=== PATIENT | male | born 1990 | race Caucasian/White ===

== ENCOUNTER 2022-12-20 14:24 | Emergency (ER) | payer MEDICAID, SELFPAY ==
[2022-12-20 14:36] VITALS: BP 143/96; PULSE 100; RESP 16; TEMP 36.6; O2SAT 95
--- NOTE | 2022-12-20 14:40 | XR_ITS ---
[facility] [id number] Patient Name: MILA PEREZ MRN: [id number] date: 1990 Sex: M Assigned Patient Location: ER Current Patient Location: ER Accession/Order Number: [id number] Exam Date: 12/20/2022 14:50 Report Date: 12/20/2022 15:15 At the request of: GUSTAVO SMALL Procedure: XR toe LT min 2V EXAM: XR toe LT min 2V HISTORY: pain in L great toe COMPARISON: None. TECHNIQUE: 2 views left great toe. FINDINGS: Comminuted left great toe distal phalanx fracture. Intra-articular but nondisplaced at the IP joint and additional comminution and minimal displacement at the junction of base and shaft. Mild overlying edema. The remainder of the left great toe is intact except for minimal degenerative change great toe MTP joint. IMPRESSION: Acute comminuted intra-articular fracture left great toe distal phalanx. Electronically authenticated by: MILA ENRIQUE Date: 12/20/2022 15:15
--- NOTE | 2022-12-20 14:45 | ED.LOWEXI1 ---
HPI - Extremity Injury (Lower) General Chief Complaint: Extremity Injury, Lower Stated Complaint: POSSIBLE BROKEN TOE Time Seen by Provider: 12/20/22 14:45 Source: patient Mode of arrival: Wheelchair History of Present Illness HPI Narrative: patient's here for an injury to his left great toe. He was walking at home and hit the broad frame. He did not fall. Has no injury to his ankle or the rest of his lower extremity. An isolated injury and he was sent to x-ray after being triaged by the nursing staff problem focused examination as noted below Related Data Allergies Allergy/AdvReac Type Severity Reaction Status Date / Time No Known Drug Allergies Allergy Verified 12/20/22 14:36 Exam Constitutional Vital Signs - 24 hr 12/20/22 14:36 Temperature 97.9 F Pulse Rate [Monitor] 100 H Respiratory Rate 16 Blood Pressure [Left Arm] 143/96 H Pulse Oximetry 95 Extremity Common normals: normal to inspection Other: has a very small developing hematoma underneath the nail was left great toe. Otherwise no open wound or injury. The plantar surface the great toe does not show a tense hematoma. There is no deformity. The rest the foot and digits is normal. X-rays are pending Course Vital Signs Vital signs: Vital Signs Temperature 97.9 F 12/20/22 14:36 Pulse Rate 100 H 12/20/22 14:36 Respiratory Rate 16 12/20/22 14:36 Blood Pressure 143/96 H 12/20/22 14:36 Pulse Oximetry 95 12/20/22 14:36 Temperature 97.9 F 12/20/22 14:36 Pulse Rate 100 H 12/20/22 14:36 Respiratory Rate 16 12/20/22 14:36 Blood Pressure 143/96 H 12/20/22 14:36 Pulse Oximetry 95 12/20/22 14:36 MDM - Extremity Injury (Lower) MDM Narrative Medical decision making narrative: x-rays were reviewed by myself and does show a slightly displaced fracture of the distal phalanx. This was discussed with the patient. We'll place him in a postop shoe ice elevation and following up with his local podiatry physician Discharge Plan Discharge Chief Complaint: Extremity Injury, Lower Clinical Impression: Closed fracture of distal phalanx of great toe Patient Disposition: Home, Self-Care Time of Disposition Decision: 15:16 Instructions: Toe Fracture (ED), P.R.I.C.E. Treatment (ED) Stand Alone Forms: Portal Instructions Referrals: Physician,Non-Staff, MD [Primary Care Provider] - 1 week Discharge Date/Time: 12/20/22 16:11
--- NOTE | 2022-12-20 15:36 | PC.NURSE ---
LISA wrap and post op shoe applied at this time
== END 2022-12-20 16:11 | disposition home or self-care (01) ==
PROVIDERS: Emergency Provider Emergency Medicine Emergency Medical Services
DX: S92.422A Displaced fracture of distal phalanx of left great toe, initial encounter for closed fracture (principal); W22.03XA Walked into furniture, initial encounter
CPT/HCPCS: 73660; 99283

== ENCOUNTER 2023-05-08 08:16 | Outpatient (OUT) | payer MEDICAID, SELFPAY ==
--- NOTE | 2023-05-08 | PCN_ITS ---
CARDIAC STRESS TEST Requesting Physician:? Procedure Date:? 05/08/2023 This was a Lexiscan stress test with myocardial perfusion imaging, performed at the [facility], on 05/08/2023.? Informed consent was obtained.? Intravenous line was secured and the patient was attached to electrocardiographic monitoring. ??The test was started as a treadmill exercise stress, and the patient initially exercised on the treadmill ; however, due to back pain, the patient could not continue treadmill exercise test, and the test was switched to Lexiscan.? Lexiscan 0.4 mg was infused intravenously.? The patient then went on to obtain myocardial perfusion images.? Resting heart rate was 96 BPM and peak heart rate was 157 BPM, representing, 84% of maximal predicted heart rate.? Resting blood pressure was 126/94 and peak blood pressure was 162/84.? Resting ECG showed sinus rhythm with no ischemic changes.? ECG during treadmill exercise did not show ischemic changes. ?There was evidence of sinus tachycardia.? ECG following infusion of Lexiscan showed sinus rhythm with occasional PVCs, but no ischemic changes.? SUMMARY OF THE FINDINGS:? 1.? No evidence of ischemic ECG changes following infusion of Lexiscan. 2.? Myocardial perfusion images will be reported separately. JOHND
--- NOTE | 2023-05-08 08:20 | NM_ITS ---
Patient: MILA PEREZ Exam Date: 05/08/2023 : 1990 Gender:M Ordering : DR BENITA RASHID M.D. Admission #: [id number] Family : Non-Staff Physician Order #: [id number] CLICK HERE TO VIEW EXAM RADIOLOGY REPORT PROCEDURE: NM SUNDEEP PERF SPECT REST STR COMPARISON: None. INDICATIONS: SHORTNESS OF BREATH TECHNIQUE: Exam Description: Stress/Rest one day protocol gated SPECT Rest Imagin.8 mCi Tc-99m Cardiolite IV on 05/08/2023 Stress Imaging 29.8 mCi Tc-99m Cardiolite IV on 05/08/2023 Exercise Protocol: 0.4 mg Lexiscan given IV Heart Rate (bpm): Rest: 96 Max: 157 PMHR: 84 Blood Pressure: Rest: 126/94 Max: 162/84 Symptoms: Rest and peak stress ECG findings were pending and the exercise portion of the study was pending per attending physician Dr. Barnhart due to the stress report is unavailable at this time. For more details please see separate cardiac stress test report. FINDINGS: QUALITY OF STUDY: Good. PERFUSION DEFECT: None. LOCATION: N/A SIZE: N/A. SEVERITY: N/A. TYPE: N/A. WALL MOTION: Normal. LV SIZE: Normal. 83 mL. TID / TCD: None; 0.8 LVEF: Normal. Calculated EF 68%. SUMMARY: Myocardial perfusion imaging study is NORMAL. CONCLUSION: 1. Normal myocardial perfusion scan with no reversible ischemia 2. Pending exercise test results Dictated by: David Tristan MD on 05/11/2023 at 08:48 Approved by: David Tristan MD on 05/11/2023 at 08:50
--- NOTE | 2023-05-08 08:54 | CA_ITS ---
Patient: MILA PEREZ Exam Date: 05/08/2023 : 1990 Gender:M Ordering : DR BENITA KRISHNAMURTHY M.D. Admission #: [id number] Family : Order #: [id number] CLICK HERE TO VIEW EXAM ECHOCARDIOGRAM REPOR PROCEDURE: CA ECHO DOPPLER COMPLETE INDICATIONS: PALPITATIONS COMPARISON: None. DESCRIPTION: COMPLETE ECHOCARDIOGRAM Real-time transthoracic echocardiography with 2D, M-mode, spectral and color flow Doppler performed. QUALITY: Technical quality was good. LEFT VENTRICLE: Normal chamber size. Normal left ventricular wall thickness. LV EF: Global left ventricular systolic function is hyperdynamic; visually estimated ejection fraction 65 to 70%. No wall motion abnormalities. DIASTOLIC: Normal diastolic function. ATRIAL SEPTUM: Visually appears intact. LEFT ATRIUM: Normal chamber size. RIGHT ATRIUM: Normal chamber size. RIGHT VENTRICLE: Normal chamber size. Normal right ventricular systolic function. TRICUSPID VALVE: Normal mobility and thickness. No stenosis with no regurgitation. MITRAL VALVE: Normal mobility and thickness. No evidence of mitral valve stenosis. There is no mitral annular calcification. No mitral regurgitation. AORTIC VALVE: Normal trileaflet appearance. No visible sclerosis. Normal leaflet mobility. No evidence of aortic valve stenosis. No aortic regurgitation. AORTIC ROOT: Normal diameter and appearance. PULMONIC VALVE: Normal thickness and mobility. No stenosis. Trivial regurgitation. PERICARDIUM: Trivial pericardial effusion. IVC: Collapses with inspirations. CONCLUSION: 1. Global left ventricular systolic function is hyperdynamic; visually estimated ejection fraction is 65-70% 2. The right ventricle is normal in size and systolic function 3. Normal diastolic function 4. No significant valvular abnormalities 5. Trivial pericardial effusion Adult Echocardiography Procedure Report Left Ventricle LVEDD (3.7 - 5.6 cm): 4.75 cm LVESD (2.2 - 4.0 cm): 2.23 cm LVIVS thickness (0.6 - 1.2 cm): 1.19 cm LVPW thickness (0.5 - 1.0 cm): 0.79 cm e': 0.10 m/s E - e': 6.53 LVOT Max Gradient: 3.75 mm[Hg] LVOT Area (cm2): 0.97 m/s Peak Velocity (LVOT): 0.97 m/s LVOT Diameter 2.37 cm Left Atrium LA Volume Index (2D A2C): 16.83 ml/m2 Left Atrium Systolic Dimension: 3.45 cm Mitral Valve MV E to A Ratio: 0.91 Mitral Valve A-Wave Peak Velocity: 0.72 m/s Mitral Valve E-Wave Peak Velocity: 0.66 m/s Right Ventricle Aorta AO Root Diam: 3.83 cm Ascending Ao Diam: 2.74 cm Aortic Valve AoV Area (Peak Mannie): 5.57 cm2, 5.57 cm2 Peak Velocity(Antegrade Flow): 0.77 m/s Peak Gradient(Antegrade Flow): 2.37 mm[Hg] Tricuspid Valve Pulmonic Valve Mean Gradient: 2.92 mm[Hg] Mean Velocity: 0.80 m/s Peak Velocity: 1.13 m/s, 1.00 m/s Peak Gradient: 5.08 mm[Hg], 3.96 mm[Hg] Right Atrium Right Atrium Systolic Pressure: 36.57 ml, 36.57 ml Dictated by: Benita Krishnamurthy M.D. on 05/08/2023 at 14:57 Approved by: Benita Krishnamurthy M.D. on 05/08/2023 at 15:01
[2023-05-08] MEDS: REGADENOSON 0.4 MG/5 ML SYRINGE IV (10:05)
== END 2023-05-08 08:17 | disposition home or self-care (01) ==
LOC: NM 08:16
PROVIDERS: Visit Provider Internal Medicine Interventional Cardiology
DX: R06.02 Shortness of breath (principal); R00.2 Palpitations
CPT/HCPCS: 78452; 93017; 93306; A9500; J2785

== ENCOUNTER 2023-05-16 22:35 | Emergency (ER) | payer MEDICAID, SELFPAY ==
[2023-05-16 22:38] VITALS: BP 148/94; PULSE 63; RESP 18; TEMP 36.4; O2SAT 96; BMI 31.2
--- NOTE | 2023-05-16 22:54 | ED_ITS ---
HPI - Male Genitourinary General Chief complaint: Urogenital-Male Stated complaint: back pain Time Seen by Provider: 05/16/23 22:42 Source: patient Mode of arrival: walk-in Limitations: no limitations History of Present Illness HPI Narrative: complains of backpain, abdominal pain and pain of his testes. States similar pain on and off for several months. States usually goes away. Known history of lumbar disc bulge from injury while in . No urinary symptoms or fever MD Complaint: Reports testicle pain Related Data Allergies Allergy/AdvReac Type Severity Reaction Status Date / Time No Known Drug Allergies Allergy Verified 12/20/22 14:36 Review of Systems ROS Status of ROS 10 or more systems reviewed and unremarkable except as noted in history and below Exam Constitutional Vital Signs, click to edit/add: Last Vital Signs Temp 97.6 F 05/16/23 22:38 Pulse 63 05/16/23 22:38 Resp 18 05/16/23 22:38 BP 148/94 H 05/16/23 22:38 Pulse Ox 96 05/16/23 22:38 O2 Del Method Room Air 05/16/23 22:38 Common normals: no apparent distress, average body habitus, oriented x3, no limitations, healthy appearing and alert Eye Common normals: EOMs intact bilaterally and conjunctivae normal Respiratory Common normals: normal respiratory effort, no retractions, no use of accessory muscles and clear to auscultation bilaterally Cardio Common normals: regular rate, regular rhythm, S1 normal heart sound and S2 normal heart sound GI Common normals: Normal to inspection, nondistended, normoactive bowel sounds present, soft to palpation and non-tender Common normals: no CVA tenderness Other: testes not swollen or tender. Normal color Extremity Common normals: normal to inspection and full ROM Neuro Common normals: oriented x3, CN's II-XII intact bilaterally, moves all extremities, no focal motor deficits and no sensory deficits noted Psych Appearance: grossly normal Course Vital Signs Vital signs: Vital Signs Temperature 97.6 F 05/16/23 22:38 Pulse Rate 63 05/16/23 22:38 Respiratory Rate 18 05/16/23 22:38 Blood Pressure 148/94 H 05/16/23 22:38 Pulse Oximetry 96 05/16/23 22:38 Oxygen Delivery Method Room Air 05/16/23 22:38 Temperature 97.6 F 05/16/23 22:38 Pulse Rate 63 05/16/23 22:38 Respiratory Rate 18 05/16/23 22:38 Blood Pressure 148/94 H 05/16/23 22:38 Pulse Oximetry 96 05/16/23 22:38 Oxygen Delivery Method Room Air 05/16/23 22:38 MDM - Male Genitourinary MDM Narrative Medical decision making narrative: patient presents complaining of pain of his back and testes. States similar pain in the past that would usually resolve after 10 minutes or so. Pain again tonight but this time there was pain of his back, mild abdominal pain and testes pain. No testicular injury. Exam finds testes not swollen or tender. CT abdomen and pelvis without acute findings. Mild tenderness of his lumbar spine. No focal tenderness. Labs with microscopic hematuria but no infection. Pain improved after cocktail or Toradol, solumedrol and magnesium. Atypical presentation but improved. Discharged with Toradol and advised to follow up with his doctor for recheck Lab Data Labs: Lab Results 05/16/23 05/16/23 Range/Units 22:44 23:05 WBC 9.9 (4.0-11.0) 10^3/uL RBC 5.64 (4.70-6.10) 10^6/uL Hgb 16.1 (14.0-18.0) g/dL Hct 48.4 (42.0-54.0) % MCV 85.8 (80.0-94.0) fL MCH 28.5 (25.9-34.0) pg MCHC 33.3 (29.9-35.2) g/dL RDW 11.9 (11.0-15.0) % Plt Count 201 (150-450) 10^3/uL MPV 9.2 L (9.5-13.5) fL Neut % (Auto) 61.6 (43.0-75.0) % Lymph % (Auto) 24.9 (20.5-60.0) % [place] % (Auto) 11.6 (1.7-12.0) % Eos % (Auto) 1.4 (0.9-7.0) % Baso % (Auto) 0.3 (0.2-2.0) % Neut # (Auto) 6.1 (1.4-6.5) 10^3/uL Lymph # (Auto) 2.5 (1.2-3.8) 10^3/uL [place] # (Auto) 1.2 H (0.3-0.8) 10^3/uL Eos # (Auto) 0.1 (0.0-0.7) 10^3/uL Baso # (Auto) 0.0 (0.0-0.1) 10^3/uL Abs Immat Gran (auto) 0.02 (0.00-0.03) 10^3/uL Imm/Tot Granulo (auto) 0.2 (0.0-0.5) % Sodium 137 (136-145) mmol/L Potassium 4.0 (3.5-5.1) mmol/L Chloride 101 (98-107) mmol/L Carbon Dioxide 28.9 (21.0-32.0) mmol/L Anion Gap 11.1 BUN 32.0 H (7.0-18.0) mg/dL Creatinine 1.07 (0.70-1.30) mg/dL Est GFR ( Amer) >60 (>=60) Est GFR (Non-Af Amer) >60 (>=60) BUN/Creatinine Ratio 29.9 Glucose 99 (74-106) mg/dL Calcium 8.9 (8.5-10.1) mg/dL Total Bilirubin 0.4 (0.2-1.0) mg/dL AST 16 (15-37) U/L ALT 23 (16-63) U/L Alkaline Phosphatase 86 (46-116) U/L Total Protein 7.5 (6.4-8.2) g/dL Albumin 3.6 (3.4-5.0) g/dL Globulin 3.9 g/dL Albumin/Globulin Ratio 0.9 Urine Color Lt. yellow (YELLOW) Urine Clarity Clear (CLEAR) Urine pH 6.0 (5.0-9.0) Ur Specific [place] 1.010 (1.005-1.025) Urine Protein Negative (NEG/TRACE) mg/dL Urine Glucose (UA) Negative (NEGATIVE) mg/dL Urine Ketones Negative (NEGATIVE) mg/dL Urine Occult Blood Moderate A (NEGATIVE) Urine Nitrite Negative (NEGATIVE) Urine Bilirubin Negative (NEGATIVE) Urine Urobilinogen 0.2 (0.2-1.0) EU/dL Ur Leukocyte Esterase Negative (NEGATIVE) Imaging Data Abdominal x-ray: Radiologist's impression: ANA MRN: [facility]:[id number] date: 1990 Sex: M Assigned Patient Location: ER Current Patient Location: ER Accession/Order Number: [id number] Exam Date: 05/16/2023 23:08 Report Date: 05/16/2023 23:55 At the request of: LACHELLE CANDELARIA Procedure: CT abdomen pelvis w con EXAM: CT abdomen pelvis w con HISTORY: abdominal and scrotal pain COMPARISON: 06/07/2022 TECHNIQUE: CT of the abdomen and pelvis with intravenous contrast. FINDINGS: TUBES AND IMPLANTS: None. LOWER CHEST: Unremarkable ABDOMEN and PELVIS ABDOMINAL WALL AND SOFT TISSUES: Small fat-containing umbilical hernia BONES: No suspicious lesions. Multilevel degenerative changes of the spine. ARTERIES: No aortoiliac aneurysm VEINS: Unremarkable. LYMPH NODES: Unremarkable. PERITONEUM/ RETROPERITONEUM: Unremarkable. BOWEL: No obstruction. Mild diverticulosis. APPENDIX: Not identified. LIVER: Enlarged measuring 20 centimeters with probable steatosis. Subcentimeter left lobe hypodensity, too small to characterize GALLBLADDER: Unremarkable. BILE DUCTS: Not dilated SPLEEN: Unremarkable. PANCREAS: Unremarkable. ADRENALS: Unremarkable. KIDNEYS/ URETERS: No stones or hydronephrosis. REPRODUCTIVE ORGANS: Unremarkable URINARY BLADDER: Mildly filled. Delayed imaging demonstrates contrast within the bladder CT/CT abdomen pelvis w con IMPRESSION: No evidence of acute abdominopelvic process. Hepatomegaly with probable steatosis. Mild diverticulosis. Electronically authenticated by: ANDRES NOBLES Date: 05/16/2023 23:55 Dictated By: Andres Nobles M.D. Signed By: 05/16/239 DD/ 54 TD/TT: Discharge Plan Discharge Chief Complaint: Urogenital-Male Clinical Impression: Back pain, Scrotal pain Patient Disposition: Home, Self-Care Condition: Good Mode of Transportation: Private Vehicle Instructions: Back Pain (ED), Scrotal Pain (ED) Additional Instructions: Script for Toradol sent home. May use with tylenol as needed for pain. Follow up with your doctor early next week for recheck. Return if pain increases Stand Alone Forms: Portal Instructions Referrals: Physician,Non-Staff, MD [Primary Care Provider] - 1 week
[2023-05-16 23:08] LABS: Basophils Percent Auto 0.3 % (0.2-2.0); Eosinophils Absolute Auto 0.1 10^3/uL (0.0-0.7); Eosinophils Percent Auto 1.4 % (0.9-7.0); Hematocrit 48.4 % (42.0-54.0); Hemoglobin 16.1 g/dL (14.0-18.0); Immature Granulocytes Abs Auto 0.02 10^3/uL (0.00-0.03); Immature Granulocytes Pct Auto 0.2 % (0.0-0.5); Lymphocytes Absolute Auto 2.5 10^3/uL (1.2-3.8); Lymphocytes Percent Auto 24.9 % (20.5-60.0); Mean Corpuscular HGB Conc 33.3 g/dL (29.9-35.2); Mean Corpuscular Hemoglobin 28.5 pg (25.9-34.0); Mean Corpuscular Volume 85.8 fL (80.0-94.0); Mean Platelet Volume 9.2 fL (9.5-13.5); Monocytes Absolute Auto 1.2 10^3/uL (0.3-0.8); Monocytes Percent Auto 11.6 % (1.7-12.0); Neutrophils Absolute Auto 6.1 10^3/uL (1.4-6.5); Neutrophils Percent Auto 61.6 % (43.0-75.0); Platelet Count 201 10^3/uL (150-450); Red Blood Count 5.64 10^6/uL (4.70-6.10); Red Cell Distribution Width 11.9 % (11.0-15.0); White Blood Count 9.9 10^3/uL (4.0-11.0)
[2023-05-16 23:16] LABS: Bilirubin Urine NEGATIVE (NEGATIVE); Blood Urine MODERATE (NEGATIVE); Clarity Urine CLEAR (CLEAR); Color Urine LT. YELLOW (YELLOW); Glucose Urine UA NEGATIVE (NEGATIVE); Ketones Urine NEGATIVE (NEGATIVE); Leukocyte Esterase Urine NEGATIVE (NEGATIVE); Nitrite Urine NEGATIVE (NEGATIVE); Protein Urine NEGATIVE (NEG/TRACE); Urine Microscopic Indicated NO; Urobilinogen Urine 0.2 EU/dL (0.2-1.0)
[2023-05-16] MEDS: 0.9 % SODIUM CHLORIDE 1,000 ML 999 ML IV (23:17)
[2023-05-16 23:20] LABS: Alanine Aminotransferase 23 U/L (16-63); Albumin Globulin Ratio 0.9; Albumin Level 3.6 g/dL (3.4-5.0); Alkaline Phosphatase 86 U/L (46-116); Anion Gap 11.1; Aspartate Amino Transferase 16 U/L (15-37); BUN Creatinine Ratio 29.9; Bilirubin Total 0.4 mg/dL (0.2-1.0); Calcium 8.9 mg/dL (8.5-10.1); Carbon Dioxide 28.9 mmol/L (21.0-32.0); Chloride 101 mmol/L (98-107); Estimated GFR (African America >60 (>=60); Estimated GFR (Non-African Ame >60 (>=60); Globulin 3.9 g/dL; Glucose 99 mg/dL (74-106); Sodium 137 mmol/L (136-145); Total Protein 7.5 g/dL (6.4-8.2)
[2023-05-16] MEDS: KETOROLAC TROMETHAMINE 30 MG/ML VIAL IVP (23:36)
[2023-05-17] MEDS: METHYLPREDNISOLONE SOD SUCC PF 125 MG/2 ML VIAL IVP (00:38)
[2023-05-17] MEDS: MAGNESIUM SULFATE IN WATER 2 GM/50 ML PREMIX IV (00:39)
== END 2023-05-17 01:59 | disposition home or self-care (01) ==
PROVIDERS: Emergency Provider Internal Medicine
DX: N50.82 Scrotal pain (principal); M54.9 Dorsalgia, unspecified
CPT/HCPCS: 36415; 74177; 80053; 81003; 85025; 96365; 96375; 99284; J2930; Q9967

== ENCOUNTER 2023-08-18 14:37 | Outpatient (OUT) | payer MEDICAID, SELFPAY ==
--- OUTSIDE RECORDS SUMMARY | 2023-08-18 14:53 | XMS_ITS | CCD ---
Author Name Unknown Address [address] [facility] [id number] [place] [address] Organization [facility] Care Team Providers Care Margarine Churn Operator Name Role Phone Dariana Nelson Unavailable CheriChristi griffin Unavailable MAYTE, DR GRIFFITHS Attending Unavailable MISC, DR ROE Primary Care Unavailable TORY, DR FARIDA Gage Consulting Unavailable MAYTE, DR GRIFFITHS Admitting Unavailable MAYTE, DR GRIFFITHS Consulting Unavailable MAYTE, DR GRIFFITHS Consulting Unavailable MISC, DR ROE Primary Care Unavailable LACHELLE CANDELARIA Attending Unavailable TEAGAN, LACHELLE Admitting Unavailable TEAGAN, LACHELLE Consulting Unavailable ANÍBAL CHAVEZ Consulting Unavailable BUCK, YNES Admitting Unavailable BUCK, YNES Consulting Unavailable MISC, DR ROE Primary Care Unavailable BUCK, YNES Attending Unavailable FARIDA TREVIÑO Consulting Unavailable MAYTE, DR GRIFFITHS Admitting Unavailable MAYTE, DR GRIFFITHS Consulting Unavailable MAYTE, DR GRIFFITHS Attending Unavailable MISC, DR ROE Primary Care Unavailable GEOVANNY, DR GUSTAVO Parker Attending Unavailabl e GEOVANNY, DR GUSTAVO Parker Admitting Unavailabl e MISC, DR ROE Primary Care Unavailable GEOVANNY, DR GUSTAVO Parker Consulting Unavaildesire KRISHNAMURTHY, DR JOY Attending Unavailable KIMBERLYC, DR ROE Primary Care Unavailable GAY, DR JOY Admitting Unavailable BUCK, YNES Admitting Unavailable YNES JANE Consulting Unavailable YNES JANE Attending Unavailable MISC, DR ROE Primary Care Unavailable Maria T De León Unavailable CHEL KRISHNAMURTHY Attending Unavailable CHEL KRISHNAMURTHY Attending Unavailable Mike Rogers Unavailable [phone] Medications Current Medications Medication Drug Class(es) Dates Sig (Normalized) Sig (Original) amoxicillin 875 mg oral tablet (1 source) Penicillin-class Antibacterial Start: 06-27-2021 take 1 tablet by mouth every twelve hours Amoxicillin 875 MG 1 tablet Orally every 12 hrs for 7 days Jun, Active amoxicillin 50 mg/ml / clavulanate 12.5 mg/ml oral suspension (2 sources) Penicillin-class Antibacterial Start: 06-04-2022 take 10 mL by mouth every eight hours Amoxicillin-Pot Clavulanate 250-62.5 MG/5ML 10 mL Orally every 8 hours for 10 day(s) May, Active Start: 03-13-2022 take 10 mL by mouth every eight hours Amoxicillin-Pot Clavulanate 250-62.5 MG/5ML 10 mL Orally every 8 hrs for 10 day(s) Mar, Active clindamycin 300 mg oral capsule (1 source) Lincosamide Antibacterial Start: 01-01-2022 take 1 capsule by mouth every eight hours Clindamycin HCl 300 MG 1 cap(s) Orally three times a day for 10 day(s) Dec, Active fluticasone propionate 0.05 mg/actuat metered dose nasal spray (1 source) Corticosteroid Start: 06-04-2022 take 2 spray(s) nasal route once daily Fluticasone Propionate 50 MCG/ACT 2 sprays Nasally Once a day for 14 day(s) May, Active hydrOXYzine hydrochloride 10 mg oral tablet (2 sources) Antihistamine take 1 tablet by mouth every twenty-four hours hydrOXYzine HCl 10 MG 1 tablet as needed Orally Once a day Active Vistaril Active omeprazole 20 mg delayed release oral capsule (2 sources) Proton Pump Inhibitor take 1 capsule by mouth once daily Omeprazole 20 MG 1 capsule 30 minutes before morning meal Orally Once a day Active Qelbree (1 source) Qelbree Active Completed/Discontinued Medications Medication Drug Class(es) Dates Sig (Normalized) Sig (Original) [id number] 200 actuat albuterol 0.09 mg/actuat metered dose inhaler (2 sources) beta2-Adrenergic Agonist Start: 07-29-2022 take 2 puff(s) by inhalation every four hours as needed Albuterol Sulfate HFA 108 (90 Base) MCG/ACT 2 puffs as needed Inhalation every 4 hrs Jul, Not-Taking azithromycin 40 mg/ml oral suspension (2 sources) Macrolide Antimicrobial Start: 07-29-2022 Azithromycin 200 MG/5ML 12.5 ml day 1 then 7.5 ml days 2-5 Orally Once a day for 5 day(s) Jul, Not-Taking prednisoLONE 3 mg/ml oral solution (3 sources) Corticosteroid Start: 07-29-2022 take 7.5 mL by mouth twice daily at mealtime prednisoLONE 15 MG/5ML 7.5 ml Orally twice a day with food for 5 days Jul, Not-Taking Start: 06-04-2022 take 13 mL by mouth once daily prednisoLONE 15 MG/5ML 13 ml Orally qd for 5 day(s) May, Active Problems Active Problems Problem Classification Problem Date Documented Date Episodic/Chronic Abdominal hernia (1 source) Umbilical hernia without obstruction or gangrene; Translations: [UMBILICAL HERNIA W/O OBST/GANGRENE] Onset: 06-09-2022 Episodic Abdominal pain (4 sources) Unspecified abdominal pain; Translations: [UNSPECIFIED ABDOMINAL PAIN] Onset: 06-07-2022 Episodic Anxiety disorders (2 sources) Anxiety disorder, unspecified; Translations: [Post-traumatic stress disorder, unspecified] Onset: 07-01-2021 Chronic Chronic obstructive pulmonary disease and bronchiectasis (1 source) Bronchitis, not specified as acute or chronic Episodic Disorders of teeth and jaw (1 source) Chronic gingivitis, plaque induced Onset: 01-01-2022 Resolved: 01-01-2022 Chronic Esophageal disorders (1 source) Gastroesophageal reflux disease without esophagitis; Translations: [Gastro-esophageal reflux disease without esophagitis] Chronic Essential hypertension (1 source) Essential (primary) hypertension; Translations: [ESSENTIAL PRIMARY HYPERTENSION] Onset: 07-01-2021 Chronic Immunizations and screening for infectious disease (3 sources) Contact with and (suspected) exposure to other viral communicable diseases Onset: 06-27-2021 Resolved: 06-27-2021 Episodic Other lower respiratory disease (2 sources) Other forms of dyspnea; Translations: [Other forms of dyspnea] Onset: 04-08-2023 Episodic Other upper respiratory disease (3 sources) Allergic rhinitis; Translations: [Allergic rhinitis, unspecified] Chronic Other upper respiratory disease (1 source) Allergic rhinitis, unspecified Chronic Other upper respiratory infections (1 source) Chronic sinusitis, unspecified; Translations: [CHRONIC SINUSITIS UNSPECIFIED] Onset: 11-06-2021 Chronic Other upper respiratory infections (8 sources) Acute sinusitis, unspecified; Translations: [Acute pharyngitis, unspecified] Onset: 07-05-2021 Episodic Past or Other Problems Problem Classification Problem Date Documented Date Episodic/Chronic Cardiac dysrhythmias (4 sources) Palpitations; Translations: [PALPITATIONS] Onset: 01-21-2022 Episodic Conditions associated with dizziness or vertigo (4 sources) Dizziness and giddiness; Translations: [DIZZINESS AND GIDDINESS] Onset: 06-29-2021 Episodic Diseases of mouth; excluding dental (4 sources) Other lesions of oral mucosa; Translations: [Other forms of stomatitis] Onset: 09-02-2021 Episodic Disorders of teeth and jaw (2 sources) Aggressive periodontitis, localized, unspecified severity; Translations: [Periapical abscess without sinus] Onset: 11-06-2021 Resolved: 03-13-2022 Episodic Other lower respiratory disease (1 source) Hemoptysis; Translations: [HEMOPTYSIS] Onset: 11-06-2021 Episodic Other upper respiratory disease (3 sources) Nasal congestion; Translations: [NASAL CONGESTION] Onset: 11-02-2021 Episodic Otitis media and related conditions (1 source) Otitis media, unspecified, left ear Onset: 06-27-2021 Resolved: 06-27-2021 Episodic Screening and history of mental health and substance abuse codes (1 source) Personal history of nicotine dependence; Translations: [PERSONAL HISTORY OF NICOTINE DEPEND] Onset: 01-22-2022 Episodic Viral infection (1 source) Unspecified viral infection characterized by skin and mucous membrane lesions; Translations: [UNS VIRAL INF SKIN AND MUCUS MEMB LES] Onset: 07-08-2021 Episodic Viral infection (3 sources) COVID-19; Translations: [COVID-19] Onset: 06-27-2021 Resolved: 06-27-2021 Results Test Name Value Interpretation Reference Range Facility Office Visiton 06-03-2023 Follow-up visit [id number] Mila Ochoa 1990 M Date Provider Department Center 06/03/2023 271-CHEL KRISHNAMURTHY CARD [facility] No family history on file Level of Service:09557 [place] OFFICE/OUTPATIENT ESTABLISHED LOW MDM 20-29 MIN Normal [facility] COVID + FLU Quick Testingon 05-23-2023 SARS-CoV-2 (COVID-19) RNA RASHAAD+probe Ql (Unsp spec) Positive [employer] Other COVID + FLU Quick Testing Negative [employer] Other Office Visiton 04-08-2023 Follow-up visit [id number] Mila Ochoa 1990 M Date Provider Department Center 04/08/2023 271-GAY, ABELARDOAB CARD [facility] No family history on file Level of Service:30346 CA OFFICE/OUTPATIENT ESTABLISHED MOD MDM 30-39 MIN Normal [facility] Quick Strepon 03-16-2023 S. pyogenes Org specific cx Ql (Throat) Negative [employer] Other Quick Strep [employer] Other COVID + FLU Quick Testingon 07-29-2022 SARS-CoV-2 (COVID-19) RNA RASHAAD+probe Ql (Unsp spec) [employer] Other COVID + FLU Quick Testing Negative [employer] Other Quick Strepon 07-29-2022 S. pyogenes Org specific cx Ql (Throat) Negative [employer] [facility] [employer] Other Quick Strep [employer] [facility] [employer] Other AMYLASEon 06-07-2022 Amylase [Catalytic activity/Vol] 60 U/L Normal 25-115 [facility] Comment on above: Performed By: #### B MP, CMADM #### [facility] [address] [place] [address] Dr. Bert Ferrara CBC AUTO DIFFon 06-07-2022 BASO # 0.0 103/ul Normal 0.0-0.1 [facility] Comment on above: Performed By: #### C BC #### [facility] [address] [place] [address] Dr. Bert Ferrara Basophils/100 WBC (Bld) 0.3 % Normal 0.2-2.0 [facility] Comment on above: Performed By: #### C BC #### [facility] [address] [place] [address] Dr. Bert Ferrara EO # 0.1 103/ul Normal 0.0-0.7 [facility] Comment on above: Performed By: #### C BC #### [facility] [address] [place] [address] Dr. Bert Ferrara Eosinophils/100 WBC (Bld) 0.4 % Critically low 0.9-7.0 [facility] Comment on above: Performed By: #### C BC #### [facility] [address] [place] [address] Dr. Bert Ferrara Erythrocyte distribution width (RBC) [Ratio] 12.0 % Normal 11.0-15.0 [facility] Comment on above: Performed By: #### C BC #### [facility] [address] [place] [address] Dr. Bert Ferrara Hematocrit (Bld) [Volume fraction] 48.5 % Normal 42.0-54.0 [facility] Comment on above: Performed By: #### C BC #### [facility] [address] [place] [address] Dr. Bert Ferrara Hemoglobin (Bld) [Mass/Vol] 16.9 g/dL Normal 14.0-18.0 [facility] Comment on above: Performed By: #### C BC #### [facility] [address] [place] [address] Dr. Bert Ferrara IG # 0.05 10e3/ul Critically high 0.00-0.03 [facility] Comment on above: Performed By: #### C BC #### [facility] [address] [place] [address] Dr. Bert Ferrara IG % 0.3 % Normal 0.0-0.5 [facility] Comment on above: Performed By: #### C BC #### [facility] [address] [place] [address] Dr. Bert Ferrara LYMPH # 3.0 103/ul Normal 1.2-3.8 [facility] Comment on above: Performed By: #### C BC #### [facility] [address] [place] [address] Dr. Bert Ferrara Lymphocytes/100 WBC (Bld) 20.9 % Normal 20.5-60.0 [facility] Comment on above: Performed By: #### C BC #### [facility] [address] [place] [address] Dr. Bert Ferrara MANUAL DIFF REQ NO Normal [facility] Comment on above: Performed By: #### C BC #### [facility] [address] [place] [address] Dr. Bert Ferrara MCH (RBC) [Entitic mass] 28.5 pg Normal 25.9-34.0 [facility] Comment on above: Performed By: #### C BC #### [facility] [address] [place] [address] Dr. Bert Ferrara MCHC (RBC) [Mass/Vol] 34.8 g/dL Normal 29.9-35.2 [facility] Comment on above: Performed By: #### C BC #### [facility] [address] [place] [address] Dr. Bert Ferrara MCV (RBC) [Entitic vol] 81.9 fL Normal 80.0-94.0 [facility] Comment on above: Performed By: #### C BC #### [facility] [address] [place] [address] Dr. Bert Ferrara MONO # 1.3 103/ul Critically high 0.3-0.8 [facility] Comment on above: Performed By: #### C BC #### [facility] [address] [place] [address] Dr. Bert Ferrara Monocytes/100 WBC (Bld) 9.0 % Normal 1.7-12.0 [facility] Comment on above: Performed By: #### C BC #### [facility] [address] [place] [address] Dr. Bert Ferrara NEUT # 10.1 103/ul Critically high 1.4-6.5 [facility] Comment on above: Performed By: #### C BC #### [facility] [address] [place] [address] Dr. Bert Ferrara Neutrophils/100 WBC (Bld) 69.1 % Normal 43.0-75.0 [facility] Comment on above: Performed By: #### C BC #### [facility] [address] [address] [address] Bert Ferrara Platelet mean volume (Bld) [Entitic vol] 8.4 fL Critically low 9.5-13.5 [facility] Comment on above: Performed By: #### C BC #### [facility] [address] [address] [address] Bert Ferrara PLT 249 103/ul Normal 150-450 [facility] Comment on above: Performed By: #### C BC #### [facility] [address] [place] [address] Dr. Bert Ferrara RBC 5.92 106/ul Normal 4.70-6.10 [facility] Comment on above: Performed By: #### C BC #### [facility] [address] [place] [address] Dr. Bert Ferrara WBC 14.6 103/ul Critically high 4.0-11.0 [facility] Comment on above: Performed By: #### C BC #### [facility] [address] [place] [address] ABD/PELVIS WO CONon 06-07 CT ABD/PELVIS WO CON EXAMINATION: CT ABD/PELVIS WO CON, 06/07/2022 5:30 PM EST HISTORY: Umbilical pain COMPARISON: None. TECHNIQUE: CT scan of the abdomen and pelvis was performed without IV contrast. CT dose reduction technique was used, including Automated Exposure Control. FINDINGS: LUNG BASES: No visible pulmonary or pleural disease. LIVER: No enlargement, atrophy, abnormal density, or significant focal lesion. BILIARY: No dilatation or calcification. PANCREAS: No lesion, fluid collection, ductal dilatation, or atrophy. SPLEEN: No enlargement or focal lesion. ADRENALS: No mass or enlargement. KIDNEYS: Normal right. Subtle 1.4 cm area of hypodensity left lateral midpole axial image 67, nonspecific. No hydronephrosis or obstructing nephrolithiasis BOWEL/MESENTERY: No visible mass, obstruction, or bowel wall thickening. AORTA/VASCULAR: No aneurysm or dissection. RETROPERITONEUM: No mass or adenopathy. LYMPH NODES: No adenopathy. URINARY BLADDER: No visible focal wall thickening, lesion, or calculus. PELVIC ORGANS: No visible mass. Pelvic organs appropriate for patient age. ABDOMINAL WALL: 2.6 cm umbilical hernia containing mesenteric fat without strangulation BONES: No bony lesion or fracture. OTHER: Negative. IMPRESSION: No obstructive uropathy 1.4 cm left renal cortical hypodensity, nonspecific Electronically authenticated by: FARIDA SPEARS Date: 2022-06-07 18:07 Normal [facility] LIPASEon 06-07-2022 Lipase [Catalytic activity/Vol] 97.0 U/L Normal 73.0-393.0 [facility] Comment on above: Performed By: #### B SYED HERNANDEZ #### [facility] [address] [place] [address] Dr. Bert Ferrara PROF 14(COMP METB)on 022 Albumin [Mass/Vol] 3.8 g/dL Normal 3.4-5.0 [facility] Comment on above: Performed By: #### SYED Moctezuma MP #### [facility] [address] [place] [address] Dr. Bert Ferrara Albumin/Globulin [Mass ratio] 1.1 {ratio} Normal [facility] Comment on above: Performed By: #### SYED Moctezuma MP #### [facility] [address] [place] [address] Dr. Bert Ferrara ALP [Catalytic activity/Vol] 96 U/L Normal 46-116 [facility] Comment on above: Performed By: #### B KEENAN HERNANDEZDM #### [facility] [address] [place] [address] Dr. Bert Ferrara ALT [Catalytic activity/Vol] 29 U/L Normal 16-63 [facility] Comment on above: Performed By: #### B KEENAN HERNANDEZDM #### [facility] [address] [place] [address] Dr. Bert Ferrara Anion gap [Moles/Vol] 5.6 mmol/L Normal [facility] Comment on above: Performed By: #### B MP, CMADM #### [facility] [address] [address] [address] Bert Ferrara AST [Catalytic activity/Vol] 14 U/L Critically low 15-37 [facility] Comment on above: Performed By: #### B DAVID, CMADM #### [facility] [address] [address] [address] Bert Ferrara Bilirubin [Mass/Vol] 0.2 mg/dL Normal 0.2-1.0 [facility] Comment on above: Performed By: #### B DAVID, CMADM #### [facility] [address] [address] [address] Bert Ferrara Calcium [Mass/Vol] 8.8 mg/dL Normal 8.5-10.1 [facility] Comment on above: Performed By: #### B DAVID, CMADM #### [facility] [address] [place] [address] Dr. Bert Ferrara Chloride [Moles/Vol] 101 mmol/L Normal 98-107 [facility] Comment on above: Performed By: #### B DAVID, CMADM #### [facility] [address] [address] [address] Bert Ferrara CO2 [Moles/Vol] 32.1 mmol/L Critically high 21.0-32.0 [facility] Comment on above: Performed By: #### B DAVID, CMADM #### [facility] [address] [address] [address] Bert Ferrara Creatinine [Mass/Vol] 0.90 mg/dL Normal 0.70-1.30 [facility] Comment on above: Performed By: #### B DAVID, CMADM #### [facility] [address] [address] [address] Bert Ferrara EGFR-AF SAO TOMEAN >60 Normal >=60 [facility] Comment on above: Performed By: #### B DAVID, CMADM #### [facility] [address] [address] [address] Bert Ferrara EGFR-NON AF SAO TOMEAN >60 Normal >=60 [facility] Comment on above: Performed By: #### B DAVID, CMADM #### [facility] [address] [address] [address] Bert Ferrara Globulin (S) [Mass/Vol] 3.5 g/dL Normal [facility] Comment on above: Performed By: #### B DAVID, CMADM #### [facility] [address] [address] [address] Bert Ferrara Glucose [Mass/Vol] 93 mg/dL Normal 74-106 [facility] Comment on above: Performed By: #### B DAVID, CMADM #### [facility] [address] [address] [address] Bert Ferrara Potassium [Moles/Vol] 3.7 mmol/L Normal 3.5-5.1 [facility] Comment on above: Performed By: #### B DAVID, CMADM #### [facility] [address] [place] [address] Dr. Bert Ferrara Protein [Mass/Vol] 7.3 g/dL Normal 6.4-8.2 [facility] Comment on above: Performed By: #### B DAVID, KEENANDM #### [facility] [address] [place] [address] Dr. Bert Ferrara Sodium [Moles/Vol] 135 mmol/L Critically low 136-145 [facility] Comment on above: Performed By: #### B DAVID, CMADM #### [facility] [address] [place] [address] Dr. Bert Ferrara Urea nitrogen [Mass/Vol] 21.0 mg/dL Critically high 7.0-18.0 [facility] Comment on above: Performed By: #### B DAVID, CMADM #### [facility] [address] [place] [address] Dr. Bert Ferrara Urea nitrogen/Creatinin e [Mass ratio] 23.3 mg/mg Normal [facility] Comment on above: Performed By: #### B DAVID, CMADM #### [facility] [address] [place] [address] Dr. Bert Ferrara CARDIAC LUC 3-6on 2 CK [Catalytic activity/Vol] 169 U/L Normal 39-308 [facility] Comment on above: Performed By: #### C MREP #### [facility] [address] [address] [address] Bert Ferrara CK.MB [Mass/Vol] 2.28 ng/mL Normal <=3.60 [facility] Comment on above: Performed By: #### C MREP #### [facility] [address] [address] [address] Bert Ferrara HSTROP 4.8 pg/mL Normal 4.0-76.1 [facility] Comment on above: Result Comment: CUT- OFF POINTS HAVE BEEN ESTABLISHED BASED ON THE FOURTH UNIVERSAL DEFINITIONS OF MYOCARDIAL INFARCTION. THE UPPER REFERENCE LIMIT (URL) OF TROPONIN, DEFINED THE 99TH PERCENTILE OF cTnI DISTRIBUTION IN A REFERENCE POPULATION, HAS BEEN CONFIRMED THE DECISION THRESHOLD FOR TX DIAGNOSIS. Performed By: #### C MREP #### [facility] [address] [place] [address] Dr. Bert Ferrara CARDIAC LUC ADMITon 022 CK [Catalytic activity/Vol] 181 U/L Normal 39-308 [facility] Comment on above: Performed By: #### B KEENAN HERNANDEZDM #### [facility] [address] [place] [address] Dr. Bert Ferrara CK.MB [Mass/Vol] 2.61 ng/mL Normal <=3.60 [facility] Comment on above: Performed By: #### B DAVID, CMADM #### [facility] [address] [place] [address] Dr. Bert Ferrara HSTROP 4.6 pg/mL Normal 4.0-76.1 [facility] Comment on above: Result Comment: CUT- OFF POINTS HAVE BEEN ESTABLISHED BASED ON THE FOURTH UNIVERSAL DEFINITIONS OF MYOCARDIAL INFARCTION. THE UPPER REFERENCE LIMIT (URL) OF TROPONIN, DEFINED THE 99TH PERCENTILE OF cTnI DISTRIBUTION IN A REFERENCE POPULATION, HAS BEEN CONFIRMED THE DECISION THRESHOLD FOR TX DIAGNOSIS. Performed By: #### B DAVID, CMADM #### [facility] [address] [place] [address] Dr. Bert Ferrara SUNDEEP 37 ng/mL Normal 16-96 [facility] Comment on above: Performed By: #### B MP, CMADM #### [facility] [address] [address] [address] Bert Ferrara CBC AUTO DIFFon 01-21-2022 BASO # 0.0 103/ul Normal 0.0-0.1 [facility] Comment on above: Performed By: #### C BC #### [facility] [address] [address] [address] Bert Ferrara Basophils/100 WBC (Bld) 0.4 % Normal 0.2-2.0 [facility] Comment on above: Performed By: #### C BC #### [facility] [address] [address] [address] Bert Ferrara EO # 0.2 103/ul Normal 0.0-0.7 [facility] Comment on above: Performed By: #### C BC #### [facility] [address] [place] [address] Dr. Bert Ferrara Eosinophils/100 WBC (Bld) 1.9 % Normal 0.9-7.0 [facility] Comment on above: Performed By: #### C BC #### [facility] [address] [address] [address] Bert Ferrara Erythrocyte distribution width (RBC) [Ratio] 11.9 % Normal 11.0-15.0 [facility] Comment on above: Performed By: #### C BC #### [facility] [address] [place] [address] Dr. Bert Ferrara Hematocrit (Bld) [Volume fraction] 50.5 % Normal 42.0-54.0 [facility] Comment on above: Performed By: #### C BC #### [facility] [address] [place] [address] Dr. Bert Ferrara Hemoglobin (Bld) [Mass/Vol] 17.0 g/dL Normal 14.0-18.0 [facility] Comment on above: Performed By: #### C BC #### [facility] [address] [place] [address] Dr. Bert Ferrara IG # 0.02 10e3/ul Normal 0.00-0.03 [facility] Comment on above: Performed By: #### C BC #### [facility] [address] [place] [address] Dr. Bert Ferrara IG % 0.2 % Normal 0.0-0.5 [facility] Comment on above: Performed By: #### C BC #### [facility] [address] [place] [address] Dr. Bert Ferrara LYMPH # 2.8 103/ul Normal 1.2-3.8 [facility] Comment on above: Performed By: #### C BC #### [facility] [address] [place] [address] Dr. Bert Ferrara Lymphocytes/100 WBC (Bld) 35.0 % Normal 20.5-60.0 [facility] Comment on above: Performed By: #### C BC #### [facility] [address] [place] [address] Dr. Bert Ferrara MANUAL DIFF REQ NO Normal [facility] Comment on above: Performed By: #### C BC #### [facility] [address] [place] [address] Dr. Bert Ferrara MCH (RBC) [Entitic mass] 28.4 pg Normal 25.9-34.0 [facility] Comment on above: Performed By: #### C BC #### [facility] [address] [place] [address] Dr. Bert Ferrara MCHC (RBC) [Mass/Vol] 33.7 g/dL Normal 29.9-35.2 [facility] Comment on above: Performed By: #### C BC #### [facility] [address] [place] [address] Dr. Bert Ferrara MCV (RBC) [Entitic vol] 84.3 fL Normal 80.0-94.0 [facility] Comment on above: Performed By: #### C BC #### [facility] [address] [place] [address] Dr. Bert Ferrara MONO # 0.9 103/ul Critically high 0.3-0.8 [facility] Comment on above: Performed By: #### C BC #### [facility] [address] [address] [address] Bert Ferrara Monocytes/100 WBC (Bld) 11.3 % Normal 1.7-12.0 [facility] Comment on above: Performed By: #### C BC #### [facility] [address] [place] [address] Dr. Bert Ferrara NEUT # 4.1 103/ul Normal 1.4-6.5 [facility] Comment on above: Performed By: #### C BC #### [facility] [address] [place] [address] Dr. Bert Ferrara Neutrophils/100 WBC (Bld) 51.2 % Normal 43.0-75.0 [facility] Comment on above: Performed By: #### C BC #### [facility] [address] [place] [address] Dr. Bert Ferrara Platelet mean volume (Bld) [Entitic vol] 9.3 fL Critically low 9.5-13.5 [facility] Comment on above: Performed By: #### C BC #### [facility] [address] [place] [address] Dr. Bert Ferrara PLT 212 103/ul Normal 150-450 [facility] Comment on above: Performed By: #### C BC #### [facility] [address] [place] [address] Dr. Bert Ferrara RBC 5.99 106/ul Normal 4.70-6.10 [facility] Comment on above: Performed By: #### C BC #### [facility] [address] [place] [address] Dr. Bert Ferrara WBC 8.0 103/ul Normal 4.0-11.0 [facility] Comment on above: Performed By: #### C BC #### [facility] [address] [place] [address] Dr. Bert Ferrara PROF CHEM 8 (BAS METB)on Anion gap [Moles/Vol] 11.7 mmol/L Normal [facility] Comment on above: Performed By: #### B MP, CMADM #### [facility] [address] [address] [address] Bert Ferrara Calcium [Mass/Vol] 9.1 mg/dL Normal 8.5-10.1 [facility] Comment on above: Performed By: #### B MP, CMADM #### [facility] [address] [address] [address] Bert Ferrara Chloride [Moles/Vol] 101 mmol/L Normal 98-107 [facility] Comment on above: Performed By: #### B MP, CMADM #### [facility] [address] [address] [address] Bert Ferrara CO2 [Moles/Vol] 28.9 mmol/L Normal 21.0-32.0 [facility] Comment on above: Performed By: #### B DAVID, CMADM #### [facility] [address] [address] [address] Bert Ferrara Creatinine [Mass/Vol] 1.06 mg/dL Normal 0.70-1.30 [facility] Comment on above: Performed By: #### B DAVID, CMADM #### [facility] [address] [address] [address] Bert Ferrara EGFR-AF SAO TOMEAN >60 Normal >=60 [facility] Comment on above: Performed By: #### B DAVID, CMADM #### [facility] [address] [address] [address] Bert Ferrara EGFR-NON AF SAO TOMEAN >60 Normal >=60 [facility] Comment on above: Performed By: #### B DAVID, CMADM #### [facility] [address] [address] [address] Bert Ferrara Glucose [Mass/Vol] 102 mg/dL Normal 74-106 [facility] Comment on above: Performed By: #### B DAVID, CMADM #### [facility] [address] [address] [address] Bert Ferrara Potassium [Moles/Vol] 3.6 mmol/L Normal 3.5-5.1 [facility] Comment on above: Performed By: #### B DAVID, CMADM #### [facility] [address] [address] [address] Bert Ferrara Sodium [Moles/Vol] 138 mmol/L Normal 136-145 [facility] Comment on above: Performed By: #### B DAVID, CMADM #### [facility] [address] [address] [address] Bert Ferrara Urea nitrogen [Mass/Vol] 28.0 mg/dL Critically high 7.0-18.0 [facility] Comment on above: Performed By: #### B DAVID, CMADM #### [facility] [address] [address] [address] Bert Ferrara Urea nitrogen/Creatinin e [Mass ratio] 26.4 mg/mg Normal [facility] Comment on above: Performed By: #### B DAVID, CMADM #### [facility] [address] [place] [address] Dr. Bert Ferrara XR CHEST 2 Von 01-21-2022 XR CHEST 2 V EXAM: XR CHEST 2 V HISTORY: Palpitations COMPARISON: Chest x-ray 11/02/2021 TECHNIQUE: 2 view chest x-ray frontal and lateral FINDINGS: No lobar consolidation, large pleural effusions, pneumothorax, or acute bony abnormality. Cardiac size unremarkable. IMPRESSION: No radiographic evidence for acute chest abnormality. Electronically authenticated by: ANÍBAL CHAVEZ Date: 2022-01-21 05:48 Normal [facility] XR CHEST 2 Von 11-02-2021 XR CHEST 2 V XR CHEST 2 V CLINICAL: Hemoptysis COMPARISON: No prior studies are available. TECHNIQUE: PA and lateral chest radiographs were obtained. FINDINGS: Heart size and pulmonary vasculature are within normal limits. No airspace infiltrate, consolidation, effusion or pneumothorax. Osseous structures appear intact. IMPRESSION: No acute cardiac or pulmonary findings. Electronically authenticated by: FARIDA TREVIÑO Date: 2021-11-02 10:13 Normal [facility] CULTURE THROATon 07-05-2021 CULTURE THROAT Culture Observations: NORMAL RESPIRATORY JASMYNE. Normal [facility] Comment on above: Performed By: #### T HRTCX, SSCRN #### [facility] [address] [address] [address] Bert Ferrara STREPT SCREENon 07-05-2021 STREP SCREEN A Negative Normal NEGATIVE [facility] Comment on above: Performed By: #### T HRTCX, SSCRN #### [facility] [address] [address] [address] Bert Ferrara COVID Quick Testingon 2020 Result Positive [facility] Other Quick Fluon 06-27-2021 FLUAV Ab CF (S) [Titer] Negative [facility] Other FLUBV Ab CF (S) [Titer] Negative [facility] Other Vital Signs Date Time Vital Sign Value Performing Clinician Facility 05-23-2023 11:55-0500 Body height 172.72 cm Maria T De León Other [facility] Other 05-23-2023 11:55-0500 Body mass index (BMI) [Ratio] 31.74 kg/m2 Maria T De León Other [facility] Other 05-23-2023 11:55-0500 Body temperature 97.7 [degF] Maria T De León Other [facility] Other 05-23-2023 11:55-0500 Body weight 94.71 kg Maria T De León Other [facility] Other 05-23-2023 11:55-0500 Respiratory rate 18 /min Maria T De León Other [facility] Other 05-23-2023 11:55-0500 SaO2% (BldA) [Mass fraction] 99 % Maria T De León Other [facility] Other 03-16-2023 17:10-0400 Body height 172.72 cm Christi Alonzo Other [facility] Other 03-16-2023 17:10-0400 Body mass index (BMI) [Ratio] 31.17 kg/m2 Christi Alonzo Other [facility] Other 03-16-2023 17:10-0400 Body temperature 97.9 [degF] Christi Alonzo Other [facility] Other 03-16-2023 17:10-0400 Body weight 92.99 kg Christi Alonzo Other [facility] Other 03-16-2023 17:10-0400 Diastolic blood pressure 92 mm[Hg] Christi Alonzo Other [facility] Other 03-16-2023 17:10-0400 Respiratory rate 18 /min Christi Alonzo Other [facility] Other 03-16-2023 17:10-0400 SaO2% (BldA) [Mass fraction] 97 % Christi Alonzo Other [facility] Other 03-16-2023 17:10-0400 Systolic blood pressure 128 mm[Hg] Christi Alonzo Other [facility] Other 07-29-2022 11:15-0500 Body height 172.72 cm Dariana Omar Other [facility] Other 07-29-2022 11:15-0500 Body mass index (BMI) [Ratio] 30.71 kg/m2 Dariana Nelson Other [facility] Other 07-29-2022 11:15-0500 Body temperature 96.6 [degF] Dariana Nelson Other [facility] Other 07-29-2022 11:15-0500 Body weight 91.63 kg Dariana Nelson Other [facility] Other 07-29-2022 11:15-0500 Respiratory rate 18 /min Dariana Nelson Other [facility] Other 07-29-2022 11:15-0500 SaO2% (BldA) [Mass fraction] 98 % Dariana Nelson Other [facility] Other 06-04-2022 16:25-0500 Body height 172.72 cm Christi Blackmond Other [facility] Other 06-04-2022 16:25-0500 Body mass index (BMI) [Ratio] 30.86 kg/m2 Christi Alonzo Other [facility] Other 06-04-2022 16:25-0500 Body temperature 99.1 [degF] Christi Blackmond Other [facility] Other 06-04-2022 16:25-0500 Body weight 92.08 kg Christi Blackmond Other [facility] Other 06-04-2022 16:25-0500 Respiratory rate 16 /min Christi Blackmond Other [facility] [facility] Other 06-04-2022 16:25-0500 SaO2% (BldA) [Mass fraction] 97 % Christi Blackmond Other [facility] [facility] Other 03-13-2022 16:45-0400 Body height 172.72 cm Christi Cheri Other [facility] Other 03-13-2022 16:45-0400 Body mass index (BMI) [Ratio] 30.41 kg/m2 Christi Cheri Other [facility] Other 03-13-2022 16:45-0400 Body temperature 99.1 [degF] Christi Cheri Other [facility] Other 03-13-2022 16:45-0400 Body weight 90.72 kg Christi Cheri Other [facility] [employer] Other 03-13-2022 16:45-0400 Diastolic blood pressure 93 mm[Hg] Christi Cheri Other [facility] Other 03-13-2022 16:45-0400 Respiratory rate 16 /min Christi Cheri Other [facility] Other 03-13-2022 16:45-0400 SaO2% (BldA) [Mass fraction] 98 % Christi Cheri Other [facility] Other 03-13-2022 16:45-0400 Systolic blood pressure 127 mm[Hg] Christi Cheri Other [facility] Other 01-01-2022 16:30-0400 Body height 172.72 cm Christi Cheri Other [facility] Other 01-01-2022 16:30-0400 Body mass index (BMI) [Ratio] 28.89 kg/m2 Christi Cheri Other [facility] Other 01-01-2022 16:30-0400 Body temperature 98 [degF] Christi Alonzo Other [facility] Other 01-01-2022 16:30-0400 Body weight 86.18 kg Christi Alonzo Other [facility] Other 01-01-2022 16:30-0400 Diastolic blood pressure 89 mm[Hg] Christi Alonzo Other [facility] Other 01-01-2022 16:30-0400 Respiratory rate 16 /min Christi Alonzo Other [facility] Other 01-01-2022 16:30-0400 SaO2% (BldA) [Mass fraction] 98 % Christi Alonzo Other [facility] Other 01-01-2022 16:30-0400 Systolic blood pressure 150 mm[Hg] Christi Alonzo Other [facility] Other 06-27-2021 16:00-0500 Body height 172.72 cm Dariana Nelson Other [employer] Other 06-27-2021 16:00-0500 Body mass index (BMI) [Ratio] 28.89 kg/m2 Dariana Omar Other [facility] Other 06-27-2021 16:00-0500 Body temperature 97.7 [degF] Dariana Omar Other [facility] Other 06-27-2021 16:00-0500 Body weight 86.18 kg Dariana Omar Other [facility] Other 06-27-2021 16:00-0500 Respiratory rate 18 /min Dariana Omar Other [facility] Other 06-27-2021 16:00-0500 SaO2% (BldA) [Mass fraction] 95 % Dariana Donnellyault Other [employer] Other Encounters Encounter Date Encounter Type Care Provider Facility Start: 06-23-2023 End: 06-23-2023 ambulatory Mike Rogers Other [employer] Other Start: 06-23-2023 Telephone encounter Mike Harvey [facility] [employer] Start: 06-03-2023 End: 06-03-2023 ambulatory [facility] Start: 05-23-2023 End: 05-23-2023 ambulatory Maria T De León Other [employer] Other Start: 05-23-2023 Office outpatient visit 25 minutes Maria T De León [facility] Start: 04-08-2023 End: 04-08-2023 ambulatory [facility] Start: 03-16-2023 End: 03-16-2023 ambulatory Christi Alonzo Other [employer] Other Start: 03-16-2023 Office outpatient visit 15 minutes Christi Cheri [facility] Start: 07-29-2022 End: 07-29-2022 ambulatory Darianagustavo Nelson Other [employer] Other Start: 07-29-2022 Office outpatient visit 15 minutes Darianagustavo Nelson [facility] Start: 06-07-2022 End: 06-07-[address] AYE HU Facility: Start: 06-04-2022 End: 06-04-2022 ambulatory Christi Cheri Other [employer] Other Start: 06-04-2022 Office outpatient visit 15 minutes Christi Cheri [facility] Start: 03-21-[address] CHEL Holland ty:[facility] Start: 03-13-2022 End: 03-13-2022 ambulatory Christi Cheri Other [employer] Other Start: 03-13-2022 Office outpatient visit 15 minutes Christi Cheri [facility] Start: 01-21-2022 End: 01-21-[address] AYE HU Facility:[facility] Start: 01-01-2022 End: 01-01-2022 ambulatory Christi Cheri Other [employer] Other Start: 01-01-2022 Office outpatient visit 15 minutes Christi Cheri [facility] Start: 11-02-2021 End: 11-02-2021 ambulatory YNES JANE Facility:[facility] Start: 09-02-2021 End: 09-02-[address] AYE HU Facility:[facility] Start: 07-05-2021 End: 07-05-[address] GUSTAVO SMALL Facility:[facility] Start: 06-29-2021 End: 06-30-2021 ambulatory YNES JANE Facility:[facility] Start: 06-27-2021 End: 06-27-2021 ambulatory Dariana Nelson Other [employer] Other Start: 06-27-2021 Office outpatient visit 15 minutes Dariana Nelson [facility] Payers Date Payer Category Payer Medicaid [id number] 2. [id number] 1988 Unknown [id number] 2.16.84 [id number] 1988 Unknown [id number] 2.16.84 [id number] 1988 Unknown [id number] 2.16.84 [id number] 1988 Unknown [id number] 2.16.84 [id number] 1988 Unknown [id number] 2.16.84 [id number] 1988 Unknown [id number] 2.16.84 [id number] 1988 Unknown [id number] 2.16.84 [id number] 1961 Self-pay 1961 Unknown [id number] 2.1 [id number] Unknown [id number] 2. [id number] Social History Date Type Detail Facility Sex Assigned At [employer] Other Clinical Notes 06-27-2021 to 06-03-2023 Note Date & Type Note Facility 06-03-2023 Note [facility] Cardiology Clinic Note Chief Complaint: Patient here for follow up stress test and echo. Wasn't able to complete all lab orders. HPI: Mila Ochoa is a 33 y.o. male No real changes to his symptomatology. Notices shortness of breath particular after consuming his chicken shakes . Cardiology ROS: Review of Systems Cardiovascular: Positive for dyspnea on exertion. Respiratory: Positive for shortness of breath. Gastrointestinal: Positive for nausea. All other systems reviewed and are negative. Past Medical History He has no past medical history on file. Surgical History He has no past surgical history on file. Social History He has no history on file for tobacco use, alcohol use, and drug use. Family History No family history on file. Allergies Patient has no known allergies. Medications No current outpatient medications on file. Last Recorded Vitals BP 118/90 (BP Location: Left arm, Patient Position: Sitting) Pulse (!) 113 Ht 1.727 m (5' 8 ) Wt 93.4 kg (206 lb) SpO2 96% BMI 31.32 kg/m??? Physical Examination: GENERAL: alert and oriented x3, well developed, in no acute distress. HEAD: atraumatic, normocephalic. EYES: IRVIN, EOMI. NECK: trachea midline, no JVD present, no carotid bruits present. CARDIAC: S1, S2 present. RRR. No murmur, rubs, or gallops. RESPIRATORY: CTAB, no increased effort of breathing, no rales, rhonchi, or wheezing. ABDOMEN: soft, nontender, nondistended. EXTREMITIES: no lower extremity edema, peripheral pulses are 2+ bilaterally. No rash/skin discoloration present. NEURO: strength/sensation equal and symmetric in bilateral upper and lower extremities. PSYCH: appropriate mood, affect, and judgement. CONCLUSION: 1. Global left ventricular systolic function is hyperdynamic; visually estimated ejection fraction is 65-70% 2. The right ventricle is normal in size and systolic function 3. Normal diastolic function 4. No significant valvular abnormalities 5. Trivial pericardial effusion Lexiscan stress test 05/08/2023: No ischemic EKG changes Nuclear imaging shows normal myocardial perfusion. Ejection fraction 60%. No transient ischemic dilation. Investigations: 3-day Holter monitor reviewed sinus tachycardia, premature ventricular contractions with a burden of 3.22% and ventricular trigeminy. There were 0 patient reported events. EKG 01/21/2022: Sinus rhythm with occasional ventricular premature complexes. Abnormal EKG. Assessment: Palpitations Frequent premature ventricular contractions and ectopy Hypertensive disorder Sinus tachycardia (inappropriate sinus tachycardia?) Avoidant restrictive food intake disorder Nutritional deficiency disorder Plan: Reassurance; cardiac testing thus far has been unrevealing Would consider referral to pulmonology as appropriate He is scheduled to see gastroenterology. He is to discuss his nutritional input with his family physician and/or supervisor [place] I will be happy to see him on an as-needed basis. Chel Krishnamurthy MD, MPH, [facility], [facility], [facility] Interventional Cardiology Pager Email: [email or web address] 05-23-2023 Evaluation note Encounter Date Diagnosis Assessment Notes May, Contact with and (suspected) exposure to other viral communicable diseases (ICD-10 - Z20.828) May, COVID-19 (ICD-10 - U07.1) Rapid COVID test performed in office today. Advised patient that test was positive. Influenza A/B test negative. Instructed patient to isolate per CDC guidelines for 5 days from symptom onset, mask 5 days following. May return to work/activities outside home after isolation period as long as symptoms are improving and has been afebrile for 24 hours without use of antipyretic. Advised patient that treatment of COVID is with viral supportive care, OTC cold medications as directed, Tylenol/Motrin as needed for body aches/fever. Increase fluids and rest. Encouraged use of cool mist humidifier. Follow-up with PCP to advise of positive result and further management. Immediate eval for SOB, difficulty, chest pain, fevers that do not break with antipyretic or any other concerning symptoms as reviewed on patient education handout. Patient verbalizes understanding and is agreeable to treatment plan. Patient left in stable condition [employer] [facility] Chief Complaint: Patient here for 1 year follow up palpitations and dyspnea on exertion. He did wear Holter monitor last year but did not complete echo or routine stress test. Still gets SOB and attributes it to GERD. Denies chest pain. HPI: 32-year-old with a history of palpitations and hypertension here to establish care First noticed palpitations about 2 months ago. Was seen in the ER. Investigations were unrevealing. He has known about hypertension for a while. He was tried on a number of different medications that he could not tolerate. He describes episodes where his heart rate speeds up, he feels the palpitations. He denies chest pain, shortness of breath, lightheadedness or dizziness. He has had no syncope. These episodes occur daily. Pertinently, he reluctantly tells me that he is on a liquid diet . He eats no solids. This stems back from being in the [employer]. Apparently he had a choking episode that left some sort of residual fear about eating solid food. He has been on this liquid diet for the past 3 years. He tells me that he has a recurrent gum infection currently. Past medical history: Cyst of the kidney, anxiety disorder, chronic pharyngitis, spondylolysis, low back pain, avoidant/restrictive food intake disorder, costochondritis, abnormal EKG, atypical chest pain Social history: He drinks 200 mg of caffeine a day in the form of Mountain Dew and other caffeinated sodas. He does not drink tea or coffee. He does not drink alcohol. He denies recreational drug use. He does not work. He is and he has 2 children ages 11 and 2. 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 Family history: No premature family history of coronary artery disease UPDATE: His shortness of breath is worsening; he has exertional shortness of breath when he does mild to moderate activity. He denies chest pain. He has infrequent palpitations. No significant lightheadedness or dizziness. No syncope. No orthopnea, no paroxysmal tunnel dyspnea, no lower extremity edema. Investigations: He had an EKG in his doctor's office I do not have the results. He has had no other cardiac testing. Cardiology ROS: Review of Systems All other systems reviewed and are negative. Past Medical History He has no past medical history on file. Surgical History He has no past surgical history on file. Social History He has no history on file for tobacco use, alcohol use, and drug use. Family History No family history on file. Allergies Patient has no allergy information on record. Medications No current outpatient medications on file. Last Recorded Vitals BP (!) 138/95 (BP Location: Left arm, Patient Position: Sitting) Pulse 96 Ht 1.727 m (5' 8 ) Wt 92.1 kg (203 lb) SpO2 98% BMI 30.87 kg/m??? Physical Examination: GENERAL: alert and oriented x3, well developed, in no acute distress. HEAD: atraumatic, normocephalic. EYES: IRVIN, EOMI. NECK: trachea midline, no JVD present, no carotid bruits present. CARDIAC: S1, S2 present. RRR. No murmur, rubs, or gallops. RESPIRATORY: CTAB, no increased effort of breathing, no rales, rhonchi, or wheezing. ABDOMEN: soft, nontender, nondistended. EXTREMITIES: no lower extremity edema, peripheral pulses are 2+ bilaterally. No rash/skin discoloration present. NEURO: strength/sensation equal and symmetric in bilateral upper and lower extremities. PSYCH: appropriate mood, affect, and judgement. Investigations: 3-day Holter monitor reviewed sinus tachycardia, premature ventricular contractions with a burden of 3.22% and ventricular trigeminy. There were 0 patient reported events. EKG 01/21/2022: Sinus rhythm with occasional ventricular premature complexes. Abnormal EKG. Assessment: Palpitations Frequent premature ventricular contractions and ectopy Hypertensive disorder Sinus tachycardia (inappropriate sinus tachycardia?) Avoidant restrictive food intake disorder Nutritional deficiency disorder Plan: 1. Routine labs; CBC, CMP, TSH, free T4, CRP and ESR 2. A complete echocardiogram will be obtained 3. Given his exertional shortness of breath and fatigue, will obtain a treadmill cardiolyte stress test 4. Given resting tachycardia and hypertension will start Coreg 3.125 mg p.o. twice daily after his testing; this will help with both. In addition he seems to have an element of untreated anxiety. 5. I emphasized the importance of discussing his issues with nutrition with a specialist. He has food aversion of some type. It is very likely that he is not getting appropriate nutrition from his liquid diet. This certainly may have a role to play in his cardiovascular presentation. 6. If his cardiovascular testing is normal, will refer to pulmonology. Return to clinic following testing Chel Krishnamurthy MD, MPH, [facility], [facility], [facility] Interventional Cardiology Page (more content not included)...[facility]09-11-2023 Evaluation note* Encounter Date Diagnosis Assessment Notes Treatment Notes Treatment Clinical Notes Mar, Sore throat (ICD-10 - J02.9) Mar, Viral upper respiratory infection (ICD-10 - J06.9) Viral upper respiratory infection: adult home care material was printed Drink plenty fluids, get plenty of rest. Take Tylenol or Motrin for aches pains or fevers. You may continue to take Mucinex for congestion. Consider taking Claritin or Zyrtec daily until your symptoms improve. Follow-up with your family physician if no improvement in 2 to 3 days Mar, Allergic rhinitis, unspecified seasonality, unspecified trigger (ICD-10 - J30.9) Allergic rhinitis home care material was printed [employer] Other 01-24-2023 Evaluation note* Encounter Date Diagnosis Assessment Notes Treatment Notes Treatment Clinical Notes Jul, Contact with and (suspected) exposure to other viral communicable diseases (ICD-10 - Z20.828) Jul, Bronchitis (ICD-10 - J40) Take medications as directed. Rest and increase fluid intake. Take meds with food to prevent stomach upset. Use inhaler as needed for coughing spells and SOB. It is better to use inhaler a few times a day over the next 2-3 days. Follow up with primary care provider if symptoms do not improve with treatment plan, although it may take a few weeks for the cough to go away Jul, Sore throat (ICD-10 - J02.9) [employer] Other 11-30-2022 Evaluation note* Encounter Date Diagnosis Assessment Notes Treatment Notes Treatment Clinical Notes May, Acute sinusitis, recurrence not specified, unspecified location (ICD-10 - J01.90) Sinusitis home care material was printed Drink plenty fluids, get plenty of rest. Take Tylenol or Motrin as needed for aches pains or fevers. Take the amoxicillin with clavulanate and the prednisolone as prescribed until gone. Use the Flonase inhaler as prescribed and your symptoms improved. Follow-up with your family physician if no improvement in 2 to 3 days. [employer] Other 09-08-2022 Evaluation note* Encounter Date Diagnosis Assessment Notes Treatment Notes Treatment Clinical Notes Mar, Gingival abscess (ICD-10 - K05.219) Periodontitis material was printed Drink plenty fluids, get plenty of rest. Take the amoxicillin with clavulanate as prescribed until gone. Follow-up with your dentist as soon as possible. Go to the ER for worsening symptoms or concerns. Take Tylenol or Motrin as needed for aches pains or fevers [employer] Other 06-29-2022 Evaluation note* Encounter Date Diagnosis Assessment Notes Treatment Notes Treatment Clinical Notes Dec, Chronic gingivitis, plaque induced (ICD-10 - K05.10) Drink plenty fluids, get plenty of rest. Take the clindamycin as prescribed until gone. Dentist soon as possible. Take Tylenol or Motrin as needed for aches pains or fevers. Rinse your mouth frequently with warm salt water. [employer] Other 12-23-2021 Evaluation note* Encounter Date Diagnosis Assessment Notes Treatment Notes Treatment Clinical Notes Jun, Contact with and (suspected) exposure to other viral communicable diseases (ICD-10 - Z20.828) Jun, COVID-19 (ICD-10 - U07.1) Today you tested positive for the COVID virus. This mean you need to follow all [facility] quarantine guidelines found at [email or web address]. It is important to rest, increase fluids, and stay at home. Contact PCP and inform them of results. Medications like Mucinex, Cepacol, Tylenol, saline nasal spray are over the counter medications that can help with the symptoms. Current guidelines include staying home for at least 10 days, having no fever above 100.4 for 24 hours without medication and having significant improvement of symptoms before you are allowed to stop your quarantine. Contact primary care and ask for guidance is essential to follow up * EDUCATION HANDOUT GIVEN ON OTC TREATMENTS, FOLLOW UP AND WHEN TO SEEK EMERGENCY TREATMENT Jun, Left acute otitis media (ICD-10 - H66.92) Ear infections are often a secondary infection caused from an URI, the flu or allergies. Take medication as directed. Complete all doses, even if you feel better. Tylenol or ibuprofen can help with pain. Warm pack to area for comfort helps as well. Follow up with primary care provider if no improvement of symptoms. Jun, Other Additional time spent conducting pre-visit phone call, screening for symptoms, instructions on social distancing, application and removal of PPE, and cleaning of examination room, equipment and supplies was preformed. Patient education given for testing methodology and results. Patient care instructions given in writting by [facility] document. [employer] Other Evaluation noteNo InformationNort [employer] Other History general Narrative - Reported* Type Description Date Medical History back pain Surgical History appendectomy Surgical History tonsillectomy [employer] Other History general Narrative - Reported* Type Description Date Medical History back pain Medical History ADHD Surgical History appendectomy Surgical History tonsillectomy [employer] Other History general Narrative - Reported* Type Description Date Medical History back pain Medical History ADHD Medical History GERD Surgical History appendectomy Surgical History tonsillectomy [facility] [employer] Other Summary Purpose Family History No Family History Records FoundNo Family History Records Found Advance Directives No Advanced Directives Records FoundNo Advanced Directives Records Found Additional Source Comments REASON FOR VISIT (unrecogniz ed section and content) #25 RED NADIR SORE THROAT, COU GH, CONGESTION, COVID Provider VisitUPPER GUM INFECTION, HAD A PREVIOUS GUM BOIL THAT WAS TREATED, IT CAME BACKTOOTH/GUM INFECTIONEARCHEcough, sore throat, drainageSORE THROAT, STUFFY NOSESORE THROAT, HEADACHE, CONGESTIONMAIL PPW (unrecognized sect ion and content) No Status Records FoundNo Status Records Found INFORMATION SOURCE (unrecogn ized section and content) DATE CREATED AUTHOR [facility]/09/2022 [facility] DATE CREATED AUTHOR AUTHOR'S ORGANIZ ATION 06/05/2023 [facility] FOR RECORDS PERTAINING TO PATIENTS WHO ARE OR HAVE BEEN ENROLLED IN A CHEMICAL DEPENDENCY/SUBSTANCEABUSE PROGRAM, SOME INFORMATION MAY BE OMITTED. This clinical summary was aggregated from multiple sources. Caution should be exercised in using it in the provision of clinical care. This summary normalizes information from multiple sources, and as a consequence, information in this document may materially change the coding, format and clinical context of patient data. In addition, data may be omitted in some cases. CLINICAL DECISIONS SHOULD BE BASED ON THE PRIMARY CLINICAL RECORDS. [employer] provides no warranty or guarantee of the accuracy or completeness of information in this document.
[2023-08-18 15:00] LABS: Basophils Percent Auto 0.2 % (0.2-2.0); Eosinophils Absolute Auto 0.1 10^3/uL (0.0-0.7); Eosinophils Percent Auto 1.1 % (0.9-7.0); Hematocrit 48.6 % (42.0-54.0); Immature Granulocytes Abs Auto 0.02 10^3/uL (0.00-0.03); Immature Granulocytes Pct Auto 0.2 % (0.0-0.5); Lymphocytes Absolute Auto 1.8 10^3/uL (1.2-3.8); Lymphocytes Percent Auto 21.8 % (20.5-60.0); Mean Corpuscular HGB Conc 32.9 g/dL (29.9-35.2); Mean Platelet Volume 8.7 fL (9.5-13.5); Monocytes Absolute Auto 0.7 10^3/uL (0.3-0.8); Monocytes Percent Auto 8.4 % (1.7-12.0); Neutrophils Absolute Auto 5.6 10^3/uL (1.4-6.5); Neutrophils Percent Auto 68.3 % (43.0-75.0); Platelet Count 214 10^3/uL (150-450); Red Blood Count 5.72 10^6/uL (4.70-6.10); Red Cell Distribution Width 12.2 % (11.0-15.0); White Blood Count 8.2 10^3/uL (4.0-11.0)
[2023-08-18 15:17] LABS: Erythrocyte Sedimentation Rate 12 mm/hr (<=15)
[2023-08-18 16:02] LABS: Free T4 0.81 ng/dL (0.76-1.46)
[2023-08-18 16:06] LABS: Alanine Aminotransferase 35 U/L (16-63); Albumin Level 3.6 g/dL (3.4-5.0); Alkaline Phosphatase 85 U/L (46-116); Anion Gap 8.5; Aspartate Amino Transferase 20 U/L (15-37); Bilirubin Total 0.4 mg/dL (0.2-1.0); Carbon Dioxide 32.4 mmol/L (21.0-32.0); Chloride 102 mmol/L (98-107); Estimated GFR (African America >60 (>=60); Estimated GFR (Non-African Ame >60 (>=60); Globulin 3.6 g/dL; Glucose 125 mg/dL (74-106); Potassium 3.9 mmol/L (3.5-5.1); Sodium 139 mmol/L (136-145); Thyroid Stimulating Hormone 2.035 uIU/mL (0.358-3.740); Total Protein 7.2 g/dL (6.4-8.2)
[2023-08-19 05:08] LABS: C-Reactive Protein, Cardiac 2.52 mg/L (0.00-3.00)
== END 2023-08-18 14:38 | disposition home or self-care (01) ==
LOC: LAB 14:39
PROVIDERS: Visit Provider Internal Medicine Interventional Cardiology
DX: R00.2 Palpitations (principal); I10 Essential (primary) hypertension
CPT/HCPCS: 36415; 80053; 84439; 84443; 85025; 85652; 86140

== ENCOUNTER 2024-04-18 09:02 | Outpatient (OUT) | payer OTHER, SELFPAY ==
--- OUTSIDE RECORDS SUMMARY | 2024-04-18 09:07 | XMS_ITS | CCD ---
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 Mechanic Name Role Phone Dariana Nelson Unavailable Christi Alonzo Unavailable MAYTE, DR GRIFFITHS Attending Unavailable MISC, DR ROE Primary Care Unavailable TORY, DR FARIDA Gage Consulting Unavailable HAY, DR GRIFFITHS Admitting Unavailable HAY, DR GRIFFITHS Consulting Unavailable MAYTE, DR GRIFFITHS Consulting Unavailable MISC, DR ROE Primary Care Unavailable TEAGAN, LACHELLE Attending Unavailable TEAGAN, LACHELLE Admitting Unavailable TEAGAN, LACHELLE Consulting Unavailable ANÍBAL CHAVEZ Consulting Unavailable YNES JANE Admitting Unavailable YNES JANE Consulting Unavailable MISC, DR ROE Primary Care Unavailable BUCK, YNES Attending Unavailable FARIDA TREVIÑO Consulting Unavailable MAYTE, DR GRIFFITHS Admitting Unavailable MAYTE, DR GRIFFITHS Consulting Unavailable MAYTE, DR GRIFFITHS Attending Unavailable KIMBERLYC, DR ROE Primary Care Unavailable GEOVANNY, DR GUSTAVO Parker Attending Unavailabl e GEOVANNY, DR GUSTAVO Parker Admitting Unavailabl e MISC, DR ROE Primary Care Unavailable GEOVANNY, DR GUSTAVO Parker Consulting Unavailabl e GAY, DR JOY Attending Unavailable KIMBERLYC, DR ROE Primary Care Unavailable GAY, DR JOY Admitting Unavailable YNES JANE Admitting Unavailable YNES JANE Consulting Unavailable YNES JANE Attending Unavailable MISC, DR ROE Primary Care Unavailable Maria T De León Unavailable CHEL KRISHNAMURTHY Attending Unavailable CHEL KRISHNAMURTHY Attending Unavailable Mike Rogers Unavailable Medications Current Medications Medication Drug Class(es) Dates [...] Drug Class(es) Dates Sig (Normalized) Sig (Original) [id number] 200 actuat albuterol 0.09 mg/actuat metered dose [...] Range Facility Office Visiton 06-03-2023 Follow-up visit [id number] Mila Ochoa 1990 M Date Provider Department Center 06/03/2023 271-CHEL KRISHNAMURTHY CARD [facility] No family history on file Level of Service:86167 OR OFFICE/OUTPATIENT ESTABLISHED LOW MDM 20-29 MIN Normal [facility] COVID + FLU Quick Testing[facility] 05-23-2023 SARS-CoV-2 (COVID-19) RNA RASHAAD+probe Ql (Unsp spec) Positive [facility] Other COVID + FLU Quick Testing Negative [facility] Other Office Visiton 04-08-2023 Follow-up visit [id number] Mila Ochoa 1990 M Date Provider Department Center 04/08/2023 271-GAY, EHAB BH CARD [facility] No family history on file Level of Service:66540 OR OFFICE/OUTPATIENT ESTABLISHED MOD MDM 30-39 MIN Normal [facility] Quick Strepon 03-16-2023 S. pyogenes Org specific cx Ql (Throat) Negative [facility] Other Quick Strep [facility] Other COVID + FLU [facility] 07-29-2022 SARS-CoV-2 (COVID-19) RNA RASHAAD+probe Ql (Unsp spec) [facility] Other COVID + FLU Quick Testing Negative [facility] Other Quick Strepon 07-29-2022 S. pyogenes Org specific cx Ql (Throat) Negative [facility] Other Quick Strep [facility] Other AMYLASEon 06-07-2022 Amylase [Catalytic activity/Vol] 60 U/L Normal 25-115 [facility] Comment on above: Performed By: #### B MP, CMADM #### [facility] [address] [place] [address] Dr. Bert Ferrara CBC AUTO DIFFon 06-07-2022 BASO # 0.0 103/ul Normal 0.0-0.1 [facility] Comment on above: Performed By: #### C BC #### [facility] [address] [place] [address] Dr. Bert Ferrara Basophils/100 WBC (Bld) 0.3 % Normal 0.2-2.0 [facility] Comment on above: Performed By: #### C BC #### [facility] [address] [place] [address] Dr. Bert Ferrara EO # 0.1 103/ul Normal 0.0-0.7 [facility] Comment on above: Performed By: #### C BC #### [facility] [address] [place] [address] Dr. Bert Ferrara Eosinophils/100 WBC (Bld) 0.4 % Critically low 0.9-7.0 [facility] Comment on above: Performed By: #### C BC #### [facility] [address] [place] [address] Dr. Bert Ferrara Erythrocyte distribution width (RBC) [Ratio] 12.0 % Normal 11.0-15.0 [facility] Comment on above: Performed By: #### C BC #### [facility] [address] [place] [address] Dr. Bert Ferrara Hematocrit (Bld) [Volume fraction] 48.5 % Normal 42.0-54.0 [facility] Comment on above: Performed By: #### C BC #### [facility] [address] [place] [address] Dr. Bert Ferrara Hemoglobin (Bld) [Mass/Vol] 16.9 g/dL Normal 14.0-18.0 [facility] Comment on above: Performed By: #### C BC #### [facility] [address] [place] [address] Dr. Bert Ferrara IG # 0.05 10e3/ul Critically high 0.00-0.03 [facility] Comment on above: Performed By: #### C BC #### [facility] [address] [place] [address] Dr. Bert Ferrara IG % 0.3 % Normal 0.0-0.5 [facility] Comment on above: Performed By: #### C BC #### [facility] [address] [place] [address] Dr. Bert Ferrara LYMPH # 3.0 103/ul Normal 1.2-3.8 [facility] Comment on above: Performed By: #### C BC #### [facility] [address] [place] [address] Dr. Bert Ferrara Lymphocytes/100 WBC (Bld) 20.9 % Normal 20.5-60.0 [facility] Comment on above: Performed By: #### C BC #### [facility] [address] [place] [address] Dr. Bert Ferrara MANUAL DIFF REQ NO Normal [facility] Comment on above: Performed By: #### C BC #### [facility] [address] [place] [address] Dr. Bert Ferrara MCH (RBC) [Entitic mass] 28.5 pg Normal 25.9-34.0 [facility] Comment on above: Performed By: #### C BC #### [facility] [address] [place] [address] Dr. Bert Ferrara MCHC (RBC) [Mass/Vol] 34.8 g/dL Normal 29.9-35.2 [facility] Comment on above: Performed By: #### C BC #### [facility] [address] [place] [address] Dr. Bert Ferrara MCV (RBC) [Entitic vol] 81.9 fL Normal 80.0-94.0 [facility] Comment on above: Performed By: #### C BC #### [facility] [address] [place] [address] Dr. Bert Ferrara MONO # 1.3 103/ul Critically high 0.3-0.8 [facility] Comment on above: Performed By: #### C BC #### [facility] [address] [place] [address] Dr. Bert Ferrara Monocytes/100 WBC (Bld) 9.0 % Normal 1.7-12.0 [facility] Comment on above: Performed By: #### C BC #### [facility] [address] [place] [address] Dr. Bert Ferrara NEUT # 10.1 103/ul Critically high 1.4-6.5 [facility] Comment on above: Performed By: #### C BC #### [facility] [address] [place] [address] Dr. Bert Ferrara Neutrophils/100 WBC (Bld) 69.1 % Normal 43.0-75.0 [facility] Comment on above: Performed By: #### C BC #### [facility] [address] [place], [place] [address] Dr. Bert Ferrara Platelet mean volume (Bld) [Entitic vol] 8.4 fL Critically low 9.5-13.5 [facility] Comment on above: Performed By: #### C BC #### [facility] [address] [id number] Bert Ferrara PLT 249 103/ul Normal 150-450 [facility] Comment on above: Performed By: #### C BC #### [facility] [address] [address] [address] Bert Ferrara RBC 5.92 106/ul Normal 4.70-6.10 [facility] Comment on above: Performed By: #### C BC #### [facility] [address] [address] [address] Bert Ferrara WBC 14.6 103/ul Critically high 4.0-11.0 [facility] Comment on above: Performed By: #### C BC #### [facility] [address] [place], [place] [address] ABD/PELVIS WO CONon [...] by: FARIDA SPEARS Date: 2022-06-07 18:07 Normal [facility] LIPASEon 06-07-2022 Lipase [Catalytic activity/Vol] 97.0 U/L Normal 73.0-393.0 [facility] Comment on above: Performed By: #### B SYED HERNANDEZ #### [facility] [address] [place] [address] Dr. Bert Ferrara PROF 14(COMP METB)on 022 Albumin [Mass/Vol] 3.8 g/dL Normal 3.4-5.0 [facility] Comment on above: Performed By: #### SYED Moctezuma MP #### [facility] [address] [place] [address] Dr. Bert Ferrara Albumin/Globulin [Mass ratio] 1.1 {ratio} Normal [facility] Comment on above: Performed By: #### SYED Moctezuma MP #### [facility] [address] [place] [address] Dr. Bert Ferrara ALP [Catalytic activity/Vol] 96 U/L Normal 46-116 [facility] Comment on above: Performed By: #### SYED Moctezuma MP #### [facility] [address] [place] [address] Dr. Bert Ferrara ALT [Catalytic activity/Vol] 29 U/L Normal 16-63 [facility] Comment on above: Performed By: #### SYED Moctezuma MP #### [facility] [address] [place] [address] Dr. Bert Ferrara Anion gap [Moles/Vol] 5.6 mmol/L Normal [facility] Comment on above: Performed By: #### SYED Moctezuma MP #### [facility] [address] [place] [address] Dr. Bert Ferrara AST [Catalytic activity/Vol] 14 U/L Critically low 15-37 [facility] Comment on above: Performed By: #### B DAVID, SYED #### [facility] [address] [place] [address] Dr. Bert Ferrara Bilirubin [Mass/Vol] 0.2 mg/dL Normal 0.2-1.0 [facility] Comment on above: Performed By: #### B DAVID, CMADM #### [facility] [address] [place] [address] Dr. Bert Ferrara Calcium [Mass/Vol] 8.8 mg/dL Normal 8.5-10.1 [facility] Comment on above: Performed By: #### B DAVID, KEENANDM #### [facility] [address] [place] [address] Dr. Bert Ferrara Chloride [Moles/Vol] 101 mmol/L Normal 98-107 [facility] Comment on above: Performed By: #### B DAVID, KEENANDM #### [facility] [address] [place] [address] Dr. Bert Ferrara CO2 [Moles/Vol] 32.1 mmol/L Critically high 21.0-32.0 [facility] Comment on above: Performed By: #### B DAVID, KEENANDM #### [facility] [address] [place] [address] Dr. Bert Ferrara Creatinine [Mass/Vol] 0.90 mg/dL Normal 0.70-1.30 [facility] Comment on above: Performed By: #### Jose Elias HERNANDEZ, KEENANDM #### [facility] [address] [place] [address] Dr. Bert Ferrara EGFR-AF GHANAIAN >60 Normal >=60 [facility] Comment on above: Performed By: #### B DAVID, KEENANDM #### [facility] [address] [place] [address] Dr. Bert Ferrara EGFR-NON AF GHANAIAN >60 Normal >=60 [facility] Comment on above: Performed By: #### B SYED HERNANDEZ #### [facility] [address] [place] [address] Dr. Bert Ferrara Globulin (S) [Mass/Vol] 3.5 g/dL Normal [facility] Comment on above: Performed By: #### B DAVID, KEENANDM #### [facility] [address] [place] [address] Dr. Bert Ferrara Glucose [Mass/Vol] 93 mg/dL Normal 74-106 [facility] Comment on above: Performed By: #### B DAVID, CMADM #### [facility] [address] [place] [address] Dr. Bert Ferrara Potassium [Moles/Vol] 3.7 mmol/L Normal 3.5-5.1 [facility] Comment on above: Performed By: #### B DAVID, KEENANDM #### [facility] [address] [place] [address] Dr. Bert Ferrara Protein [Mass/Vol] 7.3 g/dL Normal 6.4-8.2 [facility] Comment on above: Performed By: #### B DAVID, KEENANDM #### [facility] [address] [place] [address] Dr. Bert Ferrara Sodium [Moles/Vol] 135 mmol/L Critically low 136-145 [facility] Comment on above: Performed By: #### B DAVID, KEENANDM #### [facility] [address] [place] [address] Dr. Bert Ferrara Urea nitrogen [Mass/Vol] 21.0 mg/dL Critically high 7.0-18.0 [facility] Comment on above: Performed By: #### B DAVID, CMADM #### [facility] [address] [place] [address] Dr. Bert Ferrara Urea nitrogen/Creatinin e [Mass ratio] 23.3 mg/mg Normal [facility] Comment on above: Performed By: #### B DAVID, CMADM #### [facility] [address] [place] [address] Dr. Bert Ferrara CARDIAC LUC 3-6on 2 CK [Catalytic activity/Vol] 169 U/L Normal 39-308 [facility] Comment on above: Performed By: #### C BELENP #### [facility] [address] [address] [address] Bert Ferrara CK.MB [Mass/Vol] 2.28 ng/mL Normal <=3.60 [facility] Comment on above: Performed By: #### C MREP #### [facility] [address] [place] [address] Dr. Bert Ferrara HSTROP 4.8 pg/mL Normal 4.0-76.1 [facility] Comment on above: Result Comment: CUT- OFF POINTS HAVE BEEN ESTABLISHED BASED ON THE FOURTH UNIVERSAL DEFINITIONS OF MYOCARDIAL INFARCTION. THE UPPER REFERENCE LIMIT (URL) OF TROPONIN, DEFINED THE 99TH PERCENTILE OF cTnI DISTRIBUTION IN A REFERENCE POPULATION, HAS BEEN CONFIRMED THE DECISION THRESHOLD FOR NE DIAGNOSIS. Performed By: #### C MREP #### [facility] [address] [place] [address] Dr. Bert Ferrara CARDIAC LUC ADMITon 022 CK [Catalytic activity/Vol] 181 U/L Normal 39-308 [facility] Comment on above: Performed By: #### B DAVDI, CMADM #### [facility] [address] [place] [address] Dr. Bert Ferrara CK.MB [Mass/Vol] 2.61 ng/mL Normal <=3.60 [facility] Comment on above: Performed By: #### B DAVID, CMADM #### [facility] [address] [place] [address] Dr. Bert Ferrara HSTROP 4.6 pg/mL Normal 4.0-76.1 [facility] Comment on above: Result Comment: CUT- OFF POINTS HAVE BEEN ESTABLISHED BASED ON THE FOURTH UNIVERSAL DEFINITIONS OF MYOCARDIAL INFARCTION. THE UPPER REFERENCE LIMIT (URL) OF TROPONIN, DEFINED THE 99TH PERCENTILE OF cTnI DISTRIBUTION IN A REFERENCE POPULATION, HAS BEEN CONFIRMED THE DECISION THRESHOLD FOR NE DIAGNOSIS. Performed By: #### B MP, CMADM #### [facility] [address] [place] [address] Dr. Bert Ferrara SUNDEEP 37 ng/mL Normal 16-96 [facility] Comment on above: Performed By: #### B MP, CMADM #### [facility] [address] [place] [address] Dr. Bert Ferrara CBC AUTO DIFFon 01-21-2022 BASO # 0.0 103/ul Normal 0.0-0.1 [facility] Comment on above: Performed By: #### C BC #### [facility] [address] [place] [address] Dr. Bert Ferrara Basophils/100 WBC (Bld) 0.4 % Normal 0.2-2.0 [facility] Comment on above: Performed By: #### C BC #### [facility] [address] [place] [address] Dr. Bert Ferrara EO # 0.2 103/ul Normal 0.0-0.7 [facility] Comment on above: Performed By: #### C BC #### [facility] [address] [place] [address] Dr. Bert Ferrara Eosinophils/100 WBC (Bld) 1.9 % Normal 0.9-7.0 [facility] Comment on above: Performed By: #### C BC #### [facility] [address] [place] [address] Dr. Bert Ferrara Erythrocyte distribution width (RBC) [Ratio] 11.9 % Normal 11.0-15.0 [facility] Comment on above: Performed By: #### C BC #### [facility] [address] [place] [address] Dr. Bert Ferrara Hematocrit (Bld) [Volume fraction] 50.5 % Normal 42.0-54.0 [facility] Comment on above: Performed By: #### C BC #### [facility] [address] [place] [address] Dr. Bert Ferrara Hemoglobin (Bld) [Mass/Vol] 17.0 g/dL Normal 14.0-18.0 [facility] Comment on above: Performed By: #### C BC #### [facility] [address] [place] [address] Dr. Bert Ferrara IG # 0.02 10e3/ul Normal 0.00-0.03 [facility] Comment on above: Performed By: #### C BC #### [facility] [address] [place] [address] Dr. Bert Ferrara IG % 0.2 % Normal 0.0-0.5 [facility] Comment on above: Performed By: #### C BC #### [facility] [address] [place] [address] Dr. Bert Ferrara LYMPH # 2.8 103/ul Normal 1.2-3.8 [facility] Comment on above: Performed By: #### C BC #### [facility] [address] [place] [address] Dr. Bert Ferrara Lymphocytes/100 WBC (Bld) 35.0 % Normal 20.5-60.0 [facility] Comment on above: Performed By: #### C BC #### [facility] [address] [place] [address] Dr. Bert Ferrara MANUAL DIFF REQ NO Normal [facility] Comment on above: Performed By: #### C BC #### [facility] [address] [place] [address] Dr. Bert Ferrara MCH (RBC) [Entitic mass] 28.4 pg Normal 25.9-34.0 [facility] Comment on above: Performed By: #### C BC #### [facility] [address] [place] [address] Dr. Bert Ferrara MCHC (RBC) [Mass/Vol] 33.7 g/dL Normal 29.9-35.2 [facility] Comment on above: Performed By: #### C BC #### [facility] [address] [place] [address] Dr. Bert Ferrara MCV (RBC) [Entitic vol] 84.3 fL Normal 80.0-94.0 [facility] Comment on above: Performed By: #### C BC #### [facility] [address] [place] [address] Dr. Bert Ferrara MONO # 0.9 103/ul Critically high 0.3-0.8 [facility] Comment on above: Performed By: #### C BC #### [facility] [address] [place] [address] Dr. Bert Ferrara Monocytes/100 WBC (Bld) 11.3 % Normal 1.7-12.0 [facility] Comment on above: Performed By: #### C BC #### [facility] [address] [place] [address] Dr. Bert Ferrara NEUT # 4.1 103/ul Normal 1.4-6.5 [facility] Comment on above: Performed By: #### C BC #### [facility] [address] [place] [address] Dr. Bert Ferrara Neutrophils/100 WBC (Bld) 51.2 % Normal 43.0-75.0 [facility] Comment on above: Performed By: #### C BC #### [facility] [address] [place] [address] Dr. Bert Ferrara Platelet mean volume (Bld) [Entitic vol] 9.3 fL Critically low 9.5-13.5 [facility] Comment on above: Performed By: #### C BC #### [facility] [address] [place] [address] Dr. Bert Ferrara PLT 212 103/ul Normal 150-450 [facility] Comment on above: Performed By: #### C BC #### [facility] [address] [place] [address] Dr. Bert Ferrara RBC 5.99 106/ul Normal 4.70-6.10 [facility] Comment on above: Performed By: #### C BC #### [facility] [address] [place] [address] Dr. Bert Ferrara WBC 8.0 103/ul Normal 4.0-11.0 [facility] Comment on above: Performed By: #### C BC #### [facility] [address] [place] [address] Dr. Bert Ferrara PROF CHEM 8 (BAS METB)on Anion gap [Moles/Vol] 11.7 mmol/L Normal [facility] Comment on above: Performed By: #### B MP, CMADM #### [facility] [address] [address] [address] Bert Ferrara Calcium [Mass/Vol] 9.1 mg/dL Normal 8.5-10.1 [facility] Comment on above: Performed By: #### B DAVID, CMADM #### [facility] [address] [address] [address] Bert Ferrara Chloride [Moles/Vol] 101 mmol/L Normal 98-107 [facility] Comment on above: Performed By: #### B DAVID, CMADM #### [facility] [address] [address] [address] Bert Ferrara CO2 [Moles/Vol] 28.9 mmol/L Normal 21.0-32.0 [facility] Comment on above: Performed By: #### B DAVID, CMADM #### [facility] [address] [address] [address] Bert Ferrara Creatinine [Mass/Vol] 1.06 mg/dL Normal 0.70-1.30 [facility] Comment on above: Performed By: #### B DAVID, CMADM #### [facility] [address] [address] [address] Bert Ferrara EGFR-AF GHANAIAN >60 Normal >=60 [facility] Comment on above: Performed By: #### B DAVID, CMADM #### [facility] [address] [address] [address] Bert Ferrara EGFR-NON AF GHANAIAN >60 Normal >=60 [facility] Comment on above: Performed By: #### B DAVID, CMADM #### [facility] [address] [address] [address] Bert Ferrara Glucose [Mass/Vol] 102 mg/dL Normal 74-106 [facility] Comment on above: Performed By: #### B DAVID, CMADM #### [facility] [address] [address] [address] Bert Ferrara Potassium [Moles/Vol] 3.6 mmol/L Normal 3.5-5.1 [facility] Comment on above: Performed By: #### B DAVID, CMADM #### [facility] [address] [address] [address] Bert Ferrara Sodium [Moles/Vol] 138 mmol/L Normal 136-145 [facility] Comment on above: Performed By: #### B SYED HERNANDEZ #### [facility] [address] [address] [address] Bert Ferrara Urea nitrogen [Mass/Vol] 28.0 mg/dL Critically high 7.0-18.0 [facility] Comment on above: Performed By: #### B SYED HERNANDEZ #### [facility] [address] [address] [address] Bert Ferrara Urea nitrogen/Creatinin e [Mass ratio] 26.4 mg/mg Normal [facility] Comment on above: Performed By: #### B SYED HERNANDEZ #### [facility] [address] [address] [address] Bert Ferrara XR CHEST 2 Von 01-21-2022 XR CHEST 2 V EXAM: XR CHEST 2 V HISTORY: Palpitations COMPARISON: Chest x-ray 11/02/2021 TECHNIQUE: 2 view chest x-ray frontal and lateral FINDINGS: No lobar consolidation, large pleural effusions, pneumothorax, or acute bony abnormality. Cardiac size unremarkable. IMPRESSION: No radiographic evidence for acute chest abnormality. Electronically authenticated by: ANÍBAL CHAVEZ Date: 2022-01-21 05:48 Normal [facility] XR CHEST 2 Von 11-02-2021 XR CHEST [...] FARIDA TREVIÑO Date: 2021-11-02 10:13 Normal [facility] CULTURE THROATon 07-05-2021 CULTURE THROAT Culture Observations: NORMAL RESPIRATORY JASMYNE. Normal [facility] Comment on above: Performed By: #### T HRTCX, SSCRN #### [facility] [address] [address] [address] Bert Ferrara STREPT SCREENon 12-31-2021 STREP SCREEN A Negative Normal NEGATIVE [facility] Comment on above: Performed By: #### T HRTCX, SSCRN #### [facility] [address] [address] [address] Bert JONES Quick Testingon 2020 Result Positive [facility] Other Quick Fluon 06-27-2021 FLUAV Ab CF (S) [Titer] Negative [facility] Other FLUBV Ab CF (S) [Titer] Negative [facility] Other Vital Signs Date Time Vital Sign Value Performing Clinician Facility 05-23-2023 11:55-0500 Body height 172.72 cm Maria T De León Other [facility] Other 05-23-2023 11:55-0500 Body mass index (BMI) [Ratio] 31.74 kg/m2 Maria T De León Other [facility] Other 05-23-2023 11:55-0500 Body temperature 97.7 [degF] Maria T De León Other [facility] Other 05-23-2023 11:55-0500 Body weight 94.71 kg Maria T De León Other [facility] Other 05-23-2023 11:55-0500 Respiratory rate 18 /min Maria T De León Other [facility] Other 05-23-2023 11:55-0500 SaO2% (BldA) [Mass fraction] 99 % Maria T De León Other [facility] Other 03-16-2023 17:10-0400 Body height 172.72 cm Christi Alonzo Other [facility] Other 03-16-2023 17:10-0400 Body mass index (BMI) [Ratio] 31.17 kg/m2 Christi Alonzo Other [facility] Other 03-16-2023 17:10-0400 Body temperature 97.9 [degF] Christi Alonzo Other [facility] Other 03-16-2023 17:10-0400 Body weight 92.99 kg Christi Alonzo Other [facility] Other 03-16-2023 17:10-0400 Diastolic blood pressure 92 mm[Hg] Christi Alonzo Other [facility] Other 03-16-2023 17:10-0400 Respiratory rate 18 /min Christi Alonzo Other [facility] Other 03-16-2023 17:10-0400 SaO2% (BldA) [Mass fraction] 97 % Christi Alonzo Other [facility] Other 03-16-2023 17:10-0400 Systolic blood pressure 128 mm[Hg] Christi Alonzo Other [facility] Other 07-29-2022 11:15-0500 Body height 172.72 cm Dariana Omar Other [facility] Other 07-29-2022 11:15-0500 Body mass index (BMI) [Ratio] 30.71 kg/m2 Dariana Omar Other [facility] Other 07-29-2022 11:15-0500 Body temperature 96.6 [degF] Dariana Nelson Other [facility] Other 07-29-2022 11:15-0500 Body weight 91.63 kg Dariana Nelson Other [facility] Other 07-29-2022 11:15-0500 Respiratory rate 18 /min Dariana Nelson Other [facility] Other 07-29-2022 11:15-0500 SaO2% (BldA) [Mass fraction] 98 % Dariana Nelson Other [facility] Other 06-04-2022 16:25-0500 Body height 172.72 cm Christi Blackmond Other [facility] Other 06-04-2022 16:25-0500 Body mass index (BMI) [Ratio] 30.86 kg/m2 Christi Blackmond Other [facility] Other 06-04-2022 16:25-0500 Body temperature 99.1 [degF] Christi Blackmond Other [facility] Other 06-04-2022 16:25-0500 Body weight 92.08 kg Christi Blackmond Other [facility] Other 06-04-2022 16:25-0500 Respiratory rate 16 /min Christi Cheri Other [facility] Other 06-04-2022 16:25-0500 SaO2% (BldA) [Mass fraction] 97 % Christi Cheri Other [facility] Other 03-13-2022 16:45-0400 Body height 172.72 cm Christi Cheri Other [facility] Other 03-13-2022 16:45-0400 Body mass index (BMI) [Ratio] 30.41 kg/m2 Christi Cheri Other [facility] Other 03-13-2022 16:45-0400 Body temperature 99.1 [degF] Christi Cheri Other [facility] Other 03-13-2022 16:45-0400 Body weight 90.72 kg Christi Cheri Other [facility] Other 03-13-2022 16:45-0400 Diastolic blood pressure 93 mm[Hg] Christi Cheri Other [facility] Other 03-13-2022 16:45-0400 Respiratory rate 16 /min Christi Cheri Other [facility] Other 03-13-2022 16:45-0400 SaO2% (BldA) [Mass fraction] 98 % Christi Cheri Other [facility] Other 03-13-2022 16:45-0400 Systolic blood pressure 127 mm[Hg] Christi Cheri Other [facility] Other 01-01-2022 16:30-0400 Body height 172.72 cm Christi Cheri Other [facility] Other 01-01-2022 16:30-0400 Body mass index (BMI) [Ratio] 28.89 kg/m2 Christi Cheri Other [facility] Other 01-01-2022 16:30-0400 Body temperature 98 [degF] Christi Alonzo Other [facility] Other 01-01-2022 16:30-0400 Body weight 86.18 kg Christi Alonzo Other [facility] Other 01-01-2022 16:30-0400 Diastolic blood pressure 89 mm[Hg] Christi Blackmond Other [facility] Other 01-01-2022 16:30-0400 Respiratory rate 16 /min Christi Alonzo Other [facility] Other 01-01-2022 16:30-0400 SaO2% (BldA) [Mass fraction] 98 % Christi Alonzo Other [facility] Other 01-01-2022 16:30-0400 Systolic blood pressure 150 mm[Hg] Christi Alonzo Other [facility] Other 06-27-2021 16:00-0500 Body height 172.72 cm Dariana Donnellyault Other [facility] Other 06-27-2021 16:00-0500 Body mass index (BMI) [Ratio] 28.89 kg/m2 Dariana Omar Other [facility] Other 06-27-2021 16:00-0500 Body temperature 97.7 [degF] Dariana Omar Other [facility] Other 06-27-2021 16:00-0500 Body weight 86.18 kg Dariana Omar Other [facility] Other 06-27-2021 16:00-0500 Respiratory rate 18 /min Dariana Donnellyault Other [facility] Other 06-27-2021 16:00-0500 SaO2% (BldA) [Mass fraction] 95 % Dariana Donnellyault Other [facility] Other Encounters Encounter Date Encounter Type Care Provider Facility Start: 06-23-2023 End: 06-23-2023 ambulatory Mike Ken Other [facility] Other Start: 06-23-2023 Telephone encounter Mike Harvey [facility] Start: 06-03-2023 End: 06-03-2023 ambulatory [facility] Start: 05-23-2023 End: 05-23-2023 ambulatory Maria T De León Other [facility] Other Start: 05-23-2023 Office outpatient visit 25 minutes Maria T De León [facility] Start: 04-08-2023 End: 04-08-2023 ambulatory [facility] Start: 03-16-2023 End: 03-16-2023 ambulatory Christi Alonzo Other [facility] Other Start: 03-16-2023 Office outpatient visit 15 minutes Christijose Alonzo [facility] Start: 07-29-2022 End: 07-29-2022 ambulatory Dariana Neslon Other [facility] Other Start: 07-29-2022 Office outpatient visit 15 minutes Darianagustavo Nelson [facility] Start: 06-07-2022 End: 06-07-[address] AYE [facility] Facility: Start: 06-04-2022 End: 06-04-2022 ambulatory Christi Alonzo Other [facility] Other Start: 06-04-2022 Office outpatient visit 15 minutes Christi Cheri [facility] Start: 03-21-[address] CHEL Holland ty:[facility] Start: 03-13-2022 End: 03-13-2022 ambulatory Christi Cheri Other [facility] Other Start: 03-13-2022 Office outpatient visit 15 minutes Christi Cheri [facility] Start: 01-21-2022 End: 01-21-[address] AYE HU Facility:[facility] Start: 01-01-2022 End: 01-01-2022 ambulatory Christi Alonzo Other [facility] Other Start: 01-01-2022 Office outpatient visit 15 minutes Christi Cheri [facility] Start: 11-02-2021 End: 11-02-2021 ambulatory YNES JANE Facility:[facility] Start: 09-02-2021 End: 09-02-[address] AYE HU Facility:[facility] Start: 07-05-2021 End: 07-05-[address] GUSTAVO SMALL Facility:[facility] Start: 06-29-2021 End: 06-30-2021 ambulatory YNES JANE Facility:[facility] Start: 06-27-2021 End: 06-27-2021 ambulatory Dariana Nelson Other [facility] Other Start: 06-27-2021 Office outpatient visit 15 minutes Dariana Nelson [facility] Payers Date Payer Category Payer Medicaid [id number] 2. [id number] 1990 Unknown [id number] 2.16.84 [id number] 1988 Unknown [id number] 2.16.84 [id number] 1988 Unknown [id number] 2.16.84 [id number] 1988 Unknown [id number] 2.16.84 [id number] 1988 Unknown [id number] 2.16.84 [id number] 1988 Unknown [id number] 2.16.84 [id number] 1988 Unknown [id number] 2.16.84 [id number] 1961 Self-pay 1961 Unknown [id number] 2.1 [id number] Unknown [id number] 2. [id number] Social History Date Type Detail Facility Sex Assigned At [facility] Other Clinical Notes 06-27-2021 to 06-03-2023 Note Date & Type Note Facility 06-03-2023 Note [facility] Cardiology Clinic Note Chief Complaint: Patient here [...] nutritional input with his family physician and/or it architect I will be happy to see him on an as-needed basis. Chel Krishnamurthy MD, MPH, [facility], [facility], [facility] Interventional Cardiology Pager Email: [email or web address] 05-23-2023 Evaluation note Encounter Date Diagnosis Assessment [...] treatment plan. Patient left in stable condition [facility] Chief Complaint: Patient [...] clinic following testing Chel Krishnamurthy MD, MPH, FACC, [facility], [facility] Interventional Cardiology Page (more content not included)...[facility]09-11-2023 Evaluation note* Encounter Date Diagnosis Assessment Notes [...] Allergic rhinitis home care material was printed [facility] Other 01-24-2023 Evaluation note* Encounter Date Diagnosis [...] away Jul, Sore throat (ICD-10 - J02.9) [facility] Other 11-30-2022 Evaluation note* Encounter Date Diagnosis [...] no improvement in 2 to 3 days. [facility] Other 09-08-2022 Evaluation note* Encounter Date Diagnosis [...] as needed for aches pains or fevers [facility] Other 06-29-2022 Evaluation note* Encounter Date Diagnosis Assessment Notes Treatment Notes Treatment Clinical Notes Dec, Chronic gingivitis, plaque induced (ICD-10 - K05.10) Drink plenty fluids, get plenty of rest. Take the clindamycin as prescribed until gone. Dentist soon as possible. Take Tylenol or Motrin as needed for aches pains or fevers. Rinse your mouth frequently with warm salt water. [facility] Other 12-23-2021 Evaluation note* Encounter Date Diagnosis Assessment Notes Treatment Notes Treatment Clinical Notes Jun, Contact with and (suspected) exposure to other viral communicable diseases (ICD-10 - Z20.828) Jun, COVID-19 (ICD-10 - U07.1) Today you tested positive for the COVID virus. This mean you need to follow all [facility] quarantine guidelines found at [facility]. It is important to rest, increase [...] Patient care instructions given in writting by [facility] At Home document. [facility] Other Evaluation noteNo InformationNort Construct Other History general Narrative - Reported* Type Description Date Medical History back pain Surgical History appendectomy Surgical History tonsillectomy [facility] Other History general Narrative - Reported* Type Description Date Medical History back pain Medical History ADHD Surgical History appendectomy Surgical History tonsillectomy [facility] Other History general Narrative - Reported* Type Description Date Medical History back pain Medical History ADHD Medical History GERD Surgical History appendectomy Surgical History tonsillectomy [facility] Other Summary Purpose Family History No Family [...] and content) DATE CREATED AUTHOR 06/09/2022 [facility] DATE CREATED AUTHOR AUTHOR'S ORGANIZ ATION 06/05/2023 [facility] FOR RECORDS PERTAINING TO PATIENTS WHO ARE [...] BE BASED ON THE PRIMARY CLINICAL RECORDS. [employer] [facility]. provides no warranty or guarantee of the accuracy or completeness of information in this document.
--- NOTE | 2024-04-18 09:10 | FL_ITS ---
The [address] [address] Patient Name: MILA PEREZ MRN: [id number] date: 1990 Sex: M Assigned Patient Location: [place] Current Patient Location: [place] Accession/Order Number: [id number] Exam Date: 04/18/2024 09:15 Report Date: 04/18/2024 11:04 At the request of: NON-STAFF PHYSICIAN Procedure: FL barium swallow EXAMINATION: FL barium swallow, FL cineradiography HISTORY: Refractory Gastroesophageal Reflux Disease FLUORO DOSE: unknown COMPARISON: No relevant comparison available. TECHNIQUE: A swallowing evaluation was performed with fluoroscopy in the usual manner. Standard level fluoroscopic mode of operation utilized. FINDINGS: ORAL PHASE: Normal deglutition. PHARYNGEAL PHASE: Normal swallowing. ASPIRATION: None. STRUCTURE: There is a persistent focal posterior shelflike filling defect of the esophagus at the of the upper esophagus approximately 5 cm caudal to the epiglottis with estimated narrowing of 50% . This is at the C6 level, in the region of the cricopharyngeus muscle OTHER: Negative. 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 The etiology is unknown Electronically authenticated by: FARIDA SPEARS Date: 04/18/2024 11:04
== END 2024-04-18 09:03 | disposition home or self-care (01) ==
LOC: FL 09:03
DX: K21.9 Gastro-esophageal reflux disease without esophagitis (principal)
CPT/HCPCS: 74220; 76120

== ENCOUNTER 2024-05-13 17:52 | Emergency (ER) | payer OTHER, MEDICAID, SELFPAY ==
--- OUTSIDE RECORDS SUMMARY | 2024-05-13 17:58 | XMS_ITS | CCD ---
Author Organization [facility] Care Team Providers Care Law Examiner Name Role Phone Dariana Nelson Unavailable Christi [...] CHEL KRISHNAMURTHY Attending Unavailable Mike Rogers Unavailable [phone] Medications Current Medications Medication Drug Class(es) [...] Drug Class(es) Dates Sig (Normalized) Sig (Original) [id number] 200 actuat albuterol 0.09 mg/actuat metered dose [...] Range Facility Office Visiton 06-03-2023 Follow-up visit [id number] Mila Ochoa 1990 M Date Provider Department Center 06/03/2023 271-CHEL KRISHNAMURTHY CARD [facility] No family history on file Level of Service:96231 IN OFFICE/OUTPATIENT ESTABLISHED LOW MDM 20-29 MIN Normal [facility] COVID + FLU Quick Testingon 05-23-2023 SARS-CoV-2 (COVID-19) RNA RASHAAD+probe Ql (Unsp spec) Positive [facility] Other COVID + FLU Quick Testing Negative [facility] Other Office Visiton 04-08-2023 Follow-up visit [id number] Mila Ochoa 1990 M Date Provider Department Center 04/08/2023 271-GAY, EHAB BH CARD [facility] No family history on file Level of Service:47360 IN OFFICE/OUTPATIENT ESTABLISHED MOD MDM 30-39 MIN Normal [facility] Quick Strepon 03-16-2023 S. pyogenes Org specific cx Ql (Throat) Negative [facility] Other Quick Strep [facility] Other COVID + FLU [facility] 07-29-2022 SARS-CoV-2 (COVID-19) RNA RASHAAD+probe Ql (Unsp spec) [facility] Other COVID + FLU Quick Testing Negative [facility] [facility] [employer] Other Quick Strepon 07-29-2022 S. pyogenes Org specific cx Ql (Throat) Negative [employer] [facility] [employer] Other Quick Strep [facility] Other AMYLASEon 06-07-2022 Amylase [Catalytic activity/Vol] 60 U/L Normal 25-115 [facility] Comment on above: Performed By: #### B MP, CMADM #### [facility] [address] [place] [address] Dr. Bert Ferrara CBC AUTO DIFFon 06-07-2022 BASO # 0.0 103/ul Normal 0.0-0.1 [facility] Comment on above: Performed By: #### C BC #### [facility] [address] [place] [address] Dr. Bert Ferrara Basophils/100 WBC (Bld) 0.3 % Normal 0.2-2.0 [facility] Comment on above: Performed By: #### C BC #### [facility] [address] [place] [address] Dr. Bert Ferrara EO # 0.1 103/ul Normal 0.0-0.7 [facility] Comment on above: Performed By: #### C BC #### [facility] [address] [place] [address] Dr. Bert Ferrara Eosinophils/100 WBC (Bld) 0.4 % Critically low 0.9-7.0 [facility] Comment on above: Performed By: #### C BC #### [facility] [address] [place] [address] Dr. Bert Ferrara Erythrocyte distribution width (RBC) [Ratio] 12.0 % Normal 11.0-15.0 [facility] Comment on above: Performed By: #### C BC #### [facility] [address] [place] [address] Dr. Bert Ferrara Hematocrit (Bld) [Volume fraction] 48.5 % Normal 42.0-54.0 [facility] Comment on above: Performed By: #### C BC #### [facility] [address] [place] [address] Dr. Bert Ferrara Hemoglobin (Bld) [Mass/Vol] 16.9 g/dL Normal 14.0-18.0 [facility] Comment on above: Performed By: #### C BC #### [facility] [address] [place] [address] Dr. Bert Ferrara IG # 0.05 10e3/ul Critically high 0.00-0.03 [facility] Comment on above: Performed By: #### C BC #### [facility] [address] [place] [address] Dr. Bert Ferrara IG % 0.3 % Normal 0.0-0.5 [facility] Comment on above: Performed By: #### C BC #### [facility] [address] [place] [address] Dr. Bert Ferrara LYMPH # 3.0 103/ul Normal 1.2-3.8 [facility] Comment on above: Performed By: #### C BC #### [facility] [address] [place] [address] Dr. Bert Ferrara Lymphocytes/100 WBC (Bld) 20.9 % Normal 20.5-60.0 [facility] Comment on above: Performed By: #### C BC #### [facility] [address] [place] [address] Dr. Bert Ferrara MANUAL DIFF REQ NO Normal [facility] Comment on above: Performed By: #### C BC #### [facility] [address] [place] [address] Dr. Bert Ferrara MCH (RBC) [Entitic mass] 28.5 pg Normal 25.9-34.0 [facility] Comment on above: Performed By: #### C BC #### [facility] [address] [place] [address] Dr. Bert Ferrara MCHC (RBC) [Mass/Vol] 34.8 g/dL Normal 29.9-35.2 [facility] Comment on above: Performed By: #### C BC #### [facility] [address] [place] [address] Dr. Bert Ferrara MCV (RBC) [Entitic vol] 81.9 fL Normal 80.0-94.0 [facility] Comment on above: Performed By: #### C BC #### [facility] [address] [place] [address] Dr. Bert Ferrara MONO # 1.3 103/ul Critically high 0.3-0.8 [facility] Comment on above: Performed By: #### C BC #### [facility] [address] [place] [address] Dr. Bert Ferrara Monocytes/100 WBC (Bld) 9.0 % Normal 1.7-12.0 [facility] Comment on above: Performed By: #### C BC #### [facility] [address] [place] [address] Dr. Bert Ferrara NEUT # 10.1 103/ul Critically high 1.4-6.5 [facility] Comment on above: Performed By: #### C BC #### [facility] [address] [place] [address] Dr. Bert Ferrara Neutrophils/100 WBC (Bld) 69.1 % Normal 43.0-75.0 [facility] Comment on above: Performed By: #### C BC #### [facility] [address] [place], [place] [address] Dr. Bert Ferrara Platelet mean volume (Bld) [Entitic vol] 8.4 fL Critically low 9.5-13.5 [facility] Comment on above: Performed By: #### C BC #### [facility] [address] [id number] [address] Bert Ferrara PLT 249 103/ul Normal 150-[address] [facility] Comment on above: Performed By: #### C BC #### [facility] [address] [address] [address] Bert Ferrara RBC 5.92 106/ul Normal 4.70-6.[address] [facility] Comment on above: Performed By: #### C BC #### [facility] [address] [address] [address] Bert Ferrara WBC 14.6 103/ul Critically high 4.0-11.0 [facility] Comment on above: Performed By: #### C BC #### [facility] [address] [place], [place] [address] ABD/PELVIS WO CONon [...] by: FARIDA SPEARS Date: 2022-06-07 18:07 Normal [facility] LIPASEon 06-07-2022 Lipase [Catalytic activity/Vol] 97.0 U/L Normal 73.0-393.0 [facility] Comment on above: Performed By: #### B SYED HERNANDEZ #### [facility] [address] [place] [address] Dr. Bert Ferrara PROF 14(COMP METB)on 022 Albumin [Mass/Vol] 3.8 g/dL Normal 3.4-5.0 [facility] Comment on above: Performed By: #### SYED Moctezuma MP #### [facility] [address] [place] [address] Dr. Bert Ferrara Albumin/Globulin [Mass ratio] 1.1 {ratio} Normal [facility] Comment on above: Performed By: #### SYED Moctezuma MP #### [facility] [address] [place] [address] Dr. Bert Ferrara ALP [Catalytic activity/Vol] 96 U/L Normal 46-[address] [facility] Comment on above: Performed By: #### SYED Moctezuma MP #### [facility] [address] [place] [address] Dr. Bert Ferrara ALT [Catalytic activity/Vol] 29 U/L Normal 16-63 [facility] Comment on above: Performed By: #### SYED Moctezuma MP #### [facility] [address] [place] [address] Dr. Bert Ferrara Anion gap [Moles/Vol] 5.6 mmol/L Normal [facility] Comment on above: Performed By: #### SYED Moctezuma MP #### [facility] [address] [place] [address] Dr. Bert Ferrara AST [Catalytic activity/Vol] 14 U/L Critically low 15-37 [facility] Comment on above: Performed By: #### B DAVID, SYED #### [facility] [address] [place] [address] Dr. Bert Ferrara Bilirubin [Mass/Vol] 0.2 mg/dL Normal 0.2-1.0 [facility] Comment on above: Performed By: #### B DAVID, CMADM #### [facility] [address] [place] [address] Dr. Bert Ferrara Calcium [Mass/Vol] 8.8 mg/dL Normal 8.5-10.1 [facility] Comment on above: Performed By: #### B DAVID, KEENANDM #### [facility] [address] [place] [address] Dr. Bert Ferrara Chloride [Moles/Vol] 101 mmol/L Normal 98-107 [facility] Comment on above: Performed By: #### B DAVID, KEENANDM #### [facility] [address] [place] [address] Dr. Bert Ferrara CO2 [Moles/Vol] 32.1 mmol/L Critically high 21.0-32.0 [facility] Comment on above: Performed By: #### B DAVID, KEENANDM #### [facility] [address] [place] [address] Dr. Bert Ferrara Creatinine [Mass/Vol] 0.90 mg/dL Normal 0.70-1.30 [facility] Comment on above: Performed By: #### Jose Elias HERNANDEZ, KEENANDM #### [facility] [address] [place] [address] Dr. Bert Ferrara EGFR-AF KUWAITI >60 Normal >=60 [facility] Comment on above: Performed By: #### B DAVID, KEENANDM #### [facility] [address] [place] [address] Dr. Bert Ferrara EGFR-NON AF KU[place]I >60 Normal >=60 [facility] Comment on above: Performed By: #### B SYED HERNANDEZ #### [facility] [address] [place] [address] Dr. Bert Ferrara Globulin (S) [Mass/Vol] 3.5 g/dL Normal [facility] Comment on above: Performed By: #### B DAVID, KEENANDM #### [facility] [address] [place] [address] Dr. Bert Ferrara Glucose [Mass/Vol] 93 mg/dL Normal 74-106 [facility] Comment on above: Performed By: #### B DAVID, CMADM #### [facility] [address] [place] [address] Dr. Bert Ferrara Potassium [Moles/Vol] 3.7 mmol/L Normal 3.5-5.1 [facility] Comment on above: Performed By: #### B DAVID, KEENANDM #### [facility] [address] [place] [address] Dr. Bert Ferrara Protein [Mass/Vol] 7.3 g/dL Normal 6.4-8.2 [facility] Comment on above: Performed By: #### B DAVID, KEENANDM #### [facility] [address] [place] [address] Dr. Bert Ferrara Sodium [Moles/Vol] 135 mmol/L Critically low 136-145 [facility] Comment on above: Performed By: #### B DAVID, KEENANDM #### [facility] [address] [place] [address] Dr. Bert Ferrara Urea nitrogen [Mass/Vol] 21.0 mg/dL Critically high 7.0-18.0 [facility] Comment on above: Performed By: #### B DAVID, CMADM #### [facility] [address] [place] [address] Dr. Bert Ferrara Urea nitrogen/Creatinin e [Mass ratio] 23.3 mg/mg Normal [facility] Comment on above: Performed By: #### B DAVID, CMADM #### [facility] [address] [place] [address] Dr. Bert Ferrara CARDIAC LUC 3-6on 2 CK [Catalytic activity/Vol] 169 U/L Normal 39-308 [facility] Comment on above: Performed By: #### C BELENP #### [facility] [address] [address] [address] Bert Ferrara CK.MB [Mass/Vol] 2.28 ng/mL Normal <=3.60 [facility] Comment on above: Performed By: #### C MREP #### [facility] [address] [place] [address] Dr. Bert Ferrara HSTROP 4.8 pg/mL Normal 4.0-76.[address] [facility] Comment on above: Result Comment: CUT- OFF POINTS HAVE BEEN ESTABLISHED BASED ON THE FOURTH UNIVERSAL DEFINITIONS OF MYOCARDIAL INFARCTION. THE UPPER REFERENCE LIMIT (URL) OF TROPONIN, DEFINED THE 99TH PERCENTILE OF cTnI DISTRIBUTION IN A REFERENCE POPULATION, HAS BEEN CONFIRMED THE DECISION THRESHOLD FOR AL DIAGNOSIS. Performed By: #### C MREP #### [facility] [address] [place] [address] Dr. Bert Ferrara CARDIAC LUC ADMITon 022 CK [Catalytic activity/Vol] 181 U/L Normal 39-[address] [facility] Comment on above: Performed By: #### B DAVID, CMADM #### [facility] [address] [place] [address] Dr. Bert Ferrara CK.MB [Mass/Vol] 2.61 ng/mL Normal <=3.60 [facility] Comment on above: Performed By: #### B DAVID, CMADM #### [facility] [address] [place] [address] Dr. Bert Ferrara HSTROP 4.6 pg/mL Normal 4.0-76.[address] [facility] Comment on above: Result Comment: CUT- OFF POINTS HAVE BEEN ESTABLISHED BASED ON THE FOURTH UNIVERSAL DEFINITIONS OF MYOCARDIAL INFARCTION. THE UPPER REFERENCE LIMIT (URL) OF TROPONIN, DEFINED THE 99TH PERCENTILE OF cTnI DISTRIBUTION IN A REFERENCE POPULATION, HAS BEEN CONFIRMED THE DECISION THRESHOLD FOR AL DIAGNOSIS. Performed By: #### B MP, CMADM #### [facility] [address] [place] [address] Dr. Bert Ferrara SUNDEEP 37 ng/mL Normal 16-[address] [facility] Comment on above: Performed By: #### B MP, CMADM #### [facility] [address] [place] [address] Dr. Bert Ferrara CBC AUTO DIFFon 01-21-2022 BASO # 0.0 103/ul Normal 0.0-0.1 [facility] Comment on above: Performed By: #### C BC #### [facility] [address] [place] [address] Dr. Bert Ferrara Basophils/100 WBC (Bld) 0.4 % Normal 0.2-2.0 [facility] Comment on above: Performed By: #### C BC #### [facility] [address] [place] [address] Dr. Bert Ferrara EO # 0.2 103/ul Normal 0.0-0.7 [facility] Comment on above: Performed By: #### C BC #### [facility] [address] [place] [address] Dr. Bert Ferrara Eosinophils/100 WBC (Bld) 1.9 % Normal 0.9-7.0 [facility] Comment on above: Performed By: #### C BC #### [facility] [address] [place] [address] Dr. Bert Ferrara Erythrocyte distribution width (RBC) [Ratio] 11.9 % Normal 11.0-15.0 [facility] Comment on above: Performed By: #### C BC #### [facility] [address] [place] [address] Dr. Bert Ferrara Hematocrit (Bld) [Volume fraction] 50.5 % Normal 42.0-54.0 [facility] Comment on above: Performed By: #### C BC #### [facility] [address] [place] [address] Dr. Bert Ferrara Hemoglobin (Bld) [Mass/Vol] 17.0 g/dL Normal 14.0-18.0 [facility] Comment on above: Performed By: #### C BC #### [facility] [address] [place] [address] Dr. Bert Ferrara IG # 0.02 10e3/ul Normal 0.00-0.03 [facility] Comment on above: Performed By: #### C BC #### [facility] [address] [place] [address] Dr. Bert Ferrara IG % 0.2 % Normal 0.0-0.5 [facility] Comment on above: Performed By: #### C BC #### [facility] [address] [place] [address] Dr. Bert Ferrara LYMPH # 2.8 103/ul Normal 1.2-3.[address] [facility] Comment on above: Performed By: #### C BC #### [facility] [address] [place] [address] Dr. Bert Ferrara Lymphocytes/100 WBC (Bld) 35.0 % Normal 20.5-60.0 [facility] Comment on above: Performed By: #### C BC #### [facility] [address] [place] [address] Dr. Bert Ferrara MANUAL DIFF REQ NO Normal [facility] Comment on above: Performed By: #### C BC #### [facility] [address] [place] [address] Dr. Bert Ferrara MCH (RBC) [Entitic mass] 28.4 pg Normal 25.9-34.0 [facility] Comment on above: Performed By: #### C BC #### [facility] [address] [place] [address] Dr. Bert Ferrara MCHC (RBC) [Mass/Vol] 33.7 g/dL Normal 29.9-35.[address] [facility] Comment on above: Performed By: #### C BC #### [facility] [address] [place] [address] Dr. Bert Ferrara MCV (RBC) [Entitic vol] 84.3 fL Normal 80.0-94.[address] [facility] Comment on above: Performed By: #### C BC #### [facility] [address] [place] [address] Dr. Bert Ferrara MONO # 0.9 103/ul Critically high 0.3-0.8 [facility] Comment on above: Performed By: #### C BC #### [facility] [address] [place] [address] Dr. Bert Ferrara Monocytes/100 WBC (Bld) 11.3 % Normal 1.7-12.[address] [facility] Comment on above: Performed By: #### C BC #### [facility] [address] [place] [address] Dr. Bert Ferrara NEUT # 4.1 103/ul Normal 1.4-6.[address] [facility] Comment on above: Performed By: #### C BC #### [facility] [address] [place] [address] Dr. Bert Ferrara Neutrophils/100 WBC (Bld) 51.2 % Normal 43.0-75.[address] [facility] Comment on above: Performed By: #### C BC #### [facility] [address] [place] [address] Dr. Bert Ferrara Platelet mean volume (Bld) [Entitic vol] 9.3 fL Critically low 9.5-13.[address] [facility] Comment on above: Performed By: #### C BC #### [facility] [address] [place] [address] Dr. Bert Ferrara PLT 212 103/ul Normal 150-[address] [facility] Comment on above: Performed By: #### C BC #### [facility] [address] [place] [address] Dr. Bert Ferrara RBC 5.99 106/ul Normal 4.70-6.[address] [facility] Comment on above: Performed By: #### C BC #### [facility] [address] [place] [address] Dr. Bert Ferrara WBC 8.0 103/ul Normal 4.0-11.[address] [facility] Comment on above: Performed By: #### C BC #### [facility] [address] [place] [address] Dr. Bert Ferrara PROF CHEM 8 (BAS METB)on Anion gap [Moles/Vol] 11.7 mmol/L Normal [facility] Comment on above: Performed By: #### B MP, CMADM #### [facility] [address] [address] [address] Bert Ferrara Calcium [Mass/Vol] 9.1 mg/dL Normal 8.5-10.1 [facility] Comment on above: Performed By: #### B DAVID, CMADM #### [facility] [address] [address] [address] Bert Ferrara Chloride [Moles/Vol] 101 mmol/L Normal 98-[address] [facility] Comment on above: Performed By: #### B DAVID, CMADM #### [facility] [address] [address] [address] Bert Ferrara CO2 [Moles/Vol] 28.9 mmol/L Normal 21.0-32.0 [facility] Comment on above: Performed By: #### B DAVID, CMADM #### [facility] [address] [address] [address] Bert Ferrara Creatinine [Mass/Vol] 1.06 mg/dL Normal 0.70-1.[address] [facility] Comment on above: Performed By: #### B DAVID, CMADM #### [facility] [address] [address] [address] Bert Ferrara EGFR-AF KUWAITI >60 Normal >=60 [facility] Comment on above: Performed By: #### B DAVID, CMADM #### [facility] [address] [address] [address] Bert Ferrara EGFR-NON AF KUWAITI >60 Normal >=[address] [facility] Comment on above: Performed By: #### B DAVID, CMADM #### [facility] [address] [address] [address] Bert Ferrara Glucose [Mass/Vol] 102 mg/dL Normal 74-106 [facility] Comment on above: Performed By: #### B DAVID, CMADM #### [facility] [address] [address] [address] Bert Ferrara Potassium [Moles/Vol] 3.6 mmol/L Normal 3.5-5.[address] [facility] Comment on above: Performed By: #### B DAVID, CMADM #### [facility] [address] [address] [address] Bert Ferrara Sodium [Moles/Vol] 138 mmol/L Normal 136-145 [facility] Comment on above: Performed By: #### B SYED HERNANDEZ #### [facility] [address] [address] [address] Bert Ferrara Urea nitrogen [Mass/Vol] 28.0 mg/dL Critically high 7.0-18.0 [facility] Comment on above: Performed By: #### B SYED HERNANDEZ #### [facility] [address] [address] [address] Bert Ferrara Urea nitrogen/Creatinin e [Mass ratio] 26.4 mg/mg Normal [facility] Comment on above: Performed By: #### B SYED HERNANDEZ #### [facility] [address] [address] [address] Bert Ferrara XR CHEST 2 Von 01-21-2022 XR CHEST 2 V EXAM: XR CHEST 2 V HISTORY: Palpitations COMPARISON: Chest x-ray 11/02/2021 TECHNIQUE: 2 view chest x-ray frontal and lateral FINDINGS: No lobar consolidation, large pleural effusions, pneumothorax, or acute bony abnormality. Cardiac size unremarkable. IMPRESSION: No radiographic evidence for acute chest abnormality. Electronically authenticated by: ANÍBAL CHAVEZ Date: 2022-01-21 05:48 Normal [facility] XR CHEST 2 Von 11-02-2021 XR CHEST [...] FARIDA TREVIÑO Date: 2021-11-02 10:[address] [facility] CULTURE THROATon 07-05-2021 CULTURE THROAT Culture Observations: NORMAL RESPIRATORY JASMYNE. Normal [facility] Comment on above: Performed By: #### T HRTCX, SSCRN #### [facility] [facility] [address] [address] [address] Bert Ferrara STREPT SCREENon 12-31-2021 STREP SCREEN A Negative Normal NEGATIVE [facility] Comment on above: Performed By: #### T HRTCX, SSCRN #### [facility] [address] [address] [address] Bert JONES Quick Testingon 2020 Result Positive [facility] Other Quick Fluon 06-27-2021 FLUAV Ab CF (S) [Titer] Negative [facility] Other FLUBV Ab CF (S) [Titer] Negative [facility] Other Vital Signs Date Time Vital Sign Value Performing Clinician Facility 05-23-2023 11:55-0500 Body height 172.72 cm Maria T De León Other [facility] Other 05-23-2023 11:55-0500 Body mass index (BMI) [Ratio] 31.74 kg/m2 Maria T De León Other [facility] Other 05-23-2023 11:55-0500 Body temperature 97.7 [degF] Maria T De León Other [facility] Other 05-23-2023 11:55-0500 Body weight 94.71 kg Maria T De León Other [facility] Other 05-23-2023 11:55-0500 Respiratory rate 18 /min Maria T De León Other [facility] Other 05-23-2023 11:55-0500 SaO2% (BldA) [Mass fraction] 99 % Maria T De León Other [facility] Other 03-16-2023 17:10-0400 Body height 172.72 cm Christi Alonzo Other [facility] Other 03-16-2023 17:10-0400 Body mass index (BMI) [Ratio] 31.17 kg/m2 Christi Alonzo Other [facility] Other 03-16-2023 17:10-0400 Body temperature 97.9 [degF] Christi Alonzo Other [facility] Other 03-16-2023 17:10-0400 Body weight 92.99 kg Christi Alonzo Other [facility] Other 03-16-2023 17:10-0400 Diastolic blood pressure 92 mm[Hg] Christi Alonzo Other [facility] Other 03-16-2023 17:10-0400 Respiratory rate 18 /min Christi Alonzo Other [facility] Other 03-16-2023 17:10-0400 SaO2% (BldA) [Mass fraction] 97 % Christi Alonzo Other [facility] Other 03-16-2023 17:10-0400 Systolic blood pressure 128 mm[Hg] Christi Alonzo Other [facility] Other 07-29-2022 11:15-0500 Body height 172.72 cm Dariana Omar Other [facility] Other 07-29-2022 11:15-0500 Body mass index (BMI) [Ratio] 30.71 kg/m2 Dariana Omar Other [facility] Other 07-29-2022 11:15-0500 Body temperature 96.6 [degF] Dariana Nelson Other [facility] Other 07-29-2022 11:15-0500 Body weight 91.63 kg Dariana Nelson Other [facility] Other 07-29-2022 11:15-0500 Respiratory rate 18 /min Dariana Nelson Other [facility] Other 07-29-2022 11:15-0500 SaO2% (BldA) [Mass fraction] 98 % Dariana Nelson Other [facility] Other 06-04-2022 16:25-0500 Body height 172.72 cm Christi Blackmond Other [facility] Other 06-04-2022 16:25-0500 Body mass index (BMI) [Ratio] 30.86 kg/m2 Christi Blackmond Other [facility] Other 06-04-2022 16:25-0500 Body temperature 99.1 [degF] Christi Blackmond Other [facility] Other 06-04-2022 16:25-0500 Body weight 92.08 kg Christi Blackmond Other [facility] Other 06-04-2022 16:25-0500 Respiratory rate 16 /min Christi Cheri Other [facility] Other 06-04-2022 16:25-0500 SaO2% (BldA) [Mass fraction] 97 % Christi Cheri Other [facility] Other 03-13-2022 16:45-0400 Body height 172.72 cm Christi Cheri Other [facility] Other 03-13-2022 16:45-0400 Body mass index (BMI) [Ratio] 30.41 kg/m2 Christi Cheri Other [facility] Other 03-13-2022 16:45-0400 Body temperature 99.1 [degF] Christi Cheri Other [facility] Other 03-13-2022 16:45-0400 Body weight 90.72 kg Christi Cheri Other [facility] Other 03-13-2022 16:45-0400 Diastolic blood pressure 93 mm[Hg] Christi Cheri Other [facility] Other 03-13-2022 16:45-0400 Respiratory rate 16 /min Christi Cheri Other [facility] Other 03-13-2022 16:45-0400 SaO2% (BldA) [Mass fraction] 98 % Christi Cheri Other [facility] Other 03-13-2022 16:45-0400 Systolic blood pressure 127 mm[Hg] Christi Cheri Other [facility] Other 01-01-2022 16:30-0400 Body height 172.72 cm Christi Cheri Other [facility] Other 01-01-2022 16:30-0400 Body mass index (BMI) [Ratio] 28.89 kg/m2 Christi Cheri Other [facility] Other 01-01-2022 16:30-0400 Body temperature 98 [degF] Christi Alonzo Other [facility] Other 01-01-2022 16:30-0400 Body weight 86.18 kg Christi Alonzo Other [facility] Other 01-01-2022 16:30-0400 Diastolic blood pressure 89 mm[Hg] Christi Blackmond Other [facility] Other 01-01-2022 16:30-0400 Respiratory rate 16 /min Christi Alonzo Other [facility] Other 01-01-2022 16:30-0400 SaO2% (BldA) [Mass fraction] 98 % Christi Alonzo Other [facility] Other 01-01-2022 16:30-0400 Systolic blood pressure 150 mm[Hg] Christi Alozno Other [facility] Other 06-27-2021 16:00-0500 Body height 172.72 cm Dariana Donnellyault Other [facility] Other 06-27-2021 16:00-0500 Body mass index (BMI) [Ratio] 28.89 kg/m2 Dariana Omar Other [facility] Other 06-27-2021 16:00-0500 Body temperature 97.7 [degF] Dariana Omar Other [facility] Other 06-27-2021 16:00-0500 Body weight 86.18 kg Dariana Omar Other [facility] Other 06-27-2021 16:00-0500 Respiratory rate 18 /min Dariana Donnellyault Other [facility] Other 06-27-2021 16:00-0500 SaO2% (BldA) [Mass fraction] 95 % Dariana Donnellyault Other [facility] Other Encounters Encounter Date Encounter Type Care Provider Facility Start: 06-23-2023 End: 06-23-2023 ambulatory Mike Ken Other [facility] Other Start: 06-23-2023 Telephone encounter Mike Harvey [facility] Start: 06-03-2023 End: 06-03-2023 ambulatory [facility] Start: 05-23-2023 End: 05-23-2023 ambulatory Maria T De León Other [facility] Start: 05-23-2023 Office outpatient visit 25 minutes Maria T De León [facility] Start: 04-08-2023 End: 04-08-2023 ambulatory [facility] Start: 03-16-2023 End: 03-16-2023 ambulatory Christi Alonzo Other [facility] Start: 03-16-2023 Office outpatient visit 15 minutes Christijose Alonzo [facility] Start: 07-29-2022 End: 07-29-2022 ambulatory Dariana Nelson Other [facility] Start: 07-29-2022 Office outpatient visit 15 minutes Darianagustavo Nelson [facility] Start: 06-07-2022 End: 06-07-[address] AYE HU Facility: Start: 06-04-2022 End: 06-04-2022 ambulatory Christi Alonzo Other [facility] Start: 06-04-2022 Office outpatient visit 15 minutes Christi Cheri [facility] Start: 03-21-[address] CHEL Holland ty:[facility]1 Start: 03-13-2022 End: 03-13-2022 ambulatory Christi Cheri Other [facility] Start: 03-13-2022 Office outpatient visit 15 minutes Christi Cheri [facility] Start: 01-21-2022 End: 01-21-[address] AYE HU Facility:[facility] Start: 01-01-2022 End: 01-01-2022 ambulatory Christi Alonzo Other [facility] Start: 01-01-2022 Office outpatient visit 15 minutes Christi Cheri [facility] Start: 11-02-2021 End: 11-02-2021 ambulatory YNES JANE Facility:[facility] Start: 09-02-2021 End: 09-02-[address] AYE HU Facility:[facility] Start: 07-05-2021 End: 07-05-[address] GUSTAVO SMALL Facility:[facility] Start: 06-29-2021 End: 06-30-2021 ambulatory YNES JANE Facility:[facility] Start: 06-27-2021 End: 06-27-2021 ambulatory Dariana Nelson Other [facility] Other Start: 06-27-2021 Office outpatient visit 15 minutes Dariana Nelson [facility] Payers Date Payer Category Payer Medicaid [id number] 2. [id number] 1990 Unknown [id number] 2.16.84 [id number] 1988 Unknown [id number] 2.16.84 [id number] 1988 Unknown [id number] 2.16.84 [id number] 1988 Unknown [id number] 2.16.84 [id number] 1988 Unknown [id number] 2.16.84 [id number] 1988 Unknown [id number] 2.16.84 [id number] 1988 Unknown [id number] 2.16.84 [id number] 1961 Self-pay 1961 Unknown [id number] 2.1 [id number] Unknown [id number] 2. [id number] Social History Date Type Detail Facility Sex Assigned At [facility] Other Clinical Notes 06-27-2021 to 06-03-2023 Note Date & Type Note Facility 06-03-2023 Note [facility] Cardiology Clinic Note Chief Complaint: Patient [...] nutritional input with his family physician and/or social media developer I will be happy to see him on an as-needed basis. Chel Krishnamurthy MD, MPH, [facility], [facility], [facility] Interventional Cardiology Pager Email: [email or web address] 05-23-2023 Evaluation note Encounter Date Diagnosis [...] treatment plan. Patient left in stable condition [facility] Chief [...] following testing Chel Krishnamurthy MD, MPH, FACC, [facility], [facility] Interventional Cardiology Page (more content not included)...[facility]09-11-2023 Evaluation note* Encounter Date Diagnosis Assessment Notes [...] Allergic rhinitis home care material was printed [facility] Other 01-24-2023 Evaluation note* Encounter Date Diagnosis [...] away Jul, Sore throat (ICD-10 - J02.9) [facility] Other 11-30-2022 Evaluation note* Encounter Date Diagnosis [...] no improvement in 2 to 3 days. [facility] Other 09-08-2022 Evaluation note* Encounter Date Diagnosis [...] as needed for aches pains or fevers [facility] Other 06-29-2022 Evaluation note* Encounter Date Diagnosis Assessment Notes Treatment Notes Treatment Clinical Notes Dec, Chronic gingivitis, plaque induced (ICD-10 - K05.10) Drink plenty fluids, get plenty of rest. Take the clindamycin as prescribed until gone. Dentist soon as possible. Take Tylenol or Motrin as needed for aches pains or fevers. Rinse your mouth frequently with warm salt water. [facility] Other 12-23-2021 Evaluation note* Encounter Date Diagnosis Assessment Notes Treatment Notes Treatment Clinical Notes Jun, Contact with and (suspected) exposure to other viral communicable diseases (ICD-10 - Z20.828) Jun, COVID-19 (ICD-10 - U07.1) Today you tested positive for the COVID virus. This mean you need to follow all [facility] quarantine guidelines found at [facility].go v. It is important to rest, increase [...] Patient care instructions given in writting by [facility] Care At Home document. [facility] Other Evaluation noteNo InformationNort [facility] Other History general Narrative - Reported* Type Description Date Medical History back pain Surgical History appendectomy Surgical History tonsillectomy [facility] Other History general Narrative - Reported* Type Description Date Medical History back pain Medical History ADHD Surgical History appendectomy Surgical History tonsillectomy [facility] Other History general Narrative - Reported* Type Description Date Medical History back pain Medical History ADHD Medical History GERD Surgical History appendectomy Surgical History tonsillectomy [facility] Other Summary Purpose Family History No Family [...] DATE CREATED AUTHOR AUTHOR'S ORGANIZ ATION 06/05/2023 [facility] FOR RECORDS PERTAINING TO PATIENTS WHO ARE [...] BE BASED ON THE PRIMARY CLINICAL RECORDS. [facility]. provides no warranty or guarantee of the accuracy or completeness of information in this document.
[2024-05-13 18:17] VITALS: BP 167/114; PULSE 101; TEMP 36.7; O2SAT 97; BMI 30.4
--- NOTE | 2024-05-13 19:40 | ECG_ITS ---
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
--- NOTE | 2024-05-13 19:40 | XR_ITS ---
The [address] [address] Patient Name: MILA PEREZ MRN: [id number] date: 1990 Sex: M Assigned Patient Location: ER Current Patient Location: ED.MAIN Accession/Order Number: [id number] Exam Date: 05/13/2024 19:49 Report Date: 05/13/2024 21:54 At the request of: JACINTO FERNANDEZ Procedure: XR chest 1V EXAM: XR chest 1V HISTORY: palpitations COMPARISON: None. TECHNIQUE: Portable semiupright AP view of the chest. FINDINGS: There are no tubes or implants noted. The cardiomediastinal silhouette and pulmonary vasculature are within normal limits. The lungs are clear. No pneumothorax or pleural effusion. Osseous structures and soft tissues are within normal limits. XR/XR chest 1V IMPRESSION: No acute cardiopulmonary abnormality. Electronically authenticated by: ANDRES BLANCO Date: 05/13/2024 21:54
--- NOTE | 2024-05-13 19:45 | ED.ARRPALP1 ---
HPI - Arrhythmia/Palpitations General Chief Complaint: Arrhythmia/Palpitations Stated Complaint: Palpitation Time Seen by Provider: 05/13/24 19:27 Source: patient Mode of arrival: walk-in History of Present Illness HPI narrative: 34-year-old male presents for chief complaint of heart palpitations. Patient states he has a liquid diet. He feels believes he may be malnourished due to having a liquid diet. 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 Patient states since having a choking episode several years ago he has been on a liquid diet. 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 Patient is alert and oriented. He states today he felt palpitations heart which he feels normally. Related Data Allergies Allergy/AdvReac Type Severity Reaction Status Date / Time No Known Drug Allergies Allergy Verified 12/20/22 14:36 Review of Systems ROS Narrative All Systems are negative except as noted/marked.All systems reviewed and otherwise negative PFSH PFSH Social History Little interest or pleasure in doing things: nearly every day Feeling down, depressed, or hopeless: several days Exam Narrative Exam Narrative: All Systems are negative except as noted/marked.All systems reviewed and otherwise negative Nurses note and vital signs reviewed and patient is not hypoxic. General: The patient appears well and in no apparent distress. Patient is resting comfortably on cart. Skin: Warm, dry, no pallor noted. There is no rash noted. Head: Normocephalic, atraumatic Eye: Normal conjunctiva, no drainage, EOMI. PERRL Ears, Nose, Mouth, and Throat: oral mucosa is moist. Nares patent. Mouth without vesicles. Ear canals patent. Tm's without Erythema Cardiovascular: Regular Rate and Rhythm Respiratory: Patient is in no distress, no accessory muscle use, lungs are clear to auscultation, no wheezing, rales or rhonchi Back: non-tender, no CVA tenderness bilaterally to percussion. GI: Normal bowel sounds, no tenderness to palpation, no masses appreciated. No rebound, guarding, or rigidity noted. Musculoskeletal: The patient has no evidence of calf tenderness, no pitting edema, symmetrical pulses noted bilaterally Neurological: A&O x4, normal speech Psychiatric: Cooperative Constitutional Vital Signs, click to edit/add: Last Vital Signs Temp 98.1 F 05/13/24 18:17 Pulse 101 H 05/13/24 18:17 Resp 16 05/13/24 18:17 BP 167/114 H 05/13/24 18:17 Pulse Ox 97 05/13/24 18:17 O2 Del Method Room Air 05/13/24 18:17 Course Vital Signs Vital signs: Vital Signs Temperature 98.1 F 05/13/24 18:17 Pulse Rate 101 H 05/13/24 18:17 Respiratory Rate 16 05/13/24 18:17 Blood Pressure 167/114 H 05/13/24 18:17 Pulse Oximetry 97 05/13/24 18:17 Oxygen Delivery Method Room Air 05/13/24 18:17 Temperature 98.1 F 05/13/24 18:17 Pulse Rate 101 H 05/13/24 18:17 Respiratory Rate 16 05/13/24 18:17 Blood Pressure 167/114 H 05/13/24 18:17 Pulse Oximetry 97 05/13/24 18:17 Oxygen Delivery Method Room Air 05/13/24 18:17 MDM - Arrhythmia/Palpitations MDM Narrative Medical decision making narrative: patient present with chief complaint of heart palpitations. He wanted to have blood work sure he was not malnourished. Troponin and CBC BMP were all within normal limits. I had a long discussion with this patient regarding his stress anxiety. I advised him he can follow-up with a perinatal breastfeeding assistant at [employer] for further evaluations if he felt comfortable. Patient will follow-up with the [facility] as well. No questions at discharge. Differential Diagnosis Differential diagnosis: Likely palpitations, anxiety, sinus tachycardia, artial fibrillation and artial flutter Medical Records Attestation: I reviewed the patient's medical records. Lab Data Attestation: I reviewed the patient's lab results. Labs: Lab Results 05/13/24 Range/Units 19:41 WBC 8.2 (4.0-11.0) 10^3/uL RBC 6.08 (4.70-6.10) 10^6/uL Hgb 16.1 (14.0-18.0) g/dL Hct 49.2 (42.0-54.0) % MCV 80.9 (80.0-94.0) fL MCH 26.5 (25.9-34.0) pg MCHC 32.7 (29.9-35.2) g/dL RDW 12.4 (11.0-15.0) % Plt Count 222 (150-450) 10^3/uL MPV 9.0 L (9.5-13.5) fL Neut % (Auto) 67.0 (43.0-75.0) % Lymph % (Auto) 22.9 (20.5-60.0) % [place] % (Auto) 8.8 (1.7-12.0) % Eos % (Auto) 0.7 L (0.9-7.0) % Baso % (Auto) 0.2 (0.2-2.0) % Neut # (Auto) 5.5 (1.4-6.5) 10^3/uL Lymph # (Auto) 1.9 (1.2-3.8) 10^3/uL [place] # (Auto) 0.7 (0.3-0.8) 10^3/uL Eos # (Auto) 0.1 (0.0-0.7) 10^3/uL Baso # (Auto) 0.0 (0.0-0.1) 10^3/uL Abs Immat Gran (auto) 0.03 (0.00-0.03) 10^3/uL Imm/Tot Granulo (auto) 0.4 (0.0-0.5) % PT 12.3 H (9.0-11.6) sec INR 1.18 Sodium 141 (136-145) mmol/L Potassium 4.2 (3.5-5.1) mmol/L Chloride 104 (98-107) mmol/L Carbon Dioxide 26.8 (21.0-32.0) mmol/L Anion Gap 14.4 BUN 31.0 H (7.0-18.0) mg/dL Creatinine 0.93 (0.70-1.30) mg/dL Est GFR ( Amer) >60 (>=60 mL/min/1.73m^2) Est GFR (Non-Af Amer) >60 (>=60 mL/min/1.73m^2) BUN/Creatinine Ratio 33.3 Glucose 100 (74-106) mg/dL Calcium 8.9 (8.5-10.1) mg/dL Total Bilirubin 0.4 (0.2-1.0) mg/dL AST 26 (15-37) U/L ALT 35 (16-63) U/L Alkaline Phosphatase 88 (46-116) U/L Troponin I High Sens 4.0 (4.0-76.1) pg/mL NT-Pro-B Natriuret Pep 26.0 (<=450.0) pg/mL Total Protein 7.7 (6.4-8.2) g/dL Albumin 3.8 (3.4-5.0) g/dL Globulin 3.9 g/dL Albumin/Globulin Ratio 1.0 ECG Data Interpretation: 1935 normal sinus rhythm with rate of 82 bpm no ectopy no ST elevation or depression VA interval 170 ms QRS duration 98 ms Discharge Plan Discharge Chief Complaint: Arrhythmia/Palpitations Clinical Impression: Palpitations Patient Disposition: Home, Self-Care Time of Disposition Decision: 21:00 Condition: Good Print Language: Vincentian Instructions: Heart Palpitations (ED) Referrals: Physician,Non-Staff, MD [Primary Care Provider] - 1 week
--- NOTE | 2024-05-13 19:49 | PC.NURSE ---
Pt states he has a liquid diet. Pt had a choking episode about 6 years ago and he states since then he has had issues and does a liquid diet. Pt states that he grinds up chicken with his drinks. He states [facility] about being worried about his [facility] and wanted blood work done but he has a hard time getting them to do any testing. Pt wants to make sure that his heart is ok and would like blood work done to check his chemistry levels.
[2024-05-13 20:19] LABS: Basophils Percent Auto 0.2 % (0.2-2.0); Eosinophils Absolute Auto 0.1 10^3/uL (0.0-0.7); Eosinophils Percent Auto 0.7 % (0.9-7.0); Hematocrit 49.2 % (42.0-54.0); Hemoglobin 16.1 g/dL (14.0-18.0); Immature Granulocytes Abs Auto 0.03 10^3/uL (0.00-0.03); Immature Granulocytes Pct Auto 0.4 % (0.0-0.5); Lymphocytes Absolute Auto 1.9 10^3/uL (1.2-3.8); Lymphocytes Percent Auto 22.9 % (20.5-60.0); Mean Corpuscular HGB Conc 32.7 g/dL (29.9-35.2); Mean Corpuscular Hemoglobin 26.5 pg (25.9-34.0); Mean Corpuscular Volume 80.9 fL (80.0-94.0); Monocytes Absolute Auto 0.7 10^3/uL (0.3-0.8); Monocytes Percent Auto 8.8 % (1.7-12.0); Neutrophils Absolute Auto 5.5 10^3/uL (1.4-6.5); Platelet Count 222 10^3/uL (150-450); Red Blood Count 6.08 10^6/uL (4.70-6.10); Red Cell Distribution Width 12.4 % (11.0-15.0); White Blood Count 8.2 10^3/uL (4.0-11.0)
[2024-05-13 20:28] LABS: INR 1.18; Prothrombin Time 12.3 sec (9.0-11.6)
[2024-05-13 20:42] LABS: Alanine Aminotransferase 35 U/L (16-63); Albumin Level 3.8 g/dL (3.4-5.0); Alkaline Phosphatase 88 U/L (46-116); Anion Gap 14.4; Aspartate Amino Transferase 26 U/L (15-37); BUN Creatinine Ratio 33.3; Bilirubin Total 0.4 mg/dL (0.2-1.0); Calcium 8.9 mg/dL (8.5-10.1); Carbon Dioxide 26.8 mmol/L (21.0-32.0); Chloride 104 mmol/L (98-107); Estimated GFR (African America >60 (>=60 mL/min/1.73m^2); Estimated GFR (Non-African Ame >60 (>=60 mL/min/1.73m^2); Globulin 3.9 g/dL; Glucose 100 mg/dL (74-106); Potassium 4.2 mmol/L (3.5-5.1); Sodium 141 mmol/L (136-145); Total Protein 7.7 g/dL (6.4-8.2)
[2024-05-13 21:16] VITALS: PULSE 90; O2SAT 98
== END 2024-05-13 21:17 | disposition home or self-care (01) ==
PROVIDERS: Physician Assistant; Emergency Provider Emergency Medicine
DX: R00.2 Palpitations (principal); F43.10 Post-traumatic stress disorder, unspecified
CPT/HCPCS: 36415; 71045; 80053; 83880; 84484; 85025; 85610; 93005; 99285

== ENCOUNTER 2024-06-20 10:25 | Emergency (ER) | payer MEDICAID, SELFPAY ==
[2024-06-20 10:29] VITALS: BP 165/115; PULSE 84; TEMP 36.7; O2SAT 100; BMI 30.4
--- NOTE | 2024-06-20 10:34 | ED.EXTPRO1 ---
HPI - Extremity Problem General Chief complaint: Extremity Problem, Nontraumatic Stated complaint: WRIST FEELS OFF Time Seen by Provider: 06/20/24 10:26 Source: patient Mode of arrival: walk-in Limitations: no limitations History of Present Illness HPI Narrative: 34-year-old male presents to the emergency department for left wrist pain. He states he woke up this way 4 days ago and believes he slept on it wrong. No other joint has been hurting and he does not have any history of falling or any other injury. It hurts more to flex and extend it. Related Data Home Medications ?Medication ?Instructions ?Recorded ?Confirmed No Known Home Medications 06/20/24 06/20/24 Allergies Allergy/AdvReac Type Severity Reaction Status Date / Time No Known Drug Allergies Allergy Verified 06/20/24 10:31 Review of Systems ROS Narrative A ten point review of systems is negative except as noted above. PFSH PFSH Social History Little interest or pleasure in doing things: not at all Feeling down, depressed, or hopeless: not at all Exam Narrative Exam Narrative: Nurses note and vital signs reviewed and patient is not hypoxic. General: The patient appears well and in no apparent distress. Patient is resting comfortably on cart. Skin: Warm, dry, no pallor noted. There is no rash noted. Head: Normocephalic, atraumatic Eye: Normal conjunctiva, no drainage Ears, Nose, Mouth, and Throat: oral mucosa is moist. Nares patent. Cardiovascular: Regular Rate and Rhythm Respiratory: Patient is in no distress, no accessory muscle use Back: non-tender, no CVA tenderness bilaterally to percussion. GI: Nontender Musculoskeletal: Left wrist has no deformity or swelling. No erythema or bruising or rash. It has good range of motion. Fingers have full range of motion. Neurological: A&O, normal speech Psychiatric: Cooperative Constitutional Vital Signs, click to edit/add: Last Vital Signs Temp 98.1 F 06/20/24 10:29 Pulse 84 06/20/24 10:29 Resp 18 06/20/24 10:29 BP 165/115 H 06/20/24 10:29 Pulse Ox 100 06/20/24 10:29 O2 Del Method Room Air 06/20/24 10:29 Course Vital Signs Vital signs: Vital Signs Temperature 98.1 F 06/20/24 10:29 Pulse Rate 84 06/20/24 10:29 Respiratory Rate 18 06/20/24 10:29 Blood Pressure 165/115 H 06/20/24 10:29 Pulse Oximetry 100 06/20/24 10:29 Oxygen Delivery Method Room Air 06/20/24 10:29 Temperature 98.1 F 06/20/24 10:29 Pulse Rate 84 06/20/24 10:29 Respiratory Rate 18 06/20/24 10:29 Blood Pressure 165/115 H 06/20/24 10:29 Pulse Oximetry 100 06/20/24 10:29 Oxygen Delivery Method Room Air 06/20/24 10:29 MDM - Extremity (Nontraumatic) MDM Narrative Medical decision making narrative: X-ray is negative. My clinical impression is that the patient has a sprained wrist. Splint applied, application checked by me and found to be appropriate, he is neurovascularly intact. Treatment diagnosis and follow-up were discussed with the patient. Differential Diagnosis Differential diagnosis: Likely other (Wrist sprain, wrist strain, fracture) Imaging Data Left wrist x-ray: Radiologist's impression: ITS Impressions Wrist X-Ray 06/20/24 10:42 IMPRESSION: No acute radiographic abnormality Electronically authenticated by: FARIDA SPEARS Date: 06/20/2024 11:03 Discharge Plan Discharge Chief Complaint: Extremity Problem, Nontraumatic Clinical Impression: Left wrist sprain Patient Disposition: Home, Self-Care Time of Disposition Decision: 11:09 Condition: Good Mode of Transportation: Private Vehicle Prescriptions / Home Meds: No Action No Known Home Medications Print Language: Kiswahili Instructions: Wrist Sprain (ED) Referrals: Physician,Non-Staff, MD [Primary Care Provider] - 1 week
--- NOTE | 2024-06-20 10:42 | XR_ITS ---
The [address] [address] Patient Name: MILA PEREZ MRN: [id number] date: 1990 Sex: M Assigned Patient Location: ER Current Patient Location: ER Accession/Order Number: [id number] Exam Date: 06/20/2024 10:38 Report Date: 06/20/2024 11:03 At the request of: CELESTINO CARUSO Procedure: XR wrist LT min 3V PROCEDURE: XR wrist LT min 3V COMPARISON: None. HISTORY: pain FINDINGS: BONES:No fracture, acute abnormality, or significant arthropathy. SOFT TISSUES:Negative. No visible soft tissue swelling. EFFUSION:None visible. OTHER: Negative. XR/XR wrist LT min 3V IMPRESSION: No acute radiographic abnormality Electronically authenticated by: FARIDA SPEARS Date: 06/20/2024 11:03
--- OUTSIDE RECORDS SUMMARY | 2024-06-20 10:50 | XMS_ITS | CCD ---
Author Organization [facility] Care Team Providers Care Research Leader Name Role Phone Dariana Nelson Unavailable Christi [...] Drug Class(es) Dates Sig (Normalized) Sig (Original) [id number] 200 actuat albuterol 0.09 mg/actuat metered dose [...] Range Facility Office Visiton 06-03-2023 Follow-up visit [id number] Mila Ochoa 1990 M Date Provider Department Center 06/03/2023 271-CHEL KRISHNAMURTHY CARD [facility] No family history on file Level of Service:72618 ME OFFICE/OUTPATIENT ESTABLISHED LOW MDM 20-29 MIN Normal [facility] COVID + FLU Quick Testingon 05-23-2023 SARS-CoV-2 (COVID-19) RNA RASHAAD+probe Ql (Unsp spec) Positive [facility] Other COVID + FLU Quick Testing Negative [facility] Other Office Visiton 04-08-2023 Follow-up visit [id number] Mila Ochoa 1990 M Date Provider Department Center 04/08/2023 271-GAY, EHAB BH CARD [facility] No family history on file Level of Service:81827 ME OFFICE/OUTPATIENT ESTABLISHED MOD MDM 30-39 MIN Normal [facility] Quick Strepon 03-16-2023 S. pyogenes Org specific cx Ql (Throat) Negative [facility] Other Quick Strep [facility] Other COVID + FLU Quick Testingon 07-29-2022 SARS-CoV-2 (COVID-19) RNA RASHAAD+probe Ql (Unsp spec) [facility] Other COVID + FLU Quick Testing Negative [facility] Other Quick Strepon 07-29-2022 S. pyogenes Org specific cx Ql (Throat) Negative [facility] Other Quick Strep [facility] Other AMYLASEon 06-07-2022 Amylase [Catalytic activity/Vol] 60 U/L Normal 25-115 [facility] Comment on above: Performed By: #### B MP, CMADM #### [facility] [address] [place] [address] Dr. Bert Ferrara CBC AUTO DIFFon 06-07-2022 BASO # 0.0 103/ul Normal 0.0-0.1 [facility] Comment on above: Performed By: #### C BC #### [facility] [address] [place] [address] Dr. Bert Ferrara Basophils/100 WBC (Bld) 0.3 % Normal 0.2-2.0 [facility] Comment on above: Performed By: #### C BC #### [facility] [address] [place] [address] Dr. Bert Ferrara EO # 0.1 103/ul Normal 0.0-0.7 [facility] Comment on above: Performed By: #### C BC #### [facility] [address] [place] [address] Dr. Bert Ferrara Eosinophils/100 WBC (Bld) 0.4 % Critically low 0.9-7.0 [facility] Comment on above: Performed By: #### C BC #### [facility] [address] [place] [address] Dr. Bert Ferrara Erythrocyte distribution width (RBC) [Ratio] 12.0 % Normal 11.0-15.0 [facility] Comment on above: Performed By: #### C BC #### [facility] [address] [place] [address] Dr. Bert Ferrara Hematocrit (Bld) [Volume fraction] 48.5 % Normal 42.0-54.0 [facility] Comment on above: Performed By: #### C BC #### [facility] [address] [place] [address] Dr. Bert Ferrara Hemoglobin (Bld) [Mass/Vol] 16.9 g/dL Normal 14.0-18.0 [facility] Comment on above: Performed By: #### C BC #### [facility] [address] [place] [address] Dr. Bert Ferrara IG # 0.05 10e3/ul Critically high 0.00-0.03 [facility] Comment on above: Performed By: #### C BC #### [facility] [address] [place] [address] Dr. Bert Ferrara IG % 0.3 % Normal 0.0-0.5 [facility] Comment on above: Performed By: #### C BC #### [facility] [address] [place] [address] Dr. Bert Ferrara LYMPH # 3.0 103/ul Normal 1.2-3.8 [facility] Comment on above: Performed By: #### C BC #### [facility] [address] [place] [address] Dr. Bert Ferrara Lymphocytes/100 WBC (Bld) 20.9 % Normal 20.5-60.0 [facility] Comment on above: Performed By: #### C BC #### [facility] [address] [place] [address] Dr. Bert Ferrara MANUAL DIFF REQ NO Normal [facility] Comment on above: Performed By: #### C BC #### [facility] [address] [place] [address] Dr. Bert Ferrara MCH (RBC) [Entitic mass] 28.5 pg Normal 25.9-34.0 [facility] Comment on above: Performed By: #### C BC #### [facility] [address] [place] [address] Dr. Bert Ferrara MCHC (RBC) [Mass/Vol] 34.8 g/dL Normal 29.9-35.2 [facility] Comment on above: Performed By: #### C BC #### [facility] [address] [place] [address] Dr. Bert Ferrara MCV (RBC) [Entitic vol] 81.9 fL Normal 80.0-94.0 [facility] Comment on above: Performed By: #### C BC #### [facility] [address] [place] [address] Dr. Bert Ferrara MONO # 1.3 103/ul Critically high 0.3-0.8 [facility] Comment on above: Performed By: #### C BC #### [facility] [address] [place] [address] Dr. Bert Ferrara Monocytes/100 WBC (Bld) 9.0 % Normal 1.7-12.0 [facility] Comment on above: Performed By: #### C BC #### [facility] [address] [place] [address] Dr. Bert Ferrara NEUT # 10.1 103/ul Critically high 1.4-6.5 [facility] Comment on above: Performed By: #### C BC #### [facility] [address] [place] [address] Dr. Bert Ferrara Neutrophils/100 WBC (Bld) 69.1 % Normal 43.0-75.0 [facility] Comment on above: Performed By: #### C BC #### [facility] [address] [place], [place] [address] Dr. Bert Ferrara Platelet mean volume (Bld) [Entitic vol] 8.4 fL Critically low 9.5-13.5 [facility] Comment on above: Performed By: #### C BC #### [facility] [address] [id number] Bert Ferrara PLT 249 103/ul Normal 150-450 [facility] Comment on above: Performed By: #### C BC #### [facility] [address] [address] [address] Bert Ferrara RBC 5.92 106/ul Normal 4.70-6.10 [facility] Comment on above: Performed By: #### C BC #### [facility] [address] [address] [address] Bert Ferrara WBC 14.6 103/ul Critically high 4.0-11.0 [facility] Comment on above: Performed By: #### C BC #### [facility] [address] [place], [place] [address] ABD/PELVIS WO CONon [...] by: FARIDA SPEARS Date: 2022-06-07 18:07 Normal [facility] LIPASEon 06-07-2022 Lipase [Catalytic activity/Vol] 97.0 U/L Normal 73.0-393.0 [facility] Comment on above: Performed By: #### B SYED HERNANDEZ #### [facility] [address] [place] [address] Dr. Bert Ferrara PROF 14(COMP METB)on 022 Albumin [Mass/Vol] 3.8 g/dL Normal 3.4-5.0 [facility] Comment on above: Performed By: #### SYED Moctezuma MP #### [facility] [address] [place] [address] Dr. Bert Ferrara Albumin/Globulin [Mass ratio] 1.1 {ratio} Normal [facility] Comment on above: Performed By: #### SYED Moctezuma MP #### [facility] [address] [place] [address] Dr. Bert Ferrara ALP [Catalytic activity/Vol] 96 U/L Normal 46-116 [facility] Comment on above: Performed By: #### SYED Moctezuma MP #### [facility] [address] [place] [address] Dr. Bert Ferrara ALT [Catalytic activity/Vol] 29 U/L Normal 16-63 [facility] Comment on above: Performed By: #### SYED Moctezuma MP #### [facility] [address] [place] [address] Dr. Bert Ferrara Anion gap [Moles/Vol] 5.6 mmol/L Normal [facility] Comment on above: Performed By: #### SYED Moctezuma MP #### [facility] [address] [place] [address] Dr. Bert Ferrara AST [Catalytic activity/Vol] 14 U/L Critically low 15-37 [facility] Comment on above: Performed By: #### B DAVID, SYED #### [facility] [address] [place] [address] Dr. Bert Ferrara Bilirubin [Mass/Vol] 0.2 mg/dL Normal 0.2-1.0 [facility] Comment on above: Performed By: #### B DAVID, CMADM #### [facility] [address] [place] [address] Dr. Bert Ferrara Calcium [Mass/Vol] 8.8 mg/dL Normal 8.5-10.1 [facility] Comment on above: Performed By: #### B DAVID, KEENANDM #### [facility] [address] [place] [address] Dr. Bert Ferrara Chloride [Moles/Vol] 101 mmol/L Normal 98-107 [facility] Comment on above: Performed By: #### B DAVID, KEENANDM #### [facility] [address] [place] [address] Dr. Bert Ferrara CO2 [Moles/Vol] 32.1 mmol/L Critically high 21.0-32.0 [facility] Comment on above: Performed By: #### B DAVID, KEENANDM #### [facility] [address] [place] [address] Dr. Bert Ferrara Creatinine [Mass/Vol] 0.90 mg/dL Normal 0.70-1.30 [facility] Comment on above: Performed By: #### Jose Elias HERNANDEZ, KEENANDM #### [facility] [address] [place] [address] Dr. Bert Ferrara EGFR-AF HONDURAN >60 Normal >=60 [facility] Comment on above: Performed By: #### B DAVID, KEENANDM #### [facility] [address] [place] [address] Dr. Bert Ferrara EGFR-NON AF HONDURAN >60 Normal >=60 [facility] Comment on above: Performed By: #### B SYED HERNANDEZ #### [facility] [address] [place] [address] Dr. Bert Ferrara Globulin (S) [Mass/Vol] 3.5 g/dL Normal [facility] Comment on above: Performed By: #### B DAVID, KEENANDM #### [facility] [address] [place] [address] Dr. Bert Ferrara Glucose [Mass/Vol] 93 mg/dL Normal 74-106 [facility] Comment on above: Performed By: #### B DAVID, CMADM #### [facility] [address] [place] [address] Dr. Bert Ferrara Potassium [Moles/Vol] 3.7 mmol/L Normal 3.5-5.1 [facility] Comment on above: Performed By: #### B DAVID, KEENANDM #### [facility] [address] [place] [address] Dr. Bert Ferrara Protein [Mass/Vol] 7.3 g/dL Normal 6.4-8.2 [facility] Comment on above: Performed By: #### B DAVID, KEENANDM #### [facility] [address] [place] [address] Dr. Bert Ferrara Sodium [Moles/Vol] 135 mmol/L Critically low 136-145 [facility] Comment on above: Performed By: #### B DAVID, KEENANDM #### [facility] [address] [place] [address] Dr. Bert Ferrara Urea nitrogen [Mass/Vol] 21.0 mg/dL Critically high 7.0-18.0 [facility] Comment on above: Performed By: #### B DAVID, CMADM #### [facility] [address] [place] [address] Dr. Bert Ferrara Urea nitrogen/Creatinin e [Mass ratio] 23.3 mg/mg Normal [facility] Comment on above: Performed By: #### B DAVID, CMADM #### [facility] [address] [place] [address] Dr. Bert Ferrara CARDIAC LUC 3-6on 2 CK [Catalytic activity/Vol] 169 U/L Normal 39-308 [facility] Comment on above: Performed By: #### C BELENP #### [facility] [address] [address] [address] Bert Ferrara CK.MB [Mass/Vol] 2.28 ng/mL Normal <=3.60 [facility] Comment on above: Performed By: #### C MREP #### [facility] [address] [place] [address] Dr. Bert Ferrara HSTROP 4.8 pg/mL Normal 4.0-76.1 [facility] Comment on above: Result Comment: CUT- OFF POINTS HAVE BEEN ESTABLISHED BASED ON THE FOURTH UNIVERSAL DEFINITIONS OF MYOCARDIAL INFARCTION. THE UPPER REFERENCE LIMIT (URL) OF TROPONIN, DEFINED THE 99TH PERCENTILE OF cTnI DISTRIBUTION IN A REFERENCE POPULATION, HAS BEEN CONFIRMED THE DECISION THRESHOLD FOR CT DIAGNOSIS. Performed By: #### C MREP #### [facility] [address] [place] [address] Dr. Bert Ferrara CARDIAC LUC ADMITon 022 CK [Catalytic activity/Vol] 181 U/L Normal 39-308 [facility] Comment on above: Performed By: #### B DAVID, CMADM #### [facility] [address] [place] [address] Dr. Bert Ferrara CK.MB [Mass/Vol] 2.61 ng/mL Normal <=3.60 [facility] Comment on above: Performed By: #### B DAVID, CMADM #### [facility] [address] [place] [address] Dr. Bert Ferrara HSTROP 4.6 pg/mL Normal 4.0-76.1 [facility] Comment on above: Result Comment: CUT- OFF POINTS HAVE BEEN ESTABLISHED BASED ON THE FOURTH UNIVERSAL DEFINITIONS OF MYOCARDIAL INFARCTION. THE UPPER REFERENCE LIMIT (URL) OF TROPONIN, DEFINED THE 99TH PERCENTILE OF cTnI DISTRIBUTION IN A REFERENCE POPULATION, HAS BEEN CONFIRMED THE DECISION THRESHOLD FOR CT DIAGNOSIS. Performed By: #### B MP, CMADM #### [facility] [address] [place] [address] Dr. Bert Ferrara SUNDEEP 37 ng/mL Normal 16-96 [facility] Comment on above: Performed By: #### B MP, CMADM #### [facility] [address] [place] [address] Dr. Bert Ferrara CBC AUTO DIFFon 01-21-2022 BASO # 0.0 103/ul Normal 0.0-0.1 [facility] Comment on above: Performed By: #### C BC #### [facility] [address] [place] [address] Dr. Bert Ferrara Basophils/100 WBC (Bld) 0.4 % Normal 0.2-2.0 [facility] Comment on above: Performed By: #### C BC #### [facility] [address] [place] [address] Dr. Bert Ferrara EO # 0.2 103/ul Normal 0.0-0.7 [facility] Comment on above: Performed By: #### C BC #### [facility] [address] [place] [address] Dr. Bert Ferrara Eosinophils/100 WBC (Bld) 1.9 % Normal 0.9-7.0 [facility] Comment on above: Performed By: #### C BC #### [facility] [address] [place] [address] Dr. Bert Ferrara Erythrocyte distribution width (RBC) [Ratio] 11.9 % Normal 11.0-15.0 [facility] Comment on above: Performed By: #### C BC #### [facility] [address] [place] [address] Dr. Bert Ferrara Hematocrit (Bld) [Volume fraction] 50.5 % Normal 42.0-54.0 [facility] Comment on above: Performed By: #### C BC #### [facility] [address] [place] [address] Dr. Bert Ferrara Hemoglobin (Bld) [Mass/Vol] 17.0 g/dL Normal 14.0-18.0 [facility] Comment on above: Performed By: #### C BC #### [facility] [address] [place] [address] Dr. Bert Ferrara IG # 0.02 10e3/ul Normal 0.00-0.03 [facility] Comment on above: Performed By: #### C BC #### [facility] [address] [place] [address] Dr. Bert Ferrara IG % 0.2 % Normal 0.0-0.5 [facility] Comment on above: Performed By: #### C BC #### [facility] [address] [place] [address] Dr. Bert Ferrara LYMPH # 2.8 103/ul Normal 1.2-3.8 [facility] Comment on above: Performed By: #### C BC #### [facility] [address] [place] [address] Dr. Bert Ferrara Lymphocytes/100 WBC (Bld) 35.0 % Normal 20.5-60.0 [facility] Comment on above: Performed By: #### C BC #### [facility] [address] [place] [address] Dr. Bert Ferrara MANUAL DIFF REQ NO Normal [facility] Comment on above: Performed By: #### C BC #### [facility] [address] [place] [address] Dr. Bert Ferrara MCH (RBC) [Entitic mass] 28.4 pg Normal 25.9-34.0 [facility] Comment on above: Performed By: #### C BC #### [facility] [address] [place] [address] Dr. Bert Ferrara MCHC (RBC) [Mass/Vol] 33.7 g/dL Normal 29.9-35.2 [facility] Comment on above: Performed By: #### C BC #### [facility] [address] [place] [address] Dr. Bert Ferrara MCV (RBC) [Entitic vol] 84.3 fL Normal 80.0-94.0 [facility] Comment on above: Performed By: #### C BC #### [facility] [address] [place] [address] Dr. Bert Ferrara MONO # 0.9 103/ul Critically high 0.3-0.8 [facility] Comment on above: Performed By: #### C BC #### [facility] [address] [place] [address] Dr. Bert Ferrara Monocytes/100 WBC (Bld) 11.3 % Normal 1.7-12.0 [facility] Comment on above: Performed By: #### C BC #### [facility] [address] [place] [address] Dr. Bert Ferrara NEUT # 4.1 103/ul Normal 1.4-6.5 [facility] Comment on above: Performed By: #### C BC #### [facility] [address] [place] [address] Dr. Bert Ferrara Neutrophils/100 WBC (Bld) 51.2 % Normal 43.0-75.0 [facility] Comment on above: Performed By: #### C BC #### [facility] [address] [place] [address] Dr. Bert Ferrara Platelet mean volume (Bld) [Entitic vol] 9.3 fL Critically low 9.5-13.5 [facility] Comment on above: Performed By: #### C BC #### [facility] [address] [place] [address] Dr. Bert Ferrara PLT 212 103/ul Normal 150-450 [facility] Comment on above: Performed By: #### C BC #### [facility] [address] [place] [address] Dr. Bert Ferrara RBC 5.99 106/ul Normal 4.70-6.10 [facility] Comment on above: Performed By: #### C BC #### [facility] [address] [place] [address] Dr. Bert Ferrara WBC 8.0 103/ul Normal 4.0-11.0 [facility] Comment on above: Performed By: #### C BC #### [facility] [address] [place] [address] Dr. Bert Ferrara PROF CHEM 8 (BAS METB)on Anion gap [Moles/Vol] 11.7 mmol/L Normal [facility] Comment on above: Performed By: #### B MP, CMADM #### [facility] [address] [address] [address] Bert Ferrara Calcium [Mass/Vol] 9.1 mg/dL Normal 8.5-10.1 [facility] Comment on above: Performed By: #### B DAVID, CMADM #### [facility] [address] [address] [address] Bert Ferrara Chloride [Moles/Vol] 101 mmol/L Normal 98-107 [facility] Comment on above: Performed By: #### B DAVID, CMADM #### [facility] [address] [address] [address] Bert Ferrara CO2 [Moles/Vol] 28.9 mmol/L Normal 21.0-32.0 [facility] Comment on above: Performed By: #### B DAVID, CMADM #### [facility] [address] [address] [address] Bert Ferrara Creatinine [Mass/Vol] 1.06 mg/dL Normal 0.70-1.30 [facility] Comment on above: Performed By: #### B DAVID, CMADM #### [facility] [address] [address] [address] Bert Ferrara EGFR-AF HONDURAN >60 Normal >=60 [facility] Comment on above: Performed By: #### B DAVID, CMADM #### [facility] [address] [address] [address] Bert Ferrara EGFR-NON AF HONDURAN >60 Normal >=60 [facility] Comment on above: Performed By: #### B DAVID, CMADM #### [facility] [address] [address] [address] Bert Ferrara Glucose [Mass/Vol] 102 mg/dL Normal 74-106 [facility] Comment on above: Performed By: #### B DAVID, CMADM #### [facility] [address] [address] [address] Bert Ferrara Potassium [Moles/Vol] 3.6 mmol/L Normal 3.5-5.1 [facility] Comment on above: Performed By: #### B DAVID, CMADM #### [facility] [address] [address] [address] Bert Ferrara Sodium [Moles/Vol] 138 mmol/L Normal 136-145 [facility] Comment on above: Performed By: #### B SYED HERNANDEZ #### [facility] [address] [address] [address] Bert Ferrara Urea nitrogen [Mass/Vol] 28.0 mg/dL Critically high 7.0-18.0 [facility] Comment on above: Performed By: #### B SYED HERNANDEZ #### [facility] [address] [address] [address] Bert Ferrara Urea nitrogen/Creatinin e [Mass ratio] 26.4 mg/mg Normal [facility] Comment on above: Performed By: #### B SYED HERNANDEZ #### [facility] [address] [address] [address] Bert Ferrara XR CHEST 2 Von 01-21-2022 XR CHEST 2 V EXAM: XR CHEST 2 V HISTORY: Palpitations COMPARISON: Chest x-ray 11/02/2021 TECHNIQUE: 2 view chest x-ray frontal and lateral FINDINGS: No lobar consolidation, large pleural effusions, pneumothorax, or acute bony abnormality. Cardiac size unremarkable. IMPRESSION: No radiographic evidence for acute chest abnormality. Electronically authenticated by: ANÍBAL CHAVEZ Date: 2022-01-21 05:48 Normal [facility] XR CHEST 2 Von 11-02-2021 XR [...] FARIDA TREVIÑO Date: 2021-11-02 10:13 Normal [facility] CULTURE THROATon 07-05-2021 CULTURE THROAT Culture Observations: NORMAL RESPIRATORY JASMYNE. Normal [facility] Comment on above: Performed By: #### T HRTCX, SSCRN #### [facility] [address] [address] [address] Bert Ferrara STREPT SCREENon 12-31-2021 STREP SCREEN A Negative Normal NEGATIVE [facility] Comment on above: Performed By: #### T HRTCX, SSCRN #### [facility] [address] [address] [address] Bert JONES Quick Testingon 2020 Result Positive [facility] Other Quick Fluon 06-27-2021 FLUAV Ab CF (S) [Titer] Negative [facility] Other FLUBV Ab CF (S) [Titer] Negative [facility] Other Vital Signs Date Time Vital Sign Value Performing Clinician Facility 05-23-2023 11:55-0500 Body height 172.72 cm Maria T De León Other [facility] Other 05-23-2023 11:55-0500 Body mass index (BMI) [Ratio] 31.74 kg/m2 Maria T De León Other [facility] Other 05-23-2023 11:55-0500 Body temperature 97.7 [degF] Maria T De León Other [facility] Other 05-23-2023 11:55-0500 Body weight 94.71 kg Maria T De León Other [facility] Other 05-23-2023 11:55-0500 Respiratory rate 18 /min Maria T De León Other [facility] Other 05-23-2023 11:55-0500 SaO2% (BldA) [Mass fraction] 99 % Maria T De León Other [facility] Other 03-16-2023 17:10-0400 Body height 172.72 cm Christi Alonzo Other [facility] Other 03-16-2023 17:10-0400 Body mass index (BMI) [Ratio] 31.17 kg/m2 Christi Alonzo Other [facility] Other 03-16-2023 17:10-0400 Body temperature 97.9 [degF] Christi Alonzo Other [facility] Other 03-16-2023 17:10-0400 Body weight 92.99 kg Christi Alonzo Other [facility] Other 03-16-2023 17:10-0400 Diastolic blood pressure 92 mm[Hg] Christi Alonzo Other [facility] Other 03-16-2023 17:10-0400 Respiratory rate 18 /min Christi Alonzo Other [facility] Other 03-16-2023 17:10-0400 SaO2% (BldA) [Mass fraction] 97 % Christi Alonzo Other [facility] Other 03-16-2023 17:10-0400 Systolic blood pressure 128 mm[Hg] Christi Alonzo Other [facility] Other 07-29-2022 11:15-0500 Body height 172.72 cm Dariana Omar Other [facility] Other 07-29-2022 11:15-0500 Body mass index (BMI) [Ratio] 30.71 kg/m2 Dariana Omar Other [facility] Other 07-29-2022 11:15-0500 Body temperature 96.6 [degF] Dariana Nelson Other [facility] Other 07-29-2022 11:15-0500 Body weight 91.63 kg Dariana Nelson Other [facility] Other 07-29-2022 11:15-0500 Respiratory rate 18 /min Dariana Nelson Other [facility] Other 07-29-2022 11:15-0500 SaO2% (BldA) [Mass fraction] 98 % Dariana Nelson Other [facility] Other 06-04-2022 16:25-0500 Body height 172.72 cm Christi Blackmond Other [facility] Other 06-04-2022 16:25-0500 Body mass index (BMI) [Ratio] 30.86 kg/m2 Christi Blackmond Other [facility] Other 06-04-2022 16:25-0500 Body temperature 99.1 [degF] Christi Blackmond Other [facility] Other 06-04-2022 16:25-0500 Body weight 92.08 kg Christi Blackmond Other [facility] Other 06-04-2022 16:25-0500 Respiratory rate 16 /min Christi Cheri Other [facility] Other 06-04-2022 16:25-0500 SaO2% (BldA) [Mass fraction] 97 % Christi Cheri Other [facility] Other 03-13-2022 16:45-0400 Body height 172.72 cm Christi Cheri Other [facility] Other 03-13-2022 16:45-0400 Body mass index (BMI) [Ratio] 30.41 kg/m2 Christi Cheri Other [facility] Other 03-13-2022 16:45-0400 Body temperature 99.1 [degF] Christi Cheri Other [facility] Other 03-13-2022 16:45-0400 Body weight 90.72 kg Christi Cheri Other [facility] Other 03-13-2022 16:45-0400 Diastolic blood pressure 93 mm[Hg] Christi Cheri Other [facility] Other 03-13-2022 16:45-0400 Respiratory rate 16 /min Christi Cheri Other [facility] Other 03-13-2022 16:45-0400 SaO2% (BldA) [Mass fraction] 98 % Christi Cheri Other [facility] Other 03-13-2022 16:45-0400 Systolic blood pressure 127 mm[Hg] Christi Cheri Other [facility] Other 01-01-2022 16:30-0400 Body height 172.72 cm Christi Cheri Other [facility] Other 01-01-2022 16:30-0400 Body mass index (BMI) [Ratio] 28.89 kg/m2 Christi Cheri Other [facility] Other 01-01-2022 16:30-0400 Body temperature 98 [degF] Christi Alonzo Other [facility] Other 01-01-2022 16:30-0400 Body weight 86.18 kg Christi Alonzo Other [facility] Other 01-01-2022 16:30-0400 Diastolic blood pressure 89 mm[Hg] Christi Blackmond Other [facility] Other 01-01-2022 16:30-0400 Respiratory rate 16 /min Christi Alonzo Other [facility] Other 01-01-2022 16:30-0400 SaO2% (BldA) [Mass fraction] 98 % Christi Alonzo Other [facility] Other 01-01-2022 16:30-0400 Systolic blood pressure 150 mm[Hg] Christi Alonzo Other [facility] Other 06-27-2021 16:00-0500 Body height 172.72 cm Dariana Donnellyault Other [facility] Other 06-27-2021 16:00-0500 Body mass index (BMI) [Ratio] 28.89 kg/m2 Dariana Omar Other [facility] Other 06-27-2021 16:00-0500 Body temperature 97.7 [degF] Dariana Omar Other [facility] Other 06-27-2021 16:00-0500 Body weight 86.18 kg Dariana Omar Other [facility] Other 06-27-2021 16:00-0500 Respiratory rate 18 /min Dariana Donnellyault Other [facility] Other 06-27-2021 16:00-0500 SaO2% (BldA) [Mass fraction] 95 % Dariana Donnellyault Other [facility] Other Encounters Encounter Date Encounter Type Care Provider Facility Start: 06-23-2023 End: 06-23-2023 ambulatory Mike Ken Other [facility] Other Start: 06-23-2023 Telephone encounter Mike Harvey [facility] Start: 06-03-2023 End: 06-03-2023 ambulatory [facility] Start: 05-23-2023 End: 05-23-2023 ambulatory Maria T De León Other [facility] Other Start: 05-23-2023 Office outpatient visit 25 minutes Maria T De León [facility] Start: 04-08-2023 End: 04-08-2023 ambulatory [facility] Start: 03-16-2023 End: 03-16-2023 ambulatory Christi Alonzo Other [facility] Other Start: 03-16-2023 Office outpatient visit 15 minutes Christijose Alonzo [facility] Start: 07-29-2022 End: 07-29-2022 ambulatory Dariana Nelson Other [facility] Other Start: 07-29-2022 Office outpatient visit 15 minutes Darianagustavo Nelson [facility] Start: 06-07-2022 End: 06-07-[address] AYE HU Facility: Start: 06-04-2022 End: 06-04-2022 ambulatory Christi Alonzo Other [facility] Other Start: 06-04-2022 Office outpatient visit 15 minutes Christi Cheri [facility] Start: 03-21-[address] CHEL Holland ty:[facility] Start: 03-13-2022 End: 03-13-2022 ambulatory Christi Cheri Other [facility] Other Start: 03-13-2022 Office outpatient visit 15 minutes Christi Cheri [facility] Start: 01-21-2022 End: 01-21-[address] AYE HU Facility:[facility] Start: 01-01-2022 End: 01-01-2022 ambulatory Christi Alonzo Other [facility] Other Start: 01-01-2022 Office outpatient visit 15 minutes Christi Cheri [facility] Start: 11-02-2021 End: 11-02-2021 ambulatory YNES JANE Facility:[facility] Start: 09-02-2021 End: 09-02-[address] AYE HU Facility:[facility] Start: 07-05-2021 End: 07-05-[address] GUSTAVO SMALL Facility:[facility] Start: 06-29-2021 End: 06-30-2021 ambulatory YNES JANE Facility:[facility] Start: 06-27-2021 End: 06-27-2021 ambulatory Dariana Nelson Other [facility] Other Start: 06-27-2021 Office outpatient visit 15 minutes Dariana Nelson [facility] Payers Date Payer Category Payer Medicaid [id number] 2. [id number] 1990 Unknown [id number] 2.16.84 [id number] 1988 Unknown [id number] 2.16.84 [id number] 1988 Unknown [id number] 2.16.84 [id number] 1988 Unknown [id number] 2.16.84 [id number] 1988 Unknown [id number] 2.16.84 [id number] 1988 Unknown [id number] 2.16.84 [id number] 1988 Unknown [id number] 2.16.84 [id number] 1961 Self-pay 1961 Unknown [id number] 2.1 [id number] Unknown [id number] 2. [id number] Social History Date Type Detail Facility Sex Assigned At [facility] Other Clinical Notes 06-27-2021 to 06-03-2023 Note Date & Type Note Facility 06-03-2023 Note [facility] Note Chief Complaint: Patient here [...] nutritional input with his family physician and/or wind development director I will be happy to see him on an as-needed basis. Chel Krishnamurthy MD, MPH, [facility], [facility], [facility] Interventional Cardiology Pager Email: [email or web address] 05-23-2023 Evaluation note Encounter Date Diagnosis Assessment [...] treatment plan. Patient left in stable condition [facility] Chief [...] following testing Chel Krishnamurthy MD, MPH, FACC, [facility], [facility] Interventional Cardiology Page (more content not included)...[facility]09-11-2023 Evaluation note* Encounter Date Diagnosis Assessment [...] Allergic rhinitis home care material was printed [facility] Other 01-24-2023 Evaluation note* Encounter Date Diagnosis [...] away Jul, Sore throat (ICD-10 - J02.9) [facility] Other 11-30-2022 Evaluation note* Encounter Date Diagnosis [...] no improvement in 2 to 3 days. [facility] Other 09-08-2022 Evaluation note* Encounter Date Diagnosis [...] as needed for aches pains or fevers [facility] Other 06-29-2022 Evaluation note* Encounter Date Diagnosis Assessment Notes Treatment Notes Treatment Clinical Notes Dec, Chronic gingivitis, plaque induced (ICD-10 - K05.10) Drink plenty fluids, get plenty of rest. Take the clindamycin as prescribed until gone. Dentist soon as possible. Take Tylenol or Motrin as needed for aches pains or fevers. Rinse your mouth frequently with warm salt water. [facility] Other 12-23-2021 Evaluation note* Encounter Date Diagnosis Assessment Notes Treatment Notes Treatment Clinical Notes Jun, Contact with and (suspected) exposure to other viral communicable diseases (ICD-10 - Z20.828) Jun, COVID-19 (ICD-10 - U07.1) Today you tested positive for the COVID virus. This mean you need to follow all [facility] quarantine guidelines found at [email or web address] v. It is important to rest, [...] Patient care instructions given in writting by [facility] Care At Home document. [facility] Other Evaluation noteNo InformationNort [employer] Other History general Narrative - Reported* Type Description Date Medical History back pain Surgical History appendectomy Surgical History tonsillectomy [facility] Other History general Narrative - Reported* Type Description Date Medical History back pain Medical History ADHD Surgical History appendectomy Surgical History tonsillectomy [facility] Other History general Narrative - Reported* Type Description Date Medical History back pain Medical History ADHD Medical History GERD Surgical History appendectomy Surgical History tonsillectomy [facility] Other Summary Purpose Family History No Family [...] DATE CREATED AUTHOR AUTHOR'S ORGANIZ ATION 06/05/2023 [facility] FOR RECORDS PERTAINING TO PATIENTS WHO ARE [...] BE BASED ON THE PRIMARY CLINICAL RECORDS. [employer] [facility]. provides no warranty or guarantee of the accuracy or completeness of information in this document.
== END 2024-06-20 11:18 | disposition home or self-care (01) ==
PROVIDERS: Emergency Provider Emergency Medicine
DX: S63.502A Unspecified sprain of left wrist, initial encounter (principal); X58.XXXA Exposure to other specified factors, initial encounter
CPT/HCPCS: 73110; 99283

== ENCOUNTER 2024-09-10 16:58 | Emergency (ER) | payer MEDICAID, SELFPAY ==
[2024-09-10 17:04] VITALS: BP 146/95; PULSE 109; TEMP 36.5; O2SAT 95; BMI 30.4
--- OUTSIDE RECORDS SUMMARY | 2024-09-10 17:12 | XMS_ITS | CCD ---
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 Phone Dariana Nelson Unavailable Christi [...] Drug Class(es) Dates Sig (Normalized) Sig (Original) [id number] 200 actuat albuterol 0.09 mg/actuat metered dose [...] Range Facility Office Visiton 06-03-2023 Follow-up visit [id number] Mila Ochoa 1990 M Date Provider Department Center 06/03/2023 271-CHEL KRISHNAMURTHY CARD [facility] No family history on file Level of Service:15333 [place] OFFICE/OUTPATIENT ESTABLISHED LOW MDM 20-29 MIN Normal [facility] COVID + FLU Quick Testingon 05-23-2023 SARS-CoV-2 (COVID-19) RNA RASHAAD+probe Ql (Unsp spec) Positive [facility] Other COVID + FLU Quick Testing Negative [facility] Other Office Visiton 04-08-2023 Follow-up visit [id number] Mila Ochoa 1990 M Date Provider Department Center 04/08/2023 271-GAY, EHAB BH CARD [facility] No family history on file Level of Service:09089 [place] OFFICE/OUTPATIENT ESTABLISHED MOD MDM 30-39 MIN Normal [facility] Quick Strepon 03-16-2023 S. pyogenes Org specific cx Ql (Throat) Negative [facility] Other Quick Strep [facility] Other COVID + FLU Quick Testingon 07-29-2022 SARS-CoV-2 (COVID-19) RNA RASHAAD+probe Ql (Unsp spec) [facility] Other COVID + FLU Quick Testing Negative [facility] [facility] [employer] Other Quick Strepon 07-29-2022 S. pyogenes Org specific cx Ql (Throat) Negative [employer] [employer] Other Quick Strep [facility] Other AMYLASEon 06-07-2022 Amylase [Catalytic activity/Vol] 60 U/L Normal 25-115 Comment on above: Performed By: #### B MP, CMADM #### [facility] [address] [place] [address] Dr. Bert Ferrara CBC AUTO DIFFon 06-07-2022 BASO # 0.0 103/ul Normal 0.0-0.1 Comment on above: Performed By: #### C BC #### [facility] [address] [place] [address] Dr. Bert Ferrara Basophils/100 WBC (Bld) 0.3 % Normal 0.2-2.0 Comment on above: Performed By: #### C BC #### [facility] [address] [place] [address] Dr. Bert Ferrara EO # 0.1 103/ul Normal 0.0-0.7 Comment on above: Performed By: #### C BC #### [facility] [address] [place] [address] Dr. Bert Ferrraa Eosinophils/100 WBC (Bld) 0.4 % Critically low 0.9-7.0 Comment on above: Performed By: #### C BC #### [facility] [address] [place] [address] Dr. Bert Ferrara Erythrocyte distribution width (RBC) [Ratio] 12.0 % Normal 11.0-15.0 Comment on above: Performed By: #### C BC #### [facility] [address] [place] [address] Dr. Bert Ferrara Hematocrit (Bld) [Volume fraction] 48.5 % Normal 42.0-54.0 Comment on above: Performed By: #### C BC #### [facility] [address] [place] [address] Dr. Bert Ferrara Hemoglobin (Bld) [Mass/Vol] 16.9 g/dL Normal 14.0-18.0 Comment on above: Performed By: #### C BC #### [facility] [address] [place] [address] Dr. Bert Ferrara IG # 0.05 10e3/ul Critically high 0.00-0.03 [facility] Comment on above: Performed By: #### C BC #### [facility] [address] [place] [address] Dr. Bert Ferrara IG % 0.3 % Normal 0.0-0.5 Comment on above: Performed By: #### C BC #### [facility] [address] [place] [address] Dr. Bret Ferrara LYMPH # 3.0 103/ul Normal 1.2-3.8 Comment on above: Performed By: #### C BC #### [facility] [address] [place] [address] Dr. Bert Ferrara Lymphocytes/100 WBC (Bld) 20.9 % Normal 20.5-60.0 Comment on above: Performed By: #### C BC #### [facility] [address] [place] [address] Dr. Bert Ferrara MANUAL DIFF REQ NO Normal [facility] Comment on above: Performed By: #### C BC #### [facility] [address] [place] [address] Dr. Bert Ferrara MCH (RBC) [Entitic mass] 28.5 pg Normal 25.9-34.0 Comment on above: Performed By: #### C BC #### [facility] [address] [place] [address] Dr. Bert Ferrara MCHC (RBC) [Mass/Vol] 34.8 g/dL Normal 29.9-35.2 Comment on above: Performed By: #### C BC #### [facility] [address] [place] [address] Dr. Bert Ferrara MCV (RBC) [Entitic vol] 81.9 fL Normal 80.0-94.0 Comment on above: Performed By: #### C BC #### [facility] [address] [place] [address] Dr. Bert Ferrara MONO # 1.3 103/ul Critically high 0.3-0.8 [facility] Comment on above: Performed By: #### C BC #### [facility] [address] [place] [address] Dr. Bert Ferrara Monocytes/100 WBC (Bld) 9.0 % Normal 1.7-12.0 Comment on above: Performed By: #### C BC #### [facility] [address] [place] [address] Dr. Bert Ferrara NEUT # 10.1 103/ul Critically high 1.4-6.5 [facility] Comment on above: Performed By: #### C BC #### [facility] [address] [place] [address] Dr. Bert Ferrara Neutrophils/100 WBC (Bld) 69.1 % Normal 43.0-75.0 Comment on above: Performed By: #### C BC #### [facility] [address] [place], [place] [address] Dr. Bert Ferrara Platelet mean volume (Bld) [Entitic vol] 8.4 fL Critically low 9.5-13.5 Comment on above: Performed By: #### C BC #### [facility] [id number] Bert Ferrara PLT 249 103/ul Normal 150-450 [facility] Comment on above: Performed By: #### C BC #### [facility] [address] [address] [address] Bert Ferrara RBC 5.92 106/ul Normal 4.70-6.10 [facility] Comment on above: Performed By: #### C BC #### [facility] [address] [address] [address] Bert Ferrara WBC 14.6 103/ul Critically high 4.0-11.0 [facility] Comment on above: Performed By: #### C BC #### [facility] [address] [place], [place] [address] ABD/PELVIS WO CONon [...] by: FARIDA SPEARS Date: 2022-06-07 18:07 Normal LIPASEon 06-07-2022 Lipase [Catalytic activity/Vol] 97.0 U/L Normal 73.0-393.0 Comment on above: Performed By: #### B SYED HERNANDEZ #### [facility] [address] [place] [address] Dr. Bert Ferrara PROF 14(COMP METB)on 022 Albumin [Mass/Vol] 3.8 g/dL Normal 3.4-5.0 [facility] Comment on above: Performed By: #### SYED Moctezuma MP #### [facility] [address] [place] [address] Dr. Bert Ferrara Albumin/Globulin [Mass ratio] 1.1 {ratio} Normal Comment on above: Performed By: #### SYED Moctezuma MP #### [facility] [address] [place] [address] Dr. Bert Ferrara ALP [Catalytic activity/Vol] 96 U/L Normal 46-116 [facility] Comment on above: Performed By: #### SYED Moctezuma MP #### [facility] [address] [place] [address] Dr. Bert Ferrara ALT [Catalytic activity/Vol] 29 U/L Normal 16-63 Comment on above: Performed By: #### SYED Moctezuma MP #### [facility] [address] [place] [address] Dr. Bert Ferrara Anion gap [Moles/Vol] 5.6 mmol/L Normal Comment on above: Performed By: #### SYED Moctezuma MP #### [facility] [address] [place] [address] Dr. Bert Ferrara AST [Catalytic activity/Vol] 14 U/L Critically low 15-37 Comment on above: Performed By: #### B DAVID, SYED #### [facility] [address] [place] [address] Dr. Bert Ferrara Bilirubin [Mass/Vol] 0.2 mg/dL Normal 0.2-1.0 Comment on above: Performed By: #### B DAVID, CMADM #### [facility] [address] [place] [address] Dr. Bert Ferrara Calcium [Mass/Vol] 8.8 mg/dL Normal 8.5-10.1 [facility] Comment on above: Performed By: #### B DAVID, KEENANDM #### [facility] [address] [place] [address] Dr. Bert Ferrara Chloride [Moles/Vol] 101 mmol/L Normal 98-107 Comment on above: Performed By: #### B DAVID, KEENANDM #### [facility] [address] [place] [address] Dr. Bert Ferrara CO2 [Moles/Vol] 32.1 mmol/L Critically high 21.0-32.0 Comment on above: Performed By: #### B DAVID, KEENANDM #### [facility] [address] [place] [address] Dr. Bert Ferrara Creatinine [Mass/Vol] 0.90 mg/dL Normal 0.70-1.30 Comment on above: Performed By: #### Jose Elias HERNANDEZ, KEENANDM #### [facility] [address] [place] [address] Dr. Bert Ferrara EGFR-AF AFGHAN >60 Normal >=60 [facility] Comment on above: Performed By: #### B DAVID, KEENANDM #### [facility] [address] [place] [address] Dr. Bert Ferrara EGFR-NON AF AFGHAN >60 Normal >=60 Comment on above: Performed By: #### B SYED HERNANDEZ #### [facility] [address] [place] [address] Dr. Bert Ferrara Globulin (S) [Mass/Vol] 3.5 g/dL Normal Comment on above: Performed By: #### B DAVID, KEENANDM #### [facility] [address] [place] [address] Dr. Bert Ferrara Glucose [Mass/Vol] 93 mg/dL Normal 74-106 [facility] Comment on above: Performed By: #### B DAVID, CMADM #### [facility] [address] [place] [address] Dr. Bert Ferrara Potassium [Moles/Vol] 3.7 mmol/L Normal 3.5-5.1 Comment on above: Performed By: #### B DAVID, KEENANDM #### [facility] [address] [place] [address] Dr. Bert Ferrara Protein [Mass/Vol] 7.3 g/dL Normal 6.4-8.2 [facility] [place] Comment on above: Performed By: #### B DAVID, KEENANDM #### [facility] [address] [place] [address] Dr. Bert Ferrara Sodium [Moles/Vol] 135 mmol/L Critically low 136-145 [facility] Comment on above: Performed By: #### B DAVID, KEENANDM #### [facility] [address] [place] [address] Dr. Bert Ferrara Urea nitrogen [Mass/Vol] 21.0 mg/dL Critically high 7.0-18.0 Comment on above: Performed By: #### B DAVID, CMADM #### [facility] [address] [place] [address] Dr. Bert Ferrara Urea nitrogen/Creatinin e [Mass ratio] 23.3 mg/mg Normal Comment on above: Performed By: #### B DAVID, CMADM #### [facility] [address] [place] [address] Dr. Bert Ferrara CARDIAC LUC 3-6on 2 CK [Catalytic activity/Vol] 169 U/L Normal 39-308 Comment on above: Performed By: #### C BELENP #### [facility] [address] [address] [address] Bert Ferrara CK.MB [Mass/Vol] 2.28 ng/mL Normal <=3.60 [facility] Comment on above: Performed By: #### C MREP #### [facility] [address] [place] [address] Dr. Bert Ferrara HSTROP 4.8 pg/mL Normal 4.0-76.1 [facility] Comment on above: Result Comment: CUT- OFF POINTS HAVE BEEN ESTABLISHED BASED ON THE FOURTH UNIVERSAL DEFINITIONS OF MYOCARDIAL INFARCTION. THE UPPER REFERENCE LIMIT (URL) OF TROPONIN, DEFINED THE 99TH PERCENTILE OF cTnI DISTRIBUTION IN A REFERENCE POPULATION, HAS BEEN CONFIRMED THE DECISION THRESHOLD FOR VT DIAGNOSIS. Performed By: #### C MREP #### [facility] [address] [place] [address] Dr. Bert Ferrara CARDIAC LUC ADMITon 022 CK [Catalytic activity/Vol] 181 U/L Normal 39-308 [facility] Comment on above: Performed By: #### B DAVID, CMADM #### [facility] [address] [place] [address] Dr. Bert Ferrara CK.MB [Mass/Vol] 2.61 ng/mL Normal <=3.60 [facility] Comment on above: Performed By: #### B DAVID, CMADM #### [facility] [address] [place] [address] Dr. Bert Ferrara HSTROP 4.6 pg/mL Normal 4.0-76.1 [facility] Comment on above: Result Comment: CUT- OFF POINTS HAVE BEEN ESTABLISHED BASED ON THE FOURTH UNIVERSAL DEFINITIONS OF MYOCARDIAL INFARCTION. THE UPPER REFERENCE LIMIT (URL) OF TROPONIN, DEFINED THE 99TH PERCENTILE OF cTnI DISTRIBUTION IN A REFERENCE POPULATION, HAS BEEN CONFIRMED THE DECISION THRESHOLD FOR VT DIAGNOSIS. Performed By: #### B MP, CMADM #### [facility] [address] [place] [address] Dr. Bert Ferrara SUNDEEP 37 ng/mL Normal 16-96 [facility] Comment on above: Performed By: #### B MP, CMADM #### [facility] [address] [place] [address] Dr. Bert Ferrara CBC AUTO DIFFon 01-21-2022 BASO # 0.0 103/ul Normal 0.0-0.1 Comment on above: Performed By: #### C BC #### [facility] [address] [place] [address] Dr. Bert Ferrara Basophils/100 WBC (Bld) 0.4 % Normal 0.2-2.0 Comment on above: Performed By: #### C BC #### [facility] [address] [place] [address] Dr. Bert Ferrara EO # 0.2 103/ul Normal 0.0-0.7 Comment on above: Performed By: #### C BC #### [facility] [address] [place] [address] Dr. Bert Ferrara Eosinophils/100 WBC (Bld) 1.9 % Normal 0.9-7.0 Comment on above: Performed By: #### C BC #### [facility] [address] [place] [address] Dr. Bert Ferrara Erythrocyte distribution width (RBC) [Ratio] 11.9 % Normal 11.0-15.0 Comment on above: Performed By: #### C BC #### [facility] [address] [place] [address] Dr. Bert Ferrara Hematocrit (Bld) [Volume fraction] 50.5 % Normal 42.0-54.0 Comment on above: Performed By: #### C BC #### [facility] [address] [place] [address] Dr. Bert Ferrara Hemoglobin (Bld) [Mass/Vol] 17.0 g/dL Normal 14.0-18.0 Comment on above: Performed By: #### C BC #### [facility] [address] [place] [address] Dr. Bert Ferrara IG # 0.02 10e3/ul Normal 0.00-0.03 Comment on above: Performed By: #### C BC #### [facility] [address] [place] [address] Dr. Bert Ferrara IG % 0.2 % Normal 0.0-0.5 Comment on above: Performed By: #### C BC #### [facility] [address] [place] [address] Dr. Bert Ferrara LYMPH # 2.8 103/ul Normal 1.2-3.8 [facility] Comment on above: Performed By: #### C BC #### [facility] [address] [place] [address] Dr. Bert Ferrara Lymphocytes/100 WBC (Bld) 35.0 % Normal 20.5-60.0 Comment on above: Performed By: #### C BC #### [facility] [address] [place] [address] Dr. Bert Ferrara MANUAL DIFF REQ NO Normal [facility] Comment on above: Performed By: #### C BC #### [facility] [address] [place] [address] Dr. Bert Ferrara MCH (RBC) [Entitic mass] 28.4 pg Normal 25.9-34.0 Comment on above: Performed By: #### C BC #### [facility] [address] [place] [address] Dr. Bert Ferrara MCHC (RBC) [Mass/Vol] 33.7 g/dL Normal 29.9-35.2 [facility] Comment on above: Performed By: #### C BC #### [facility] [address] [place] [address] Dr. Bert Ferrara MCV (RBC) [Entitic vol] 84.3 fL Normal 80.0-94.0 [facility] Comment on above: Performed By: #### C BC #### [facility] [address] [place] [address] Dr. Bert Ferrara MONO # 0.9 103/ul Critically high 0.3-0.8 [facility] Comment on above: Performed By: #### C BC #### [facility] [address] [place] [address] Dr. Bert Ferrara Monocytes/100 WBC (Bld) 11.3 % Normal 1.7-12.0 [facility] Comment on above: Performed By: #### C BC #### [facility] [address] [place] [address] Dr. Bert Ferrara NEUT # 4.1 103/ul Normal 1.4-6.5 [facility] Comment on above: Performed By: #### C BC #### [facility] [address] [place] [address] Dr. Bert Ferrara Neutrophils/100 WBC (Bld) 51.2 % Normal 43.0-75.0 [facility] Comment on above: Performed By: #### C BC #### [facility] [address] [place] [address] Dr. Bert Ferrara Platelet mean volume (Bld) [Entitic vol] 9.3 fL Critically low 9.5-13.5 [facility] Comment on above: Performed By: #### C BC #### [facility] [address] [place] [address] Dr. Bert Ferrara PLT 212 103/ul Normal 150-450 [facility] Comment on above: Performed By: #### C BC #### [facility] [address] [place] [address] Dr. Bert Ferrara RBC 5.99 106/ul Normal 4.70-6.10 [facility] Comment on above: Performed By: #### C BC #### [facility] [address] [place] [address] Dr. Bert Ferrara WBC 8.0 103/ul Normal 4.0-11.0 [facility] Comment on above: Performed By: #### C BC #### [facility] [address] [place] [address] Dr. Bert Ferrara PROF CHEM 8 (BAS METB)on Anion gap [Moles/Vol] 11.7 mmol/L Normal [facility] Comment on above: Performed By: #### B MP, CMADM #### [facility] [address] [address] [address] Bert Ferrara Calcium [Mass/Vol] 9.1 mg/dL Normal 8.5-10.1 [facility] [place] Comment on above: Performed By: #### B DAVID, CMADM #### [facility] [address] [address] [address] Bert Ferrara Chloride [Moles/Vol] 101 mmol/L Normal 98-107 [facility] Comment on above: Performed By: #### B DAVID, CMADM #### [facility] [address] [address] [address] Bert Ferrara CO2 [Moles/Vol] 28.9 mmol/L Normal 21.0-32.0 [facility] Comment on above: Performed By: #### B DAVID, CMADM #### [facility] [address] [address] [address] Bert Ferrara Creatinine [Mass/Vol] 1.06 mg/dL Normal 0.70-1.30 [facility] Comment on above: Performed By: #### B DAVID, CMADM #### [facility] [address] [address] [address] Bert Ferrara EGFR-AF AFGHAN >60 Normal >=60 [facility] Comment on above: Performed By: #### B DAVID, CMADM #### [facility] [address] [address] [address] Bert Ferrara EGFR-NON AF AFGHAN >60 Normal >=60 [facility] Comment on above: Performed By: #### B DAVID, CMADM #### [facility] [address] [address] [address] Bert Ferrara Glucose [Mass/Vol] 102 mg/dL Normal 74-106 [facility] [place] Comment on above: Performed By: #### B DAVID, CMADM #### [facility] [address] [address] [address] Bert Ferrara Potassium [Moles/Vol] 3.6 mmol/L Normal 3.5-5.1 [facility] Comment on above: Performed By: #### B DAVID, CMADM #### [facility] [address] [address] [address] Bert Ferrara Sodium [Moles/Vol] 138 mmol/L Normal 136-145 [facility] Comment on above: Performed By: #### B SYED HERNANDEZ #### [facility] [address] [address] [address] Bert Ferrara Urea nitrogen [Mass/Vol] 28.0 mg/dL Critically high 7.0-18.0 Comment on above: Performed By: #### B SYED HERNANDEZ #### [facility] [address] [address] [address] Bert Ferrara Urea nitrogen/Creatinin e [Mass ratio] 26.4 mg/mg Normal Comment on above: Performed By: #### B SYED HERNANDEZ #### [facility] [address] [address] [address] Bert Ferrara XR CHEST 2 Von 01-21-2022 XR CHEST 2 V EXAM: XR CHEST 2 V HISTORY: Palpitations COMPARISON: Chest x-ray 11/02/2021 TECHNIQUE: 2 view chest x-ray frontal and lateral FINDINGS: No lobar consolidation, large pleural effusions, pneumothorax, or acute bony abnormality. Cardiac size unremarkable. IMPRESSION: No radiographic evidence for acute chest abnormality. Electronically authenticated by: ANÍBAL CHAVEZ Date: 2022-01-21 05:48 Normal XR CHEST 2 Von 11-02-2021 XR CHEST [...] FARIDA TREVIÑO Date: 2021-11-02 10:13 Normal [facility] CULTURE THROATon 07-05-2021 CULTURE THROAT Culture Observations: NORMAL RESPIRATORY JASMYNE. Normal [facility] Comment on above: Performed By: #### T HRTCX, SSCRN #### [facility] [address] [address] [address] Bert Ferrara STREPT SCREENon 12-31-2021 STREP SCREEN A Negative Normal NEGATIVE [facility] Comment on above: Performed By: #### T HRTCX, SSCRN #### [facility] [address] [address] [address] Bert JONES Quick Testingon 2020 Result Positive [facility] Other Quick Fluon 06-27-2021 FLUAV Ab CF (S) [Titer] Negative [facility] Other FLUBV Ab CF (S) [Titer] Negative [facility] Other Vital Signs Date Time Vital Sign Value Performing Clinician Facility 05-23-2023 11:55-0500 Body height 172.72 cm Maria T De León Other [facility] Other 05-23-2023 11:55-0500 Body mass index (BMI) [Ratio] 31.74 kg/m2 Maria T De León Other [facility] Other 05-23-2023 11:55-0500 Body temperature 97.7 [degF] Maria T De León Other [facility] Other 05-23-2023 11:55-0500 Body weight 94.71 kg Maria T De León Other [facility] Other 05-23-2023 11:55-0500 Respiratory rate 18 /min Maria T De León Other [facility] Other 05-23-2023 11:55-0500 SaO2% (BldA) [Mass fraction] 99 % Maria T De León Other [facility] Other 03-16-2023 17:10-0400 Body height 172.72 cm Christi Alonzo Other [facility] Other 03-16-2023 17:10-0400 Body mass index (BMI) [Ratio] 31.17 kg/m2 Christi Alonzo Other [facility] Other 03-16-2023 17:10-0400 Body temperature 97.9 [degF] Christi Alonzo Other [facility] Other 03-16-2023 17:10-0400 Body weight 92.99 kg Christi Alonzo Other [facility] Other 03-16-2023 17:10-0400 Diastolic blood pressure 92 mm[Hg] Christi Alonzo Other [facility] Other 03-16-2023 17:10-0400 Respiratory rate 18 /min Christi Alonzo Other [facility] Other 03-16-2023 17:10-0400 SaO2% (BldA) [Mass fraction] 97 % Christi Alonzo Other [facility] Other 03-16-2023 17:10-0400 Systolic blood pressure 128 mm[Hg] Christi Alonzo Other [facility] Other 07-29-2022 11:15-0500 Body height 172.72 cm Dariana Omar Other [facility] Other 07-29-2022 11:15-0500 Body mass index (BMI) [Ratio] 30.71 kg/m2 Dariana Omar Other [facility] Other 07-29-2022 11:15-0500 Body temperature 96.6 [degF] Dariana Nelson Other [facility] Other 07-29-2022 11:15-0500 Body weight 91.63 kg Dariana Nelson Other [facility] Other 07-29-2022 11:15-0500 Respiratory rate 18 /min Dariana Nelson Other [facility] Other 07-29-2022 11:15-0500 SaO2% (BldA) [Mass fraction] 98 % Dariana Nelson Other [facility] Other 06-04-2022 16:25-0500 Body height 172.72 cm Christi Blackmond Other [facility] Other 06-04-2022 16:25-0500 Body mass index (BMI) [Ratio] 30.86 kg/m2 Christi Blackmond Other [facility] Other 06-04-2022 16:25-0500 Body temperature 99.1 [degF] Christi Blackmond Other [facility] Other 06-04-2022 16:25-0500 Body weight 92.08 kg Christi Blackmond Other [facility] Other 06-04-2022 16:25-0500 Respiratory rate 16 /min Christi Cheri Other [facility] Other 06-04-2022 16:25-0500 SaO2% (BldA) [Mass fraction] 97 % Christi Cheri Other [facility] Other 03-13-2022 16:45-0400 Body height 172.72 cm Christi Cheri Other [facility] Other 03-13-2022 16:45-0400 Body mass index (BMI) [Ratio] 30.41 kg/m2 Christi Cheri Other [facility] Other 03-13-2022 16:45-0400 Body temperature 99.1 [degF] Christi Cheri Other [facility] Other 03-13-2022 16:45-0400 Body weight 90.72 kg Christi Cheri Other [facility] Other 03-13-2022 16:45-0400 Diastolic blood pressure 93 mm[Hg] Christi Cheri Other [facility] Other 03-13-2022 16:45-0400 Respiratory rate 16 /min Christi Cheri Other [facility] Other 03-13-2022 16:45-0400 SaO2% (BldA) [Mass fraction] 98 % Christi Cheri Other [facility] Other 03-13-2022 16:45-0400 Systolic blood pressure 127 mm[Hg] Christi Cheri Other [facility] Other 01-01-2022 16:30-0400 Body height 172.72 cm Christi Cheri Other [facility] Other 01-01-2022 16:30-0400 Body mass index (BMI) [Ratio] 28.89 kg/m2 Christi Cheri Other [facility] Other 01-01-2022 16:30-0400 Body temperature 98 [degF] Christi Alonzo Other [facility] Other 01-01-2022 16:30-0400 Body weight 86.18 kg Christi Alonzo Other [facility] Other 01-01-2022 16:30-0400 Diastolic blood pressure 89 mm[Hg] Christi Blackmond Other [facility] Other 01-01-2022 16:30-0400 Respiratory rate 16 /min Christi Alonzo Other [facility] Other 01-01-2022 16:30-0400 SaO2% (BldA) [Mass fraction] 98 % Christi Alonzo Other [facility] Other 01-01-2022 16:30-0400 Systolic blood pressure 150 mm[Hg] Christi Alonzo Other [facility] Other 06-27-2021 16:00-0500 Body height 172.72 cm Dariana Donnellyault Other [facility] Other 06-27-2021 16:00-0500 Body mass index (BMI) [Ratio] 28.89 kg/m2 Dariana Omar Other [facility] Other 06-27-2021 16:00-0500 Body temperature 97.7 [degF] Dariana Omar Other [facility] Other 06-27-2021 16:00-0500 Body weight 86.18 kg Dariana Omar Other [facility] Other 06-27-2021 16:00-0500 Respiratory rate 18 /min Dariana Donnellyault Other [facility] Other 06-27-2021 16:00-0500 SaO2% (BldA) [Mass fraction] 95 % Dariana Donnellyault Other [facility] Other Encounters Encounter Date Encounter Type Care Provider Facility Start: 06-23-2023 End: 06-23-2023 ambulatory Mike Ken Other [facility] Other Start: 06-23-2023 Telephone encounter Mike Harvey [facility] [employer] Start: 06-03-2023 End: 06-03-2023 ambulatory [facility] Start: 05-23-2023 End: 05-23-2023 ambulatory Maria T De León Other [facility] Other Start: 05-23-2023 Office outpatient visit 25 minutes Maria T De León [facility] Start: 04-08-2023 End: 04-08-2023 ambulatory [facility] Start: 03-16-2023 End: 03-16-2023 ambulatory Christi Alonzo Other [facility] Other Start: 03-16-2023 Office outpatient visit 15 minutes Christijose Alonzo [facility] Start: 07-29-2022 End: 07-29-2022 ambulatory Dariana Nelson Other [facility] Other Start: 07-29-2022 Office outpatient visit 15 minutes Darianagustavo Nelson [facility] Start: 06-07-2022 End: 06-07-[address] AYE HU Facility: Start: 06-04-2022 End: 06-04-2022 ambulatory Christi Alonzo Other [facility] Other Start: 06-04-2022 Office outpatient visit 15 minutes Christi Cheri [facility] Start: 03-21-[address] CHEL Holland ty:[facility]1 Start: 03-13-2022 End: 03-13-2022 ambulatory Christi Cheri Other [facility] Other Start: 03-13-2022 Office outpatient visit 15 minutes Christi Cheri [facility] Start: 01-21-2022 End: 01-21-[address] AYE HU Facility:[facility] Start: 01-01-2022 End: 01-01-2022 ambulatory Christi Alonzo Other [facility] Other Start: 01-01-2022 Office outpatient visit 15 minutes Christi Cheri [facility] Start: 11-02-2021 End: 11-02-2021 ambulatory YNES JANE Facility:[facility] Start: 09-02-2021 End: 09-02-[address] AYE HU Facility:[facility] Start: 07-05-2021 End: 07-05-[address] GUSTAVO SMALL Facility:[facility] Start: 06-29-2021 End: 06-30-2021 ambulatory YNES JANE Facility:[facility] Start: 06-27-2021 End: 06-27-2021 ambulatory Dariana Nelson Other [facility] Other Start: 06-27-2021 Office outpatient visit 15 minutes Dariana Nelson [facility] Payers Date Payer Category Payer Medicaid [id number] 2. [id number] 1988 Unknown [id number] 2.16.84 [id number] 1988 Unknown [id number] 2.16.84 [id number] 1988 Unknown [id number] 2.16.84 [id number] 1988 Unknown [id number] 2.16.84 [id number] 1988 Unknown [id number] 2.16.84 [id number] 1988 Unknown [id number] 2.16.84 [id number] 1988 Unknown [id number] 2.16.84 [id number] 1961 Self-pay 1961 Unknown [id number] 2.1 [id number] Unknown [id number] 2. 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 Chel Krishnamurthy MD, MPH, [facility], [facility], [facility] Interventional Cardiology Pager Email: [email or web address] 05-23-2023 Evaluation note Encounter Date Diagnosis [...] treatment plan. Patient left in stable condition [facility] Chief [...] following testing Chel Krishnamurthy MD, MPH, FACC, [facility], [facility] Interventional Cardiology Page (more content not included)...[facility]09-11-2023 Evaluation note* Encounter Date Diagnosis Assessment Notes [...] Allergic rhinitis home care material was printed [facility] Other 01-24-2023 Evaluation note* Encounter Date Diagnosis [...] away Jul, Sore throat (ICD-10 - J02.9) [facility] Other 11-30-2022 Evaluation note* Encounter Date Diagnosis [...] no improvement in 2 to 3 days. [facility] Other 09-08-2022 Evaluation note* Encounter Date Diagnosis [...] as needed for aches pains or fevers [facility] Other 06-29-2022 Evaluation note* Encounter Date Diagnosis Assessment Notes Treatment Notes Treatment Clinical Notes Dec, Chronic gingivitis, plaque induced (ICD-10 - K05.10) Drink plenty fluids, get plenty of rest. Take the clindamycin as prescribed until gone. Dentist soon as possible. Take Tylenol or Motrin as needed for aches pains or fevers. Rinse your mouth frequently with warm salt water. [facility] Other 12-23-2021 Evaluation note* Encounter Date Diagnosis Assessment Notes Treatment Notes Treatment Clinical Notes Jun, Contact with and (suspected) exposure to other viral communicable diseases (ICD-10 - Z20.828) Jun, COVID-19 (ICD-10 - U07.1) Today you tested positive for the COVID virus. This mean you need to follow all [facility] quarantine guidelines found at [facility] emergency [facility].go v. It is important to rest, increase [...] Patient care instructions given in writting by [facility] Care At Home document. [facility] Other Evaluation noteNo InformationNort [facility] Other History general Narrative - Reported* Type Description Date Medical History back pain Surgical History appendectomy Surgical History tonsillectomy [facility] Other History general Narrative - Reported* Type Description Date Medical History back pain Medical History ADHD Surgical History appendectomy Surgical History tonsillectomy [facility] Other History general Narrative - Reported* Type Description Date Medical History back pain Medical History ADHD Medical History GERD Surgical History appendectomy Surgical History tonsillectomy [facility] Other Summary Purpose Family History No Family [...] and content) DATE CREATED AUTHOR 06/09/2022 [facility] DATE CREATED AUTHOR AUTHOR'S ORGANIZ ATION 06/05/2023 [facility] FOR RECORDS PERTAINING TO PATIENTS WHO [...] BE BASED ON THE PRIMARY CLINICAL RECORDS. [facility]. provides no warranty or guarantee of the accuracy or completeness of information in this document.
--- NOTE | 2024-09-10 17:38 | ED.DENTAL1 ---
HPI - Dental/Oral General Chief complaint: Dental/Oral Stated complaint: poss mouth infection Time Seen by Provider: 09/10/24 17:23 Source: patient Mode of arrival: walk-in History of Present Illness HPI Narrative: Patient is a pleasant 34-year-old male who presents to the emergency department for evaluation of a swollen tender area in the left maxilla and cheek. He states several days ago he was brushing his teeth and believes that he accidentally stabbed himself in the gum area. He now has tenderness and swelling surrounding tooth #15 and 16. Airway is widely open and patent speech is clear on arrival. He has not had any drainage into the mouth. He feels as though the maxillary area on the left face is swollen. No fevers or vomiting. No medications prior to arrival Related Data Previous Rx's ?Medication ?Instructions ?Recorded clindamycin HCl 150 mg capsule 300 mg (2 x 150 mg) PO Q6H 10 days 09/10/24 #80 caps hydrocodone 7.5 mg-acetaminophen 10 ml PO Q6H PRN pain #200 mL 09/10/24 325 mg/15 mL oral solution ondansetron 4 mg disintegrating 4 mg PO Q6H PRN nausea and 09/10/24 tablet vomiting #12 tabs Allergies Allergy/AdvReac Type Severity Reaction Status Date / Time No Known Drug Allergies Allergy Verified 06/20/24 10:31 Review of Systems ROS Constitutional Denies: fever or chills Ears, nose, mouth, and throat Reports: mouth pain; Denies: throat pain or nasal congestion Cardiovascular Denies: chest pain Respiratory Denies: shortness of breath or cough Gastrointestinal Denies: nausea or vomiting Integumentary/Breast Denies: rash Neurological Denies: numbness in extremities or weakness in extremities Hematologic/Lymphatic Denies: easy bruising or easy bleeding PFSH PFSH Social History Little interest or pleasure in doing things: not at all Feeling down, depressed, or hopeless: not at all Exam Narrative Exam Narrative: Gen.: Awake, alert, in no distress Head: Normocephalic, atraumatic ENT: Moist mucous membranes, left maxillary area with mild edema, tenderness and edema noted of the gumline around tooth #16. Airway widely open and patent with uvula midline. Clear speech. No trismus or drooling. No redness or swelling under the tongue. Respiratory: No respiratory distress Extremities: Moves extremities equally Psych: Normal mood and affect Neuro: No focal neuro deficit Skin: Warm, dry, intact Constitutional Vital Signs, click to edit/add: Last Vital Signs Temp 97.7 F 09/10/24 17:04 Pulse 109 H 09/10/24 17:04 Resp 18 09/10/24 17:04 BP 146/95 H 09/10/24 17:04 Pulse Ox 95 09/10/24 17:04 O2 Del Method Room Air 09/10/24 17:04 Course Vital Signs Vital signs: Vital Signs Temperature 97.7 F 09/10/24 17:04 Pulse Rate 109 H 09/10/24 17:04 Respiratory Rate 18 09/10/24 17:04 Blood Pressure 146/95 H 09/10/24 17:04 Pulse Oximetry 95 09/10/24 17:04 Oxygen Delivery Method Room Air 09/10/24 17:04 Temperature 97.7 F 09/10/24 17:04 Pulse Rate 109 H 09/10/24 17:04 Respiratory Rate 18 09/10/24 17:04 Blood Pressure 146/95 H 09/10/24 17:04 Pulse Oximetry 95 09/10/24 17:04 Oxygen Delivery Method Room Air 09/10/24 17:04 MDM - Dental/Oral MDM Narrative Medical decision making narrative: Exam is consistent with dental infection, likely dental abscess. Patient started on clindamycin, Lortab and Zofran for home. He states he is unable to swallow pills. Follow-up with primary care and dental and return to the ER if symptoms change or worsen. Warm compresses for the cheek. SUPERVISED APC VISIT, PHYSICIAN ATTESTATION: Based on the medical record the care appears appropriate. ? Medical Records Attestation: I reviewed the patient's medical records. Discharge Plan Discharge Chief Complaint: Dental/Oral Clinical Impression: Dental infection Patient Disposition: Home, Self-Care Time of Disposition Decision: 17:30 Condition: Good Prescriptions / Home Meds: New clindamycin HCl 150 mg capsule 300 mg PO Q6H 10 Days Qty: 80 0RF ondansetron 4 mg tablet,disintegrating 4 mg PO Q6H PRN (Reason: nausea and vomiting) Qty: 12 0RF hydrocodone-acetaminophen 7.5-325 mg/15 mL solution 10 ml PO Q6H PRN (Reason: pain) Qty: 200 0RF Rx Instructions: DX: K08.89 Print Language: Bulgarian Instructions: Dental Abscess (ED) Referrals: Physician,Non-Staff, MD [Primary Care Provider] - 1 week
== END 2024-09-10 17:41 | disposition home or self-care (01) ==
PROVIDERS: Emergency Provider Emergency Medicine
DX: K04.7 Periapical abscess without sinus (principal)
CPT/HCPCS: 99283

== ENCOUNTER 2024-09-28 04:40 | Emergency (ER) | payer MEDICAID, SELFPAY ==
--- OUTSIDE RECORDS SUMMARY | 2024-09-28 04:48 | XMS_ITS | CCD ---
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 Role Phone Dariana Nelson Unavailable Christi [...] CHEL KRISHNAMURTHY Attending Unavailable Mike Rogers Unavailable [phone] Medications Current Medications Medication Drug Class(es) [...] Drug Class(es) Dates Sig (Normalized) Sig (Original) [id number] 200 actuat albuterol 0.09 mg/actuat metered dose [...] Range Facility Office Visiton 06-03-2023 Follow-up visit [id number] Mila Ochoa 1990 M Date Provider Department Center 06/03/2023 271-CHEL KRISHNAMURTHY CARD [facility] No family history on file Level of Service:[address] [place] OFFICE/OUTPATIENT ESTABLISHED LOW MDM 20-29 MIN Normal [facility] COVID + FLU Quick Testingon 05-23-2023 SARS-CoV-2 (COVID-19) RNA RASHAAD+probe Ql (Unsp spec) Positive [employer] Other COVID + FLU Quick Testing Negative [employer] Other Office Visiton 04-08-2023 Follow-up visit [id number] Mila Ochoa 1990 M Date Provider Department Center 04/08/2023 271-GAY, EHAB BH CARD [facility] No family history on file Level of Service:54645 [place] OFFICE/OUTPATIENT ESTABLISHED MOD MDM 30-39 MIN Normal [facility] Quick Strepon 03-16-2023 S. pyogenes Org specific cx Ql (Throat) Negative [employer] Other Quick Strep [employer] Other COVID + FLU Quick Testing[facility] 07-29-2022 SARS-CoV-2 (COVID-19) RNA RASHAAD+probe Ql (Unsp spec) [employer] Other COVID + FLU Quick Testing Negative [employer] [facility] [employer] Other Quick Strepon 07-29-2022 S. pyogenes Org specific cx Ql (Throat) Negative [employer] [facility] [employer] Other Quick Strep [employer] Other AMYLASEon 06-07-2022 Amylase [Catalytic activity/Vol] 60 U/L Normal 25-115 [facility] Comment on above: Performed By: #### B MP, CMADM #### [facility] [address] [place] [address] Dr. Bert Ferrara CBC AUTO DIFFon 06-07-2022 BASO # 0.0 103/ul Normal 0.0-0.1 [facility] Comment on above: Performed By: #### C BC #### [facility] [address] [place] [address] Dr. Bert Ferrara Basophils/100 WBC (Bld) 0.3 % Normal 0.2-2.0 [facility] Comment on above: Performed By: #### C BC #### [facility] [address] [place] [address] Dr. Bert Ferrara EO # 0.1 103/ul Normal 0.0-0.7 [facility] Comment on above: Performed By: #### C BC #### [facility] [address] [place] [address] Dr. Bert Ferrara Eosinophils/100 WBC (Bld) 0.4 % Critically low 0.9-7.0 [facility] Comment on above: Performed By: #### C BC #### [facility] [address] [place] [address] Dr. Bert Ferrara Erythrocyte distribution width (RBC) [Ratio] 12.0 % Normal 11.0-15.0 [facility] Comment on above: Performed By: #### C BC #### [facility] [address] [place] [address] Dr. Bert Ferrara Hematocrit (Bld) [Volume fraction] 48.5 % Normal 42.0-54.0 [facility] Comment on above: Performed By: #### C BC #### [facility] [address] [place] [address] Dr. Bert Ferrara Hemoglobin (Bld) [Mass/Vol] 16.9 g/dL Normal 14.0-18.0 [facility] Comment on above: Performed By: #### C BC #### [facility] [address] [place] [address] Dr. Bert Ferrara IG # 0.05 10e3/ul Critically high 0.00-0.03 [facility] Comment on above: Performed By: #### C BC #### [facility] [address] [place] [address] Dr. Bert Ferrara IG % 0.3 % Normal 0.0-0.5 [facility] Comment on above: Performed By: #### C BC #### [facility] [address] [place] [address] Dr. Bert Ferrara LYMPH # 3.0 103/ul Normal 1.2-3.8 [facility] Comment on above: Performed By: #### C BC #### [facility] [address] [place] [address] Dr. Bert Ferrara Lymphocytes/100 WBC (Bld) 20.9 % Normal 20.5-60.0 [facility] Comment on above: Performed By: #### C BC #### [facility] [address] [place] [address] Dr. Bert Ferrara MANUAL DIFF REQ NO Normal [facility] Comment on above: Performed By: #### C BC #### [facility] [address] [place] [address] Dr. Bert Ferrara MCH (RBC) [Entitic mass] 28.5 pg Normal 25.9-34.0 [facility] Comment on above: Performed By: #### C BC #### [facility] [address] [place] [address] Dr. Bert Ferrara MCHC (RBC) [Mass/Vol] 34.8 g/dL Normal 29.9-35.2 [facility] Comment on above: Performed By: #### C BC #### [facility] [address] [place] [address] Dr. Bert Ferrara MCV (RBC) [Entitic vol] 81.9 fL Normal 80.0-94.0 [facility] Comment on above: Performed By: #### C BC #### [facility] [address] [place] [address] Dr. Bert Ferrara MONO # 1.3 103/ul Critically high 0.3-0.8 [facility] Comment on above: Performed By: #### C BC #### [facility] [address] [place] [address] Dr. Bert Ferrara Monocytes/100 WBC (Bld) 9.0 % Normal 1.7-12.0 [facility] Comment on above: Performed By: #### C BC #### [facility] [address] [place] [address] Dr. Bert Ferrara NEUT # 10.1 103/ul Critically high 1.4-6.5 [facility] Comment on above: Performed By: #### C BC #### [facility] [address] [place] [address] Dr. Bert Ferrara Neutrophils/100 WBC (Bld) 69.1 % Normal 43.0-75.0 [facility] Comment on above: Performed By: #### C BC #### [facility] [address] [place], [place] [address] Dr. Bert Ferrara Platelet mean volume (Bld) [Entitic vol] 8.4 fL Critically low 9.5-13.5 [facility] Comment on above: Performed By: #### C BC #### [facility] [address] [id number] Bert Ferrara PLT 249 103/ul Normal 150-450 [facility] Comment on above: Performed By: #### C BC #### [facility] [address] [address] [address] Bert Ferrara RBC 5.92 106/ul Normal 4.70-6.10 [facility] Comment on above: Performed By: #### C BC #### [facility] [address] [address] [address] Bert Ferrara WBC 14.6 103/ul Critically high 4.0-11.0 [facility] Comment on above: Performed By: #### C BC #### [facility] [address] [place], [place] [address] ABD/PELVIS WO CONon [...] by: FARIDA SPEARS Date: 2022-06-07 18:07 Normal [facility] LIPASEon 06-07-2022 Lipase [Catalytic activity/Vol] 97.0 U/L Normal 73.0-393.0 [facility] Comment on above: Performed By: #### B SYED HERNANDEZ #### [facility] [address] [place] [address] Dr. Bert Ferrara PROF 14(COMP METB)on 022 Albumin [Mass/Vol] 3.8 g/dL Normal 3.4-5.0 [facility] Comment on above: Performed By: #### SYED Moctezuma MP #### [facility] [address] [place] [address] Dr. Bert Ferrara Albumin/Globulin [Mass ratio] 1.1 {ratio} Normal [facility] Comment on above: Performed By: #### SYED Moctezuma MP #### [facility] [address] [place] [address] Dr. Bert Ferrara ALP [Catalytic activity/Vol] 96 U/L Normal 46-116 [facility] Comment on above: Performed By: #### SYED Moctezuma MP #### [facility] [address] [place] [address] Dr. Bert Ferrara ALT [Catalytic activity/Vol] 29 U/L Normal 16-63 [facility] Comment on above: Performed By: #### SYED Moctezuma MP #### [facility] [address] [place] [address] Dr. Bert Ferrara Anion gap [Moles/Vol] 5.6 mmol/L Normal [facility] Comment on above: Performed By: #### SYED Moctezuma MP #### [facility] [address] [place] [address] Dr. Bert Ferrara AST [Catalytic activity/Vol] 14 U/L Critically low 15-37 [facility] Comment on above: Performed By: #### B DAVID, SYED #### [facility] [address] [place] [address] Dr. Bert Ferrara Bilirubin [Mass/Vol] 0.2 mg/dL Normal 0.2-1.0 [facility] Comment on above: Performed By: #### B DAVID, CMADM #### [facility] [address] [place] [address] Dr. Bert Ferrara Calcium [Mass/Vol] 8.8 mg/dL Normal 8.5-10.1 [facility] Comment on above: Performed By: #### B DAVID, KEENANDM #### [facility] [address] [place] [address] Dr. Bert Ferrara Chloride [Moles/Vol] 101 mmol/L Normal 98-107 [facility] Comment on above: Performed By: #### B DAVID, KEENANDM #### [facility] [address] [place] [address] Dr. Bert Ferrara CO2 [Moles/Vol] 32.1 mmol/L Critically high 21.0-32.0 [facility] Comment on above: Performed By: #### B DAVID, KEENANDM #### [facility] [address] [place] [address] Dr. Bert Ferrara Creatinine [Mass/Vol] 0.90 mg/dL Normal 0.70-1.30 [facility] Comment on above: Performed By: #### Jose Elias HERNANDEZ, KEENANDM #### [facility] [address] [place] [address] Dr. Bert Ferrara EGFR-AF MALAWIAN >60 Normal >=60 [facility] Comment on above: Performed By: #### B DAVID, KEENANDM #### [facility] [address] [place] [address] Dr. Bert Ferrara EGFR-NON AF MALAWIAN >60 Normal >=60 [facility] Comment on above: Performed By: #### B SYED HERNANDEZ #### [facility] [address] [place] [address] Dr. Bert Ferrara Globulin (S) [Mass/Vol] 3.5 g/dL Normal [facility] Comment on above: Performed By: #### B DAVID, KEENANDM #### [facility] [address] [place] [address] Dr. Bert Ferrara Glucose [Mass/Vol] 93 mg/dL Normal 74-106 [facility] Comment on above: Performed By: #### B DAVID, CMADM #### [facility] [address] [place] [address] Dr. Bert Ferrara Potassium [Moles/Vol] 3.7 mmol/L Normal 3.5-5.1 [facility] Comment on above: Performed By: #### B DAVID, KEENANDM #### [facility] [address] [place] [address] Dr. Bert Ferrara Protein [Mass/Vol] 7.3 g/dL Normal 6.4-8.2 [facility] Comment on above: Performed By: #### B DAVID, KEENANDM #### [facility] [address] [place] [address] Dr. Bert Ferrara Sodium [Moles/Vol] 135 mmol/L Critically low 136-145 [facility] Comment on above: Performed By: #### B DAVID, KEENANDM #### [facility] [address] [place] [address] Dr. Bert Ferrara Urea nitrogen [Mass/Vol] 21.0 mg/dL Critically high 7.0-18.0 [facility] Comment on above: Performed By: #### B DAVID, CMADM #### [facility] [address] [place] [address] Dr. Bert Ferrara Urea nitrogen/Creatinin e [Mass ratio] 23.3 mg/mg Normal [facility] Comment on above: Performed By: #### B DAVID, CMADM #### [facility] [address] [place] [address] Dr. Bert Ferrara CARDIAC LUC 3-6on 2 CK [Catalytic activity/Vol] 169 U/L Normal 39-308 [facility] Comment on above: Performed By: #### C BELENP #### [facility] [address] [address] [address] Bert Ferrara CK.MB [Mass/Vol] 2.28 ng/mL Normal <=3.60 [facility] Comment on above: Performed By: #### C MREP #### [facility] [address] [place] [address] Dr. Bert Ferrara HSTROP 4.8 pg/mL Normal 4.0-76.1 [facility] Comment on above: Result Comment: CUT- OFF POINTS HAVE BEEN ESTABLISHED BASED ON THE FOURTH UNIVERSAL DEFINITIONS OF MYOCARDIAL INFARCTION. THE UPPER REFERENCE LIMIT (URL) OF TROPONIN, DEFINED THE 99TH PERCENTILE OF cTnI DISTRIBUTION IN A REFERENCE POPULATION, HAS BEEN CONFIRMED THE DECISION THRESHOLD FOR ND DIAGNOSIS. Performed By: #### C MREP #### [facility] [address] [place] [address] Dr. Bert Ferrara CARDIAC LUC ADMITon 022 CK [Catalytic activity/Vol] 181 U/L Normal 39-308 [facility] Comment on above: Performed By: #### B DAVID, CMADM #### [facility] [address] [place] [address] Dr. Bert Ferrara CK.MB [Mass/Vol] 2.61 ng/mL Normal <=3.60 [facility] Comment on above: Performed By: #### B DAVID, CMADM #### [facility] [address] [place] [address] Dr. Bert Ferrara HSTROP 4.6 pg/mL Normal 4.0-76.1 [facility] Comment on above: Result Comment: CUT- OFF POINTS HAVE BEEN ESTABLISHED BASED ON THE FOURTH UNIVERSAL DEFINITIONS OF MYOCARDIAL INFARCTION. THE UPPER REFERENCE LIMIT (URL) OF TROPONIN, DEFINED THE 99TH PERCENTILE OF cTnI DISTRIBUTION IN A REFERENCE POPULATION, HAS BEEN CONFIRMED THE DECISION THRESHOLD FOR ND DIAGNOSIS. Performed By: #### B MP, CMADM #### [facility] [address] [place] [address] Dr. Bert Ferrara SUNDEEP 37 ng/mL Normal 16-96 [facility] Comment on above: Performed By: #### B MP, CMADM #### [facility] [address] [place] [address] Dr. Bert Ferrara CBC AUTO DIFFon 01-21-2022 BASO # 0.0 103/ul Normal 0.0-0.1 [facility] Comment on above: Performed By: #### C BC #### [facility] [address] [place] [address] Dr. Bert Ferrara Basophils/100 WBC (Bld) 0.4 % Normal 0.2-2.0 [facility] Comment on above: Performed By: #### C BC #### [facility] [address] [place] [address] Dr. Bert Ferrara EO # 0.2 103/ul Normal 0.0-0.7 [facility] Comment on above: Performed By: #### C BC #### [facility] [address] [place] [address] Dr. Bert Ferrara Eosinophils/100 WBC (Bld) 1.9 % Normal 0.9-7.0 [facility] Comment on above: Performed By: #### C BC #### [facility] [address] [place] [address] Dr. Bert Ferrara Erythrocyte distribution width (RBC) [Ratio] 11.9 % Normal 11.0-15.0 [facility] Comment on above: Performed By: #### C BC #### [facility] [address] [place] [address] Dr. Bert Ferrara Hematocrit (Bld) [Volume fraction] 50.5 % Normal 42.0-54.0 [facility] Comment on above: Performed By: #### C BC #### [facility] [address] [place] [address] Dr. Bert Ferrara Hemoglobin (Bld) [Mass/Vol] 17.0 g/dL Normal 14.0-18.0 [facility] Comment on above: Performed By: #### C BC #### [facility] [address] [place] [address] Dr. Bert Ferrara IG # 0.02 10e3/ul Normal 0.00-0.03 [facility] Comment on above: Performed By: #### C BC #### [facility] [address] [place] [address] Dr. Bert Ferrara IG % 0.2 % Normal 0.0-0.5 [facility] Comment on above: Performed By: #### C BC #### [facility] [address] [place] [address] Dr. Bert Ferrara LYMPH # 2.8 103/ul Normal 1.2-3.8 [facility] Comment on above: Performed By: #### C BC #### [facility] [address] [place] [address] Dr. Bert Ferrara Lymphocytes/100 WBC (Bld) 35.0 % Normal 20.5-60.0 [facility] Comment on above: Performed By: #### C BC #### [facility] [address] [place] [address] Dr. Bert Ferrara MANUAL DIFF REQ NO Normal [facility] Comment on above: Performed By: #### C BC #### [facility] [address] [place] [address] Dr. Bert Ferrara MCH (RBC) [Entitic mass] 28.4 pg Normal 25.9-34.0 [facility] Comment on above: Performed By: #### C BC #### [facility] [address] [place] [address] Dr. Bert Ferrara MCHC (RBC) [Mass/Vol] 33.7 g/dL Normal 29.9-35.2 [facility] Comment on above: Performed By: #### C BC #### [facility] [address] [place] [address] Dr. Bert Ferrara MCV (RBC) [Entitic vol] 84.3 fL Normal 80.0-94.0 [facility] Comment on above: Performed By: #### C BC #### [facility] [address] [place] [address] Dr. Bert Ferrara MONO # 0.9 103/ul Critically high 0.3-0.8 [facility] Comment on above: Performed By: #### C BC #### [facility] [address] [place] [address] Dr. Bert Ferrara Monocytes/100 WBC (Bld) 11.3 % Normal 1.7-12.0 [facility] Comment on above: Performed By: #### C BC #### [facility] [address] [place] [address] Dr. Bert Ferrara NEUT # 4.1 103/ul Normal 1.4-6.5 [facility] Comment on above: Performed By: #### C BC #### [facility] [address] [place] [address] Dr. Bert Ferrara Neutrophils/100 WBC (Bld) 51.2 % Normal 43.0-75.0 [facility] Comment on above: Performed By: #### C BC #### [facility] [address] [place] [address] Dr. Bert Ferrara Platelet mean volume (Bld) [Entitic vol] 9.3 fL Critically low 9.5-13.5 [facility] Comment on above: Performed By: #### C BC #### [facility] [address] [place] [address] Dr. Bert Ferrara PLT 212 103/ul Normal 150-450 [facility] Comment on above: Performed By: #### C BC #### [facility] [address] [place] [address] Dr. Bert Ferrara RBC 5.99 106/ul Normal 4.70-6.10 [facility] Comment on above: Performed By: #### C BC #### [facility] [address] [place] [address] Dr. Bert Ferrara WBC 8.0 103/ul Normal 4.0-11.0 [facility] Comment on above: Performed By: #### C BC #### [facility] [address] [place] [address] Dr. Bert Ferrara PROF CHEM 8 (BAS METB)on Anion gap [Moles/Vol] 11.7 mmol/L Normal [facility] Comment on above: Performed By: #### B MP, CMADM #### [facility] [address] [address] [address] Bert Ferrara Calcium [Mass/Vol] 9.1 mg/dL Normal 8.5-10.1 [facility] Comment on above: Performed By: #### B DAVID, CMADM #### [facility] [address] [address] [address] Bert Ferrara Chloride [Moles/Vol] 101 mmol/L Normal 98-107 [facility] Comment on above: Performed By: #### B DAVID, CMADM #### [facility] [address] [address] [address] Bert Ferrara CO2 [Moles/Vol] 28.9 mmol/L Normal 21.0-32.0 [facility] Comment on above: Performed By: #### B DAVID, CMADM #### [facility] [address] [address] [address] Bert Ferrara Creatinine [Mass/Vol] 1.06 mg/dL Normal 0.70-1.30 [facility] Comment on above: Performed By: #### B DAVID, CMADM #### [facility] [address] [address] [address] Bert Ferrara EGFR-AF MALAWIAN >60 Normal >=60 [facility] Comment on above: Performed By: #### B DAVID, CMADM #### [facility] [place] [address] [address] [address] Bert Ferrara EGFR-NON AF MALAWIAN >60 Normal >=60 The [facility] Comment on above: Performed By: #### B DAVID, CMADM #### [facility] [place] [address] [address] [address] Bert Ferrara Glucose [Mass/Vol] 102 mg/dL Normal 74-106 The [facility] Comment on above: Performed By: #### B DAVID, CMADM #### [facility] [address] [address] [address] Bert Ferrara Potassium [Moles/Vol] 3.6 mmol/L Normal 3.5-5.1 The [facility] [place] Comment on above: Performed By: #### B DAVID, CMADM #### [facility] [address] [address] [address] Bert Ferrara Sodium [Moles/Vol] 138 mmol/L Normal 136-145 [facility] Comment on above: Performed By: #### B SYED HERNANDEZ #### [facility] [place] [address] [address] [address] Bert Ferrara Urea nitrogen [Mass/Vol] 28.0 mg/dL Critically high 7.0-18.0 [facility] Comment on above: Performed By: #### B SYED HERNANDEZ #### [facility] [place] [address] [address] [address] Bert Ferrara Urea nitrogen/Creatinin e [Mass ratio] 26.4 mg/mg Normal [facility] Comment on above: Performed By: #### B SYED HERNANDEZ #### [facility] [address] [address] [address] Bert Ferrara XR CHEST 2 Von 01-21-2022 XR CHEST 2 V EXAM: XR CHEST 2 V HISTORY: Palpitations COMPARISON: Chest x-ray 11/02/2021 TECHNIQUE: 2 view chest x-ray frontal and lateral FINDINGS: No lobar consolidation, large pleural effusions, pneumothorax, or acute bony abnormality. Cardiac size unremarkable. IMPRESSION: No radiographic evidence for acute chest abnormality. Electronically authenticated by: ANÍBAL CHAVEZ Date: 2022-01-21 05:48 Normal [facility] XR CHEST 2 Von 11-02-2021 XR [...] FARIDA TREVIÑO Date: 2021-11-02 10:13 Normal The [facility] CULTURE THROATon 07-05-2021 CULTURE THROAT Culture Observations: NORMAL RESPIRATORY JASMYNE. Normal The [facility] Comment on above: Performed By: #### T HRTCX, SSCRN #### [facility] [address] [address] [address] Bert Ferrara STREPT SCREENon 12-31-2021 STREP SCREEN A Negative Normal NEGATIVE The [facility] Comment on above: Performed By: #### T HRTCX, SSCRN #### [facility] [address] [address] [address] Bert JONES Quick Testingon 2020 Result Positive [facility] Other Quick Fluon 06-27-2021 FLUAV Ab CF (S) [Titer] Negative [facility] Other FLUBV Ab CF (S) [Titer] Negative [facility] Other Vital Signs Date Time Vital Sign Value Performing Clinician Facility 05-23-2023 11:55-0500 Body height 172.72 cm Maria T De León Other [facility] Other 05-23-2023 11:55-0500 Body mass index (BMI) [Ratio] 31.74 kg/m2 Maria T De León Other [facility] Other 05-23-2023 11:55-0500 Body temperature 97.7 [degF] Maria T De León Other [facility] Other 05-23-2023 11:55-0500 Body weight 94.71 kg Maria T De León Other [facility] Other 05-23-2023 11:55-0500 Respiratory rate 18 /min Maria T De León Other [facility] Other 05-23-2023 11:55-0500 SaO2% (BldA) [Mass fraction] 99 % Maria T De León Other [facility] Other 03-16-2023 17:10-0400 Body height 172.72 cm Christi Alonzo Other [facility] Other 03-16-2023 17:10-0400 Body mass index (BMI) [Ratio] 31.17 kg/m2 Christi Alonzo Other [facility] Other 03-16-2023 17:10-0400 Body temperature 97.9 [degF] Christi Alonzo Other [facility] Other 03-16-2023 17:10-0400 Body weight 92.99 kg Christi Alonzo Other [facility] Other 03-16-2023 17:10-0400 Diastolic blood pressure 92 mm[Hg] Christi Alonzo Other [facility] Other 03-16-2023 17:10-0400 Respiratory rate 18 /min Christi Alonzo Other [facility] Other 03-16-2023 17:10-0400 SaO2% (BldA) [Mass fraction] 97 % Christi Alonzo Other [facility] Other 03-16-2023 17:10-0400 Systolic blood pressure 128 mm[Hg] Christi Alonzo Other [facility] Other 07-29-2022 11:15-0500 Body height 172.72 cm Dariana Omar Other [facility] Other 07-29-2022 11:15-0500 Body mass index (BMI) [Ratio] 30.71 kg/m2 Dariana Omar Other [facility] Other 07-29-2022 11:15-0500 Body temperature 96.6 [degF] Dariana Nelson Other [facility] Other 07-29-2022 11:15-0500 Body weight 91.63 kg Dariana Nelson Other [facility] Other 07-29-2022 11:15-0500 Respiratory rate 18 /min Dariana Nelson Other [facility] Other 07-29-2022 11:15-0500 SaO2% (BldA) [Mass fraction] 98 % Dariana Nelson Other [facility] Other 06-04-2022 16:25-0500 Body height 172.72 cm Christi Blackmond Other [facility] Other 06-04-2022 16:25-0500 Body mass index (BMI) [Ratio] 30.86 kg/m2 Christi Blackmond Other [facility] Other 06-04-2022 16:25-0500 Body temperature 99.1 [degF] Christi Blackmond Other [facility] Other 06-04-2022 16:25-0500 Body weight 92.08 kg Christi Blackmond Other [facility] Other 06-04-2022 16:25-0500 Respiratory rate 16 /min Christi Cheri Other [facility] Other 06-04-2022 16:25-0500 SaO2% (BldA) [Mass fraction] 97 % Christi Cheri Other [facility] Other 03-13-2022 16:45-0400 Body height 172.72 cm Christi Cheri Other [facility] Other 03-13-2022 16:45-0400 Body mass index (BMI) [Ratio] 30.41 kg/m2 Christi Cheri Other [facility] Other 03-13-2022 16:45-0400 Body temperature 99.1 [degF] Christi Cheri Other [facility] Other 03-13-2022 16:45-0400 Body weight 90.72 kg Christi Cheri Other [facility] Other 03-13-2022 16:45-0400 Diastolic blood pressure 93 mm[Hg] Christi Cheri Other [facility] Other 03-13-2022 16:45-0400 Respiratory rate 16 /min Christi Cheri Other [facility] Other 03-13-2022 16:45-0400 SaO2% (BldA) [Mass fraction] 98 % Christi Cheri Other [facility] Other 03-13-2022 16:45-0400 Systolic blood pressure 127 mm[Hg] Christi Cheri Other [facility] Other 01-01-2022 16:30-0400 Body height 172.72 cm Christi Cheri Other [facility] Other 01-01-2022 16:30-0400 Body mass index (BMI) [Ratio] 28.89 kg/m2 Christi Cheri Other [facility] Other 01-01-2022 16:30-0400 Body temperature 98 [degF] Christi Alonzo Other [facility] Other 01-01-2022 16:30-0400 Body weight 86.18 kg Christi Alonzo Other [facility] Other 01-01-2022 16:30-0400 Diastolic blood pressure 89 mm[Hg] Christi Blackmond Other [facility] Other 01-01-2022 16:30-0400 Respiratory rate 16 /min Christi Alonzo Other [facility] Other 01-01-2022 16:30-0400 SaO2% (BldA) [Mass fraction] 98 % Christi Alonzo Other [facility] Other 01-01-2022 16:30-0400 Systolic blood pressure 150 mm[Hg] Christi Alonzo Other [facility] Other 06-27-2021 16:00-0500 Body height 172.72 cm Dariana Donnellyault Other [facility] Other 06-27-2021 16:00-0500 Body mass index (BMI) [Ratio] 28.89 kg/m2 Dariana Omar Other [facility] Other 06-27-2021 16:00-0500 Body temperature 97.7 [degF] Dariana Omar Other [facility] Other 06-27-2021 16:00-0500 Body weight 86.18 kg Dariana Omar Other [facility] Other 06-27-2021 16:00-0500 Respiratory rate 18 /min Dariana Donnellyault Other [facility] Other 06-27-2021 16:00-0500 SaO2% (BldA) [Mass fraction] 95 % Dariana Donnellyault Other [facility] Other Encounters Encounter Date Encounter Type Care Provider Facility Start: 06-23-2023 End: 06-23-2023 ambulatory Mike Ken Other [facility] Other Start: 06-23-2023 Telephone encounter Mike Harvey [facility] Start: 06-03-2023 End: 06-03-2023 ambulatory [facility] Start: 05-23-2023 End: 05-23-2023 ambulatory Maria T De León Other [facility] Other Start: 05-23-2023 Office outpatient visit 25 minutes Maria T De León [facility] Start: 04-08-2023 End: 04-08-2023 ambulatory [facility] Start: 03-16-2023 End: 03-16-2023 ambulatory Christi Alonzo Other [facility] Other Start: 03-16-2023 Office outpatient visit 15 minutes Christijose Alonzo [facility] Start: 07-29-2022 End: 07-29-2022 ambulatory Dariana Nelson Other [facility] Other Start: 07-29-2022 Office outpatient visit 15 minutes Darianagustavo Nelson [facility] Start: 06-07-2022 End: 06-07-[address] AYE HU Facility: Start: 06-04-2022 End: 06-04-2022 ambulatory Christi Alonzo Other [facility] Other Start: 06-04-2022 Office outpatient visit 15 minutes Christi Cheri [facility] Start: 03-21-[address] CHEL Holland ty:[facility]1 Start: 03-13-2022 End: 03-13-2022 ambulatory Christi Cheri Other [facility] Other Start: 03-13-2022 Office outpatient visit 15 minutes Christi Cheri [facility] Start: 01-21-2022 End: 01-21-[address] AYE HU Facility:[facility] Start: 01-01-2022 End: 01-01-2022 ambulatory Christi Alonzo Other [facility] Other Start: 01-01-2022 Office outpatient visit 15 minutes Christi Cheri [facility] Start: 11-02-2021 End: 11-02-2021 ambulatory YNES JANE Facility:[facility] Start: 09-02-2021 End: 09-02-[address] AYE HU Facility:[facility] Start: 07-05-2021 End: 07-05-[address] GUSTAVO SMALL Facility:[facility] Start: 06-29-2021 End: 06-30-2021 ambulatory YNES JANE Facility:[facility] Start: 06-27-2021 End: 06-27-2021 ambulatory Dariana Nelson Other [facility] Other Start: 06-27-2021 Office outpatient visit 15 minutes Dariana Nelson [facility] Payers Date Payer Category Payer Medicaid [id number] 2. [id number] 1988 Unknown [id number] 2.16.84 [id number] 1988 Unknown [id number] 2.16.84 [id number] 1988 Unknown [id number] 2.16.84 [id number] 1988 Unknown [id number] 2.16.84 [id number] 1988 Unknown [id number] 2.16.84 [id number] 1988 Unknown [id number] 2.16.84 [id number] 1988 Unknown [id number] 2.16.84 [id number] 1961 Self-pay 1961 Unknown [id number] 2.1 [id number] Unknown [id number] 2. [id number] Social History Date Type Detail Facility Sex Assigned At [facility] Other Clinical Notes 06-27-2021 to 06-03-2023 Note Date & Type Note Facility 06-03-2023 Note [facility] Cardiology Clinic Note Chief Complaint: Patient here [...] nutritional input with his family physician and/or director outcomes I will be happy to see him on an as-needed basis. Chel Krishnamurthy MD, MPH, [facility], [facility], [facility] Interventional Cardiology Pager Email: [email or web address] 05-23-2023 Evaluation note Encounter Date Diagnosis [...] treatment plan. Patient left in stable condition [facility] [...] following testing Chel Krishnamurthy MD, MPH, FACC, [facility], [facility] Interventional Cardiology Page (more content not included)...[facility]09-11-2023 Evaluation note* Encounter Date Diagnosis Assessment [...] Allergic rhinitis home care material was printed [facility] Other 01-24-2023 Evaluation note* Encounter Date Diagnosis [...] away Jul, Sore throat (ICD-10 - J02.9) [facility] Other 11-30-2022 Evaluation note* Encounter Date Diagnosis [...] no improvement in 2 to 3 days. [facility] Other 09-08-2022 Evaluation note* Encounter Date Diagnosis [...] as needed for aches pains or fevers [facility] Other 06-29-2022 Evaluation note* Encounter Date Diagnosis Assessment Notes Treatment Notes Treatment Clinical Notes Dec, Chronic gingivitis, plaque induced (ICD-10 - K05.10) Drink plenty fluids, get plenty of rest. Take the clindamycin as prescribed until gone. Dentist soon as possible. Take Tylenol or Motrin as needed for aches pains or fevers. Rinse your mouth frequently with warm salt water. [facility] Other 12-23-2021 Evaluation note* Encounter Date Diagnosis Assessment Notes Treatment Notes Treatment Clinical Notes Jun, Contact with and (suspected) exposure to other viral communicable diseases (ICD-10 - Z20.828) Jun, COVID-19 (ICD-10 - U07.1) Today you tested positive for the COVID virus. This mean you need to follow all [facility]NOTE 2[place] quarantine guidelines found at [email or web address] v. It is important to rest, increase [...] instructions given in writting by [facility] [place]NOTE 2[facility] document. [facility] Other Evaluation noteNo InformationNort [employer] Other History general Narrative - Reported* Type Description Date Medical History back pain Surgical History appendectomy Surgical History tonsillectomy [facility] Other History general Narrative - Reported* Type Description Date Medical History back pain Medical History ADHD Surgical History appendectomy Surgical History tonsillectomy [facility] Other History general Narrative - Reported* Type Description Date Medical History back pain Medical History ADHD Medical History GERD Surgical History appendectomy Surgical History tonsillectomy [facility] Other Summary Purpose Family History No Family [...] DATE CREATED AUTHOR AUTHOR'S ORGANIZ ATION 06/05/2023 [facility] FOR RECORDS PERTAINING TO PATIENTS WHO [...] BE BASED ON THE PRIMARY CLINICAL RECORDS. [employer] [facility]. provides no warranty or guarantee of the accuracy or completeness of information in this document.
[2024-09-28 04:52] VITALS: BP 152/106; PULSE 86; TEMP 36.9; O2SAT 99; BMI 30.4
--- NOTE | 2024-09-28 05:14 | ED.FALL1 ---
Documented by User: Sanjuanita Feliciano MD 09/29/24 03:03 HPI HPI - Fall General Chief Complaint: Fall Stated Complaint: FALL Time Seen by Provider: 09/28/24 04:49 Source: patient Mode of arrival: walk-in Limitations: no limitations History of Present Illness HPI Narrative: This 34-year-old male with a history of PTSD and chronic low back pain presents for evaluation of worsening low back and sacrococcygeal pain after falling down some stairs last night. The patient states he has not been able to sleep all night due to the pain. He denies striking his head. He has no neck pain. He has no focal weakness numbness or tingling. He has a large abrasion down the left side of his thoracic region and thinks that he broke his tailbone. He states that he lost his footing and fell down some stairs and sustained a laceration by striking it on the railing as he fell. He states he was unable to sleep last night due to the pain and came to the emergency department this morning. He does have pain medication at home that was prescribed to him for a dental infection recently but he states that he has sleep apnea and did not take it because he was trying to sleep and thinks that he will stop breathing if he takes pain medication in light of his sleep apnea. The patient admits to chronic low back pain after being in the for 2 tours. The patient states he has PTSD and sees several different physicians [place] the [place]. He states he is on the liquid diet after having a choking episode while in the and has too much anxiety about eating solid food to eat regular food. He thinks he is malnourished although he is moderately overweight. He is not having any nausea vomiting or diarrhea. 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 This is not relevant to the patient's fall but he did divulge all of this during my history and physical. He is not have any bowel or bladder dysfunction. He has no focal weakness numbness or tingling. He drove himself to the emergency department this morning. Related Data Previous Rx's ?Medication ?Instructions ?Recorded clindamycin HCl 150 mg capsule 300 mg (2 x 150 mg) PO Q6H 10 days 09/10/24 #80 caps hydrocodone 7.5 mg-acetaminophen 10 ml PO Q6H PRN pain #200 mL 09/10/24 325 mg/15 mL oral solution ondansetron 4 mg disintegrating 4 mg PO Q6H PRN nausea and 09/10/24 tablet vomiting #12 tabs penicillin V potassium 250 mg 250 mg PO QID 10 days #40 tabs 09/12/24 tablet Allergies Allergy/AdvReac Type Severity Reaction Status Date / Time clindamycin Allergy Mild rash Verified 09/28/24 04:52 Penicillins Allergy Mild Rash Verified 09/28/24 04:52 Opioid HPI Opioid Management Most Recent Pain and Opioid Data: Last Pain Scale 10 09/28/24 05:24 09/28/24 Last MAR Pain Assessment 09/28/24 05:24 Review of Systems ROS Status of ROS 10 or more systems reviewed and unremarkable except as noted in history and below [facility] Social History Little interest or pleasure in doing things: not at all Feeling down, depressed, or hopeless: not at all Exam Narrative Exam Narrative: Vital signs and Nursing Notes reviewed: Patient is afebrile with a normal pulse, blood pressure is elevated 152/106, he is not hypoxic with pulse ox of 99% on room air General: Awake, alert, oriented, anxious overweight adult male, GCS 15, no respiratory distress HEENT: Normocephalic atraumatic, mucous membranes are moist and pink, eyes are clear, normal conjunctiva, vision is grossly intact, posterior pharynx is normal in appearance. Multiple decayed teeth are noted with cavities and several anterior mandibular teeth Neck: Supple, no meningeal signs, no midline bony vertebral tenderness or step-off Chest: Lungs are clear to auscultation with good air entry, there is no wheezing rhonchi or rales appreciated no accessory muscle use, patient is speaking in complete sentences-no chest wall tenderness to palpation CVS: Regular rate and rhythm S1-S2, no murmurs rubs or gallops, pulses are brisk and equal bilaterally ABD: Soft, nondistended, nontender, no rebound guarding or rigidity, bowel sounds are normal, no pulsatile masses appreciated Extremities: Moving all extremities, no lower extremity tenderness or swelling noted, there is a large abrasion on the left posterior thorax. There is no crepitus or appreciable associated rib tenderness. There is no midline bony vertebral tenderness in the cervical, thoracic or lumbar spine. There is tenderness in the sacrum and coccygeal area without notable deformity. Skin: Normal in appearance with abrasion to the left side of the thorax Neuro: No focal deficits Psych: Anxious, admits to ongoing PTSD Constitutional Vital Signs, click to edit/add: Last Vital Signs Temp 98.4 F 09/28/24 04:52 Pulse 88 09/28/24 07:57 Resp 18 09/28/24 07:57 BP 151/99 H 09/28/24 07:57 Pulse Ox 98 09/28/24 07:57 O2 Del Method Room Air 09/28/24 04:52 Course Vital Signs Vital signs: Vital Signs Temperature 98.4 F 09/28/24 04:52 Pulse Rate 86 09/28/24 04:52 Respiratory Rate 18 09/28/24 04:52 Blood Pressure 152/106 H 09/28/24 04:52 Pulse Oximetry 99 09/28/24 04:52 Oxygen Delivery Method Room Air 09/28/24 04:52 Temperature 98.4 F 09/28/24 04:52 Pulse Rate 88 09/28/24 07:57 Respiratory Rate 18 09/28/24 07:57 Blood Pressure 151/99 H 09/28/24 07:57 Pulse Oximetry 98 09/28/24 07:57 Oxygen Delivery Method Room Air 09/28/24 04:52 MDM - Fall MDM Narrative Medical decision making narrative: This 34-year-old male presents for evaluation of left flank pain and sacrococcygeal pain after falling down several stairs last night at home. The patient thinks that he broke his tailbone after landing hard on his tailbone. He does not have any focal neurologic weakness numbness or tingling. He does have chronic back pain after being in the . He denies striking his head. There is no loss of consciousness. He had no neck pain. He is driving and was medicated with IM Toradol. Two-view chest x-ray and rib films were ordered as well as CT scan of the lumbosacral spine. I reviewed the x-ray myself and did not appreciate any broken ribs or pneumothorax. The final report is pending at this time. CT scan of the lumbosacral spine was also ordered and is pending at the time of this dictation. He will be signed out to the incoming physician at 7 AM Discharge Plan Discharge Chief Complaint: Fall Clinical Impression: Fall down stairs, Coccyx sprain Patient Disposition: Home, Self-Care Time of Disposition Decision: 08:11 Condition: Good Mode of Transportation: Private Vehicle Prescriptions / Home Meds: No Action clindamycin HCl 150 mg capsule 300 mg PO Q6H 10 Days Qty: 80 0RF ondansetron 4 mg tablet,disintegrating 4 mg PO Q6H PRN (Reason: nausea and vomiting) Qty: 12 0RF hydrocodone-acetaminophen 7.5-325 mg/15 mL solution 10 ml PO Q6H PRN (Reason: pain) Qty: 200 0RF Rx Instructions: DX: K08.89 penicillin V potassium 250 mg tablet 250 mg PO QID 10 Days Qty: 40 0RF Print Language: Slovenian Instructions: Back Pain (ED) Referrals: Physician,Non-Staff, MD [Primary Care Provider] - 1 week Discharge Date/Time: 09/28/24 08:31 Documented by User: Peggy Reese DO 09/28/24 08:21 HPI HPI - Fall General Chief Complaint: Fall Stated Complaint: FALL Time Seen by Provider: 09/28/24 04:49 Related Data Previous Rx's ?Medication ?Instructions ?Recorded clindamycin HCl 150 mg capsule 300 mg (2 x 150 mg) PO Q6H 10 days 09/10/24 #80 caps hydrocodone 7.5 mg-acetaminophen 10 ml PO Q6H PRN pain #200 mL 09/10/24 325 mg/15 mL oral solution ondansetron 4 mg disintegrating 4 mg PO Q6H PRN nausea and 09/10/24 tablet vomiting #12 tabs penicillin V potassium 250 mg 250 mg PO QID 10 days #40 tabs 09/12/24 tablet Allergies Allergy/AdvReac Type Severity Reaction Status Date / Time clindamycin Allergy Mild rash Verified 09/28/24 04:52 Penicillins Allergy Mild Rash Verified 09/28/24 04:52 Opioid HPI Opioid Management Most Recent Pain and Opioid Data: Last Pain Scale 10 09/28/24 05:24 09/28/24 Last SEP Pain Assessment 09/28/24 05:24 PFSH PFS Social History Little interest or pleasure in doing things: not at all Feeling down, depressed, or hopeless: not at all Exam Constitutional Vital Signs, click to edit/add: Last Vital Signs Temp 98.4 F 09/28/24 04:52 Pulse 88 09/28/24 07:57 Resp 18 09/28/24 07:57 BP 151/99 H 09/28/24 07:57 Pulse Ox 98 09/28/24 07:57 O2 Del Method Room Air 09/28/24 04:52 Course Vital Signs Vital signs: Vital Signs Temperature 98.4 F 09/28/24 04:52 Pulse Rate 86 09/28/24 04:52 Respiratory Rate 18 09/28/24 04:52 Blood Pressure 152/106 H 09/28/24 04:52 Pulse Oximetry 99 09/28/24 04:52 Oxygen Delivery Method Room Air 09/28/24 04:52 Temperature 98.4 F 09/28/24 04:52 Pulse Rate 88 09/28/24 07:57 Respiratory Rate 18 09/28/24 07:57 Blood Pressure 151/99 H 09/28/24 07:57 Pulse Oximetry 98 09/28/24 07:57 Oxygen Delivery Method Room Air 09/28/24 04:52 MDM - Fall MDM Narrative Medical decision making narrative: This 34-year-old male presents for evaluation of left flank pain and sacrococcygeal pain after falling down several stairs last night at home. The patient thinks that he broke his tailbone after landing hard on his tailbone. He does not have any focal neurologic weakness numbness or tingling. He does have chronic back pain after being in the . He denies striking his head. There is no loss of consciousness. He had no neck pain. He is driving and was medicated with IM Toradol. Two-view chest x-ray and rib films were ordered as well as CT scan of the lumbosacral spine. I reviewed the x-ray myself and did not appreciate any broken ribs or pneumothorax. The final report is pending at this time. CT scan of the lumbosacral spine was also ordered and is pending at the time of this dictation. He will be signed out to the incoming physician at 7 AM Patient was signed out to me from Dr. Feliciano pending CT scan image reports and final disposition planning. Patient CT scan did not show any lumbar fracture or any other abnormality. Patient most likely has a bruised sacrum and coccyx from the fall. Patient was instructed to take Tylenol Motrin for pain. Sit on pillows or anything else that is comfortable. Return to ED if worsening symptoms otherwise follow-up with family doctor. Patient comfortable with care plan for home. Differential Diagnosis Differential diagnosis: Likely compression fracture and other (Fracture sprain strain) Imaging Data CT scan - chest: Attestation: I have reviewed the pertinent imaging results. Discharge Plan Discharge Chief Complaint: Fall Clinical Impression: Fall down stairs, Coccyx sprain Patient Disposition: Home, Self-Care Time of Disposition Decision: 08:11 Condition: Good Mode of Transportation: Private Vehicle Prescriptions / Home Meds: No Action clindamycin HCl 150 mg capsule 300 mg PO Q6H 10 Days Qty: 80 0RF ondansetron 4 mg tablet,disintegrating 4 mg PO Q6H PRN (Reason: nausea and vomiting) Qty: 12 0RF hydrocodone-acetaminophen 7.5-325 mg/15 mL solution 10 ml PO Q6H PRN (Reason: pain) Qty: 200 0RF Rx Instructions: DX: K08.89 penicillin V potassium 250 mg tablet 250 mg PO QID 10 Days Qty: 40 0RF Print Language: Slovenian Instructions: Back Pain (ED) Referrals: Physician,Non-Staff, MD [Primary Care Provider] - 1 week Discharge Date/Time: 09/28/24 08:31
[2024-09-28] MEDS: KETOROLAC TROMETHAMINE 60 MG/2 ML VIAL IM (05:24)
--- NOTE | 2024-09-28 06:10 | PC.NURSE ---
this patient is aware that now we are waiting on ct results. this patient voices no concerns and shows no signs of distress
[2024-09-28] MEDS: ACETAMINOPHEN 160 MG/5 ML ORAL.SUSP 650 MG PO (06:54)
[2024-09-28 07:57] VITALS: BP 151/99; PULSE 88; O2SAT 98
== END 2024-09-28 08:31 | disposition home or self-care (01) ==
PROVIDERS: Emergency Provider Emergency Medicine
DX: S33.8XXA Sprain of other parts of lumbar spine and pelvis, initial encounter (principal); S20.412A Abrasion of left back wall of thorax, initial encounter; F43.10 Post-traumatic stress disorder, unspecified; W10.8XXA Fall (on) (from) other stairs and steps, initial encounter; G47.30 Sleep apnea, unspecified
CPT/HCPCS: 71101; 72131; 96372; 99284; J1885

== ENCOUNTER 2024-10-20 18:31 | Emergency (ER) | payer MEDICAID, SELFPAY ==
[2024-10-20 18:36] VITALS: BP 156/94; PULSE 114; TEMP 36.6; O2SAT 96; BMI 30.4
--- OUTSIDE RECORDS SUMMARY | 2024-10-20 18:38 | XMS_ITS | CCD ---
Author Organization [facility] Care Team Providers Care Bill Of Lading Clerk Name Role Phone Dariana Nelson Unavailable Christi [...] CHEL KRISHNAMURTHY Attending Unavailable Mike Rogers Unavailable [phone] Medications Current Medications Medication Drug Class(es) [...] Drug Class(es) Dates Sig (Normalized) Sig (Original) [id number] 200 actuat albuterol 0.09 mg/actuat metered dose [...] Range Facility Office Visiton 06-03-2023 Follow-up visit [id number] Mila Ochoa 1990 M Date Provider Department Center 06/03/2023 271-CHEL KRISHNAMURTHY CARD [facility] No family history on file Level of Service:33638 [place] OFFICE/OUTPATIENT ESTABLISHED LOW MDM 20-29 MIN Normal [facility] COVID + FLU Quick Testingon 05-23-2023 SARS-CoV-2 (COVID-19) RNA RASHAAD+probe Ql (Unsp spec) Positive [facility] Other COVID + FLU Quick Testing Negative [facility] Other Office Visiton 04-08-2023 Follow-up visit [id number] Mila Ochoa 1990 M Date Provider Department Center 04/08/2023 271-GAY, EHAB BH CARD [facility] No family history on file Level of Service:12179 [place] OFFICE/OUTPATIENT ESTABLISHED MOD MDM 30-39 MIN Normal [facility] Quick Strepon 03-16-2023 S. pyogenes Org specific cx Ql (Throat) Negative [facility] Other Quick Strep [facility] Other COVID + FLU Quick Testingon 07-29-2022 SARS-CoV-2 (COVID-19) RNA RASHAAD+probe Ql (Unsp spec) [facility] Other COVID + FLU Quick Testing Negative [facility] Other Quick Strepon 07-29-2022 S. pyogenes Org specific cx Ql (Throat) Negative [facility] Other Quick Strep [facility] Other AMYLASEon 06-07-2022 Amylase [Catalytic activity/Vol] 60 U/L Normal 25-115 [facility] Comment on above: Performed By: #### B MP, CMADM #### [facility] [address] [place] [address] Dr. Bert Ferrara CBC AUTO DIFFon 06-07-2022 BASO # 0.0 103/ul Normal 0.0-0.1 [facility] Comment on above: Performed By: #### C BC #### [facility] [address] [place] [address] Dr. Bert Ferrara Basophils/100 WBC (Bld) 0.3 % Normal 0.2-2.0 [facility] Comment on above: Performed By: #### C BC #### [facility] [address] [place] [address] Dr. Bert Ferrara EO # 0.1 103/ul Normal 0.0-0.7 [facility] Comment on above: Performed By: #### C BC #### [facility] [address] [place] [address] Dr. Bert Ferrara Eosinophils/100 WBC (Bld) 0.4 % Critically low 0.9-7.0 [facility] Comment on above: Performed By: #### C BC #### [facility] [address] [place] [address] Dr. Bert Ferrara Erythrocyte distribution width (RBC) [Ratio] 12.0 % Normal 11.0-15.0 [facility] Comment on above: Performed By: #### C BC #### [facility] [address] [place] [address] Dr. Bert Ferrara Hematocrit (Bld) [Volume fraction] 48.5 % Normal 42.0-54.0 [facility] Comment on above: Performed By: #### C BC #### [facility] [address] [place] [address] Dr. Bert Ferrara Hemoglobin (Bld) [Mass/Vol] 16.9 g/dL Normal 14.0-18.0 [facility] Comment on above: Performed By: #### C BC #### [facility] [address] [place] [address] Dr. Bert Ferrara IG # 0.05 10e3/ul Critically high 0.00-0.03 [facility] Comment on above: Performed By: #### C BC #### [facility] [address] [place] [address] Dr. Bert Ferrara IG % 0.3 % Normal 0.0-0.5 [facility] Comment on above: Performed By: #### C BC #### [facility] [address] [place] [address] Dr. Bert Ferrara LYMPH # 3.0 103/ul Normal 1.2-3.8 [facility] Comment on above: Performed By: #### C BC #### [facility] [address] [place] [address] Dr. Bert Ferrara Lymphocytes/100 WBC (Bld) 20.9 % Normal 20.5-60.0 [facility] Comment on above: Performed By: #### C BC #### [facility] [address] [place] [address] Dr. Bert Ferrara MANUAL DIFF REQ NO Normal [facility] Comment on above: Performed By: #### C BC #### [facility] [address] [place] [address] Dr. Bert Ferrara MCH (RBC) [Entitic mass] 28.5 pg Normal 25.9-34.0 [facility] Comment on above: Performed By: #### C BC #### [facility] [address] [place] [address] Dr. Bert Ferrara MCHC (RBC) [Mass/Vol] 34.8 g/dL Normal 29.9-35.2 [facility] Comment on above: Performed By: #### C BC #### [facility] [address] [place] [address] Dr. Bert Ferrara MCV (RBC) [Entitic vol] 81.9 fL Normal 80.0-94.0 [facility] Comment on above: Performed By: #### C BC #### [facility] [address] [place] [address] Dr. Bert Ferrara MONO # 1.3 103/ul Critically high 0.3-0.[address] [facility] Comment on above: Performed By: #### C BC #### [facility] [address] [place] [address] Dr. Bert Ferrara Monocytes/100 WBC (Bld) 9.0 % Normal 1.7-12.0 [facility] Comment on above: Performed By: #### C BC #### [facility] [address] [place] [address] Dr. Bert Ferrara NEUT # 10.1 103/ul Critically high 1.4-6.5 [facility] Comment on above: Performed By: #### C BC #### [facility] [address] [place] [address] Dr. Bert Ferrara Neutrophils/100 WBC (Bld) 69.1 % Normal 43.0-75.0 [facility] Comment on above: Performed By: #### C BC #### [facility] [address] [place], [place] [address] Dr. Bert Ferrara Platelet mean volume (Bld) [Entitic vol] 8.4 fL Critically low 9.5-13.5 [facility] Comment on above: Performed By: #### C BC #### [facility] [id number] Bert Ferrara PLT 249 103/ul Normal 150-450 [facility] Comment on above: Performed By: #### C BC #### [facility] [address] [address] [address] Bert Ferrara RBC 5.92 106/ul Normal 4.70-6.10 [facility] Comment on above: Performed By: #### C BC #### [facility] [address] [address] [address] Bert Ferrara WBC 14.6 103/ul Critically high 4.0-11.0 [facility] Comment on above: Performed By: #### C BC #### [facility] [address] [place], [place] [address] ABD/PELVIS WO CONon [...] by: FARIDA SPEARS Date: 2022-06-07 18:07 Normal [facility] LIPASEon 06-07-2022 Lipase [Catalytic activity/Vol] 97.0 U/L Normal 73.0-393.0 [facility] Comment on above: Performed By: #### B SYED HERNANDEZ #### [facility] [address] [place] [address] Dr. Bert Ferrara PROF 14(COMP METB)on 022 Albumin [Mass/Vol] 3.8 g/dL Normal 3.4-5.0 [facility] Comment on above: Performed By: #### SYED Moctezuma MP #### [facility] [address] [place] [address] Dr. Bert Ferrara Albumin/Globulin [Mass ratio] 1.1 {ratio} Normal [facility] Comment on above: Performed By: #### SYED Moctezuma MP #### [facility] [address] [place] [address] Dr. Bert Ferrara ALP [Catalytic activity/Vol] 96 U/L Normal 46-116 [facility] Comment on above: Performed By: #### SYED Moctezuma MP #### [facility] [address] [place] [address] Dr. Bert Ferrara ALT [Catalytic activity/Vol] 29 U/L Normal 16-63 [facility] Comment on above: Performed By: #### SYED Moctezuma MP #### [facility] [address] [place] [address] Dr. Bert Ferrara Anion gap [Moles/Vol] 5.6 mmol/L Normal [facility] Comment on above: Performed By: #### SYED Moctezuma MP #### [facility] [address] [place] [address] Dr. Bert Ferrara AST [Catalytic activity/Vol] 14 U/L Critically low 15-37 [facility] Comment on above: Performed By: #### B DAVID, SYED #### [facility] [address] [place] [address] Dr. Bert Ferrara Bilirubin [Mass/Vol] 0.2 mg/dL Normal 0.2-1.0 [facility] Comment on above: Performed By: #### B DAVID, CMADM #### [facility] [address] [place] [address] Dr. Bert Ferrara Calcium [Mass/Vol] 8.8 mg/dL Normal 8.5-10.1 [facility] Comment on above: Performed By: #### B DAVID, KEENANDM #### [facility] [address] [place] [address] Dr. Bert Ferrara Chloride [Moles/Vol] 101 mmol/L Normal 98-107 [facility] Comment on above: Performed By: #### B DAVID, KEENANDM #### [facility] [address] [place] [address] Dr. Bert Ferrara CO2 [Moles/Vol] 32.1 mmol/L Critically high 21.0-32.0 [facility] Comment on above: Performed By: #### B DAVID, KEENANDM #### [facility] [address] [place] [address] Dr. Bert Ferrara Creatinine [Mass/Vol] 0.90 mg/dL Normal 0.70-1.30 [facility] Comment on above: Performed By: #### Jose Elias HERNANDEZ, KEENANDM #### [facility] [address] [place] [address] Dr. Bert Ferrara EGFR-AF PRYDEINIG >60 Normal >=60 [facility] Comment on above: Performed By: #### B DAVID, KEENANDM #### [facility] [address] [place] [address] Dr. Bert Ferrara EGFR-NON AF PRYDEINIG >60 Normal >=60 [facility] Comment on above: Performed By: #### B SYED HERNANDEZ #### [facility] [address] [place] [address] Dr. Bert Ferrara Globulin (S) [Mass/Vol] 3.5 g/dL Normal [facility] Comment on above: Performed By: #### B DAVID, KEENANDM #### [facility] [address] [place] [address] Dr. Bert Ferrara Glucose [Mass/Vol] 93 mg/dL Normal 74-106 [facility] Comment on above: Performed By: #### B DAVID, CMADM #### [facility] [address] [place] [address] Dr. Bert Ferrara Potassium [Moles/Vol] 3.7 mmol/L Normal 3.5-5.1 [facility] Comment on above: Performed By: #### B DAVID, KEENANDM #### [facility] [address] [place] [address] Dr. Bert Ferrara Protein [Mass/Vol] 7.3 g/dL Normal 6.4-8.2 [facility] Comment on above: Performed By: #### B DAVID, KEENANDM #### [facility] [address] [place] [address] Dr. Bert Ferrara Sodium [Moles/Vol] 135 mmol/L Critically low 136-145 [facility] Comment on above: Performed By: #### B DAVID, KEENANDM #### [facility] [address] [place] [address] Dr. Bert Ferrara Urea nitrogen [Mass/Vol] 21.0 mg/dL Critically high 7.0-18.0 [facility] Comment on above: Performed By: #### B DAVID, CMADM #### [facility] [address] [place] [address] Dr. Bert Ferrara Urea nitrogen/Creatinin e [Mass ratio] 23.3 mg/mg Normal [facility] Comment on above: Performed By: #### B DAVID, CMADM #### [facility] [address] [place] [address] Dr. Bert Ferrara CARDIAC LUC 3-6on 2 CK [Catalytic activity/Vol] 169 U/L Normal 39-308 [facility] Comment on above: Performed By: #### C BELENP #### [facility] [address] [address] [address] Bert Ferrara CK.MB [Mass/Vol] 2.28 ng/mL Normal <=3.60 [facility] Comment on above: Performed By: #### C MREP #### [facility] [address] [place] [address] Dr. Bert Ferrara HSTROP 4.8 pg/mL Normal 4.0-76.1 [facility] Comment on above: Result Comment: CUT- OFF POINTS HAVE BEEN ESTABLISHED BASED ON THE FOURTH UNIVERSAL DEFINITIONS OF MYOCARDIAL INFARCTION. THE UPPER REFERENCE LIMIT (URL) OF TROPONIN, DEFINED THE 99TH PERCENTILE OF cTnI DISTRIBUTION IN A REFERENCE POPULATION, HAS BEEN CONFIRMED THE DECISION THRESHOLD FOR RI DIAGNOSIS. Performed By: #### C MREP #### [facility] [address] [place] [address] Dr. Bert Ferrara CARDIAC LUC ADMITon 022 CK [Catalytic activity/Vol] 181 U/L Normal 39-308 [facility] Comment on above: Performed By: #### B DAVID, CMADM #### [facility] [address] [place] [address] Dr. Bert Ferrara CK.MB [Mass/Vol] 2.61 ng/mL Normal <=3.60 [facility] Comment on above: Performed By: #### B DAVID, CMADM #### [facility] [address] [place] [address] Dr. Bert Ferrara HSTROP 4.6 pg/mL Normal 4.0-76.1 [facility] Comment on above: Result Comment: CUT- OFF POINTS HAVE BEEN ESTABLISHED BASED ON THE FOURTH UNIVERSAL DEFINITIONS OF MYOCARDIAL INFARCTION. THE UPPER REFERENCE LIMIT (URL) OF TROPONIN, DEFINED THE 99TH PERCENTILE OF cTnI DISTRIBUTION IN A REFERENCE POPULATION, HAS BEEN CONFIRMED THE DECISION THRESHOLD FOR RI DIAGNOSIS. Performed By: #### B MP, CMADM #### [facility] [address] [place] [address] Dr. Bert Ferrara SUNDEEP 37 ng/mL Normal 16-96 [facility] Comment on above: Performed By: #### B MP, CMADM #### [facility] [address] [place] [address] Dr. Bert Ferrara CBC AUTO DIFFon 01-21-2022 BASO # 0.0 103/ul Normal 0.0-0.1 [facility] Comment on above: Performed By: #### C BC #### [facility] [address] [place] [address] Dr. Bert Ferrara Basophils/100 WBC (Bld) 0.4 % Normal 0.2-2.0 [facility] Comment on above: Performed By: #### C BC #### [facility] [address] [place] [address] Dr. Bert Ferrara EO # 0.2 103/ul Normal 0.0-0.7 [facility] Comment on above: Performed By: #### C BC #### [facility] [address] [place] [address] Dr. Bert Ferrara Eosinophils/100 WBC (Bld) 1.9 % Normal 0.9-7.0 [facility] Comment on above: Performed By: #### C BC #### [facility] [address] [place] [address] Dr. Bert Ferrara Erythrocyte distribution width (RBC) [Ratio] 11.9 % Normal 11.0-15.0 [facility] Comment on above: Performed By: #### C BC #### [facility] [address] [place] [address] Dr. Bert Ferrara Hematocrit (Bld) [Volume fraction] 50.5 % Normal 42.0-54.0 [facility] Comment on above: Performed By: #### C BC #### [facility] [address] [place] [address] Dr. Bert Ferrara Hemoglobin (Bld) [Mass/Vol] 17.0 g/dL Normal 14.0-18.0 [facility] Comment on above: Performed By: #### C BC #### [facility] [address] [place] [address] Dr. Bert Ferrara IG # 0.02 10e3/ul Normal 0.00-0.03 [facility] Comment on above: Performed By: #### C BC #### [facility] [address] [place] [address] Dr. Bert Ferrara IG % 0.2 % Normal 0.0-0.5 [facility] Comment on above: Performed By: #### C BC #### [facility] [address] [place] [address] Dr. Bert Ferrara LYMPH # 2.8 103/ul Normal 1.2-3.8 [facility] Comment on above: Performed By: #### C BC #### [facility] [address] [place] [address] Dr. Bert Ferrara Lymphocytes/100 WBC (Bld) 35.0 % Normal 20.5-60.0 [facility] Comment on above: Performed By: #### C BC #### [facility] [address] [place] [address] Dr. Bert Ferrara MANUAL DIFF REQ NO Normal [facility] Comment on above: Performed By: #### C BC #### [facility] [address] [place] [address] Dr. Bert Ferrara MCH (RBC) [Entitic mass] 28.4 pg Normal 25.9-34.0 [facility] Comment on above: Performed By: #### C BC #### [facility] [address] [place] [address] Dr. Bert Ferrara MCHC (RBC) [Mass/Vol] 33.7 g/dL Normal 29.9-35.2 [facility] Comment on above: Performed By: #### C BC #### [facility] [address] [place] [address] Dr. Bert Ferrara MCV (RBC) [Entitic vol] 84.3 fL Normal 80.0-94.0 [facility] Comment on above: Performed By: #### C BC #### [facility] [address] [place] [address] Dr. Bert Ferrara MONO # 0.9 103/ul Critically high 0.3-0.[address] [facility] Comment on above: Performed By: #### C BC #### [facility] [address] [place] [address] Dr. Bert Ferrara Monocytes/100 WBC (Bld) 11.3 % Normal 1.7-12.0 [facility] Comment on above: Performed By: #### C BC #### [facility] [address] [place] [address] Dr. Bert Ferrara NEUT # 4.1 103/ul Normal 1.4-6.5 [facility] Comment on above: Performed By: #### C BC #### [facility] [address] [place] [address] Dr. Bert Ferrara Neutrophils/100 WBC (Bld) 51.2 % Normal 43.0-75.0 [facility] Comment on above: Performed By: #### C BC #### [facility] [address] [place] [address] Dr. Bert Ferrara Platelet mean volume (Bld) [Entitic vol] 9.3 fL Critically low 9.5-13.5 [facility] Comment on above: Performed By: #### C BC #### [facility] [address] [place] [address] Dr. Bert Ferrara PLT 212 103/ul Normal 150-450 [facility] Comment on above: Performed By: #### C BC #### [facility] [address] [place] [address] Dr. Bert Ferrara RBC 5.99 106/ul Normal 4.70-6.10 [facility] Comment on above: Performed By: #### C BC #### [facility] [address] [place] [address] Dr. Bert Ferrara WBC 8.0 103/ul Normal 4.0-11.0 [facility] Comment on above: Performed By: #### C BC #### [facility] [address] [place] [address] Dr. Bert Ferrara PROF CHEM 8 (BAS METB)on Anion gap [Moles/Vol] 11.7 mmol/L Normal [facility] Comment on above: Performed By: #### B MP, CMADM #### [facility] [address] [address] [address] Bert Ferrara Calcium [Mass/Vol] 9.1 mg/dL Normal 8.5-10.1 [facility] Comment on above: Performed By: #### B DAVID, CMADM #### [facility] [address] [address] [address] Bert Ferrara Chloride [Moles/Vol] 101 mmol/L Normal 98-107 [facility] Comment on above: Performed By: #### B DAVID, CMADM #### [facility] [address] [address] [address] Bert Ferrara CO2 [Moles/Vol] 28.9 mmol/L Normal 21.0-32.0 [facility] Comment on above: Performed By: #### B DAVID, CMADM #### [facility] [address] [address] [address] Bert Ferrara Creatinine [Mass/Vol] 1.06 mg/dL Normal 0.70-1.30 [facility] Comment on above: Performed By: #### B DAVID, CMADM #### [facility] [address] [address] [address] Bert Ferrara EGFR-AF PRYDEINIG >60 Normal >=60 [facility] Comment on above: Performed By: #### B DAVID, CMADM #### [facility] [address] [address] [address] Bert Ferrara EGFR-NON AF PRYDEINIG >60 Normal >=60 [facility] Comment on above: Performed By: #### B DAVID, CMADM #### [facility] [address] [address] [address] Bert Ferrara Glucose [Mass/Vol] 102 mg/dL Normal 74-106 [facility] Comment on above: Performed By: #### B DAVID, CMADM #### [facility] [address] [address] [address] Bert Ferrara Potassium [Moles/Vol] 3.6 mmol/L Normal 3.5-5.1 [facility] Comment on above: Performed By: #### B DAVID, CMADM #### [facility] [address] [address] [address] Bert Ferrara Sodium [Moles/Vol] 138 mmol/L Normal 136-145 [facility] Comment on above: Performed By: #### B SYED HERNANDEZ #### [facility] [address] [address] [address] Bert Ferrara Urea nitrogen [Mass/Vol] 28.0 mg/dL Critically high 7.0-18.0 [facility] Comment on above: Performed By: #### B SYED HERNANDEZ #### [facility] [address] [address] [address] Bert Ferrara Urea nitrogen/Creatinin e [Mass ratio] 26.4 mg/mg Normal [facility] Comment on above: Performed By: #### B SYED HERNANDEZ #### [facility] [address] [address] [address] Bert Ferrara XR CHEST 2 Von 01-21-2022 XR CHEST 2 V EXAM: XR CHEST 2 V HISTORY: Palpitations COMPARISON: Chest x-ray 11/02/2021 TECHNIQUE: 2 view chest x-ray frontal and lateral FINDINGS: No lobar consolidation, large pleural effusions, pneumothorax, or acute bony abnormality. Cardiac size unremarkable. IMPRESSION: No radiographic evidence for acute chest abnormality. Electronically authenticated by: ANÍBAL CHAVEZ Date: 2022-01-21 05:48 Normal [facility] XR CHEST 2 Von 11-02-2021 XR CHEST [...] FARIDA TREVIÑO Date: 2021-11-02 10:13 Normal [facility] CULTURE THROATon 07-05-2021 CULTURE THROAT Culture Observations: NORMAL RESPIRATORY JASMYNE. Normal [facility] Comment on above: Performed By: #### T HRTCX, SSCRN #### [facility] [address] [address] [address] Bert Ferrara STREPT SCREENon 12-31-2021 STREP SCREEN A Negative Normal NEGATIVE [facility] Comment on above: Performed By: #### T HRTCX, SSCRN #### [facility] [address] [address] [address] Bert JONES Quick Testingon 2020 Result Positive [facility] Other Quick Fluon 06-27-2021 FLUAV Ab CF (S) [Titer] Negative [facility] Other FLUBV Ab CF (S) [Titer] Negative [facility] Other Vital Signs Date Time Vital Sign Value Performing Clinician Facility 05-23-2023 11:55-0500 Body height 172.72 cm Maria T De León Other [facility] Other 05-23-2023 11:55-0500 Body mass index (BMI) [Ratio] 31.74 kg/m2 Maria T De León Other [facility] Other 05-23-2023 11:55-0500 Body temperature 97.7 [degF] Maria T De León Other [facility] Other 05-23-2023 11:55-0500 Body weight 94.71 kg Maria T De León Other [facility] Other 05-23-2023 11:55-0500 Respiratory rate 18 /min Maria T De León Other [facility] Other 05-23-2023 11:55-0500 SaO2% (BldA) [Mass fraction] 99 % Maria T De León Other [facility] Other 03-16-2023 17:10-0400 Body height 172.72 cm Christi Alonzo Other [facility] Other 03-16-2023 17:10-0400 Body mass index (BMI) [Ratio] 31.17 kg/m2 Christi Alonzo Other [facility] Other 03-16-2023 17:10-0400 Body temperature 97.9 [degF] Christi Alonzo Other [facility] Other 03-16-2023 17:10-0400 Body weight 92.99 kg Christi Alonzo Other [facility] Other 03-16-2023 17:10-0400 Diastolic blood pressure 92 mm[Hg] Christi Alonzo Other [facility] Other 03-16-2023 17:10-0400 Respiratory rate 18 /min Christi Alonzo Other [facility] Other 03-16-2023 17:10-0400 SaO2% (BldA) [Mass fraction] 97 % Christi Alonzo Other [facility] Other 03-16-2023 17:10-0400 Systolic blood pressure 128 mm[Hg] Christi Alonzo Other [facility] Other 07-29-2022 11:15-0500 Body height 172.72 cm Dariana Omar Other [facility] Other 07-29-2022 11:15-0500 Body mass index (BMI) [Ratio] 30.71 kg/m2 Dariana Omar Other [facility] Other 07-29-2022 11:15-0500 Body temperature 96.6 [degF] Dariana Nelson Other [facility] Other 07-29-2022 11:15-0500 Body weight 91.63 kg Dariana Nelson Other [facility] Other 07-29-2022 11:15-0500 Respiratory rate 18 /min Dariana Nelson Other [facility] Other 07-29-2022 11:15-0500 SaO2% (BldA) [Mass fraction] 98 % Dariana Nelson Other [facility] Other 06-04-2022 16:25-0500 Body height 172.72 cm Christi Blackmond Other [facility] Other 06-04-2022 16:25-0500 Body mass index (BMI) [Ratio] 30.86 kg/m2 Christi Blackmond Other [facility] Other 06-04-2022 16:25-0500 Body temperature 99.1 [degF] Christi Blackmond Other [facility] Other 06-04-2022 16:25-0500 Body weight 92.08 kg Christi Blackmond Other [facility] Other 06-04-2022 16:25-0500 Respiratory rate 16 /min Christi Cheri Other [facility] Other 06-04-2022 16:25-0500 SaO2% (BldA) [Mass fraction] 97 % Christi Cheri Other [facility] Other 03-13-2022 16:45-0400 Body height 172.72 cm Christi Cheri Other [facility] Other 03-13-2022 16:45-0400 Body mass index (BMI) [Ratio] 30.41 kg/m2 Christi Cheri Other [facility] Other 03-13-2022 16:45-0400 Body temperature 99.1 [degF] Christi Cheri Other [facility] Other 03-13-2022 16:45-0400 Body weight 90.72 kg Christi Cheri Other [facility] Other 03-13-2022 16:45-0400 Diastolic blood pressure 93 mm[Hg] Christi Cheri Other [facility] Other 03-13-2022 16:45-0400 Respiratory rate 16 /min Christi Cheri Other [facility] Other 03-13-2022 16:45-0400 SaO2% (BldA) [Mass fraction] 98 % Christi Cheri Other [facility] Other 03-13-2022 16:45-0400 Systolic blood pressure 127 mm[Hg] Christi Cheri Other [facility] Other 01-01-2022 16:30-0400 Body height 172.72 cm Christi Cheri Other [facility] Other 01-01-2022 16:30-0400 Body mass index (BMI) [Ratio] 28.89 kg/m2 Christi Cheri Other [facility] Other 01-01-2022 16:30-0400 Body temperature 98 [degF] Christi Alonzo Other [facility] Other 01-01-2022 16:30-0400 Body weight 86.18 kg Christi Alonzo Other [facility] Other 01-01-2022 16:30-0400 Diastolic blood pressure 89 mm[Hg] Christi Blackmond Other [facility] Other 01-01-2022 16:30-0400 Respiratory rate 16 /min Christi Alonzo Other [facility] Other 01-01-2022 16:30-0400 SaO2% (BldA) [Mass fraction] 98 % Christi Alonzo Other [facility] Other 01-01-2022 16:30-0400 Systolic blood pressure 150 mm[Hg] Christi Alonzo Other [facility] Other 06-27-2021 16:00-0500 Body height 172.72 cm Dariana Donnellyault Other [facility] Other 06-27-2021 16:00-0500 Body mass index (BMI) [Ratio] 28.89 kg/m2 Dariana Omar Other [facility] Other 06-27-2021 16:00-0500 Body temperature 97.7 [degF] Dariana Omar Other [facility] Other 06-27-2021 16:00-0500 Body weight 86.18 kg Dariana Omar Other [facility] Other 06-27-2021 16:00-0500 Respiratory rate 18 /min Dariana Donnellyault Other [facility] Other 06-27-2021 16:00-0500 SaO2% (BldA) [Mass fraction] 95 % Dariana Donnellyault Other [facility] Other Encounters Encounter Date Encounter Type Care Provider Facility Start: 06-23-2023 End: 06-23-2023 ambulatory Mike Ken Other [facility] Other Start: 06-23-2023 Telephone encounter Mike Harvey [facility] Start: 06-03-2023 End: 06-03-2023 ambulatory [facility] Start: 05-23-2023 End: 05-23-2023 ambulatory Maria T De León Other [facility] Other Start: 05-23-2023 Office outpatient visit 25 minutes Maria T De León [facility] Start: 04-08-2023 End: 04-08-2023 ambulatory [facility] Start: 03-16-2023 End: 03-16-2023 ambulatory Christi Alonzo Other [facility] Other Start: 03-16-2023 Office outpatient visit 15 minutes Christijose Alonzo [facility] Start: 07-29-2022 End: 07-29-2022 ambulatory Dariana Nelson Other [facility] Other Start: 07-29-2022 Office outpatient visit 15 minutes Darianagustavo Nelson [facility] Start: 06-07-2022 End: 06-07-[address] AYE HU Facility: Start: 06-04-2022 End: 06-04-2022 ambulatory Christi Alonzo Other [facility] Other Start: 06-04-2022 Office outpatient visit 15 minutes Christi Cheri [facility] Start: 03-21-[address] CHEL Holland ty:[facility] Start: 03-13-2022 End: 03-13-2022 ambulatory Christi Cheri Other [facility] Other Start: 03-13-2022 Office outpatient visit 15 minutes Christi Cheri [facility] Start: 01-21-2022 End: 01-21-[address] AYE HU Facility:[facility] Start: 01-01-2022 End: 01-01-2022 ambulatory Christi Alonzo Other [facility] Other Start: 01-01-2022 Office outpatient visit 15 minutes Christi Cheri [facility] Start: 11-02-2021 End: 11-02-2021 ambulatory YNES JANE Facility:[facility] Start: 09-02-2021 End: 09-02-[address] AYE HU Facility:[facility] Start: 07-05-2021 End: 07-05-[address] GUSTAVO SMALL Facility:[facility] Start: 06-29-2021 End: 06-30-2021 ambulatory YNES JANE Facility:[facility] Start: 06-27-2021 End: 06-27-2021 ambulatory Dariana Nelson Other [facility] Other Start: 06-27-2021 Office outpatient visit 15 minutes Dariana Nelson [facility] Payers Date Payer Category Payer Medicaid [id number] 2. [id number] 1990 Unknown [id number] 2.16.84 [id number] 1988 Unknown [id number] 2.16.84 [id number] 1988 Unknown [id number] 2.16.84 [id number] 1988 Unknown [id number] 2.16.84 [id number] 1988 Unknown [id number] 2.16.84 [id number] 1988 Unknown [id number] 2.16.84 [id number] 1988 Unknown [id number] 2.16.84 [id number] 1961 Self-pay 1961 Unknown [id number] 2.1 [id number] Unknown [id number] 2. 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 Chel Krishnamurthy MD, MPH, [facility], [facility], [facility] Interventional Cardiology Pager Email: [email or web address] 05-23-2023 Evaluation note Encounter Date Diagnosis [...] treatment plan. Patient left in stable condition [facility] Chief [...] following testing Chel Krishnamurthy MD, MPH, FACC, [facility], [facility] Interventional Cardiology Page (more content not included)...[facility]09-11-2023 Evaluation note* Encounter Date Diagnosis Assessment Notes [...] Allergic rhinitis home care material was printed [facility] Other 01-24-2023 Evaluation note* Encounter Date Diagnosis [...] away Jul, Sore throat (ICD-10 - J02.9) [facility] Other 11-30-2022 Evaluation note* Encounter Date Diagnosis [...] no improvement in 2 to 3 days. [facility] Other 09-08-2022 Evaluation note* Encounter Date Diagnosis [...] as needed for aches pains or fevers [facility] Other 06-29-2022 Evaluation note* Encounter Date Diagnosis Assessment Notes Treatment Notes Treatment Clinical Notes Dec, Chronic gingivitis, plaque induced (ICD-10 - K05.10) Drink plenty fluids, get plenty of rest. Take the clindamycin as prescribed until gone. Dentist soon as possible. Take Tylenol or Motrin as needed for aches pains or fevers. Rinse your mouth frequently with warm salt water. [facility] Other 12-23-2021 Evaluation note* Encounter Date Diagnosis Assessment Notes Treatment Notes Treatment Clinical Notes Jun, Contact with and (suspected) exposure to other viral communicable diseases (ICD-10 - Z20.828) Jun, COVID-19 (ICD-10 - U07.1) Today you tested positive for the COVID virus. This mean you need to follow all [facility] quarantine guidelines found at [email or web address] v. It is important to rest, increase [...] Patient care instructions given in writting by [facility] Care At Home document. [facility] Other Evaluation noteNo InformationNort [email or web address] Other History general Narrative - Reported* Type Description Date Medical History back pain Surgical History appendectomy Surgical History tonsillectomy [facility] Other History general Narrative - Reported* Type Description Date Medical History back pain Medical History ADHD Surgical History appendectomy Surgical History tonsillectomy [facility] Other History general Narrative - Reported* Type Description Date Medical History back pain Medical History ADHD Medical History GERD Surgical History appendectomy Surgical History tonsillectomy [facility] Other Summary Purpose Family History No Family [...] DATE CREATED AUTHOR AUTHOR'S ORGANIZ ATION 06/05/2023 [facility] FOR RECORDS PERTAINING TO PATIENTS WHO [...] BE BASED ON THE PRIMARY CLINICAL RECORDS. [employer] [facility]. provides no warranty or guarantee of the accuracy or completeness of information in this document.
--- NOTE | 2024-10-20 18:56 | ECG_ITS ---
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 Measurements Intervals [place] Rate: 104 P: 46 NE: 164 QRS: -59 QRSD: 94 T: 62 QT: 326 QTc: 387 Interpretive Statements Sinus tachycardia with sinus arrhythmia 2630 Left anterior fascicular block 7300 Indeterminate axis 8003 Consistent with pulmonary disease 9150 abnormal ECG Compared to ECG 05/13/2024 19:35:37 Left anterior fascicular block now present Electronically Signed On 10-21-2024 11:51:38 EDT by AVINASH CASTRO M.D.
[2024-10-20 19:15] LABS: Basophils Percent Auto 0.3 % (0.2-2.0); Eosinophils Absolute Auto 0.1 10^3/uL (0.0-0.7); Eosinophils Percent Auto 1.2 % (0.9-7.0); Hematocrit 51.6 % (42.0-54.0); Hemoglobin 17.1 g/dL (14.0-18.0); Immature Granulocytes Abs Auto 0.02 10^3/uL (0.00-0.03); Immature Granulocytes Pct Auto 0.2 % (0.0-0.5); Lymphocytes Absolute Auto 1.9 10^3/uL (1.2-3.8); Lymphocytes Percent Auto 21.4 % (20.5-60.0); Mean Corpuscular HGB Conc 33.1 g/dL (29.9-35.2); Mean Corpuscular Hemoglobin 27.3 pg (25.9-34.0); Mean Corpuscular Volume 82.3 fL (80.0-94.0); Mean Platelet Volume 9.5 fL (9.5-13.5); Monocytes Percent Auto 10.9 % (1.7-12.0); Neutrophils Absolute Auto 5.9 10^3/uL (1.4-6.5); Platelet Count 209 10^3/uL (150-450); Red Blood Count 6.27 10^6/uL (4.70-6.10); Red Cell Distribution Width 13.2 % (11.0-15.0); White Blood Count 8.9 10^3/uL (4.0-11.0)
[2024-10-20 19:33] LABS: Alanine Aminotransferase 35 U/L (16-63); Albumin Globulin Ratio 1.1; Albumin Level 3.9 g/dL (3.4-5.0); Alkaline Phosphatase 113 U/L (46-116); Anion Gap 7.7; Aspartate Amino Transferase 20 U/L (15-37); BUN Creatinine Ratio 27.5; Bilirubin Total 0.3 mg/dL (0.2-1.0); Calcium 9.1 mg/dL (8.5-10.1); Carbon Dioxide 31.4 mmol/L (21.0-32.0); Chloride 102 mmol/L (98-107); Estimated GFR (African America >60 (>=60 mL/min/1.73m^2); Estimated GFR (Non-African Ame >60 (>=60 mL/min/1.73m^2); Globulin 3.5 g/dL; Glucose 110 mg/dL (74-106); Potassium 4.1 mmol/L (3.5-5.1); Sodium 137 mmol/L (136-145); Total Protein 7.4 g/dL (6.4-8.2); Troponin I High Sensitivity <4.0 pg/mL (4.0-76.1)
--- NOTE | 2024-10-20 19:58 | ED_ITS ---
HPI - Abdominal Pain General Chief Complaint: Abdominal Pain Stated Complaint: ABD PAIN Time Seen by Provider: 10/20/24 18:48 Source: patient Mode of arrival: walk-in History of Present Illness HPI narrative: 34-year-old male presents here with a chief complaint of abdominal pain and tenderness. He states I believe I have a ulcer . Patient well-known to the emergency room. He has a history of being on a liquid diet only due to a his tory of a choking episode many years ago. He has a extreme fear of any eating of foods or taking pills. Patient is alert at this time. He is stated he knows he has an esophageal issue but has not yet seen a GI specialist. Patient shows no signs of immediate distress at this time. No fevers or chills. He states when he eats he does began to eat some oatmeal recently and now has abdominal pain which does improve with eating. Related Data Previous Rx's ?Medication ?Instructions ?Recorded omeprazole 40 mg capsule,delayed 40 mg PO DAILY #30 caps 10/20/24 release Allergies Allergy/AdvReac Type Severity Reaction Status Date / Time clindamycin Allergy Mild rash Verified 10/20/24 18:36 Penicillins Allergy Mild Rash Verified 10/20/24 18:36 Review of Systems ROS Status of ROS 10 or more systems reviewed and unremark able except as noted in history and below PFSH PFS Social History Little interest or pleasure in doing things: not at all Feeling down, depressed, or hopeless: not at all Exam Narrative Exam Narrative: All Systems are negative except as noted/marked.All systems reviewed and otherwise negative Nurses note and vital signs reviewed and patient is not hypoxic. General: The patient appears well and in no apparent distress. Patient is resting comfortably on cart. Skin: Warm, dry, no pallor noted. There is no rash noted. Head: Normocephalic, atraumatic Eye: Normal conjunctiva, no drainage, EOMI. PERRL Ears, Nose, Mouth, and Throat: oral mucosa is moist. Nares patent. Mouth without vesicles. Ear canals patent. Tm's without Erythema Cardiovascular: Regular Rate and Rhythm Respiratory: Patient is in no distress, no accessory muscle use, lungs are clear to auscultation, no wheezing, rales or rhonchi Back: non-tender, no CVA tenderness bilaterally to percussion. GI: Normal bowel sounds, no tenderness to palpation, no masses appreciated. No rebound, guarding, or rigidity noted. Musculoskeletal: The patient has no evidence of calf tenderness, no pitting edema, symmetrical pulses noted bilaterally Neurological: A&O x4, normal speech Psychiatric: Cooperative Constitutional Vital Signs, click to edit/add: Last Vital Signs Temp 97.8 F 10/20/24 18:36 Pulse 114 H 10/20/24 18:36 Resp 20 10/20/24 18:36 BP 156/94 H 10/20/24 18:36 Pulse Ox 96 10/20/24 18:36 O2 Del Method Room Air 10/20/24 18:36 Course Vital Signs Vital signs: Vital Signs Temperature 97.8 F 10/20/24 18:36 Pulse Rate 114 H 10/20/24 18:36 Respiratory Rate 20 10/20/24 18:36 Blood Pressure 156/94 H 10/20/24 18:36 Pulse Oximetry 96 10/20/24 18:36 Oxygen Delivery Method Room Air 10/20/24 18:36 Temperature 97.8 F 10/20/24 18:36 Pulse Rate 114 H 10/20/24 18:36 Respiratory Rate 20 10/20/24 18:36 Blood Pressure 156/94 H 10/20/24 18:36 Pulse Oximetry 96 10/20/24 18:36 Oxygen Delivery Method Room Air 10/20/24 18:36 MDM - Abdominal Pain Differential Diagnosis Differential diagnosis: Likely abdominal pain, gastroenteritis and other Medical Records Attestation: I reviewed the patient's medical records. Medical records narrative: 34-year-old male presents here with a chief complaint of abdominal pain and tenderness. He states I believe I have a ulcer . Patient well-known to the emergency room. He has a history of being on a liquid diet only due to a history of a choking episode many years ago. He has a extreme fear of any eating of foods or taking pills. Patient is alert at this time. He is stated he knows he has an esophageal issue but has not yet seen a GI specialist. Patient shows no signs of immediate distress at this time. No fevers or chills. He states when he eats he does began to eat some oatmeal recently and now has abdominal pain which does improve with eating. Patient's lab work including CBC CMP troponin were all unremarkable EKG was also unremarkable. I believe patient's pain may indeed be induced or caused from a ulcer as he states. I did attempt to give him a GI cocktail here which he refused. Patient was given IV Pepcid. I did write him his prescription of omeprazole. I did explain to him needs to follow-up with GI specialty as he has been told in the past. Patient verbalized understanding agrees with plan of care. Lab Data Attestation: I reviewed the patient's lab results. Labs: Lab Results 10/20/24 Range/Units 19:04 WBC 8.9 (4.0-11.0) 10^3/uL RBC 6.27 H (4.70-6.10) 10^6/uL Hgb 17.1 (14.0-18.0) g/dL Hct 51.6 (42.0-54.0) % MCV 82.3 (80.0-94.0) fL MCH 27.3 (25.9-34.0) pg MCHC 33.1 (29.9-35.2) g/dL RDW 13.2 (11.0-15.0) % Plt Count 209 (150-450) 10^3/uL MPV 9.5 (9.5-13.5) fL Neut % (Auto) 66.0 (43.0-75.0) % Lymph % (Auto) 21.4 (20.5-60.0) % Labette % (Auto) 10.9 (1.7-12.0) % Eos % (Auto) 1.2 (0.9-7.0) % Baso % (Auto) 0.3 (0.2-2.0) % Neut # (Auto) 5.9 (1.4-6.5) 10^3/uL Lymph # (Auto) 1.9 (1.2-3.8) 10^3/uL Labette # (Auto) 1.0 H (0.3-0.8) 10^3/uL Eos # (Auto) 0.1 (0.0-0.7) 10^3/uL Baso # (Auto) 0.0 (0.0-0.1) 10^3/uL Abs Immat Gran (auto) 0.02 (0.00-0.03) 10^3/uL Imm/Tot Granulo (auto) 0.2 (0.0-0.5) % Sodium 137 (136-145) mmol/L Potassium 4.1 (3.5-5.1) mmol/L Chloride 102 (98-107) mmol/L Carbon Dioxide 31.4 (21.0-32.0) mmol/L Anion Gap 7.7 BUN 28.0 H (7.0-18.0) mg/dL Creatinine 1.02 (0.70-1.30) mg/dL Est GFR ( Amer) >60 (>=60 mL/min/1.73m^2) Est GFR (Non-Af Amer) >60 (>=60 mL/min/1.73m^2) BUN/Creatinine Ratio 27.5 Glucose 110 H (74-106) mg/dL Calcium 9.1 (8.5-10.1) mg/dL Total Bilirubin 0.3 (0.2-1.0) mg/dL AST 20 (15-37) U/L ALT 35 (16-63) U/L Alkaline Phosphatase 113 (46-116) U/L Troponin I High Sens <4.0 L (4.0-76.1) pg/mL Total Protein 7.4 (6.4-8.2) g/dL Albumin 3.9 (3.4-5.0) g/dL Globulin 3.5 g/dL Albumin/Globulin Ratio 1.1 Lipase 45.0 (16.0-77.0) U/L ECG Data Attestation: ?I have reviewed the pertinent ECG results. Interpretation: 1920 EKG shows a sinus arrhythmia with a rate of 104 bpm SC interval 164 ms QRS duration [address] elevation depression no STEMI Discharge Plan Discharge Chief Complaint: Abdominal Pain Clinical Impression: Gastritis Patient Disposition: Home, Self-Care Time of Disposition Decision: 20:12 Condition: Good Prescriptions / Home Meds: New omeprazole 40 mg capsule,delayed release(DR/EC) 40 mg PO DAILY Qty: 30 0RF Print Language: Tuvaluan Instructions: Gastritis (ED) Referrals: Physician,Non-Staff, MD [Primary Care Provider] - 1 week
[2024-10-20] MEDS: FAMOTIDINE/PF 20 MG/2 ML VIAL IV (20:15)
== END 2024-10-20 20:26 | disposition home or self-care (01) ==
PROVIDERS: Physician Assistant; Emergency Provider Emergency Medicine
DX: K29.70 Gastritis, unspecified, without bleeding (principal)
CPT/HCPCS: 36415; 80053; 83690; 84484; 85025; 93005; 96374; 99285; J3490

== ENCOUNTER 2025-01-06 11:22 | Emergency (ER) | payer OTHER, SELFPAY ==
[2025-01-06 11:25] VITALS: BP 151/95; PULSE 83; TEMP 37.1; O2SAT 100; BMI 30.4
--- OUTSIDE RECORDS SUMMARY | 2025-01-06 11:30 | XMS_ITS | CCD ---
Author Organization [facility] Care Team Providers Care Filling Separator Name Role Phone Dariana Nelson Unavailable Christi [...] CHEL KRISHNAMURTHY Attending Unavailable Mike Rogers Unavailable [phone] Medications Current Medications Medication Drug Class(es) [...] Drug Class(es) Dates Sig (Normalized) Sig (Original) [id number] actuat albuterol 0.09 mg/actuat metered dose [...] Range Facility Office Visiton 06-03-2023 Follow-up visit [id number] Mila Ochoa 1990 M Date Provider Department Center 06/03/2023 271-CHEL KRISHNAMURTHY CARD [facility] No family history on file Level of Service:00776 AR OFFICE/OUTPATIENT ESTABLISHED LOW MDM 20-29 MIN Normal [facility] COVID + FLU Quick Testingon 05-23-2023 SARS-CoV-2 (COVID-19) RNA RASHAAD+probe Ql (Unsp spec) Positive [facility] Other COVID + FLU Quick Testing Negative [facility] Other Office Visiton 04-08-2023 Follow-up visit [id number] Mila Ochoa 1990 M Date Provider Department Center 04/08/2023 271-GAY, EHAB BH CARD [facility] No family history on file Level of Service:53836 AR OFFICE/OUTPATIENT ESTABLISHED MOD MDM 30-39 MIN Normal [facility] Quick Strepon 03-16-2023 S. pyogenes Org specific cx Ql (Throat) Negative [facility] Other Quick Strep [facility] Other COVID + FLU Quick Testingon 07-29-2022 SARS-CoV-2 (COVID-19) RNA RASHAAD+probe Ql (Unsp spec) [facility] Other COVID + FLU Quick Testing Negative [facility] Other Quick Strepon 07-29-2022 S. pyogenes Org specific cx Ql (Throat) Negative [facility] Other Quick Strep [facility] Other AMYLASEon 06-07-2022 Amylase [Catalytic activity/Vol] 60 U/L Normal 25-115 [facility] Comment on above: Performed By: #### B MP, CMADM #### [facility] [address] [place] [address] Dr. Bert Ferrara CBC AUTO DIFFon 06-07-2022 BASO # 0.0 103/ul Normal 0.0-0.1 [facility] Comment on above: Performed By: #### C BC #### [facility] [address] [place] [address] Dr. Bert Ferrara Basophils/100 WBC (Bld) 0.3 % Normal 0.2-2.0 [facility] Comment on above: Performed By: #### C BC #### [facility] [address] [place] [address] Dr. Bert Ferrara EO # 0.1 103/ul Normal 0.0-0.7 [facility] Comment on above: Performed By: #### C BC #### [facility] [address] [place] [address] Dr. Bert Ferrara Eosinophils/100 WBC (Bld) 0.4 % Critically low 0.9-7.0 [facility] Comment on above: Performed By: #### C BC #### [facility] [address] [place] [address] Dr. Bert Ferrara Erythrocyte distribution width (RBC) [Ratio] 12.0 % Normal 11.0-15.0 [facility] Comment on above: Performed By: #### C BC #### [facility] [address] [place] [address] Dr. Bert Ferrara Hematocrit (Bld) [Volume fraction] 48.5 % Normal 42.0-54.0 [facility] Comment on above: Performed By: #### C BC #### [facility] [address] [place] [address] Dr. Bert Ferrara Hemoglobin (Bld) [Mass/Vol] 16.9 g/dL Normal 14.0-18.0 [facility] Comment on above: Performed By: #### C BC #### [facility] [address] [place] [address] Dr. Bert Ferrara IG # 0.05 10e3/ul Critically high 0.00-0.03 [facility] Comment on above: Performed By: #### C BC #### [facility] [address] [place] [address] Dr. Bert Ferrara IG % 0.3 % Normal 0.0-0.5 [facility] Comment on above: Performed By: #### C BC #### [facility] [address] [place] [address] Dr. Bert Ferrara LYMPH # 3.0 103/ul Normal 1.2-3.8 [facility] Comment on above: Performed By: #### C BC #### [facility] [address] [place] [address] Dr. Bert Ferrara Lymphocytes/100 WBC (Bld) 20.9 % Normal 20.5-60.0 [facility] Comment on above: Performed By: #### C BC #### [facility] [address] [place] [address] Dr. Bert Ferrara MANUAL DIFF REQ NO Normal [facility] Comment on above: Performed By: #### C BC #### [facility] [address] [place] [address] Dr. Bert Ferrara MCH (RBC) [Entitic mass] 28.5 pg Normal 25.9-34.0 [facility] Comment on above: Performed By: #### C BC #### [facility] [address] [place] [address] Dr. Bert Ferrara MCHC (RBC) [Mass/Vol] 34.8 g/dL Normal 29.9-35.2 [facility] Comment on above: Performed By: #### C BC #### [facility] [address] [place] [address] Dr. Bert Ferrara MCV (RBC) [Entitic vol] 81.9 fL Normal 80.0-94.0 [facility] Comment on above: Performed By: #### C BC #### [facility] [address] [place] [address] Dr. Bert Ferrara MONO # 1.3 103/ul Critically high 0.3-0.8 [facility] Comment on above: Performed By: #### C BC #### [facility] [address] [place] [address] Dr. Bert Ferrara Monocytes/100 WBC (Bld) 9.0 % Normal 1.7-12.0 [facility] Comment on above: Performed By: #### C BC #### [facility] [address] [place] [address] Dr. Bert Ferrara NEUT # 10.1 103/ul Critically high 1.4-6.5 [facility] Comment on above: Performed By: #### C BC #### [facility] [address] [place] [address] Dr. Bert Ferrara Neutrophils/100 WBC (Bld) 69.1 % Normal 43.0-75.0 [facility] Comment on above: Performed By: #### C BC #### [facility] [address] [place], [place] [address] Dr. Bert Ferrara Platelet mean volume (Bld) [Entitic vol] 8.4 fL Critically low 9.5-13.5 [facility] Comment on above: Performed By: #### C BC #### [facility] [id number] Bert Ferrara PLT 249 103/ul Normal 150-450 [facility] Comment on above: Performed By: #### C BC #### [facility] [address] [address] [address] Bert Ferrara RBC 5.92 106/ul Normal 4.70-6.10 [facility] Comment on above: Performed By: #### C BC #### [facility] [address] [address] [address] Bert Ferrara WBC 14.6 103/ul Critically high 4.0-11.0 [facility] Comment on above: Performed By: #### C BC #### [facility] [address] [place], [place] [address] ABD/PELVIS WO CONon [...] by: FARIDA SPEARS Date: 2022-06-07 18:07 Normal [facility] LIPASEon 06-07-2022 Lipase [Catalytic activity/Vol] 97.0 U/L Normal 73.0-393.0 [facility] Comment on above: Performed By: #### B SYED HERNANDEZ #### [facility] [address] [place] [address] Dr. Bert Ferrara PROF 14(COMP METB)on 022 Albumin [Mass/Vol] 3.8 g/dL Normal 3.4-5.0 [facility] Comment on above: Performed By: #### SYED Moctezuma MP #### [facility] [address] [place] [address] Dr. Bert Ferrara Albumin/Globulin [Mass ratio] 1.1 {ratio} Normal [facility] Comment on above: Performed By: #### SYED Moctezuma MP #### [facility] [address] [place] [address] Dr. Bert Ferrara ALP [Catalytic activity/Vol] 96 U/L Normal 46-116 [facility] Comment on above: Performed By: #### SYED Moctezuma MP #### [facility] [address] [place] [address] Dr. Bert Ferrara ALT [Catalytic activity/Vol] 29 U/L Normal 16-63 [facility] Comment on above: Performed By: #### SYED Moctezuma MP #### [facility] [address] [place] [address] Dr. Bert Ferrara Anion gap [Moles/Vol] 5.6 mmol/L Normal [facility] Comment on above: Performed By: #### SYED Moctezuma MP #### [facility] [address] [place] [address] Dr. Bert Ferrara AST [Catalytic activity/Vol] 14 U/L Critically low 15-37 [facility] Comment on above: Performed By: #### B DAVID, SYED #### [facility] [address] [place] [address] Dr. Bert Ferrara Bilirubin [Mass/Vol] 0.2 mg/dL Normal 0.2-1.0 [facility] Comment on above: Performed By: #### B DAVID, CMADM #### [facility] [address] [place] [address] Dr. Bert Ferrara Calcium [Mass/Vol] 8.8 mg/dL Normal 8.5-10.1 [facility] Comment on above: Performed By: #### B DAVID, KEENANDM #### [facility] [address] [place] [address] Dr. Bert Ferrara Chloride [Moles/Vol] 101 mmol/L Normal 98-107 [facility] Comment on above: Performed By: #### B DAVID, KEENANDM #### [facility] [address] [place] [address] Dr. Bert Ferrara CO2 [Moles/Vol] 32.1 mmol/L Critically high 21.0-32.0 [facility] Comment on above: Performed By: #### B DAVID, KEENANDM #### [facility] [address] [place] [address] Dr. Bert Ferrara Creatinine [Mass/Vol] 0.90 mg/dL Normal 0.70-1.30 [facility] Comment on above: Performed By: #### Jose Elias HERNANDEZ, KEENANDM #### [facility] [address] [place] [address] Dr. Bert Ferrara EGFR-AF BANGLADESHI >60 Normal >=60 [facility] Comment on above: Performed By: #### B DAVID, KEENANDM #### [facility] [address] [place] [address] Dr. Bert Ferrara EGFR-NON AF BANGLADESHI >60 Normal >=60 [facility] Comment on above: Performed By: #### B SYED HERNANDEZ #### [facility] [address] [place] [address] Dr. Bert Ferrara Globulin (S) [Mass/Vol] 3.5 g/dL Normal [facility] Comment on above: Performed By: #### B DAVID, KEENANDM #### [facility] [address] [place] [address] Dr. Bert Ferrara Glucose [Mass/Vol] 93 mg/dL Normal 74-106 [facility] Comment on above: Performed By: #### B DAVID, CMADM #### [facility] [address] [place] [address] Dr. Bert Ferrara Potassium [Moles/Vol] 3.7 mmol/L Normal 3.5-5.1 [facility] Comment on above: Performed By: #### B DAVID, KEENANDM #### [facility] [address] [place] [address] Dr. Bert Ferrara Protein [Mass/Vol] 7.3 g/dL Normal 6.4-8.2 [facility] Comment on above: Performed By: #### B DAVID, KEENANDM #### [facility] [address] [place] [address] Dr. Bert Ferrara Sodium [Moles/Vol] 135 mmol/L Critically low 136-145 [facility] Comment on above: Performed By: #### B DAVID, KEENANDM #### [facility] [address] [place] [address] Dr. Bert Ferrara Urea nitrogen [Mass/Vol] 21.0 mg/dL Critically high 7.0-18.0 [facility] Comment on above: Performed By: #### B DAVID, CMADM #### [facility] [address] [place] [address] Dr. Bert Ferrara Urea nitrogen/Creatinin e [Mass ratio] 23.3 mg/mg Normal [facility] Comment on above: Performed By: #### B DAVID, CMADM #### [facility] [address] [place] [address] Dr. Bert Ferrara CARDIAC LUC 3-6on 2 CK [Catalytic activity/Vol] 169 U/L Normal 39-308 [facility] Comment on above: Performed By: #### C BELENP #### [facility] [address] [address] [address] Bert Ferrara CK.MB [Mass/Vol] 2.28 ng/mL Normal <=3.60 [facility] Comment on above: Performed By: #### C MREP #### [facility] [address] [place] [address] Dr. Bert Ferrara HSTROP 4.8 pg/mL Normal 4.0-76.1 [facility] Comment on above: Result Comment: CUT- OFF POINTS HAVE BEEN ESTABLISHED BASED ON THE FOURTH UNIVERSAL DEFINITIONS OF MYOCARDIAL INFARCTION. THE UPPER REFERENCE LIMIT (URL) OF TROPONIN, DEFINED THE 99TH PERCENTILE OF cTnI DISTRIBUTION IN A REFERENCE POPULATION, HAS BEEN CONFIRMED THE DECISION THRESHOLD FOR NM DIAGNOSIS. Performed By: #### C MREP #### [facility] [address] [place] [address] Dr. Bert Ferrara CARDIAC LUC ADMITon 022 CK [Catalytic activity/Vol] 181 U/L Normal 39-308 [facility] Comment on above: Performed By: #### B DAVID, CMADM #### [facility] [address] [place] [address] Dr. Bert Ferrara CK.MB [Mass/Vol] 2.61 ng/mL Normal <=3.60 [facility] Comment on above: Performed By: #### B DAVID, CMADM #### [facility] [address] [place] [address] Dr. Bert Ferrara HSTROP 4.6 pg/mL Normal 4.0-76.1 [facility] Comment on above: Result Comment: CUT- OFF POINTS HAVE BEEN ESTABLISHED BASED ON THE FOURTH UNIVERSAL DEFINITIONS OF MYOCARDIAL INFARCTION. THE UPPER REFERENCE LIMIT (URL) OF TROPONIN, DEFINED THE 99TH PERCENTILE OF cTnI DISTRIBUTION IN A REFERENCE POPULATION, HAS BEEN CONFIRMED THE DECISION THRESHOLD FOR NM DIAGNOSIS. Performed By: #### B MP, CMADM #### [facility] [address] [place] [address] Dr. Bert Ferrara SUNDEEP 37 ng/mL Normal 16-96 [facility] Comment on above: Performed By: #### B MP, CMADM #### [facility] [address] [place] [address] Dr. Bert Ferrara CBC AUTO DIFFon 01-21-2022 BASO # 0.0 103/ul Normal 0.0-0.1 [facility] Comment on above: Performed By: #### C BC #### [facility] [address] [place] [address] Dr. Bert Ferrara Basophils/100 WBC (Bld) 0.4 % Normal 0.2-2.0 [facility] Comment on above: Performed By: #### C BC #### [facility] [address] [place] [address] Dr. Bert Ferrara EO # 0.2 103/ul Normal 0.0-0.7 [facility] Comment on above: Performed By: #### C BC #### [facility] [address] [place] [address] Dr. Bert Ferrara Eosinophils/100 WBC (Bld) 1.9 % Normal 0.9-7.0 [facility] Comment on above: Performed By: #### C BC #### [facility] [address] [place] [address] Dr. Bert Ferrara Erythrocyte distribution width (RBC) [Ratio] 11.9 % Normal 11.0-15.0 [facility] Comment on above: Performed By: #### C BC #### [facility] [address] [place] [address] Dr. Bert Ferrara Hematocrit (Bld) [Volume fraction] 50.5 % Normal 42.0-54.0 [facility] Comment on above: Performed By: #### C BC #### [facility] [address] [place] [address] Dr. Bert Ferrara Hemoglobin (Bld) [Mass/Vol] 17.0 g/dL Normal 14.0-18.0 [facility] Comment on above: Performed By: #### C BC #### [facility] [address] [place] [address] Dr. Bert Ferrara IG # 0.02 10e3/ul Normal 0.00-0.03 [facility] Comment on above: Performed By: #### C BC #### [facility] [address] [place] [address] Dr. Bert Ferrara IG % 0.2 % Normal 0.0-0.5 [facility] Comment on above: Performed By: #### C BC #### [facility] [address] [place] [address] Dr. Bert Ferrara LYMPH # 2.8 103/ul Normal 1.2-3.8 [facility] Comment on above: Performed By: #### C BC #### [facility] [address] [place] [address] Dr. Bert Ferrara Lymphocytes/100 WBC (Bld) 35.0 % Normal 20.5-60.0 [facility] Comment on above: Performed By: #### C BC #### [facility] [address] [place] [address] Dr. Bert Ferrara MANUAL DIFF REQ NO Normal [facility] Comment on above: Performed By: #### C BC #### [facility] [address] [place] [address] Dr. Bert Ferrara MCH (RBC) [Entitic mass] 28.4 pg Normal 25.9-34.0 [facility] Comment on above: Performed By: #### C BC #### [facility] [address] [place] [address] Dr. Bert Ferrara MCHC (RBC) [Mass/Vol] 33.7 g/dL Normal 29.9-35.2 [facility] Comment on above: Performed By: #### C BC #### [facility] [address] [place] [address] Dr. Bert Ferrara MCV (RBC) [Entitic vol] 84.3 fL Normal 80.0-94.0 [facility] Comment on above: Performed By: #### C BC #### [facility] [address] [place] [address] Dr. Bert Ferrara MONO # 0.9 103/ul Critically high 0.3-0.8 [facility] Comment on above: Performed By: #### C BC #### [facility] [address] [place] [address] Dr. Bert Ferrara Monocytes/100 WBC (Bld) 11.3 % Normal 1.7-12.0 [facility] Comment on above: Performed By: #### C BC #### [facility] [address] [place] [address] Dr. Bret Ferrara NEUT # 4.1 103/ul Normal 1.4-6.5 [facility] Comment on above: Performed By: #### C BC #### [facility] [address] [place] [address] Dr. Bert Ferrara Neutrophils/100 WBC (Bld) 51.2 % Normal 43.0-75.0 [facility] Comment on above: Performed By: #### C BC #### [facility] [address] [place] [address] Dr. Bert Ferrara Platelet mean volume (Bld) [Entitic vol] 9.3 fL Critically low 9.5-13.5 [facility] Comment on above: Performed By: #### C BC #### [facility] [address] [place] [address] Dr. Bert Ferrara PLT 212 103/ul Normal 150-450 [facility] Comment on above: Performed By: #### C BC #### [facility] [address] [place] [address] Dr. Bert Ferrara RBC 5.99 106/ul Normal 4.70-6.10 [facility] Comment on above: Performed By: #### C BC #### [facility] [address] [place] [address] Dr. Bert Ferrara WBC 8.0 103/ul Normal 4.0-11.0 [facility] Comment on above: Performed By: #### C BC #### [facility] [address] [place] [address] Dr. Bert Ferrara PROF CHEM 8 (BAS METB)on Anion gap [Moles/Vol] 11.7 mmol/L Normal [facility] Comment on above: Performed By: #### B MP, CMADM #### [facility] [address] [address] [address] Bert Ferrara Calcium [Mass/Vol] 9.1 mg/dL Normal 8.5-10.1 [facility] Comment on above: Performed By: #### B DAVID, CMADM #### [facility] [address] [address] [address] Bert Ferrara Chloride [Moles/Vol] 101 mmol/L Normal 98-107 [facility] Comment on above: Performed By: #### B DAVID, CMADM #### [facility] [address] [address] [address] Bert Ferrara CO2 [Moles/Vol] 28.9 mmol/L Normal 21.0-32.0 [facility] Comment on above: Performed By: #### B DAVID, CMADM #### [facility] [address] [address] [address] Bert Ferrara Creatinine [Mass/Vol] 1.06 mg/dL Normal 0.70-1.30 [facility] Comment on above: Performed By: #### B DAVID, CMADM #### [facility] [address] [address] [address] Bert Ferrara EGFR-AF BANGLADESHI >60 Normal >=60 [facility] Comment on above: Performed By: #### B DAVID, CMADM #### [facility] [address] [address] [address] Bert Ferrara EGFR-NON AF BANGLADESHI >60 Normal >=60 [facility] Comment on above: Performed By: #### B DAVID, CMADM #### [facility] [address] [address] [address] Bert Ferrara Glucose [Mass/Vol] 102 mg/dL Normal 74-106 [facility] Comment on above: Performed By: #### B DAVID, CMADM #### [facility] [address] [address] [address] Bert Ferrara Potassium [Moles/Vol] 3.6 mmol/L Normal 3.5-5.1 [facility] Comment on above: Performed By: #### B DAVID, CMADM #### [facility] [address] [address] [address] Bert Ferrara Sodium [Moles/Vol] 138 mmol/L Normal 136-145 [facility] Comment on above: Performed By: #### B SYED HERNANDEZ #### [facility] [address] [address] [address] Bert Ferrara Urea nitrogen [Mass/Vol] 28.0 mg/dL Critically high 7.0-18.0 [facility] Comment on above: Performed By: #### B SYED HERNANDEZ #### [facility] [address] [address] [address] Bert Ferrara Urea nitrogen/Creatinin e [Mass ratio] 26.4 mg/mg Normal [facility] Comment on above: Performed By: #### B SYED HERNANDEZ #### [facility] [address] [address] [address] Bert Ferrara XR CHEST 2 Von 01-21-2022 XR CHEST 2 V EXAM: XR CHEST 2 V HISTORY: Palpitations COMPARISON: Chest x-ray 11/02/2021 TECHNIQUE: 2 view chest x-ray frontal and lateral FINDINGS: No lobar consolidation, large pleural effusions, pneumothorax, or acute bony abnormality. Cardiac size unremarkable. IMPRESSION: No radiographic evidence for acute chest abnormality. Electronically authenticated by: ANÍBAL CHAVEZ Date: 2022-01-21 05:48 Normal [facility] XR CHEST 2 Von 11-02-2021 [...] FARIDA TREVIÑO Date: 2021-11-02 10:13 Normal [facility] CULTURE THROATon 07-05-2021 CULTURE THROAT Culture Observations: NORMAL RESPIRATORY JASMYNE. Normal [facility] Comment on above: Performed By: #### T HRTCX, SSCRN #### [facility] [address] [address] [address] Bert Ferrara STREPT SCREENon 12-31-2021 STREP SCREEN A Negative Normal NEGATIVE [facility] Comment on above: Performed By: #### T HRTCX, SSCRN #### [facility] [address] [address] [address] Bert JONES Quick Testingon 2020 Result Positive [facility] Other Quick Fluon 06-27-2021 FLUAV Ab CF (S) [Titer] Negative [facility] Other FLUBV Ab CF (S) [Titer] Negative [facility] Other Vital Signs Date Time Vital Sign Value Performing Clinician Facility 05-23-2023 11:55-0500 Body height 172.72 cm Maria T De León Other [facility] Other 05-23-2023 11:55-0500 Body mass index (BMI) [Ratio] 31.74 kg/m2 Maria T De León Other [facility] Other 05-23-2023 11:55-0500 Body temperature 97.7 [degF] Maria T De León Other [facility] Other 05-23-2023 11:55-0500 Body weight 94.71 kg Maria T De León Other [facility] Other 05-23-2023 11:55-0500 Respiratory rate 18 /min Maria T De León Other [facility] Other 05-23-2023 11:55-0500 SaO2% (BldA) [Mass fraction] 99 % Maria T De León Other [facility] Other 03-16-2023 17:10-0400 Body height 172.72 cm Christi Alonzo Other [facility] Other 03-16-2023 17:10-0400 Body mass index (BMI) [Ratio] 31.17 kg/m2 Christi Alonzo Other [facility] Other 03-16-2023 17:10-0400 Body temperature 97.9 [degF] Christi Alonzo Other [facility] Other 03-16-2023 17:10-0400 Body weight 92.99 kg Christi Alonzo Other [facility] Other 03-16-2023 17:10-0400 Diastolic blood pressure 92 mm[Hg] Christi Alonzo Other [facility] Other 03-16-2023 17:10-0400 Respiratory rate 18 /min Christi Alonzo Other [facility] Other 03-16-2023 17:10-0400 SaO2% (BldA) [Mass fraction] 97 % Christi Alonzo Other [facility] Other 03-16-2023 17:10-0400 Systolic blood pressure 128 mm[Hg] Christi Alonzo Other [facility] Other 07-29-2022 11:15-0500 Body height 172.72 cm Dariana Omar Other [facility] Other 07-29-2022 11:15-0500 Body mass index (BMI) [Ratio] 30.71 kg/m2 Dariana Omar Other [facility] Other 07-29-2022 11:15-0500 Body temperature 96.6 [degF] Dariana Nelson Other [facility] Other 07-29-2022 11:15-0500 Body weight 91.63 kg Dariana Nelson Other [facility] Other 07-29-2022 11:15-0500 Respiratory rate 18 /min Dariana Nelson Other [facility] Other 07-29-2022 11:15-0500 SaO2% (BldA) [Mass fraction] 98 % Dariana Nelson Other [facility] Other 06-04-2022 16:25-0500 Body height 172.72 cm Christi Blackmond Other [facility] Other 06-04-2022 16:25-0500 Body mass index (BMI) [Ratio] 30.86 kg/m2 Christi Blackmond Other [facility] Other 06-04-2022 16:25-0500 Body temperature 99.1 [degF] Christi Blackmond Other [facility] Other 06-04-2022 16:25-0500 Body weight 92.08 kg Christi Blackmond Other [facility] Other 06-04-2022 16:25-0500 Respiratory rate 16 /min Christi Cheri Other [facility] Other 06-04-2022 16:25-0500 SaO2% (BldA) [Mass fraction] 97 % Christi Cehri Other [facility] Other 03-13-2022 16:45-0400 Body height 172.72 cm Christi Cheri Other [facility] Other 03-13-2022 16:45-0400 Body mass index (BMI) [Ratio] 30.41 kg/m2 Christi Cheri Other [facility] Other 03-13-2022 16:45-0400 Body temperature 99.1 [degF] Christi Cheri Other [facility] Other 03-13-2022 16:45-0400 Body weight 90.72 kg Christi Cheri Other [facility] Other 03-13-2022 16:45-0400 Diastolic blood pressure 93 mm[Hg] Christi Cheri Other [facility] Other 03-13-2022 16:45-0400 Respiratory rate 16 /min Christi Cheri Other [facility] Other 03-13-2022 16:45-0400 SaO2% (BldA) [Mass fraction] 98 % Christi Cheri Other [facility] Other 03-13-2022 16:45-0400 Systolic blood pressure 127 mm[Hg] Christi Cheri Other [facility] Other 01-01-2022 16:30-0400 Body height 172.72 cm Christi Cheri Other [facility] Other 01-01-2022 16:30-0400 Body mass index (BMI) [Ratio] 28.89 kg/m2 Christi Cheri Other [facility] Other 01-01-2022 16:30-0400 Body temperature 98 [degF] Christi Alonzo Other [facility] Other 01-01-2022 16:30-0400 Body weight 86.18 kg Christi Alonzo Other [facility] Other 01-01-2022 16:30-0400 Diastolic blood pressure 89 mm[Hg] Christi Blackmond Other [facility] Other 01-01-2022 16:30-0400 Respiratory rate 16 /min Christi Alonzo Other [facility] Other 01-01-2022 16:30-0400 SaO2% (BldA) [Mass fraction] 98 % Christi Alonzo Other [facility] Other 01-01-2022 16:30-0400 Systolic blood pressure 150 mm[Hg] Christi Alonzo Other [facility] Other 06-27-2021 16:00-0500 Body height 172.72 cm Dariana Donnellyault Other [facility] Other 06-27-2021 16:00-0500 Body mass index (BMI) [Ratio] 28.89 kg/m2 Dariana Omar Other [facility] Other 06-27-2021 16:00-0500 Body temperature 97.7 [degF] Dariana Omar Other [facility] Other 06-27-2021 16:00-0500 Body weight 86.18 kg Dariana Omar Other [facility] Other 06-27-2021 16:00-0500 Respiratory rate 18 /min Dariana Donnellyault Other [facility] Other 06-27-2021 16:00-0500 SaO2% (BldA) [Mass fraction] 95 % Dariana Donnellyault Other [facility] Other Encounters Encounter Date Encounter Type Care Provider Facility Start: 06-23-2023 End: 06-23-2023 ambulatory Mike Ken Other [facility] Other Start: 06-23-2023 Telephone encounter Mike Harvey [facility] Start: 06-03-2023 End: 06-03-2023 ambulatory [facility] Start: 05-23-2023 End: 05-23-2023 ambulatory Maria T De León Other [facility] Other Start: 05-23-2023 Office outpatient visit 25 minutes Maria T De León [facility] Start: 04-08-2023 End: 04-08-2023 ambulatory [facility] Start: 03-16-2023 End: 03-16-2023 ambulatory Christi Alonzo Other [facility] Other Start: 03-16-2023 Office outpatient visit 15 minutes Christijose Alonzo [facility] Start: 07-29-2022 End: 07-29-2022 ambulatory Dariana Nelson Other [facility] Other Start: 07-29-2022 Office outpatient visit 15 minutes Darianagustavo Nelson [facility] Start: 06-07-2022 End: 06-07-[address] AYE HU Facility: Start: 06-04-2022 End: 06-04-2022 ambulatory Christi Alonzo Other [facility] Other Start: 06-04-2022 Office outpatient visit 15 minutes Christi Cheri [facility] Start: 03-21-[address] CHEL Holland ty:H1 Start: 03-13-2022 End: 03-13-2022 ambulatory Christi Cheri Other [facility] Other Start: 03-13-2022 Office outpatient visit 15 minutes Christi Cheri [facility] Start: 01-21-2022 End: 01-21-[address] AYE HU Facility:[facility] Start: 01-01-2022 End: 01-01-2022 ambulatory Christi Alonzo Other [facility] Other Start: 01-01-2022 Office outpatient visit 15 minutes Christi Cheri [facility] Start: 11-02-2021 End: 11-02-2021 ambulatory YNES JANE Facility:[facility] Start: 09-02-2021 End: 09-02-[address] AYE HU Facility:[facility] Start: 07-05-2021 End: 07-05-[address] GUSTAVO SMALL Facility:[facility] Start: 06-29-2021 End: 06-30-2021 ambulatory YNES JANE Facility:[facility] Start: 06-27-2021 End: 06-27-2021 ambulatory Dariana Nelson Other [facility] Other Start: 06-27-2021 Office outpatient visit 15 minutes Dariana Nelson [facility] Payers Date Payer Category Payer Medicaid [id number] 2. [id number] 1988 Unknown [id number] 2.16.84 [id number] 1988 Unknown [id number] 2.16.84 [id number] 1988 Unknown [id number] 2.16.84 [id number] 1988 Unknown [id number] 2.16.84 [id number] 1988 Unknown [id number] 2.16.84 [id number] 1988 Unknown [id number] 2.16.84 [id number] 1988 Unknown [id number] 2.16.84 [id number] 1961 Self-pay 1961 Unknown [id number] 2.1 [id number] Unknown [id number] 2. [id number] Social History Date Type Detail Facility Sex Assigned At [facility] Other Clinical Notes 06-27-2021 to 06-03-2023 Note Date & Type Note Facility 06-03-2023 Note [facility] Cardiology Clinic Note Chief Complaint: Patient [...] nutritional input with his family physician and/or tail board man I will be happy to see him on an as-needed basis. Chel Krishnamurthy MD, MPH, [facility], [facility], [facility] Interventional Cardiology Pager Email: [email or web address] 05-23-2023 Evaluation note Encounter Date [...] treatment plan. Patient left in stable condition [facility] [...] following testing Chel Krishnamurthy MD, MPH, FACC, [facility], [facility] Interventional Cardiology Page (more content not included)...[facility]09-11-2023 Evaluation note* Encounter Date Diagnosis Assessment [...] Allergic rhinitis home care material was printed [facility] Other 01-24-2023 Evaluation note* Encounter Date Diagnosis [...] away Jul, Sore throat (ICD-10 - J02.9) [facility] Other 11-30-2022 Evaluation note* Encounter Date Diagnosis [...] no improvement in 2 to 3 days. [facility] Other 09-08-2022 Evaluation note* Encounter Date Diagnosis [...] as needed for aches pains or fevers [facility] Other 06-29-2022 Evaluation note* Encounter Date Diagnosis Assessment Notes Treatment Notes Treatment Clinical Notes Dec, Chronic gingivitis, plaque induced (ICD-10 - K05.10) Drink plenty fluids, get plenty of rest. Take the clindamycin as prescribed until gone. Dentist soon as possible. Take Tylenol or Motrin as needed for aches pains or fevers. Rinse your mouth frequently with warm salt water. [facility] Other 12-23-2021 Evaluation note* Encounter Date Diagnosis Assessment Notes Treatment Notes Treatment Clinical Notes Jun, Contact with and (suspected) exposure to other viral communicable diseases (ICD-10 - Z20.828) Jun, COVID-19 (ICD-10 - U07.1) Today you tested positive for the COVID virus. This mean you need to follow all [facility] quarantine guidelines found at [email or web address] v. It is important to rest, increase [...] [facility] Care At Home document. [facility] Other Evaluation noteNo InformationNort [facility] Other History general Narrative - Reported* Type Description Date Medical History back pain Surgical History appendectomy Surgical History tonsillectomy [facility] Other History general Narrative - Reported* Type Description Date Medical History back pain Medical History ADHD Surgical History appendectomy Surgical History tonsillectomy [facility] Other History general Narrative - Reported* Type Description Date Medical History back pain Medical History ADHD Medical History GERD Surgical History appendectomy Surgical History tonsillectomy [facility] Other Summary Purpose Family History No Family [...] and content) DATE CREATED AUTHOR 06/09/2022 [facility] DATE CREATED AUTHOR AUTHOR'S ORGANIZ ATION 06/05/2023 [facility] FOR RECORDS PERTAINING TO PATIENTS WHO ARE [...] BE BASED ON THE PRIMARY CLINICAL RECORDS. [employer] [facility]. provides no warranty or guarantee of the accuracy or completeness of information in this document.
--- NOTE | 2025-01-06 11:34 | ED_ITS ---
HPI HPI - General Adult General Chief complaint: Eye Problems Stated complaint: POSSIBLE PINK EYE Time Seen by Provider: 01/06/25 11:28 Source: patient Mode of arrival: walk-in Limitations: no limitations History of Present Illness HPI narrative: 34-year-old male presents to the emergency department for concerns about his right eye. He is worried about conjunctivitis because he states he has an important meeting in a few days and did not want to go with [place]. He has had no trauma and the symptoms are in his right eye only. He had a minimal amount of drainage in that eye this morning. Related Data Previous Rx's ?Medication ?Instructions ?Recorded omeprazole 40 mg capsule,delayed 40 mg PO DAILY #30 ca ps 10/20/24 release sulfacetamide sodium 10 % eye drops 2 drp ophthalmic ( eye) Q4H #15 mL 01/06/25 Allergies Allergy/AdvReac Type Severity Reaction Status Date / Time clindamycin Allergy Mild rash Verified 10/20/24 18:36 Penicillins Allergy Mild Rash Verified 10/20/24 18:36 Opioid HPI Opioid Management Most Recent Opioid Data: Last Pain Scale 10 09/28/24, 05:24 Review of Systems ROS Narrative A ten point review of systems is negative except as noted above. PFSH PFSH Social History Little interest or pleasure in doing things: not at all Feeling down, depressed, or hopeless: not at all Exam Narrative Exam Narrative: Nurses note and vital signs reviewed and patient is not hypoxic. General: The patient appears well and in no apparent distress. Patient is resting comfortably on cart. Skin: Warm, dry, no pallor noted. There is no rash noted. Head: Normocephalic, atraumatic Eye: Normal conjunctiva, no drainage, No periorbital swelling or erythema. Ears, Nose, Mouth, and Throat: oral mucosa is moist. Nares patent. Cardiovascular: Regular Rate and Rhythm Respiratory: Patient is in no distress, no accessory muscle use, lungs are clear to auscultation, no wheezing, rales or rhonchi Back: non-tender GI: Soft and nontender Musculoskeletal: The patient has no evidence of calf tenderness, no pitting edema, symmetrical pulses noted bilaterally Neurological: A&O, normal speech Psychiatric: Cooperative Constitutional Vital Signs, click to edit/add: Last Vital Signs Temp 98.7 F 01/06/25 11:25 Pulse 83 01/06/25 11:25 Resp 18 01/06/25 11:25 BP 151/95 H 01/06/25 11:25 Pulse Ox 100 01/06/25 11:25 O2 Del Method Room Air 01/06/25 11:25 Course Vital Signs Vital signs: Vital Signs Temperature 98.7 F 01/06/25 11:25 Pulse Rate 83 01/06/25 11:25 Respiratory Rate 18 01/06/25 11:25 Blood Pressure 151/95 H 01/06/25 11:25 Pulse Oximetry 100 01/06/25 11:25 Oxygen Delivery Method Room Air 01/06/25 11:25 Temperature 98.7 F 01/06/25 11:25 Pulse Rate 83 01/06/25 11:25 Respiratory Rate 18 01/06/25 11:25 Blood Pressure 151/95 H 01/06/25 11:25 Pulse Oximetry 100 01/06/25 11:25 Oxygen Delivery Method Room Air 01/06/25 11:25 Medical Decision Making MDM Narrative Medical decision making narrative: The patient is concerned about conjunctivitis and he was prescribed Bleph-10. Treatment diagnosis and follow-up were discussed with the patient. Differential Diagnosis Differential Diagnosis: Allergies, conjunctivitis Discharge Plan Discharge Chief Complaint: Eye Problems Clinical Impression: Acute pain in right eye Patient Disposition: Home, Self-Care Time of Disposition Decision: 11:33 Condition: Good Mode of Transportation: Private Vehicle Prescriptions / Home Meds: New sulfacetamide sodium 10 % drops 2 drp ophthalmic (eye) Q4H Qty: 15 0RF No Action omeprazole 40 mg capsule,delayed release(DR/EC) 40 mg PO DAILY Qty: 30 0RF Print Language: Persian Instructions: Conjunctivitis (ED) Referrals: Physician,Non-Staff, MD [Primary Care Provider] - 1 week
== END 2025-01-06 11:46 | disposition home or self-care (01) ==
PROVIDERS: Emergency Provider Emergency Medicine
DX: H57.11 Ocular pain, right eye (principal)
CPT/HCPCS: 99283

== ENCOUNTER 2025-01-10 22:12 | Emergency (ER) | payer OTHER, SELFPAY ==
--- OUTSIDE RECORDS SUMMARY | 2025-01-09 12:33 | XMS_ITS ---
Author Name Auto Generated Organization [facility] Care Team Providers Care Supervisor Intermediates Name Role Phone BRAULIO LONGORIA Referring Unavailable ZACH FERNANDEZ Primary Care Unavailable PROBLEMS DATE TYPE CONDITION / CODE ATTENDING STATUS TINO RCE 01/09/2025 Unknown Dysphagia, oroph aryngeal phase / R13.12(ICD-10) NA Active [facility] 01/09/2025 Unknown Esophageal obstr uction / K22.2(ICD-10) NA Active [facility] PROCEDURES No Procedure Records Found RESULTS CBC WITH DIFF Collected: 12:38 PM Status: F Source: [facility] TYPE CODE TESTS RESULT OUT OF RANGE REFERENCE UNITS LAB WBC(LOINC) WBC Count 10.3 3.5-11.3 k/uL LAB RBC(LOINC) RBC Count 6.19 High 4.21-5.77 m/uL LAB HGB(LOINC) Hemoglobin 17.0 13.0-17.0 g/dL LAB HCT(LOINC) Hematocrit 51.0 High 40.7-50.3 % LAB MCV(LOINC) MCV 82.4 Low 82.6-102.9 fL LAB MCH(LOINC) MCH 27.5 25.2-33.5 pg LAB MCHC(LOINC) MCHC 33.3 28.4-34.8 g/dL LAB RDW(LOINC) RDW 12.4 11.8-14.4 % LAB PLT(LOINC) Platelet Count 216 138-453 k/uL LAB MPVX(LOINC) MPV 9.0 8.1-13.5 fL LAB NRBCS(LOINC) NRBC Automated 0.0 0.0 per 100 WBC LAB SEG(LOINC) Neutrophil (Seg) 82 High 36-65 % LAB LYM(LOINC) Lymphocyte 11 Low 24-43 % LAB MON(LOINC) Monocyte 7 3-12 % LAB EO(LOINC) Eosinophil 0 Low 1-4 % LAB BASO(LOINC) Basophil 0 0-2 % LAB IGRAN(LOINC) Immature Granulocyte 0 0 % LAB ASEG(LOINC) Abs.Neutrophil (Seg) 8.35 High 1.50-8.10 k/uL LAB ALYM(LOINC) Abs. Lymph 1.08 Low 1.10-3.70 k/uL LAB AMONO(LOINC) Abs. Monocyte 0.75 0.10-1.20 k/u L LAB AEO(LOINC) Abs. Eosinophil 0.03 0.00-0.44 k/u L LAB ABASO(LOINC) Abs. Basophil <0.03 0.00-0.20 k/u L LAB AIGRAN(LOINC) Abs.Imm.Granulo cyte <0.03 0.00-0.30 k/uL Performed By: #### PALB #### [id number] [place] [address] Office Professional: Almas Stearns MD #### CP, CDP #### [facility] [address] [place] [address] Office Professional: David Jones MD COMP METABOLIC PROF Collected: 01/10/20 25 12:38 PM Status: F Source: [facility] TYPE CODE TESTS RESULT OUT OF RANGE REFERENCE UNITS LAB NA(LOINC) NA (Sodium) 139 136-145 mmol/L LAB K(LOINC) K (Potassium) 4.4 3.7-5.3 mmol/L LAB CL(LOINC) Chloride 102 98-107 mmol/L LAB HCO(LOINC) CO2 25 20-31 mmol/L LAB GAP(LOINC) Anion Gap 12 9-16 mmol/L LAB GLU(LOINC) Glucose 100 High 74-99 mg/dL LAB BUN(LOINC) BUN (Urea N) 25 High 6-20 mg/dL LAB CRE(LOINC) Creatinine 0.9 0.70-1.20 mg/dL LAB EGFR(LOINC) eGFR >90 >60 mL/min/1. 73m2 Result Comment: These results are not intended for use in patients <18 years of age. eGFR results are calculated without a race factor using the 2020 CKD-EPI equation. Careful clinical correlation is recommended, particularly when comparing to results calculated using previous equations. The CKD-EPI equation is less accurate in patients with extremes of muscle mass, extra-renal metabolism of creatine, excessive creatine ingestion, or following therapy that affects renal tubular secretion. LAB BUNCRE(LOINC) BUN/CRE Ratio 28 High 9-20 LAB CA(LOINC) Calcium 9.4 8.6-10.4 mg/dL LAB TP(LOINC) Protein, Total 7.5 6.6-8.7 g/dL LAB ALB(LOINC) Albumin 4.5 3.5-5.2 g/dL LAB AG(LOINC) Albumin/Glob Ratio 1.5 1.0-2.5 LAB TBIL(LOINC) Bilirubin, Total 0.4 0.00-1.20 mg/dL LAB ALP(LOINC) Alkaline Phos 86 40-129 U/L LAB ALT(LOINC) ALT 27 10-50 U/L LAB AST(INC) AST 27 10-50 U/L Performed By: #### PALB #### [address] [id number] Office Professional: Almas Stearns MD #### CP, CDP #### [address] [place] [address] Office Professional: David Jones MD PREALBUMIN Collected: 5 12:38 PM Status: F Source: [facility] TYPE CODE TESTS RESULT OUT OF RANGE REFERENCE UNITS LAB PALB(LOINC) Prealbumin 18.4 Low 20.0-40.0 mg/dL Performed By: #### PALB #### [address] [id number] Office Professional: Almas Stearns MD #### CP, CDP #### [address] [place] [address] Office Professional: David Jones MD ALLERGIES No Allergies Records Found ENCOUNTERS ADMIT/DISCHARGE ACCOUNT NUMBER ADMITTING ENCOUNTER CLASS LOC ATION SOURCE 01/09/2025/ 5 [id number] Ambulatory Building:[facility] PAYERS ENCOUNTER GUARANTOR PAYER SUBSCRIBER SOURCE 01/09/2025 MILA HAGAN: [id number] [facility], [place] [address]Min: () Primary Insurance:[facility] Number: [id number] Date:2025-01-09 MILA HAGAN: [id number] [facility], [place] [address]Mmy: () [facility]
[2025-01-10 22:20] VITALS: BP 142/104; PULSE 82; TEMP 36.6; O2SAT 99; BMI 30.4
[2025-01-10 23:47] VITALS: BP 130/104; PULSE 73; TEMP 36.8; O2SAT 98; BMI 30.4
--- NOTE | 2025-01-10 23:52 | PC.NURSE ---
this patient complains of a sore throat after drink a smoothie with flack seed onset today rates his pain at 3/10. this patient voices no other complaints, needs,concerns and shows no signs of distress
[2025-01-11 01:32] VITALS: BP 119/99; PULSE 67; TEMP 36.7; O2SAT 98
--- NOTE | 2025-01-11 02:32 | PC.NURSE ---
i gave this patient verbal and written discharge orders and this patient voices yes to understanding these. at time of discharge this patient voices no concerns, needs and shows no signs of distress
--- NOTE | 2025-01-11 02:34 | ED.GENADUL1 ---
HPI HPI - General Adult General Chief complaint: Upper Respiratory Infection Stated complaint: SORE THROAT Time Seen by Provider: 01/11/25 01:29 Source: patient Mode of arrival: walk-in Limitations: no limitations History of Present Illness HPI narrative: Patient is a 34-year-old male who is presenting to the ER today with chief complaint of a cut on chronic dysphagia, sensation that throat is closing, anxiety, PTSD, and ongoing chronic concerns for difficulty swallowing. Patient did have a barium swallow fluoroscopy done on April 18, 2024. 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 Etiology unknown. Patient is aware of this result, and has been very fixated on the results. Patient has a history of GERD. Patient does take omeprazole daily. Patient has multiple ongoing sensations of difficulty swallowing, concerned that his airway will close, concern for swallowing, concern for chronic GERD. Patient was released from the [employer], he was in the [employer] for 8 years. Patient saw a GI physician yesterday. [facility].5 [facility]. Patient states he has been on over 20 different medications for stress, anxiety, PTSD and none of them worked and has had side effects of most of them. He currently takes no medication. Patient stated he was eating new flaxseed and new substances today where he felt was irritating the back of his throat, he is having tongue swelling, had panic attack, and came into the ER for reevaluation. Patient had lengthy stay secondary to ER volume and several critical patients. Patient has waited several hours to be seen. Patient no longer has a sensation. Patient has had a stress test echocardiogram in the past secondary to shortness of breath that may be related to anxiety panic as well. Patient has currently no chest pain or shortness of breath. No abdominal pain, nausea or vomiting. No acute complaints. Patient was waiting in the waiting room, Amanda IZQUIERDO checked him several times for swallowing, he had no obstruction, no difficulty swallowing, no airway obstruction. Patient vital signs were within normal limits. He was slightly hypertensive. This was rechecked and he was normotensive prior to me seeing evaluating him. All systems are negative except as noted/marked. All systems reviewed and otherwise negative. Nurses note and vital signs reviewed and patient is not hypoxic. 20 minutes was spent at bedside with this patient, sitting next to him, talking about his history, appointments with GI, psychiatry, going over his barium swallow x-ray, discussing future plans. We have also discussed [facility]ight psychotropic blood testing to see what may help him with stress, anxiety, depression. He is not aware of this test. General: The patient appears well and in no apparent distress. Patient is resting comfortably on cart. Patient is not toxic, lethargic, or listless Skin: Warm, dry, no pallor noted. There is no rash noted. No petechiae, purpura. Head: Normocephalic, atraumatic Eye: Normal conjunctiva, no drainage, EOMI. PERRL Ears, Nose, Mouth, and Throat: oral mucosa is moist. Nares patent. Mouth without vesicles. Cardiovascular: Regular Rate and Rhythm, no murmur, gallop, rub Respiratory: Patient is in no distress, no accessory muscle use, lungs are clear to auscultation, no wheezing, rales or rhonchi Back: non-tender, no CVA tenderness bilaterally to percussion. No CT LS midline pain GI: no tenderness to palpation, no masses appreciated. No rebound, guarding, or rigidity noted. No distention. Patient has no obvious signs of dysphagia. Patient looks well. No difficulty swallowing. Musculoskeletal: Patient has full range of motion of all of the extremities, no motor, sensory, or focal neurological deficits Neurological: A&O x4, normal speech Psychiatric: Cooperative, admitting anxiety, history of panic attacks, patient is not having a panic attack during my evaluation with patient from approximately 150-230 a.m. when he was discharged Related Data Previous Rx's ?Medication ?Instructions ?Recorded omeprazole 40 mg capsule,delayed 40 mg PO DAILY #30 caps 10/20/24 release sulfacetamide sodium 10 % eye drops 2 drp ophthalmic (eye) Q4H #15 mL 01/06/25 Allergies Allergy/AdvReac Type Severity Reaction Status Date / Time clindamycin Allergy Mild rash Verified 01/10/25 23:47 Penicillins Allergy Mild Rash Verified 01/10/25 23:47 Opioid HPI Opioid Management Most Recent Opioid Data: Last Pain Scale 3 01/10/25, 23:51 PFSH PFSH Social History Little interest or pleasure in doing things: not at all Feeling down, depressed, or hopeless: not at all Exam Constitutional Vital Signs, click to edit/add: Last Vital Signs Temp 98.0 F 01/11/25 01:32 Pulse 67 01/11/25 01:32 Resp 17 01/11/25 01:32 BP 119/99 H 01/11/25 01:32 Pulse Ox 98 01/11/25 01:32 O2 Del Method Room Air 01/10/25 23:47 Course Vital Signs Vital signs: Vital Signs Temperature 97.9 F 01/10/25 22:20 Pulse Rate 82 01/10/25 22:20 Respiratory Rate 22 H 01/10/25 22:20 Blood Pressure 142/104 H 01/10/25 22:20 Pulse Oximetry 99 01/10/25 22:20 Oxygen Delivery Method Room Air 01/10/25 22:20 Temperature 98.0 F 01/11/25 01:32 Pulse Rate 67 01/11/25 01:32 Respiratory Rate 17 01/11/25 01:32 Blood Pressure 119/99 H 01/11/25 01:32 Pulse Oximetry 98 01/11/25 01:32 Oxygen Delivery Method Room Air 01/10/25 23:47 Medical Decision Making MDM Narrative Medical decision making narrative: Lengthy conversation was done at bedside with patient discussing his past, anxiety, stress, GeneSight testing, follow-up with psychiatry and GI physician. Patient is getting approval to have EGD and stretching of his esophagus. Patient saw GI physician yesterday. Education on drinking ice water to help with esophageal inflammation, self treatments at home was discussed. Patient will follow-up with physicians. No acute testing indicated. Patient was thankful for all the time spent. Patient admittedly suffers with anxiety, panic and stress daily, it is sad. He is not hopeless, helpless, worthless. He is not suicidal homicidal. No acute indication for admission. Discharge Plan Discharge Chief Complaint: Upper Respiratory Infection Clinical Impression: Dysphagia, Situational anxiety Patient Disposition: Home, Self-Care Time of Disposition Decision: 02:24 Condition: Good Prescriptions / Home Meds: No Action omeprazole 40 mg capsule,delayed release(DR/EC) 40 mg PO DAILY Qty: 30 0RF sulfacetamide sodium 10 % drops 2 drp ophthalmic (eye) Q4H Qty: 15 0RF Print Language: [place] Instructions: Chronic Dysphagia (DC), Panic Disorder (ED), Anxiety (ED), Barium Swallow (DC) Additional Instructions: Follow-up with your GI physician as discussed for further tests, EGD. Continue using ice water to help with any type of inflammation or irritation through esophagus. The blood test that we are speaking of information was given to you. The [facility] psychotropic education was given to you at discharge, this is something that you may speak with your psychiatrist about as well to help see what medication could help you. Referrals: Physician,Non-Staff, [Primary Care Provider] - 1 week Discharge Date/Time: 01/11/25 02:31
== END 2025-01-11 02:31 | disposition home or self-care (01) ==
PROVIDERS: Emergency Provider Emergency Medicine
DX: R13.10 Dysphagia, unspecified (principal); F41.8 Other specified anxiety disorders; F43.10 Post-traumatic stress disorder, unspecified; K21.9 Gastro-esophageal reflux disease without esophagitis
CPT/HCPCS: 99282

== ENCOUNTER 2025-05-09 10:44 | Outpatient (OUT) | payer OTHER, SELFPAY ==
--- OUTSIDE RECORDS SUMMARY | 2025-05-06 06:29 | XMS_ITS | Continuity of Care Document ---
Author Organization [facility] Address [address] [place] [address] Phone Care Team Providers Care Learning Facilitator Name Role Phone Holden Lee Jr, MD Primary Care Provider [phone] Jareth Galindo APRN Attending Provider Holden Aguilar DO Primary Care Provider ([facility]) Fern James MD Attending Provider [phone] Fern James MD Other Provider Ally Schulz APRN Attending Provider Care Teams Patient Care Team Team Status: Active Member Role/Relationship Status Dates Holden Aguilar DO Primary Care Provider Active Visit Care Team Team Status: Inactive Member Role/Relationship Status Dates Holden Lee Jr, MD Primary Care Provider Active Start: February 07, 2025 End: February 07, 2025Ismael Gunn ProviderActiveStart: February 07, 2025 End: February 07, 2025 Visit Care Team Team Status: Active Member Role/Relationship Status Dates Holden Aguilar DO Primary Care Provider Active Sta rt: March 17, 2025 Bimal Kothari ProviderActiveStart: March 17, 2025 Jeniffer Kothari ProviderActiveStart: March 17, 2025 Patient Care Team Team Status: Inactive Member Role/Relationship Status Dates Holden Aguilar DO Primary Care Provider Active Sta rt: May 06, 2025 End: May 06mandIsmael Steven ProviderActiveStart: May 06, 2025 End: May 06, 2025 Chief Complaint and Reason for Visit Chief Complaint Admit Date Dysphagia February 07, 2025 9:4 8am dysphagia March 17, 2025 7:04am Right side mouth pain May 06, 2025 10:54am Reason for Visit Admit Date Dysphagia February 07, 2025 9:4 8am GERD (gastroesophageal reflux disease) A ug2024 9:48am Odynophagia February 07, 2025 9:4 8am Sore, mouth, canker May 06, 2025 1 0:54am Allergies, Adverse Reactions, Alerts Allergen Type Severity Reaction Last Updated Verified Status amoxicillin Allergy Unknown Anaphylaxis May 06, 2025 10:55 am Yes Active Penicillins Allergy Unknown Anaphylaxis May 06, 2025 10:55 am Yes Active Social History Smoking Status Status Start Date End Date Date of Observa tion Never smoked tobacco (finding) March 01, 2025 1:46pm Observation Status Observation Response Date of Response Legal Sex Male (finding) Sex Assigned At [facility] 1989 Family History Relationship Condition Age at Onset Recorded Date/T srikanth father Unknown motherDiabetes mellitusUnknown Problems Active Problems Problem Diagnosis/Recorded Date Onset Date Stat us Folliculitis of right axilla November 10, 2024 6:27pm Unkn own Active Sore, mouth, canker May 06, 2025 11:28am Unknown Active Shingles November 10, 2024 6:27pm Unknown Active Odynophagia February 07, 2025 10:36am Unknown Act dennis Anxiety February 07, 2025 9:52am Unknown Acti ve Back pain November 10, 2024 5:41pm Unknown Active Dysphagia February 07, 2025 10:00am Unknown Act dennis Gastroesophageal reflux dise ase without esophagitis November 10, 2024 5:41pm Unknown Active ADHD November 10, 2024 5:41pm Unknown Active GERD (gastroesophageal reflux disease) February 07 10:36am Unknown Active Allergic rhinitis November 10, 2024 5:41pm Unknown Ac tive Medications Medication Status Dose Units Route Directions Qty Days Refills S tart Date Stop Date End Date Reason(s) Instructions Adherence Escitalopram Oxalate 5 mg/5 mL solution Active 7.5 MG PO Daily February 14, 2025 12:00amComplies with drug therapyTestosterone (Androgel) 1 % (50 mg/5 gram) gel in tiajcaJduummsfosrb1AVSJTVBADOJRVLOGWxsiwOgupnx 27th, 2025 12:00amNovember 2024 11:01amIpratropium [place] (Atrovent Hfa) 17 mcg/actuation HFA aerosol inhalerDiscontinuedINHALATIONMa2024 12:00am February 14, 2025 1:52pmOmeprazole 40 mg capsule,delayed release(DR/EC) Xqdxidrxvifl93PLBUZehizNzo 8th, 2025 12:002024 9:52amAcyclovir 200 mg/5 mL fgqiuzwfyoMhegrairgsfg695GQSKFfyc times pvlrs83876Ohr2024 12:00am February 14, 2025 1:52pmLidocaine 5 % qpujngdvLbardefhxxac6OODPRIIBHHAZSStukh times daily as needed for cdzu57324Ter2024 12:002024 1:52pm Mupirocin 2 % wapyiatgDlcwvthjduvw8ZNCPTQJXLJDFSOwjhu times skixn11564Tnv 8th, 2025 12:002024 1:52pmTestosterone Cypionate (Depo-Testosterone) 200 mg/mL lwgHvejxl522CSUEjvpmu 2024 12:00amComplies with drug therapyDoxycycline Hyclate 100 mg sxbqxphUzfoic179NDCVQwmmb crdmd2501Qxawqqhn2024 12:00amComplies with drug therapy Vital Signs Vital Reading Result Reference Range Collection Date/Time Height 68 [in_i] February 07, 2025 9:00cwNbbzbd72.25 kgAugust 2024 9:50amBMI (Body Mass Index)31.9 kg/h0Rlylcj2024 9:28hiNuqfyj27 [in_i]March 17, 2025 7:50suLjsgzl04.25 kgSept2024 7:43amHeart Rate90 /ssb53-956Rxvnkfmoz 12th, 2025 9:32amRespiratory rate16 /wdf37-74Ulazacxlm 12th, 2025 9:32amOxygen saturation by Pulse fyycerio02 %95-100Sept2024 9:32amBP Bahtwyvq517 mm[Hg]100-140Sept2024 9:32amBP Posdyycev73 mm[Hg]60-100Sept2024 9:45ziYqkstt10 [in_i]May 06, 2025 10:83fgGpsout87.14 kgMay 06, 2025 10:56amBody Exumgumefgl44.8 [degF]97.6-99.0May 06, 2025 10:56am Heart Xtmx366 /tge33-212MvbvsiksMay 06, 2025 10:56amRespiratory rate18 /gwg63-10 May 06, 2025 10:56amOxygen saturation by Pulse ccqytatv86 %95-100May 06, 2025 10:56amBP Kxrgrket048 mm[Hg]100-140May 06, 2025 10:56amBP Jmhtzfgky18 mm[Hg]60-100May 06, 2025 10:56amBMI (Body Mass Index)32.8 kg/q1VvkkcuorMay 06, 2025 10:56am Advance Directives Advance Directive Response Recorded Date/ Time Advance Directives No November 10, 2024 5:35pm Insurance Providers Guarantor Artur Wren Address [address] [facility] [address]Avvihzg Info.Home Phone: Coverage Status Update:2025 Payer Group Member ID Coverage Type Subscriber Relationship to Subscriber Effective Date Expiration Date [facility] Medicaid [id number] Amado Id: [id number] [address] [facility] [address] Home Phone: Email: [email or web address] [id number] Blodgett , P Id: [id number] [address] [facility] [address] Home Phone: Email: [email or web address] Encounters Encounter Location(s) Arrival/Admit Date Discharge/Departure Date Discharge/Departure Disposition Provider(s) Departed Physician/ Provider Office Visit -[facility] February 07, 2025 9:48am February 07, 2025 10:30am Discharged to home care or self care (routine discharge) Jareth Galindo APRN Non-patient / Non-visit -[facility] 2024 7:04am Imad Erika , MDDeparted Physician/Provider Office Visit-[facility] May 06, 2025 10:54amNovember 2024 11:28amDischarged to home care or self care (routine discharge)Maria Guadalupe Jacob APRN Recent Diagnosis Onset Date Admit Date Dysphagia Unknown February 07, 2025 9:48am GERD (gastroesophageal reflux disease) Unknown February 07, 2025 9:48am Odynophagia Unknown February 07, 2025 9:48am Sore, mouth, canker Unknown May 10:54am Assessments Diagnosis Onset Date Resolution Status Admit Date Dysphagia acuteAugust 2024 9:48amGERD (gastroesophageal reflux disease)[facility] 9:48amOdynophagiaacuteAugust 2024 9:48amSore, mouth, cankeracute May 06, 2025 10:54am Plan of Treatment Author Jareth Galindo [facility] 2024 10:41am- Schedule EGD for further evaluation of dysphagia and odynophagia. - Follow-up in office post EGD. -Recommend to minimize NSAID use. Anti-reflux precautions discussed: ?? Loss weight ?? Elevate head of bed 4-6 inches when sleeping ?? Avoid eating within 3 hours before bedtime. ?? Maintain upright posture during and after eating. ?? Avoid clothing that is tight in the abdominal area. ?? Minimize narcotics ?? Avoid foods that make symptoms worse (examples include coffee, chocolate, alcohol, peppermint, and fatty foods) . Eat 5-6 small meals throughout the day instead of 2-3 large meals. ?? Do not use tobacco products ?? Minimize alcohol use ?? Avoid lying down for 3 hours after a meal Future Tests Future scheduled test information is unavailable Pending Tests Pending diagnostic test information is unavailable Future Visits Future appointment information is unavailable Future Procedures Procedure Name Ordered Date Scheduled Date Discharge Order March 17, 2025 9:01am Sept ember 2024 9:01am Future Medications Future medication information is unavailable Patient Instructions Instruction Admit Date Esophageal Dilation Know your MedsSeptember 2024 7:04am
--- OUTSIDE RECORDS SUMMARY | 2025-05-09 10:46 | XMS_ITS | Clinical Summary ---
Author Organization [facility] Address [address] [place] [address] Care Team Providers Care Distance Education Teacher Name Role Phone Unavailable Primary Care Provider Unavailabl e Allergies No known active allergies Medications MedicationSigDispense QuantityRefillsLast FilledStart DateEnd DateStatus omeprazole (PriLOSEC) [address] capsule Take 20 mg by mouth before breakfast. Do not crush or chew.Active Active Problems ProblemNoted DateDiagnosed DateGastroesophageal reflux disease without lgltkrqzane99bnormal gakxuluxiszwxzeqn88 Rxpiyhguy14stigmatism1lister04/08/2023 04/08/2023 Overview (04/08/2023): MOLE SKIN, Keflex, RTD Tjrhsbsztwhozbs97voidant/restrictive food intake disorder Other specified eating hqrxzxda30Furuncle of abdominal wallNicotine aaqeihhxqv79 Bulgiufpjh46Other mycobacterial hqzsnizltf22 Other specified problems related to psychosocial pitqxxzaxydbv27/04/2023 04/08/2023ain of footalpitations13 Fiobwudgxn44Requires hepatitis B adlpqmruzfs55/04/2023 04/08/2023Unspecified blepharitis right upper kynbkb20History of attention deficit hyperactivity bxzjaoal28Hypertensive vilpmgiz78yst of kidney, yosihhvi84Other spondylosis, lumbosacral zttync10nxiety disorder, unspecified hronic wejlhkxeqht63Localized swelling, mass and lump, headLow back painSpecific agyksn89Recurrent erosion of cornea, left eye10/12/2017 04/08/2023Unspecified blepharitis unspecified eye, unspecified xtzcmm7310/12/2017 04/08/2023 Social History Tobacco UseTypesPacks/DayYears UsedDateSmoking Tobacco: Never AssessedUT Safety & EnvironmentAnswerDate RecordedFear of Current or Ex-PartnerNot on file 08/27/2023Emotionally AbusedNot on file08/27/2023hysically AbusedNot on file 08/27/2023Sexually AbusedNot on file08/27/2023hysically or Sexually AbusedNot on file08/27/2023Sex and Gender InformationValueDate RecordedSex Assigned at BirthNot on fileLegal GajBinx7401/22/2022 9:19 AM EDTGender IdentityNot on file Sexual OrientationNot on file Last Filed Vital Signs Vital SignReadingTime TakenCommentsBlood Ultrwzvh517/9006/03/2023 2:33 PM EST Ldvwv68724/29/2023 2:33 PM ESTTemperature--Respiratory Rate--Oxygen Saturation 96%06/03/2023 2:33 PM ESTInhaled Oxygen Concentration--Ztqxtj25.4 kg (206 lb) 06/03/2023 2:33 PM IJISuuvvx690.7 cm (5' 8 )06/03/2023 2:33 PM ESTBody Mass Index31.32108/03/2022 2:33 PM EST Plan of Treatment Health MaintenanceDue DateLast DoneCommentsDepression Obdqaofot11/11/2000IPV Vaccines (2 of 3 - Adult catch-up series)Varicella Vaccines (1 of 2 - 13+ 2-dose series)05/03/2013HPV Vaccines (1 - 3-dose SCDM series) 2015COVID-19 Vaccine (3 - season)/01/2022, 07/22/2021 Influenza Vaccine (#1)/, 07/17/2022, 07/15/2021, Additional history existsAdult Dlhpsct88/15/844979/, 07/09/2017, 12/30/2007Zoster Vaccines (1 of 2)2038Meningococcal VaccineAged Out12/30/2007No longer eligible based on patient's age to complete this topicHepatitis B Vaccines Yxegiyjft80/05/2009, 03/03/2008, 01/03/2008HIB VaccinesAged OutNo longer eligible based on patient's age to complete this topicMeningococcal B Vaccine Aged OutNo longer eligible based on patient's age to complete this topic Pneumococcal Vaccine: Pediatrics (0 to 5 Years) and At-Risk Patients (6 to 64 Years)Aged OutNo longer eligible based on patient's age to complete this topic Rotavirus VaccinesAged OutNo longer eligible based on patient's age to complete this topic Insurance
--- OUTSIDE RECORDS SUMMARY | 2025-05-09 10:46 | XMS_ITS | Clinical Summary ---
Author Organization [facility] Address [address] [place] [address] Care Team Providers Care Rail Loader Name Role Phone Unavailable Primary Care Provider Unavailabl e Encounters DateTypeDepartmentCare CnllZxlfczcgjkp77/18/2025 1:[address]TDisSt[address] [facility] [address] [place], [place] [id number] Reema Rivera APRN.CNP Low testosterone (Primary Dx); ROSEMARY (obstructive sleep apnea); Locepdpimazw79/11/2025Travelfrom Last 3 Months Social History Tobacco UseTypesPacks/DayYears UsedDateSmoking Tobacco: Never AssessedArea Deprivation IndexAnswerDate RecordedNational Score (1-100), lower number is lower dtme235202/20/2025State Score (1-10), lower number is lower ztzf33602/20/2025 Data from: https://www.neighborhoodatlas.medicine.[facility].edu/. Last address used for jlvricxndig[address] 02/20/2025Sex and Gender InformationValueDate RecordedSex Assigned at BirthNot on fileLegal QnsDsgm9102/10/2025 8:44 AM EDT Gender IdentityNot on fileSexual OrientationNot on file Plan of Treatment Health MaintenanceDue DateLast DoneCommentsAnxiety Piozimpql69/11/2006Depression Tiapvbzzx88/11/2006HIV Yujdtjgjv80/11/2006Hepatitis C Zgnltpbts37/11/2006HPV Vaccine (1 - 3-dose SCDM series)2015Lipid Yzznubtmw95/11/2023ovid-19 Vaccine ( season)502/01/2022, 07/22/2021Influenza Vaccine (#1)5004/01/2023, 07/17/2022, 07/15/2021, Additional history exists DTaP,Tdap,Td Vaccine (4 - Td or Tdap)3107/20/2022, 07/09/2017, 12/30/2007Hepatitis B DppvnnaBwhkswnet38/05/2009, 03/03/2008, 01/03/2008 Insurance
--- OUTSIDE RECORDS SUMMARY | 2025-05-09 10:46 | XMS_ITS | Clinical Summary ---
Author Organization [facility] Address [address] [place] [address] Care Team Providers Care Remnant Sorter Name Role Phone Jesica Atkinson ETL DEVELOPER Unavailable [phone] Allergies No known active allergies Medications MedicationSigDispense QuantityRefillsLast FilledStart DateEnd DateStatus escitalopram (Lexapro) 5 MG/5ML solution Take by mouth5Active Testosterone 40.5 MG/2.5GM (1.62%) gel Indications:Secondary male hypogonadismPlace 2 Pump on the skin Daily 75 g 511/5Active testosterone (Androgel) 50 MG/5GM (1%) gel Indications:Secondary male hypogonadismPlace 1 packet (50 mg) on the skin Daily 90 packet 502/6Active testosterone enanthate (Xyosted) 75 MG/0.5ML solution auto-injector Indications:Secondary male hypogonadismInject 1 Syringe (75 mg) under the skin every 7 (seven) days 12 each 309/512/5Active testosterone cypionate (Depo-Testosterone) 200 MG/ML injection Indications:Secondary male hypogonadismInject 0.75 mL (150 mg) into the shoulder, thigh, or buttocks every 14 (fourteen) days 4.5 mL 503/6Active Syringe/Needle, Disp, (Luer Lock Safety Syringes) 23G X 1 3 ML misc Indications:Secondary male hypogonadism1 Syringe every 14 (fourteen) days 6 each 5Active Encounters DateTypeDepartmentCare XnfcQuiyxeagawu32/24/2025Orders Only [facility] [address] [place] [address] Carlo Sexton MD 04/28/2025Telephone [facility] [address] [place] [address] Carlo Sexton MD Advice Only04/06/2025Telephone [facility] [address] [place] [address] Carlo Sexton MD Advice Only03/27/2025Refill [facility] [place] [facility] [address] [place] [address] Karina Art LPN Secondary male obijnmnclinb30/22/2025Orders Only [facility] [address] [place] [address] Carlo Sexton MD Secondary male hypogonadism (Primary Dx)03/24/2025Telephone [facility] [address] [place] [address] Carlo Sexton MD Med Dkefqc2403/22/2025Telephone [facility] [address] [place] [address] Carlo Sexton MD Med Kouhfd1403/21/2025Orders Only [facility] [place] [facility] [address] [place] [address] Carlo Sexton MD Secondary male xvdegnkykurl31/16/2025Telephone [facility] [address] [place] [address] Karina Art LPN Med Rvxjvy8903/20/2025Telephone [facility] [address] [place] [address] Carlo Sexton MD Medication Crbkwkp1903/20/2025Refill [facility] [place] [facility] [address] [place] [address] Carlo Sexton MD Secondary male ptpllteewfpw76/15/2025Telephone [facility] [address] [place] [address] Carlo Sexton MD Med Epjbhn8003/15/2025Orders Only [facility] [address] [place] [address] Carlo Sexton MD Secondary male hypogonadism (Primary Dx)03/15/2025Telephone [facility] [place] [facility] [address] [place] [address] Carlo Sexton MD Med Auiktq2102/28/2025Orders Only [facility] [place] [facility] [address] [place] [address] Carlo Sexton MD Secondary male hypogonadism (Primary Dx)02/27/2025Telephone [facility] [place] [address] [place] [address] Carlo Sexton MD Medication Yswhqyl2802/24/2025 9:30 AM EDTOffice Visit [facility] [address] [place] [address] Carlo Sexton MD Secondary male hypogonadism (Primary Dx); Libido, xnvblmuoe26/22/2025Telephone [facility] [place] [facility] [address] [place] [address] Carlo Sexton MD Med Dlxuaj0402/24/2025amboo flowsheet [facility] [address] [place] [address] Carlo Sexton MD from Last 3 Months Social History Tobacco UseTypesPacks/DayYears UsedDateSmoking Tobacco: FormerCigarettes Smokeless Tobacco: Never Tobacco Cessation:Counseling Given: Not Answered Alcohol UseStandard Drinks/WeekCommentsNever0 (1 standard drink = 0.6 oz pure alcohol)Sex and Gender InformationValueDate RecordedSex Assigned at BirthNot on fileLegal EmrFrbp4203/30/2024 11:42 AM EDTGender IdentityNot on fileSexual OrientationNot on file Last Filed Vital Signs Vital SignReadingTime TakenCommentsBlood Pressure--Ajgcv26187/22/2025 9:33 AM EDTTemperature--Respiratory Nqrn001402/24/2025 9:33 AM EDTOxygen Ghxkzzqtkw88% 02/24/2025 9:33 AM EDTInhaled Oxygen Concentration--Mwzkci55.4 kg (212 lb 9.6 oz)02/24/2025 9:33 AM ROFYyqrqq978.7 cm (5' 8 )02/24/2025 9:33 AM EDTBody Mass Index32.3308 9:33 AM EDT Plan of Treatment DateTypeDepartmentCare Team (Latest Contact Info)Bxjuqfgisso49/06/2025 9:40 AM ESTOffice Visit [facility] [place] [facility] [address] [place] [address] Carlo Sexton MD [address] [place] [address] Health MaintenanceDue DateLast DoneCommentsCOVID-19 Vaccine ( season) 502/01/2022, 07/22/2021Influenza Vaccine (#1)509/, 07/17/2022, 07/15/2021, Additional history existsPneumococcal Vaccine: Pediatrics (0 to 5 Years) and At-Risk Patients (6 to 64 Years)Aged OutNo longer eligible based on patient's age to complete this topic Insurance * Guarantor: Arjun OchoaAccount TypeRelation to PatientDate of BirthPhone Billing AddressPersonal/WbesasWtca1990 [facility] [place] [address] Care Teams Team MemberRelationshipSpecialtyStart DateEnd Date Jesica Atkinson, ETL DEVELOPER [address] [facility] [address] [place] [address] PCP - [facility]10/05/23
--- OUTSIDE RECORDS SUMMARY | 2025-05-09 10:46 | XMS_ITS | Encounter Summary ---
Author Organization [facility] Address [address] [place] [address] Care Team Providers Care Meat Carver Name Role Phone Jesica Atkinson WALL COVERING CONTRACTOR Unavailable [phone] Reason for Visit * ReasonOnset DateCommentsAdvice Only04/28/2025 Encounter Details DateTypeDepartmentCare Team (Latest Contact Info)Nzsblbflzyb35/24/2025Telephone [facility] [address] [place] [address] Carlo Sexton MD [address] [place] [address] Advice Only Social History Tobacco UseTypesPacks/DayYears UsedDateSmoking Tobacco: FormerCigarettes Smokeless Tobacco: NeverAlcohol UseStandard Drinks/WeekCommentsNever0 (1 standard drink = 0.6 oz pure alcohol)Sex and Gender InformationValueDate RecordedSex Assigned at BirthNot on fileLegal QlpZpwa4103/30/2024 11:42 AM EDT Gender IdentityNot on fileSexual OrientationNot on filedocumented as of this encounter Miscellaneous Notes * Telephone Encounter - Sander Quesada - 04/28/2025 9:13 AM EDT Pt having a lot of anxiety since starting .5 each week. Would like to lower dosage slightly to try to combat the anxiety. Is this advisable? Thank you! documented in this encounter Plan of Treatment DateTypeDepartmentCare Team (Latest Contact Info)Ksjaarsxjhg91/06/2025 9:40 AM ESTOffice Visit [facility] [place] [facility] [address] [place] [address] Carlo Sexton MD [address] [place] [address] documented as of this encounter Visit Diagnoses Not on filedocumented in this encounter Care Teams Team MemberRelationshipSpecialtyStart DateEnd Date Jesica Atkinson, WALL COVERING CONTRACTOR [address] [facility] [address] [place] [address] PCP - [facility]10/05/23documented as of this encounter
--- OUTSIDE RECORDS SUMMARY | 2025-05-09 10:46 | XMS_ITS | Clinical Summary ---
Author Organization [facility] tem Address [facility] [id number] [place] [address] Care Team Providers Care Aerophysics Engineer Name Role Phone No Pcp, No Pcp Primary Care Provider Unavailabl e Allergies No known active allergies Medications * This document contains information received from the source organization and may not represent a complete record from that organization. MedicationSigDispense QuantityRefillsLast FilledStart DateEnd DateStatus atomoxetine (STRATTERA) 40 mg capsule Indications:History of attention deficit hyperactivity disorderTake 1 capsule (40 mg total) by mouth in the morning. 30 capsule 3Active Active Problems ProblemNoted DateDiagnosed DateSpecific rucruc1904/21/2022Fear of choking 04/21/2022History of attention deficit hyperactivity pfnibavp57/17/2022 Social History Tobacco UseTypesPacks/DayYears UsedDateSmoking Tobacco: NeverChildcareAnswerDate SwitmydySvvozccpnEzbomlm58/12/2019EmploymentAnswerDate RecordedEmploymentUnknown 12/15/2018Purpose - LifeAnswerDate RecordedPurpose and direction in lifeUnknown 08/16/2020ex and Gender InformationValueDate RecordedSex Assigned at BirthNot on fileLegal AjpPlam0502/08/2015 11:58 AM EDTGender IdentityNot on fileSexual OrientationNot on file Last Filed Vital Signs Vital SignReadingTime TakenCommentsBlood Qaejgcad480/9610 11:20 AM EDT Cjpxj4441 11:20 AM JXGSneevmdslko87.4 ??C (97.5 ??F)02/15/2017 11:12 AM EDTRespiratory Ikae081902/15/2017 11:12 AM EDTOxygen Dkgpzvnwnq29%02/15/2017 11:12 AM EDTInhaled Oxygen Concentration--Ponmrf81 kg (205 lb)04/21/2022 11:20 AM EDT Xjyvjl701.7 cm (5' 8 )02/15/2017 11:12 AM EDTBody Mass Index31.17002/15/2017 11:12 AM EDT Plan of Treatment Health MaintenanceDue DateLast DoneCommentsDepression Bwwxtvxfh79/11/2000Tobacco Kptayhpez48/11/2000Adult BMI Ujlfqcrbl50/11/2006DTaP,Tdap and Td Vaccines (1 - Tdap)2007COVID-19 Vaccine (3 - 2024- season)502/01/2022, 07/22/2021Influenza Igixqel6703/06/2025 Medical Devices Not on file Insurance Care Teams Team MemberRelationshipSpecialtyStart DateEnd Date No Pcp, [place] [address] [facility]
--- OUTSIDE RECORDS SUMMARY | 2025-05-09 10:46 | XMS_ITS | Encounter Summary ---
Author Organization [facility] Address [address] [place] [address] Care Team Providers Care Manager Retention Name Role Phone Jesica Atkinson CUSTOMER PROJECT MANAGER Unavailable [phone] Encounter Details DateTypeDepartmentCare Team (Latest Contact Info)Qyicahkmgbf15/24/2025Orders Only [facility] [address] [place] [address] Carlo Sexton MD [address] [place] [address] Social History Tobacco UseTypesPacks/DayYears UsedDateSmoking Tobacco: FormerCigarettes Smokeless Tobacco: NeverAlcohol UseStandard Drinks/WeekCommentsNever0 (1 standard drink = 0.6 oz pure alcohol)Sex and Gender InformationValueDate RecordedSex Assigned at BirthNot on fileLegal UgiBota4603/30/2024 11:42 AM EDT Gender IdentityNot on fileSexual OrientationNot on filedocumented as of this encounter Plan of Treatment DateTypeDepartthree [facility] hospitalCare Team (Latest Contact Info)Hyizfrtqlds08/06/2025 9:40 AM ESTOffice Visit [facility] [address] [place] [address] Carlo Sexton MD [address] [place] [address] documented as of this encounter Visit Diagnoses Not on filedocumented in this encounter Care Teams Team MemberRelationshipSpecialtyStart DateEnd Date Jesica Atkinson, ALINA [address] [place] [address] PCP - [facility]10/05/23documented as of this encounter
--- OUTSIDE RECORDS SUMMARY | 2025-05-09 10:55 | XMS_ITS | CCD ---
Author Organization [facility] CliniSymo Care Team Providers Care Vise Hand Name Role Phone Dariana Nelson Unavailable Christi Alonzo Unavailable MAYTE, DR GRIFFITHS Attending Unavailable MISC, DR ROE Primary Care Unavailable TORY, DR FARIDA Gage Consulting Unavailable HAY, DR GRIFFITHS Admitting Unavailable HAY, DR GRIFFITHS Consulting Unavailable HAY, DR GRIFFITHS Consulting Unavailable MISC, DR ROE Primary Care Unavailable LACHELLE CANDELARIA Attending Unavailable LACHELLE CANDELARIA Admitting Unavailable TEAGAN, LACHELLE Consulting Unavailable ANÍBAL CHAVEZ Consulting Unavailable YNES JANE Admitting Unavailable YNES JANE Consulting Unavailable MISC, DR ROE Primary Care Unavailable YNES JANE Attending Unavailable FARIDA TREVIÑO Consulting Unavailable MAYTE, DR GRIFFITHS Admitting Unavailable HAY, DR GRIFFITHS Consulting Unavailable MAYTE, DR GRIFFITHS Attending Unavailable MISC, DR ROE Primary Care Unavailable GEOVANNY, DR GUSTAVO Parker Attending Unavailabl e REINECK, DR GUSTAVO Parker Admitting Unavailabl e MISC, DR ROE Primary Care Unavailable ADDISONECK, DR GUSTAVO Parker Consulting Unavailabl e ELTAHAWPedro, DR JOY Attending Unavailable MISC, DR ROE Primary Care Unavailable GAY, DR JOY Admitting Unavailable YNES JANE Admitting Unavailable YNES JANE Consulting Unavailable YNES JANE Attending Unavailable MISC, DR ROE Primary Care Unavailable Maria T De León Unavailable CHEL KRISHNAMURTHY Attending Unavailable CHEL KRISHNAMURTHY Attending Unavailable Mike Rogers Unavailable Zach Aguilar DO Primary Care Provider [phone] DUKE LONGORIA Referring Unavailable ZACH AGUILAR Primary Care Unavailable DUKE LONGORIA Attending Unavailable DUKE LONGORIA Referring Unavailable ZACH AGUILAR Primary Care Unavailable Unavailable Primary Care Provider Unavaildesire Atkinson HR ADVISOR, Jesica Lerma Unavailable CARLO SEXTON Attending Unavailable ZACH AGUILAR Referring Unavailable REEMA BRAXTON Attending Unavailable SELF Referring Unavailable Jesus Greene MD, Holden Primary Care Provider Jareth Galindo APRN Attending Provider Holden Aguilar DO Primary Care Provider Unavaildesire e Fern James MD Attending Provider Fern James MD Other Provider Holden Aguilar Primary Care Unavailable Erika, Imben Attending Unavailable Erika, Imad Admitting Unavailable Ally Schulz APRN Attending Provider Allergies Allergy ClassificationReported Allergen(s)Allergy TypeDate of OnsetReaction(s) Facility (3 sources)Amoxicillin; Translations: [amoxicillin]Drug Xniwfsg89-36-8919 [facility] (3 sources)Penicillins; Translations: [Penicillins]Allergy to substance 99-66-6905YshyfealmgrJafllluhbBellevue Hospital Medications Current Medications MedicationDrug Class(es)DatesSig (Normalized)Sig (Original)amoxicillin 875 mg oral tablet (1 source)Penicillin-class AntibacterialStart: 04-21-4429jydc 1 tablet by mouth every twelve hoursAmoxicillin 875 MG 1 tablet Orally every 12 hrs for 7 days Jun, Activeamoxicillin 50 mg/ml / clavulanate 12.5 mg/ml oral suspension (2 sources)Penicillin-class AntibacterialStart: 94-03-1798rigx 10 mL by mouth every eight hoursAmoxicillin-Pot Clavulanate 250-62.5 MG/5ML 10 mL Orally every 8 hours for 10 day(s) May, ActiveStart: 47-95-6981pjek 10 mL by mouth every eight hoursAmoxicillin-Pot Clavulanate 250-62.5 MG/5ML 10 mL Orally every 8 hrs for 10 day(s) Mar, Activeclindamycin 300 mg oral capsule (1 source)Lincosamide AntibacterialStart: 51-47-5093vnnf 1 capsule by mouth every eight hoursClindamycin HCl 300 MG 1 cap(s) Orally three times a day for 10 day(s) Dec, Activedoxycycline hyclate 100 mg oral capsule (1 source)Tetracycline-class DrugStart: 81-99-7224acsz 1 capsule by mouth twice dailyDoxycycline Hyclate 100 mg capsule Active 100 MG PO Twice daily 10 5 0 May 06, 2025 12:00am Complies with drug therapyescitalopram 1 mg/ml oral solution (17 sources)Serotonin Reuptake InhibitorStart: 60-86-8410ygiw 7.5 mg by mouth once dailyEscitalopram Oxalate 5 mg/5 mL solution Active 7.5 MG PO Daily February 14, 2025 12:00am Complies with drug therapyfluticasone propionate 0.05 mg/actuat metered dose nasal spray (1 source)CorticosteroidStart: 73-60-9257jxdd 2 spray(s) nasal route once daily Fluticasone Propionate 50 MCG/ACT 2 sprays Nasally Once a day for 14 day(s) May, ActivehydrOXYzine hydrochloride 10 mg oral tablet (4 sources)Antihistaminetake 0.5 tablet by mouth three times daily as needed for anxietyhydrOXYzine HCl (ATARAX) 10 MG tablet Take 0.5 tablets by mouth 3 times daily as needed for AnxietyActivetake 1 tablet by mouth every twenty-four hours hydrOXYzine HCl 10 MG 1 tablet as needed Orally Once a day ActiveVistaril Active lidocaine 0.05 mg/mg topical ointment (4 sources)Antiarrhythmic, Amide Local AnestheticStart: 18-81-7157ccvbwuibp (XYLOCAINE) 5 % ointment apply THREE TIMES DAILY NEEDED for FOR PAIN 11/10/2024 ActiveStart: 11-10-2024 End: 46-11-2021Bixwedapx 5 % ointment Discontinued 1 APPLIC TOPICAL Three times daily as needed for pain 30 10 0 November 10, 2024 12:00am February 14, 2025 1:52pm meloxicam 15 mg oral tablet (2 sources)Nonsteroidal Anti-inflammatory Drugtake 1 tablet by mouth once daily meloxicam (MOBIC) 15 MG tablet Take 1 tablet by mouth daily Activemupirocin 0.02 mg/mg topical ointment (4 sources)RNA Synthetase Inhibitor AntibacterialStart: 67-07-7010ngdbllsih (BACTROBAN) 2 % ointment APPLY TO THE AFFECTED AREA THREE TIMES DAILY FOR 10 DAYS 11/10/2024 ActiveStart: 11-10-2024 End: 33-01-4525Bfbbhblgz 2 % ointment Discontinued 1 APPLIC TOPICAL Three times daily 10 0 November 10, 2024 12:00am February 14, 2025 1:52pmNutritional Supplements (ENSURE PLUS HIGH PROTEIN) LIQD (2 sources)Nutritional Supplements (ENSURE PLUS HIGH PROTEIN) LIQD Take 1 Can by mouth daily Take 1 can PO daily for Nutrition Suppliment ActiveQelbree (1 source)Qelbree Activesulfacetamide sodium 100 mg/ml ophthalmic solution (2 sources)Sulfonamide AntibacterialStart: 12-58-9600lzwlucltlkfbo (BLEPH-10) 10 % ophthalmic solution 01/06/2025 ActiveSyringe/Needle, Disp, (Luer Lock Safety Syringes) 23G X 1 3 ML misc (2 sources)Start: 55-08-6628Rlgulgl/Needle, Disp, (Luer Lock Safety Syringes) 23G X 1 3 ML misc 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 1 Syringe every 14 (fourteen) days 6 each 3 03/27/2025 Active1 ml testosterone cypionate 200 mg/ml injection (20 sources)AndrogenStart: 13-36-1205nmjraf 100 mg by intramuscular injection every weekTestosterone Cypionate (Depo-Testosterone) 200 mg/mL oil Active 100 MG IM every week May 06, 2025 12:00am Complies with drug therapyStart: 03-27-2025 End: 58-87-3133zdagwgzorkap cypionate (Depo-Testosterone) 200 MG/ML injection 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 Inject 0.75 mL (150 mg) into the shoulder, thigh, or buttocks every 14 (fourteen) days 4.5 mL 09/11/2025 ActiveStart: 03-15-2025 End: 11-67-7426zpimfirfpvvs enanthate (Xyosted) 75 MG/0.5ML solution auto- injector 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 Inject 1 Syringe (75 mg) under the skin every 7 (seven) days 12 each 3 03/21/2025 06/19/2025 ActiveStart: 02-28-2025 End: 47-37-6169Tmtsdfwqkijn (Androgel) 1 % (50 mg/5 gram) gel in packet Discontinued 1 PACKET TRANSDERML Daily March 01, 2025 12:00am May 06, 2025 11:01amStart: 02-24-2025 End: 25-53-3118Aanslacwtyyf 40.5 MG/2.5GM (1.62%) gel 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 Place 2 Pump on theskin Daily 75 g 1 02/24/2025 05/25/2025 Active Completed/Discontinued Medications MedicationDrug Class(es)DatesSig (Normalized)Sig (Original)acyclovir 40 mg/ml oral suspension (2 sources)Herpesvirus Nucleoside Analog DNA Polymerase Inhibitor, Herpes Simplex Virus Nucleoside Analog DNA Polymerase Inhibitor, Herpes Zoster Virus Nucleoside Analog DNA Polymerase InhibitorStart: 11-10-2024 End: 07-83-7390cppr 800 mg by mouth five times dailyAcyclovir 200 mg/5 mL suspension Discontinued 800 MG PO Five times daily 700 7 0 November 10, 2024 12:00am February 14, 2025 1:[id number] 200 actuat albuterol 0.09 mg/actuat metered dose inhaler (2 sources)beta2-Adrenergic AgonistStart: 68-48-2582yauy 2 puff(s) by inhalation every four hours as neededAlbuterol Sulfate HFA 108 (90 Base) MCG/ACT 2 puffs as needed Inhalation every 4 hrs Jul, Not-Takingazithromycin 40 mg/ml oral suspension (2 sources)Macrolide AntimicrobialStart: 55-81-4509Oiktndmtyzjh 200 MG/5ML 12.5 ml day 1 then 7.5 ml days 2-5 Orally Once a day for 5 day(s) Jul, Not-Qlkznw411 actuat ipratropium bromide 0.017 mg/actuat metered dose inhaler (2 sources)AnticholinergicStart: 11-10-2024 End: 47-71-7101Tokdftixacw [place] (Atrovent Hfa) 17 mcg/actuation HFA aerosol inhaler Discontinued INHALATION 2024 12:00am February 14, 2025 1:52pm omeprazole 40 mg delayed release oral capsule (6 sources)Proton Pump InhibitorStart: 11-10-2024 End: 47-55-9853yiyn 1 capsule by mouth once dailyOmeprazole 40 mg capsule,delayed release(DR/EC) Discontinued 40 MG PO Daily November 10, 2024 12:00am February 07, 2025 9:52amtake 1 capsule by mouth once dailyOmeprazole 20 MG 1 capsule 30 minutes before morning meal Orally Once a day ActiveprednisoLONE 3 mg/ml oral solution (3 sources)CorticosteroidStart: 72-81-9681zgzj 7.5 mL by mouth twice daily at mealtimeprednisoLONE 15 MG/5ML 7.5 ml Orally twice a day with food for 5 days Jul, Not-TakingStart: 23-93-1533akle 13 mL by mouth once dailyprednisoLONE 15 MG/5ML 13 ml Orally qd for 5 day(s) May, Active Problems Active Problems Problem ClassificationProblemDateDocumented DateEpisodic/ChronicAbdominal hernia (1 source)Umbilical hernia without obstruction or gangrene; Translations: [UMBILICAL HERNIA W/O OBST/GANGRENE]Onset: 71-36-5600WozbwhvlAqdfaqcnl pain (4 sources)Unspecified abdominal pain; Translations: [UNSPECIFIED ABDOMINAL PAIN]Onset: 49-87-6120DaboypgrTsejslq disorders (12 sources)Anxiety disorder, unspecified; Translations: [Post-traumatic stress disorder, unspecified]Onset: 245100-65-9237FbsluwzWpqcwfylw-nsdscyf, conduct, and disruptive behavior disorders (2 sources)Attention deficit hyperactivity disorder; Translations: [Attention- deficit hyperactivity disorder, unspecified type]32-17-4248TanxoacCpjxafq obstructive pulmonary disease and bronchiectasis (1 source)Bronchitis, not specified as acute or chronicEpisodicDiseases of mouth; excluding dental (6 sources)Other lesions of oral mucosa; Translations: [Other forms of stomatitis]Onset: 95-94-8624LombgideZwnekgwen of teeth and jaw (1 source)Chronic gingivitis, plaque inducedOnset: 01-01-2022 Resolved: 08-97-6954HsptckoLydozihbst disorders (12 sources)Gastroesophageal reflux disease without esophagitis; Translations: [Gastro-esophageal reflux disease without esophagitis]Onset: 06-03-2023 58-45-8976VcotkvvKllrdrnqgz disorders (1 source)Lesion of -62-1114SqpmjjjmRsmpejydo hypertension (3 sources)Essential (primary) hypertension; Translations: [Hypertensive disorder]Onset: 354510-23-3857JhvqswyHgzigcswnhxpo and screening for infectious disease (3 sources)Contact with and (suspected) exposure to other viral communicable diseasesOnset: 06-27-2021 Resolved: 60-20-4430QbrxntpjTbxuajiwihzhi mental health disorders (4 sources)Avoidant restrictive food intake disorder; Translations: [Avoidant/restrictive food intake disorder]Onset: hronic Other endocrine disorders (16 sources)Male hypogonadism; Translations: [Testicular hypofunction]02-24-2025 ChronicOther gastrointestinal disorders (3 sources)Oropharyngeal dysphagia; Translations: [Dysphagia, oropharyngeal phase]14-51-2607CehgwicbNvhxu gastrointestinal disorders (5 sources)Dysphagia; Translations: [Dysphagia, unspecified]Onset: 02-01-2025 92-61-3410UsnkctziSwtns gastrointestinal disorders (1 source)Dysphagia, oropharyngeal phase; Translations: [Dysphagia, oropharyngeal phase]Onset: 81-24-1442JzuhvqzsXbers gastrointestinal disorders (4 sources)Swallowing painful; Translations: [Dysphagia, unspecified]02-07-2025 EpisodicOther gastrointestinal disorders (1 source)Dysphagia, unspecified; Translations: [Dysphagia, unspecified]Onset: 66-80-5383ZcbaryhwItncm hematologic conditions (1 source)Erythrocytosis; Translations: [Secondary polycythemia]02-20-2025 EpisodicOther hematologic conditions (1 source)Secondary polycythemia; Translations: [Polycythemia]Onset: 02-20-2025 EpisodicOther lower respiratory disease (2 sources)Other forms of dyspnea; Translations: [Other forms of dyspnea]Onset: 57-92-8755CioxywklXefrt screening for suspected conditions (not mental disorders or infectious disease) (4 sources)Electrocardiogram abnormal; Translations: [Abnormal electrocardiogram [ECG] [EKG]]Onset: 347570-46-3298NuotdsceFawjk skin disorders (2 sources)Folliculitis; Translations: [Follicular disorder, unspecified] 92-40-5318GyznmojmJvpbk upper respiratory disease (5 sources)Allergic rhinitis; Translations: [Allergic rhinitis, unspecified] 02-06-9936SuzcqkmWwqnl upper respiratory disease (1 source)Allergic rhinitis, unspecifiedChronicOther upper respiratory disease (2 sources)Chronic pharyngitis; Translations: [Chronic pharyngitis]Onset: 402503-44-4865WlajjhxRfoyd upper respiratory infections (1 source)Chronic sinusitis, unspecified; Translations: [CHRONIC SINUSITIS UNSPECIFIED]Onset: 87-71-6789PynteueMntjr upper respiratory infections (8 sources)Acute sinusitis, unspecified; Translations: [Acute pharyngitis, unspecified]Onset: 94-66-9572DfgxgszaUualewql codes; unclassified (1 source)Obstructive sleep apnea syndrome; Translations: [Obstructive sleep apnea (adult) (pediatric)]32-53-7969ZrvlseoUrptnobs codes; unclassified (1 source)Obstructive sleep apnea (adult) (pediatric); Translations: [ROSEMARY (obstructive sleep apnea)]Onset: 61-46-2399XfpybviYivkrybo codes; unclassified (2 sources)Reduced libido; Translations: [Decreased libido]56-71-0512Pqnxmxnc Spondylosis; intervertebral disc disorders; other back problems (2 sources)Lumbosacral spondylosis; Translations: [Other spondylosis, lumbosacral region]Onset: 052345-43-1936XaarqqoFrndnmhdfdp; intervertebral disc disorders; other back problems (4 sources)Low back pain; Translations: [Low back pain]Onset: 04-21-2018 66-31-9378WfjjvcdgFcvexbepc-related disorders (2 sources)Nicotine dependence; Translations: [Nicotine dependence, unspecified, uncomplicated]Onset: 344015-82-1403ZzjscchUkrxy infection (3 sources)Unspecified viral infection characterized by skin and mucous membrane lesions; Translations: [Herpes zoster]Onset: 405519-27-3326Crjltirl Past or Other Problems Problem ClassificationProblemDateDocumented DateEpisodic/Chronic Administrative/social admission (2 sources)Social and personal history finding; Translations: [Other specified problems related to psychosocial circumstances]Onset: EpisodicAllergic reactions (2 sources)Allergic condition; Translations: [Allergy, unspecified, initial encounter]Onset: 498584-24-6138MyactvzlWzhddxvni infection; unspecified site (2 sources)Mycobacteriosis; Translations: [Other mycobacterial infections]Onset: 717276-40-2569KfyyeqcgEyufyrybc and vision defects (2 sources)Astigmatism; Translations: [Unspecified astigmatism, unspecified eye] Onset: 773832-02-0053RtigkvzkXizgrlf dysrhythmias (6 sources)Palpitations; Translations: [Palpitations]Onset: 83-15-4850Sghunljr Conditions associated with dizziness or vertigo (4 sources)Dizziness and giddiness; Translations: [DIZZINESS AND GIDDINESS] Onset: 31-08-5354ArvkiokuWxuqrnpwf of teeth and jaw (2 sources)Aggressive periodontitis, localized, unspecified severity; Translations: [Periapical abscess without sinus]Onset: 11-06-2021 Resolved: 56-17-2248NigcxqwoVxqexihfxrej; infection of eye (except that caused by tuberculosis or sexually transmitteddisease) (4 sources)Blepharitis of right upper eyelid; Translations: [Unspecified blepharitis right upper eyelid]Onset: 883923-66-7494ZpfskkduQooak bone disease and musculoskeletal deformities (2 sources)Costal chondritis; Translations: [Chondrocostal junction syndrome [Tietze]]Onset: 514954-61-4830MbswynrdTqtnu connective tissue disease (2 sources)Foot pain; Translations: [Pain in unspecified foot]Onset: 04-08-2023 66-17-0811XvcwlqjnDfcym connective tissue disease (2 sources)Tendinitis; Translations: [Enthesopathy, unspecified]Onset: 964445-24-6203SrxqdcjeDkfcf diseases of kidney and ureters (2 sources)Acquired renal cystic disease; Translations: [Cyst of kidney, acquired]Onset: 528007-34-0522QkwpshvpUhtml eye disorders (2 sources)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; Translations: [Recurrent erosion of cornea, left eye]Onset: 116501-41-7014PkhwhbtgKrijk injuries and conditions due to external causes (2 sources)Blister; Translations: [Other injury of unspecified body region, initial encounter]Onset: 946295-59-9070YabehogoKswkv lower respiratory disease (1 source)Hemoptysis; Translations: [HEMOPTYSIS]Onset: 15-87-1141DkirbhqqXgusf skin disorders (2 sources)Finding of head region; Translations: [Localized swelling, mass and lump, head]Onset: 082265-19-2606ZudnmwxjKmabq upper respiratory disease (3 sources)Nasal congestion; Translations: [NASAL CONGESTION]Onset: 11-02-2021 EpisodicOtitis media and related conditions (1 source)Otitis media, unspecified, left earOnset: 06-27-2021 Resolved: 12-47-9617LfmrffofZoqfdtuah and history of mental health and substance abuse codes (3 sources)Personal history of nicotine dependence; Translations: [Personal history of other mental and behavioral disorders]Onset: 497318-91-5105 EpisodicSkin and subcutaneous tissue infections (2 sources)Furuncle of abdominal wall; Translations: [Furuncle of abdominal wall]Onset: 038750-09-0208GdrhcrskWksok infection (3 sources)COVID-19; Translations: [COVID-19]Onset: 06-27-2021 Resolved: 06-27-2021 Results Test NameValueInterpretationReference RangeFacilityPathology Request for Lab Corpon [id number] Request for Lab CorpNormalThSt. Luke[facility] Physician GroupComment on above:Order Comment: GI SPECIMENResult Comment: See report. Scanned copy available in EMR. PERFORMED BY: [place] [address] PATHOLOGIST CONTROLS ENGINEER JASPREET RUEDA M.D.Performed By: #### PATH TO [facility] #### [place] [id number] USAFL ESOPHAGRAMon [id number] ESOPHAGRAMEXAMINATION: DOUBLE CONTRAST ESOPHAGRAM 01/30/2025 10:27 am TECHNIQUE: Double contrast esophagram was performed with barium and air contrast. FLUOROSCOPY DOSE AND TYPE: Radiation Exposure Index: Kerma mGy, COMPARISON: None HISTORY: ORDERING SYSTEM PROVIDED HISTORY: Esophageal stenosis FINDINGS: The esophagus is of normal caliber and demonstrates normal motility. There is incomplete relaxation cricopharyngeus musculature. There are no mucosal abnormalities seen. The gastroesophageal junction is normal. There is no evidence for reflux seen. IMPRESSION: Incomplete relaxation cricopharyngeus with otherwise unremarkable esophagram Interpreted by: Ryan Gordillo DO Signed by: Ryan Gordillo DO 01/30/25 Final resultNormalMerSilver Hill Hospital Esophagus Views W contrast Kvng 52-25-9458Ioiqaoilko relaxation cricopharyngeus with otherwise unremarkable esophagram [facility] CONSOLIDATEDEXAMINATION: DOUBLE CONTRAST ESOPHAGRAM 01/30/2025 10:27 am TECHNIQUE: Double contrast esophagram was performed with barium and air contrast. FLUOROSCOPY DOSE AND TYPE: Radiation Exposure Index: Kerma mGy, COMPARISON: None HISTORY: ORDERING SYSTEM PROVIDED HISTORY: Esophageal stenosis FINDINGS: The esophagus is of normal caliber and demonstrates normal motility. There is incomplete relaxation cricopharyngeus musculature. There are no mucosal abnormalities seen. The gastroesophageal junction is normal. There is no evidence for reflux seen. [facility] CONSOLIDATEDRobRyan galloway, - 01/30/2025 EXAMINATION: DOUBLE CONTRAST ESOPHAGRAM 01/30/2025 10:27 am TECHNIQUE: Double contrast esophagram was performed with barium and air contrast. FLUOROSCOPY DOSE AND TYPE: Radiation Exposure Index: Kerma mGy, COMPARISON: None HISTORY: ORDERING SYSTEM PROVIDED HISTORY: Esophageal stenosis FINDINGS: The esophagus is of normal caliber and demonstrates normal motility. There is incomplete relaxation cricopharyngeus musculature. There are no mucosal abnormalities seen. The gastroesophageal junction is normal. There is no evidence for reflux seen. IMPRESSION: Incomplete relaxation cricopharyngeus with otherwise unremarkable esophagram [facility] (n[facility]ative)[facility] Esophagus Views W contrast POOrdered By: Ryan Gordillo on 01-30-2025 [facility] Work Phone: cbc with Auto Differentialon 55-26-1637Lftwfanmp (Bld) [#/Vol][facility] HealthHematocrit (Bld) [Volume fraction]51 %High40.7 - 50.3 %[facility] SystemHemoglobin (Bld) [Mass/Vol]17 g/dL13.0 - 17.0 g/dL [facility] CampusImmature granulocytes (Bld) [#/Vol][facility] CampusInterpretation and review of laboratory resultsAbnormalBon [facility] CampusLymphocytes/100 WBC (Bld)1.08 %LowBon [facility] System East CampusMonocytes/100 WBC (Bld)0.75 %[facility] CampusNeutrophils/100 WBC (Bld)82 %High36 - 65 %[facility] CampusNucleated RBC/100 WBC (Bld) [Ratio]0 %0.0 per 100 WBC [facility] CampusPlatelet mean volume (Bld) [Entitic vol]9 fL8.1 - 13.5 fLBon [facility] East CampusSegmented neutrophils/100 WBC (Bld)8.35 %HighBon [facility] Health System East CampusWBC other (Bld) [#/Vol]10.3[facility] CenterCBC with Diffon 21-12-4984Gatxctjax/100 WBC (Bld)0 %Normal 0-2Bon [facility] CampusComment on above:Performed By: #### PALB #### [place] [id number] Circus Hand: Almas Stearns MD #### CP, CDP #### [facility] [address] [place] [address] [place] [address] Circus Hand: Farida Jones MDEosinophils (Bld) [#/Vol]0.03 10*3/uLNormal 0.00-0.44Bon [facility] on above:Performed By: #### PALB #### [address] [id number] Circus Hand: Almas tSearns MD #### CP, CDP #### [facility] [place], [place] [id number] Circus Hand: Farida Jones MDEosinophils/100 WBC (Bld)0 %Low1-4Bon [facility] on above:Performed By: #### PALB #### [address] [address] Circus Hand: Almas Stearns MD #### CP, CDP #### [address] [place], [place] [id number] Circus Hand: Farida Jones MDErythrocyte distribution width (RBC) [Ratio]12.4 % Fnknnw92.8-14.4Bon [facility] on above:Performed By: #### PALB #### [address] [address] Circus Hand: Almas Stearns MD #### CP, CDP #### [address] [place] [id number] Circus Hand: Farida Jones MDImmature granulocytes/100 WBC (Bld)0 %Vewtsu3Rtg [facility] on above:Performed By: #### PALB #### [address] [address] Circus Hand: Almas Stearns MD #### CP, CDP #### [address] [place] [id number] Circus Hand: Farida Jones MDLymphocytes/100 WBC (Bld)11 %Tcn15-55Dom [facility] on above:Performed By: #### PALB #### [address] [address] Circus Hand: Almas Stearns MD #### CP, CDP #### [address] [place], [place] [id number] Circus Hand: FERDINAND GagonnCH (RBC) [Entitic mass]27.5 jmCmawts08.2-33.5Bon [facility] on above:Performed By: #### PALB #### [address] [address] Circus Hand: Almas Stearns MD #### CP, CDP #### [address] [place] [id number] Circus Hand: FERDINAND GagnonCHC (RBC) [Mass/Vol]33.3 g/oGVnxejn16.4-34.8Bon [facility] on above:Performed By: #### PALB #### [place] [address] Circus Hand: Almas Stearns MD #### CP, CDP #### [address] [place] [id number] Circus Hand: FERDINAND GagnonCV (RBC) [Entitic vol]82.4 fLLow82.6-102.9Bon [facility] on above:Performed By: #### PALB #### [address] [address] Circus Hand: Almas Stearns MD #### CP, CDP #### [address] [place] [id number] Circus Hand: FERDINAND Gagnononocytes/100 WBC (Bld)7 %Normal3-12Bon [facility] on above:Performed By: #### PALB #### [address] [address] Circus Hand: Almas Stearns MD #### CP, CDP #### [address] [place] [place] [id number] Circus Hand: Marie Gagnontelets (Bld) [#/Vol]216 10*3/vHXqwfyy767-167Qsg [facility]Comdet[facility] receiving hospital on above:Performed By: #### PALB #### [address] [address] Circus Hand: Almas Stearns MD #### CP, CDP #### [address] [place] [address] Circus Hand: UMANG Gagnon (d) [#/Vol]6.19 10*6/uLHigh4.21-5.77Bon [facility]Comdet[facility] on above:Performed By: #### PALB #### [address] [address] Circus Hand: Almas Stearns MD #### CP, CDP #### [address] [place] [address] Circus Hand: Harish Gagnon. Basophil<0.03Ojqmjn6.00-0.20[facility]Comdet[facility] receiving hospital on above:Performed By: #### PALB #### [address] [address] Circus Hand: Almas Stearns MD #### CP, CDP #### [address] [place] [address] Circus Hand: MDAbs. ChelsiImm.Granulocyte<0.85Nmdarf0.00-0.30[facility]ighComdet[facility] receiving hospital on above:Performed By: #### PALB #### [place] [address] Circus Hand: Almas Stearns MD #### CP, CDP #### [address] [place] [address] Circus Hand: MDAbs. ChelsiNeutrophil (Seg)8.35 k/uLHigh1.50-8.10[facility] GlenbeighComment on above:Performed By: #### PALB #### [address] [address] Circus Hand: Almas Stearns MD #### CP, CDP #### [address] [place] [id number] Circus Hand: Farida Jones MDHematocrit (Bld) [Volume fraction]51.0 %High 40.7-50.3[facility]ahn[facility] HospitalComment on above:Performed By: #### PALB #### [address] [address] Circus Hand: Almas Stearns MD #### CP, CDP #### [address] [place] [id number] Circus Hand: Farida Jones MDHemoglobin (Bld) [Mass/Vol]17.0 g/dLNormal 13.0-17.0[facility] GlenbeighComment on above:Performed By: #### PALB #### [address] [address] Circus Hand: Almas Stearns MD #### CP, CDP #### [address] [place] [phone] Circus Hand: Farida Jones MDLymphocytes (Bld) [#/Vol]1.08 10*3/uLLow1.10-3.70 [facility] GlenbeighComment on above:Performed By: #### PALB #### [address] [address] Circus Hand: Almas Stearns MD #### CP, CDP #### [address] [place] [address] Circus Hand: Farida Sturtz, MDMonocytes (Bld) [#/Vol]0.75 10*3/uLNormal0.10-1.20 [facility] GlenbeighComment on above:Performed By: #### PALB #### [facility] [address] [place] [address] Circus Hand: Almas Stearns MD #### CP, CDP #### [address] [place] [address] Circus Hand: Nalini Gagnonophil (Seg)82 %Ugfw53-04PjabpAcmc Healthcare System Glenbeigh Comment on above:Performed By: #### PALB #### [address] [address] Circus Hand: Almas Stearns MD #### CP, CDP #### [address] [place] [address] Circus Hand: Farida Jones MDNRBC Automated0.0 per 100 WBCNormal0.0[facility] GlenbeighComment on above:Performed By: #### PALB #### [address] [address] Circus Hand: Almas Stearns MD #### CP, CDP #### [facility] [address] [place] [address] Dr. [place] [phone] Circus Hand: Isabelle Gagnon mean volume (Bld) [Entitic vol]9.0 fL Normal8.1-13.5[facility] GlenbeighComment on above:Performed By: #### PALB #### [address] [address] Circus Hand: Almas Stearns MD #### CP, CDP #### [address] [place] [address] Circus Hand: MIKE Gagnon (Bld) [#/Vol]10.3 10*3/uLNormal3.5-11.3MParkwood Hospital HospitalComment on above:Performed By: #### PALB #### [address] [address] Circus Hand: Almas Stearns MD #### CP, CDP #### [address] [place], [place] [id number] Circus Hand: LUMA Gagnonintermountain medical center Metabolic Profon 06-50-4310Rbsbzfy [Mass/Vol] 4.5 g/dLNormal3.5-5.2Mpremier health miami valley hospitaly [place] HospitalComment on above:Performed By: #### PALB #### [address] [address] Circus Hand: Almas Stearns MD #### CP, CDP #### [address] [place] [phone] Circus Hand: Farida Jones MDAlbumin/Glob Ratio1.4Yexgqw6.0-2.5[facility] HospitalComment on above:Performed By: #### PALB #### [address] [address] Circus Hand: Almas Stearns MD #### CP, CDP #### [address] [place], [facility]83 Circus Hand: Lynn Gagnonline Phos86 U/VSvkhob20-305AisygAcmc Healthcare System GlenbeighComment on above:Performed By: #### PALB #### [address] [address] Circus Hand: Almas Stearns MD #### CP, CDP #### [address] [place] [address] Circus Hand: Farida Jones MDALT [Catalytic activity/Vol]27 U/BTeuxbg80-52FwyvoAcmc Healthcare System GlenbeighComment on above:Performed By: #### PALB #### [address] [address] Circus Hand: Almas Stearns MD #### CP, CDP #### [address] [place], [place] [id number] Circus Hand: Radha Gagnon gap [Moles/Vol]12 mmol/LNormal9-16[facility] System GlenbeighComment on above:Performed By: #### PALB #### [address] [address] Circus Hand: Almas Stearns MD #### CP, CDP #### [address] [place], [place] [id number] Circus Hand: Farida Jones MDAST [Catalytic activity/Vol]27 U/MVxshhu52-00ExcqyAcmc Healthcare System GlenbeighComment on above:Performed By: #### PALB #### [address] [address] Circus Hand: Almas Stearns MD #### CP, CDP #### [address] [place] [address] Circus Hand: Farida Jones MDBilirubin [Mass/Vol]0.4 mg/dLNormal0.00-1.20[facility] GlenbeighComment on above:Performed By: #### PALB #### [address] [address] Circus Hand: Almas Stearns MD #### CP, CDP #### [address] [place] [address] Circus Hand: Farida Jones MDBUN/CRE Xwrhl06Heto2-01YhdnjAcmc Healthcare System Glenbeigh Comment on above:Performed By: #### PALB #### [address] [address] Circus Hand: Almas Stearns MD #### CP, CDP #### [address] [place] [address] Circus Hand: LUMA Gagnonalcium [Mass/Vol]9.4 mg/dLNormal8.6-10.4[facility] System GlenbeighComment on above:Performed By: #### PALB #### [address] [address] Circus Hand: Almas Stearns MD #### CP, CDP #### [address] [place] [phone] Circus Hand: Farida Jones MDChloride [Moles/Vol]102 mmol/AGluugm59-753Gijys Tiffin HospitalComment on above:Performed By: #### PALB #### [address] [address] Circus Hand: Almas Stearns MD #### CP, CDP #### [address] [place] [phone] Circus Hand: Farida Jones MDCO2 [Moles/Vol]25 mmol/PRhugoa93-21VhlhiAcmc Healthcare System GlenbeighComment on above:Performed By: #### PALB #### [address] [address] Circus Hand: Almas Stearns MD #### CP, CDP #### [address] [place] [phone] Circus Hand: LUMA Gagnonreatinine [Mass/Vol]0.9 mg/dLNormal0.70-1.20[facility] HospitalComment on above:Performed By: #### PALB #### [address] [address] Circus Hand: Almas Stearns MD #### CP, CDP #### [address] [place] [address] Circus Hand: Farida Jones MDGFR/1.73 sq M.predicted among non-blacks MDRD (S/P/Bld) [Vol rate/Area]mL/min/{1.73_m2}Normal>60MerSilver Hill HospitalComment on above:Result Comment: These results are not intended for [...] or following therapy that affects renal tubular secretion.Performed By: #### PALB #### [address] [address] Circus Hand: Almas Stearns MD #### CP, CDP #### [address] [place], [place] 4048083 Circus Hand: Farida Jones MDGlucose [Mass/Vol]100 mg/pCVvth16-12Etx[address] [place], [place] [address]Comment on above:Performed By: #### PALB #### [address] [address] Circus Hand: Almas Stearns MD #### CP, CDP #### [address] [place], [place] 2023783 Circus Hand: JENNY Gagnonotassium [Moles/Vol]4.4 mmol/LNormal3.7-5.3MPremier Health Miami Valley Hospital SouthComment on above:Performed By: #### PALB #### [address] [address] Circus Hand: Almas Stearns MD #### CP, CDP #### [address] [place], [place] 3005583 Circus Hand: JENNY Gagnonrotein [Mass/Vol]7.5 g/dLNormal6.6-8.7A[facility] System GlenbeighComment on above:Performed By: #### PALB #### [place] [address] [place] [address] Circus Hand: Almas Stearns MD #### CP, CDP #### [address] [place], [place] 4901983 Circus Hand: NIKI Gagnonodium [Moles/Vol]139 mmol/UIpwuty463-627EpqceAcmc Healthcare System GlenbeighComment on above:Performed By: #### PALB #### [address] [address] Circus Hand: Almas Stearns MD #### CP, CDP #### [address] [place] [phone] Circus Hand: Farida Jones MDUrea nitrogen [Mass/Vol]25 mg/dLHigh6-20[facility] System GlenbeighComment on above:Performed By: #### PALB #### [address] [address] Circus Hand: Almas Stearns MD #### CP, CDP #### [address] [place] [phone] Circus Hand: LUMA Gagnonomprehensive Metabolic Panelon [id number] [Mass/Vol]4.5 g/dL3.5 - 5.2 g/dLBon [facility] HealthAlbumin/Globulin [Mass ratio]1.5 {ratio}1.0 - 2.5Bon [facility] HealthALP [Catalytic activity/Vol]86 U/L40 - 129 U/LBon [facility] HealthALT [Catalytic activity/Vol]27 U/L10 - 50 U/LBon [facility] CampusAnion gap [Moles/Vol]12 mmol/L9 - 16 mmol/LBon [facility] CampusAST [Catalytic activity/Vol]27 U/L10 - 50 U/LBon [facility] CampusBilirubin [Mass/Vol]0.4 mg/dL0.00 - 1.20 mg/dLBon [facility] CampusCalcium [Mass/Vol]9.4 mg/dL8.6 - 10.4 mg/dLBon [facility] Chloride [Moles/Vol]102 mmol/L98 - 107 mmol/LBon [facility] CampusCO2 [Moles/Vol]25 mmol/L20 - 31 mmol/LBon [facility] CampusCreatinine [Mass/Vol] 0.9 mg/dL0.70 - 1.20 mg/dLBon [facility] CampusEst, Glom Filt Rate- PINFBon [facility] CampusComment on above: These results are not intended for use [...] following therapy that affects renal tubular secretion. Glucose [Mass/Vol]100 mg/oDMqyx35 - 99 mg/dLBon [facility] Interpretation and review of laboratory resultsAbnormalBon [facility] Potassium [Moles/Vol]4.4 mmol/L3.7 - 5.3 mmol/LBon [facility] CampusProtein [Mass/Vol]7.5 g/dL6.6 - 8.7 g/dLBon [facility] CampusSodium [Moles/Vol]139 mmol/L136 - 145 mmol/LBon [facility] CampusUrea nitrogen [Mass/Vol]25 mg/dL High6 - 20 mg/dLBon [facility] CampusUrea nitrogen/Creatinine [Mass ratio]28 mg/mgHigh9 - 20Bon [facility] CampusBon [facility] CampusPrealbuminon 74-06-0546Gmjsioxuvd [Mass/Vol]18.4 mg/dLLow20.0-40.0[facility] Comment on above:Performed By: #### PALB #### [employer] [address] [place] [address] Circus Hand: Almas Stearns MD #### CP, CDP #### [facility] [address] [place] [address] Circus Hand: Farida Jones MDInterpretation and review of laboratory results [facility] CenterBon SecLutheran HospitalBon SecLutheran HospitalOffice Visiton [id number]-up [id number] Arjun Ochoa P [address] [facility] Provider Department Center 06/03/[address] [place] [address] Hos No family history on file Level of Service:[address] [place] OFFICE/OUTPATIENT ESTABLISHED LOW MDM 20-29 [facility] Quick Testingon 05-23-2023 SARS-CoV-2 (COVID-19) RNA RASHAAD+probe Ql (Unsp spec)PositivePine Top Zenops Other COVID + FLU Quick TestingNegativeSpeakWorks Zenops Other Office Visiton 01-43-2514Sjokpr-up [id number] Arjun Ochoa P [address] [facility] Provider Department Center 04/08/[address] [place] [address] Hos No family history on file Level of Service:90085 [place] OFFICE/OUTPATIENT ESTABLISHED MOD MDM 30-39 [facility] Strepon 03-16-2023S. pyogenes Org specific cx Ql (Throat)NegativePine Top Zen[employer] Other Quick StrepSpeakWorks Zen[employer] Other COVID + FLU Quick Testingon 35-27-2407SXYB-CoV-2 (COVID-19) RNA RASHAAD+probe Ql (Unsp spec)[employer] Other COVID + FLU Quick TestingNegativeSpeakWorks Zen[employer] Other Quick Strepon 07-29-2022S. pyogenes Org specific cx Ql (Throat)NegativeWSO2 Other Quick StrepNoSolstice Neurosciences Other AMYLASEon 38-41-7680Vfcwrtq [Catalytic activity/Vol]60 U/AWahxkx60-802Orm [facility] For RehabilitationComment on above:Performed By: #### KOBI, CMADM #### [facility] [address] [place] [address] Dr. Bert Mendoza AUTO DIFFon 33-98-2473CUBQ #0.0 103/ulNormal0.0-0.1The [facility] For RehabilitationComment on above:Performed By: #### CBC #### [facility] [address] [place] [address] Dr. Bert FerraraBasophils/100 WBC (Bld)0.3 %Normal0.2-2.0The [facility] Comment on above:Performed By: #### CBC #### [facility] [address] [place] [address] Dr. Bert Mann #0.1 103/ulNormal0.0-0.7The [facility] For RehabilitationComment on above: Performed By: #### CBC #### [facility] [address] [place] [address] Dr. Bert Garnicaosinophils/100 WBC (Bld)0.4 %Critically low0.9-7.0The [facility] Hospital For RehabilitationComment on above:Performed By: #### CBC #### [facility] [address] [place] [address] Dr. Bert Garnicarythrocyte distribution width (RBC) [Ratio]12.0 %Urkulw14.0-15.0 The [facility] Hospital For RehabilitationComment on above:Performed By: #### CBC #### [facility] [address] [place] [address] Dr. Bert FerraraHematocrit (Bld) [Volume fraction]48.5 %Dkwfna58.0-54.0The [facility] For RehabilitationComment on above:Performed By: #### CBC #### [facility] [address] [place] [address] [address] Bert FerraraHemoglobin (Bld) [Mass/Vol]16.9 g/lSHogufs25.0-18.0The [facility] For RehabilitationComment on above:Performed By: #### CBC #### [facility] [address] [place] [address] [address] Bert Castillo #0.05 10e3/ulCritically high0.00-0.03The [facility] Comment on above:Performed By: #### CBC #### [facility] [address] [place] [address] Dr. Bert Castillo %0.3 %Normal0.0-0.5The [facility] Hospital For RehabilitationComment on above: Performed By: #### CBC #### [facility] [address] [place] [address] Dr. Bert Rowan #3.0 103/ulNormal1.2-3.8The [facility] Hospital For RehabilitationComment on above:Performed By: #### CBC #### [facility] [address] [place] [address] Dr. Bert Annhocytes/100 WBC (Bld)20.9 %Howuev82.5-60.0The [facility] Hospital For RehabilitationComment on above:Performed By: #### CBC #### [facility] [address] [place] [address] Dr. Bert LouiseUAL DIFF REQNONormalThe [facility] Hospital For RehabilitationComment on above: Performed By: #### CBC #### [facility] [address] [place] [address] Dr. Bert Humphries (RBC) [Entitic mass]28.5 czDjtxzu68.9-34.0The [facility] For RehabilitationComment on above:Performed By: #### CBC #### [facility] [address] [place] [address] Dr. Bert Humphries (RBC) [Mass/Vol]34.8 g/kOVummyp60.9-35.2The [facility] For RehabilitationComment on above:Performed By: #### CBC #### [facility] [address] [address] [address] Bert HumphriesV (RBC) [Entitic vol]81.9 qQOcphib71.0-94.0The [facility] For RehabilitationComment on above:Performed By: #### CBC #### [facility] [address] [place] [address] [address] Bert Hess #1.3 103/ulCritically high0.3-0.8The [facility] Comment on above:Performed By: #### CBC #### [facility] [address] [place] [address] Dr. Bert Trinidadocytes/100 WBC (Bld)9.0 %Normal1.7-12.0[facility] Comment on above:Performed By: #### CBC #### [facility] [address] [place] [address] Dr. Bert Mason #10.1 103/ulCritically high1.4-6.5ThAshtabula General Hospital Comment on above:Performed By: #### CBC #### [facility] [address] [place] [address] Dr. Bert Silvautrophils/100 WBC (Bld)69.1 %Egddvy63.0-75.0The [facility] For RehabilitationComment on above:Performed By: #### CBC #### [facility] [address] [place] [address] Dr. Bert Jeonglet mean volume (Bld) [Entitic vol]8.4 fLCritically low 9.5-13.5The [facility] For RehabilitationComment on above:Performed By: #### CBC #### [facility] [address] [place] [address] Dr. Bert FerraraPLT249 103/mfShdyyr319-060Rcw [facility] For RehabilitationComment on above: Performed By: #### CBC #### [facility] [address] [place] [address] Dr. Bert FerraraRBC5.92 106/ulNormal4.70-6.10The [facility] Hospital For RehabilitationComment on above:Performed By: #### CBC #### [facility] [address] [address] [address] Bert FerraraWBC14.6 103/ulCritically high4.0-11.0The [facility] Hospital For RehabilitationComment on above:Performed By: #### CBC #### [facility] [address] [address] [address] Bert FerraraCT ABD/PELVIS WO CONon [id number] ABD/PELVIS WO CONEXAMINATION: CT ABD/PELVIS WO CON, 06/07/2022 5:30 PM [...] Electronically authenticated by: FARIDA SPEARS Date: 2022-06-07 18:07NormMercy Health St. Joseph Warren HospitalLIPASEon [id number] [Catalytic activity/Vol]97.0 U/L Yuoaoe20.0-393.0The [facility] For RehabilitationComment on above:Performed By: #### BMP, CMADM #### [facility] [address] [address] [address] Bert FerraraPROF 14(COMP METB)on 63-93-6411Qsjxlje [Mass/Vol]3.8 g/dLNormal 3.4-5.0The [facility] For RehabilitationComment on above:Performed By: #### BMP, CMADM #### [facility] [address] [address] [address] Bert FerraraAlbumin/Globulin [Mass ratio]1.1 {ratio}NormalThe [facility] Hospital For RehabilitationComment on above:Performed By: #### BMP, CMADM #### [facility] [address] [address] [address] Bert ToddP [Catalytic activity/Vol]96 U/MEbbwja17-208Xip [facility] For RehabilitationComment on above:Performed By: #### BMP, CMADM #### [facility] [address] [address] [address] Bert Head [Catalytic activity/Vol]29 U/WZnlhcu12-25Wnh [facility] RehabilitationComment on above:Performed By: #### BMP, CMADM #### [facility] [address] [address] [address] Bert Jha gap [Moles/Vol]5.6 mmol/LNormalThe [facility] Hospital For RehabilitationComment on above:Performed By: #### KOBI, CMADM #### [facility] [address] [address] [address] Bert FerraraAST [Catalytic activity/Vol]14 U/LCritically idg71-23Crr [facility] For RehabilitationComment on above:Performed By: #### BMP, CMADM #### [facility] [address] [address] [address] Bert FerraraBilirubin [Mass/Vol]0.2 mg/dLNormal0.2-1.0The [facility] Comment on above:Performed By: #### BMP, CMADM #### [facility] [address] [address] [address] Bert FerraraCalcium [Mass/Vol]8.8 mg/dLNormal8.5-10.1The [facility] Comment on above:Performed By: #### KOBI, CMADM #### [facility] [address] [address] [address] Bert FerraraChloride [Moles/Vol]101 mmol/MAkpdmg15-674Efk [facility] Comment on above:Performed By: #### BMP, CMADM #### [facility] [address] [address] [address] Bert FerraraCO2 [Moles/Vol]32.1 mmol/LCritically high21.0-32.0The [facility] Hospital For RehabilitationComment on above:Performed By: #### BMP, CMADM #### [facility] [address] [address] [address] Bert FerraraCreatinine [Mass/Vol]0.90 mg/dLNormal0.70-1.30The [facility] For RehabilitationComment on above:Performed By: #### BMP, CMADM #### [facility] [address] [place] [address] Dr. Bert GarnicaGFR-AF ALGERIAN>60Normal>=60The [facility] Hospital For RehabilitationComment on above:Performed By: #### BMP, CMADM #### [facility] [address] [address] [address] Bert GarnicaGFR-NON AF ALGERIAN>60Normal>=60The [facility] For RehabilitationComment on above:Performed By: #### BMP, CMADM #### [facility] [address] [address] [address] Bert FerraraGlobulin (S) [Mass/Vol]3.5 g/dLNormalThe [facility] For RehabilitationComment on above:Performed By: #### BMP, CMADM #### [facility] [address] [address] [address] Bert FerraraGlucose [Mass/Vol]93 mg/cIPhsxpc54-689Hjc [facility] Comment on above:Performed By: #### BMP, CMADM #### [facility] [address] [address] [address] Bert FerraraPotassium [Moles/Vol]3.7 mmol/LNormal3.5-5.1The [facility] Comment on above:Performed By: #### BMP, CMADM #### [facility] [address] [place] [address] Dr. Bert FerraraProtein [Mass/Vol]7.3 g/dLNormal6.4-8.2The [facility] Comment on above:Performed By: #### BMP, CMADM #### [facility] [address] [place] [address] Dr. Bert FerraraSodium [Moles/Vol]135 mmol/LCritically dso053-053Mrg [facility] For RehabilitationComment on above:Performed By: #### BMP, CMADM #### [facility] [address] [place] [address] Dr. Bert FerraraUrea nitrogen [Mass/Vol]21.0 mg/dLCritically high7.0-18.0The [facility] For RehabilitationComment on above:Performed By: #### BMP, CMADM #### [facility] [address] [place] [address] Dr. Bert Phillips nitrogen/Creatinine [Mass ratio]23.3 mg/mgNormalThe [facility] Hospital For RehabilitationComment on above:Performed By: #### BMP, CMADM #### [facility] [address] [place] [address] Dr. Bert Motley LUC 3-6on 37-66-9394JO [Catalytic activity/Vol]169 U/L Hiurxk78-207Mgc [facility] For RehabilitationComment on above:Performed By: #### CMREP #### [facility] [address] [place] [address] Dr. Bert Duran.MB [Mass/Vol]2.28 ng/mLNormal<=3.60The [facility] Comment on above:Performed By: #### CMREP #### [facility] [address] [place] [address] Dr. Bert FerraraHSTROP4.8 pg/mLNormal4.0-76.1The [facility] Hospital For RehabilitationComment on above:Result Comment: CUT-OFF POINTS HAVE BEEN ESTABLISHED BASED ON THE FOURTH UNIVERSAL DEFINITIONS OF MYOCARDIAL INFARCTION. THE UPPER REFERENCE LIMIT (URL) OF TROPONIN, DEFINED THE 99TH PERCENTILE OF cTnI DISTRIBUTION IN A REFERENCE POPULATION, HAS BEEN CONFIRMED THE DECISION THRESHOLD FOR HI DIAGNOSIS.Performed By: #### CMREP #### [facility] [address] [place] [address] Dr. Bert CALLE ADMITon [id number] [Catalytic activity/Vol]181 U/L Yqtrmt76-114Fiq [facility] For RehabilitationComment on above:Performed By: #### KOBI, CMADM #### [facility] [address] [place] [address] Dr. Bert Duran.MB [Mass/Vol]2.61 ng/mLNormal<=3.60[facility] Comment on above:Performed By: #### KEENAN PEACEDM #### [facility] [address] [place] [address] Dr. Bert MaierTROP4.6 pg/mLNormal4.0-76.1The [facility] Hospital For RehabilitationComment on above:Result Comment: CUT-OFF POINTS HAVE BEEN ESTABLISHED BASED ON THE FOURTH UNIVERSAL DEFINITIONS OF MYOCARDIAL INFARCTION. THE UPPER REFERENCE LIMIT (URL) OF TROPONIN, DEFINED THE 99TH PERCENTILE OF cTnI DISTRIBUTION IN A REFERENCE POPULATION, HAS BEEN CONFIRMED THE DECISION THRESHOLD FOR HI DIAGNOSIS.Performed By: #### KOBI CMADM #### [facility] [address] [place] [address] Dr. Bert ArciniegaO37 ng/oOKjpnix79-07Wyt [facility] For RehabilitationComment on above: Performed By: #### BMP, CMADM #### [facility] [address] [place] [address] Dr. Bert Mendoza AUTO DIFFon 76-12-1204CTQD #0.0 103/ulNormal0.0-0.1The [facility] Hospital For RehabilitationComment on above:Performed By: #### CBC #### [facility] [address] [place] [address] Dr. Bert Hopephils/100 WBC (Bld)0.4 %Normal0.2-2.0[facility] Comment on above:Performed By: #### CBC #### [facility] [address] [place] [address] Dr. Yilan ChangEO #0.2 103/ulNormal0.0-0.7The [facility] Hospital For RehabilitationComment on above: Performed By: #### CBC #### [facility] [address] [place] [address] Dr. Bert Garnicaosinophils/100 WBC (Bld)1.9 %Normal0.9-7.0The [facility] Comment on above:Performed By: #### CBC #### [facility] [address] [place] [address] Dr. Bert Garnicarythrocyte distribution width (RBC) [Ratio]11.9 %Fynlkj24.0-15.0 The [facility] Hospital For RehabilitationComment on above:Performed By: #### CBC #### [facility] [address] [place] [address] Dr. Bert FerraraHematocrit (Bld) [Volume fraction]50.5 %Sqbemp79.0-54.0The [facility] Hospital For RehabilitationComment on above:Performed By: #### CBC #### [facility] [address] [place] [address] Dr. Bert FerraraHemoglobin (Bld) [Mass/Vol]17.0 g/bVNzsuek87.0-18.0The [facility] Hospital For RehabilitationComment on above:Performed By: #### CBC #### [facility] [address] [place] [address] Dr. Bert Castillo #0.02 10e3/ulNormal0.00-0.03The [facility] Hospital For RehabilitationComment on above:Performed By: #### CBC #### [facility] [address] [place] [address] Dr. Bert Castillo %0.2 %Normal0.0-0.5The [facility] Hospital For RehabilitationComment on above: Performed By: #### CBC #### [facility] [address] [place] [address] Dr. Bert AnnH #2.8 103/ulNormal1.2-3.8The [facility] Hospital For RehabilitationComment on above:Performed By: #### CBC #### [facility] [address] [place] [address] Dr. Bert Hernandezmphocytes/100 WBC (Bld)35.0 %Phtxmg74.5-60.0The [facility] Hospital For RehabilitationComment on above:Performed By: #### CBC #### [facility] [address] [place] [address] Dr. Bert Ogden DIFF REQNONormalThe Children'S Hospital For RehabilitationComment on above: Performed By: #### CBC #### [facility] [address] [place] [address] Dr. Bert Humphries (RBC) [Entitic mass]28.4 vqBdbsxk72.9-34.0The [facility] Hospital For RehabilitationComment on above:Performed By: #### CBC #### [facility] [address] [place] [address] Dr. Bert Humphries (RBC) [Mass/Vol]33.7 g/dZFusvft07.9-35.2The [facility] Hospital For RehabilitationComment on above:Performed By: #### CBC #### [facility] [address] [place] [address] Dr. Bert Humphries (RBC) [Entitic vol]84.3 hEGkimza85.0-94.0The [facility] Hospital For RehabilitationComment on above:Performed By: #### CBC #### [facility] [address] [place] [address] Dr. Bert Hess #0.9 103/ulCritically high0.3-0.8The [facility] Comment on above:Performed By: #### CBC #### [facility] [address] [place] [address] Dr. Bert Trinidadocytes/100 WBC (Bld)11.3 %Normal1.7-12.0[facility] Comment on above:Performed By: #### CBC #### [facility] [address] [place] [address] Dr. Bert Mason #4.1 103/ulNormal1.4-6.5The [facility] Hospital For RehabilitationComment on above:Performed By: #### CBC #### [facility] [address] [place], [place] [address] Dr. Bert Silvautrophils/100 WBC (Bld)51.2 %Nfjnpm23.0-75.0The [facility] Hospital For RehabilitationComment on above:Performed By: #### CBC #### [facility] [address] [place] [address] Dr. Bert FerraraPlatelet mean volume (Bld) [Entitic vol]9.3 fLCritically low 9.5-13.5The [facility] Hospital For RehabilitationComment on above:Performed By: #### CBC #### [facility] [address] [place] [address] Dr. Bert FerraraPLT212 103/pvCmbvjz995-690Sgi [facility] For RehabilitationComment on above: Performed By: #### CBC #### [facility] [address] [place] [address] Dr. Bert FerraraRBC5.99 106/ulNormal4.70-6.10The [facility] Hospital For RehabilitationComment on above:Performed By: #### CBC #### [facility] [address] [place] [address] Dr. Bert FerraraWBC8.0 103/ulNormal4.0-11.0The [facility] Hospital For RehabilitationComment on above: Performed By: #### CBC #### [facility] [address] [place] [address] Dr. Bert FerraraPROF CHEM 8 (BAS METB)on 12-98-6061Lhrsj gap [Moles/Vol]11.7 mmol/LNormalThe Children'S Hospital For RehabilitationComment on above:Performed By: #### BMP, CMADM #### [facility] [address] [place] [address] Dr. Bert FerraraCalcium [Mass/Vol]9.1 mg/dLNormal8.5-10.1The [facility] Comment on above:Performed By: #### BMP, CMADM #### [facility] [address] [place] [address] Dr. Bert FerraraChloride [Moles/Vol]101 mmol/UKmlhzs06-298Yib [facility] Comment on above:Performed By: #### BMP, CMADM #### [facility] [address] [address] [address] Bert FerraraCO2 [Moles/Vol]28.9 mmol/WKngdrj57.0-32.0The [facility] Comment on above:Performed By: #### BMP, CMADM #### [facility] [address] [address] [address] Bert FerraraCreatinine [Mass/Vol]1.06 mg/dLNormal0.70-1.30The [facility] Hospital For RehabilitationComment on above:Performed By: #### BMP, CMADM #### [facility] [address] [address] [address] Bert GarnicaGFR-AF ALGERIAN>60Normal>=60The [facility]S Hospital For RehabilitationComment on above:Performed By: #### BMP, CMADM #### [facility] [address] [address] [address] Bert GarnicaGFR-NON AF ALGERIAN>60Normal>=60The [facility] Hospital For RehabilitationComment on above:Performed By: #### BMP, CMADM #### [facility] [address] [address] [address] Bert FerraraGlucose [Mass/Vol]102 mg/mPTybvuh86-772Wgv [facility] Comment on above:Performed By: #### BMP, CMADM #### [facility] [address] [address] [address] Bert FerraraPotassium [Moles/Vol]3.6 mmol/LNormal3.5-5.1The [facility] Comment on above:Performed By: #### BMP, CMADM #### [facility] [address] [address] [address] Bert FerraraSodium [Moles/Vol]138 mmol/QHcnpfq015-797Pup [facility] Comment on above:Performed By: #### BMP, CMADM #### [facility] [address] [address] [address] Bert FerraraUrea nitrogen [Mass/Vol]28.0 mg/dLCritically high7.0-18.0The [facility] Hospital For RehabilitationComment on above:Performed By: #### KOBI CMADM #### [facility] [address] [address] [address] Bert FerraraUrea nitrogen/Creatinine [Mass ratio]26.4 mg/mgNoMercy Health St. Elizabeth Boardman HospitalComment on above:Performed By: #### KOBI, CMADM #### [facility] [address] [address] [address] Bert FerraraXR CHEST 2 Von 24-59-4074PC CHEST 2 VEXAM: XR CHEST 2 V HISTORY: Palpitations COMPARISON: Chest x-ray 11/02/2021 TECHNIQUE: 2 view chest x-ray frontal and lateral FINDINGS: No lobar consolidation, large pleural effusions, pneumothorax, or acute bony abnormality. Cardiac size unremarkable. IMPRESSION: No radiographic evidence for acute chest abnormality. Electronically authenticated by: ANÍBAL CHAVEZ Date: 2022-01-21 05:48NoMer[facility] Health St[facility] Elizabeth Boardman HospitalXR CHEST 2 Von 65-91-5359AR CHEST 2 VXR CHEST 2 V CLINICAL: Hemoptysis COMPARISON: No prior studies are available. TECHNIQUE: PA and lateral chest radiographs were obtained. FINDINGS: Heart size and pulmonary vasculature are within normal limits. No airspace infiltrate, consolidation, effusion or pneumothorax. Osseous structures appear intact. IMPRESSION: No acute cardiac or pulmonary findings. Electronically authenticated by: FARIDA TREVIÑO Date: 2021-11-02 10:13NoMer[facility] Health [facility] Elizabeth Boardman HospitalCULTURE THROATon 77-67-2913NIRRPVE THROATCulture Observations: NORMAL RESPIRATORY JASMYNE.NormalThe Children'S Hospital For RehabilitationComdetroit receiving hospital on above:Performed By: #### THRTCX SSCRN #### [facility] [address] [address] [address] Bert FerraraSTREPT SCREENon 19-87-2633XKYQR SCREEN ANegativeNormalNEGATIVEThe [facility] on above:Performed By: #### THRTCGretta, SSCRN #### [facility] [address] [address] [address] Bert Arreola Quick Testingon 08-76-7160MpirfxJhwhphtuWwnvn [employer] Other Quick Fluon 86-34-5967QOEOZ Ab CF (S) [Titer]Negative [facility] [employer] Other FLUBV Ab CF (S) [Titer]NegativeKadlec [facility] [employer] Other Vital Signs Date TimeVital SignValuePerforming IjhanllveIprxgbew16-83-1018 10:56-0400Body xlcqoi450.72 cmHolden Lee Jr, MD Work Phone: 1)[address]11-01-2025 10:56-0400 Body mass index (BMI) [Ratio]32.8 kg/m2Holden Lee Jr, MD Work Phone: 1()[address] [place], [place] 6845311-01-2025 10:56-0400 Body frqnreqmvax32.8 [degF]Holden Lee Jr, MD Work Phone: 1()[address] [place], [place] 6845311-01-2025 10:56-0400 Body aodbrq35.14 kgHolden Lee Jr, MD Work Phone: 1()[address] [place], [place] 6845311-01-2025 10:56-0400 Diastolic blood venyxmng85 mm[Hg]Holden Lee Jr, MD Work Phone: 1()[address] [place], [place] 6845311-01-2025 10:56-0400 Heart lrdw569 /minHolden Lee Jr, MD Work Phone: 1()[address] [place], [place] 6845311-01-2025 10:56-0400 Respiratory rate18 /Jett Lee Jr, MD Work Phone: 1(216)[address] [place], [place] 6845311-01-2025 10:56-0400 SaO2% (BldA) [Mass fraction]98 %Holden Lee Jr, MD Work Phone: [phone])[address] [place], [place] 6845311-01-2025 10:56-0400 Systolic blood mm[Hg]Holden Lee Jr, MD Work Phone: 1216)[address] [place], [place] 6845309-12-2025 09:32-0400 Diastolic blood mm[Hg]Holden Lee Jr, MD Work Phone: 1(216)[address]09-12-2025 09:32-0400 Heart rate90 /minHolden Lee Jr, MD Work Phone: 1(216)[address] [place], [place] 6845309-12-2025 09:32-0400 Respiratory rate16 /minHolden Lee Jr, MD Work Phone: 1(216)[address] [place], [place] 6845309-12-2025 09:32-0400 SaO2% (BldA) [Mass fraction]98 %Holden Lee Jr, MD Work Phone: 1(216)[address] [place], [place] 6845309-12-2025 09:32-0400 Systolic blood ykcrqmrh644 mm[Hg]Holden Lee Jr, MD Work Phone: 1(216)[address] [place], [place] 6845309-12-2025 07:43-0400 Body xsvair480.72 cmHolden Lee Jr, MD Work Phone: 1(216)[address] [place], [place] 6845309-12-2025 07:43-0400 Body ocwcdw84.25 kgHolden Lee Jr, MD Work Phone: 1(216)[address] [place], [place] 6845308-22-2025 09:33-0400 Body yojpue155.7 Janae Sexton MD Work Phone: 1(721)495-[address] [place], [place] [address]Fgkjigjqls78-30-1676 09:33-0400Body mass index (BMI) [Ratio]32.33 kg/g5PwaffCarlo Sexton MD Work Phone: 1(759)212-[address] [place], [place] [address]Gxgfymlnql30-35-1877 09:33-0400Body .44 Bryan Sexton MD Work Phone: [facility] FultonEurcfiohhh63-31-9382 09:33-0400Heart qsxa950 /min Carlo Sexton MD Work Phone: 1(631)216-[address] [place], [place] [address]Vmvwvnupea11-30-4936 09:33-0400Respiratory rate16 /minCarlo Sexton MD Work Phone: [facility] FultonWbzsvkgmiv26-39-6570 09:33-4503FhP5% (BldA) [Mass fraction]97 %Carlo Sexton MD Work Phone: [facility] FultonBatfepszdj08-06-0232 09:50-0400Body neztap373.72 cmHolden Lee Jr, MD Work Phone: [facility]08-05-2025 09:50-0400 Body mass index (BMI) [Ratio]31.9 kg/m2Holden Lee Jr, MD Work Phone: 1(128)566-[address] [place], [place] [address]08-05-2025 09:50-0400 Body ocgkjx20.25 kgHolden Lee Jr, MD Work Phone: 1(832)[address]11-18-2023 11:55-0500 Body .72 Sina De León Other [employer] Other 11-18-2023 11:55-0500Body mass index (BMI) [Ratio] 31.74 kg/c6DhucfMaria T De León Other [facility] [employer] Other 11-18-2023 11:55-0500Body qghugtoirmd95.7 [degF]Maria T De León Other [facility] [employer] Other 11-18-2023 11:55-0500Body eackkw60.71 kgMaria T De León Other no[employer] Other 11-18-2023 11:55-0500Respiratory rate18 /minMaria T De León Other [employer] Other 11-18-2023 11:55-4098TrM4% (BldA) [Mass fraction]99 % Maria T De León Other [facility] [employer] Other 09-11-2023 17:10-0400Body .72 Tomas Alonzo Other [employer] [employer] Other 09-11-2023 17:10-0400Body mass index (BMI) [Ratio] 31.17 kg/p6VvdidkChristi Alonzo Other [employer] Other 09-11-2023 17:10-0400Body wfjitjdfrhn94.9 [degF]Christi Alonzo Other [employer] Other 09-11-2023 17:10-0400Body .99 kgChristi Alonzo Other [employer] Other 09-11-2023 17:10-0400Diastolic blood aizqejtt01 mm[Hg] Christi Blackmond Other [employer] Other 09-11-2023 17:10-0400Respiratory rate18 /minChristi Alonzo Other [employer] Other 09-11-2023 17:10-6808YfF6% (BldA) [Mass fraction]97 % Christi Blackmond Other [employer] Other 09-11-2023 17:10-0400Systolic blood mm[Hg] Christi Blackmond Other [employer] Other 01-24-2023 11:15-0500Body nvmmuh685.72 cmSama Nelson Other [facility] [employer] Other 01-24-2023 11:15-0500Body mass index (BMI) [Ratio] 30.71 kg/c2WkjtbeeikDariana Nelson Other [facility] [employer] Other 01-24-2023 11:15-0500Body ssvgszfyiiv58.6 [degF] Dariana Donnellyault Other [employer] Other 01-24-2023 11:15-0500Body owktkb34.63 kgStepgustavo Donnellyault Other [employer] Other 01-24-2023 11:15-0500Respiratory rate18 /minStepgustavo Donnellyault Other [employer] Other 01-24-2023 11:15-1494MwF6% (BldA) [Mass fraction]98 % Dariana Donnellyault Other [employer] Other 11-30-2022 16:25-0500Body tyhvae278.72 cmPamela Cheri Other [employer] Other 11-30-2022 16:25-0500Body mass index (BMI) [Ratio] 30.86 kg/u0Nnyyci Dymond Other [employer] Other 11-30-2022 16:25-0500Body wibncsbkabl80.1 [degF]Christi Cheri Other [employer] Other 11-30-2022 16:25-0500Body skhiul45.08 kgPamelirene BlackCheri Other [employer] Other 11-30-2022 16:25-0500Respiratory rate16 /minParyan Blackmond Other [employer] Other 11-30-2022 16:25-7166VkA0% (BldA) [Mass fraction]97 % Christi Blackmond Other [employer] Other 09-08-2022 16:45-0400Body jjbirr673.72 cmPjannette Alonzo Other [employer] Other 09-08-2022 16:45-0400Body mass index (BMI) [Ratio] 30.41 kg/k5Ymetqk Cheri Other [employer] Other 09-08-2022 16:45-0400Body djatdsjfgfj10.1 [degF]Christi Blackmond Other [employer] Other 09-08-2022 16:45-0400Body hhwfug02.72 kgChristi Alonzo Other [employer] Other 09-08-2022 16:45-0400Diastolic blood szwmjewj68 mm[Hg] Christi Blackmond Other [employer] Other 09-08-2022 16:45-0400Respiratory rate16 /minChristi Blackmond Other [employer] Other 09-08-2022 16:45-5075MdJ7% (BldA) [Mass fraction]98 % Christi Blackmond Other [employer] Other 09-08-2022 16:45-0400Systolic blood mjcrfxiq512 mm[Hg] Christi Cheri Other [employer] Other 06-29-2022 16:30-0400Body .72 cmPjannette Alonzo Other [facility] [employer] Other 06-29-2022 16:30-0400Body mass index (BMI) [Ratio] 28.89 kg/u5BnptfnChristi Alonzo Other [employer] Other 06-29-2022 16:30-0400Body iywhvvbihok26 [degF]Christi Alonzo Other [employer] Other 06-29-2022 16:30-0400Body ztarae23.18 kgChristi Alonzo Other [facility] Other 06-29-2022 16:30-0400Diastolic blood xorbpssr09 mm[Hg] Christi Blackmond Other [employer] Other 06-29-2022 16:30-0400Respiratory rate16 /minChristi Alnozo Other [facility] Other 06-29-2022 16:30-3000VpK1% (BldA) [Mass fraction]98 % Christi Alonzo Other [employer] Other 06-29-2022 16:30-0400Systolic blood iyftctdo984 mm[Hg] Christi Blackmond Other [facility] Other 12-23-2021 16:00-0500Body oqvabk811.72 cmSama Nelson Other [facility] [employer] Other 12-23-2021 16:00-0500Body mass index (BMI) [Ratio] 28.89 kg/a6DlsqbnlcdDariana Nelson Other 228.676.5649nortFastnote Other 12-23-2021 16:00-0500Body wevihclmxay64.7 [degF] Dariana Nelson Other [facility] Other 12-23-2021 16:00-0500Body .18 kgStmiguel angel Nelson Other [employer] Other 12-23-2021 16:00-0500Respiratory rate18 /minSama Nelson Other [facility] Other 12-23-2021 16:00-4282GkQ7% (BldA) [Mass fraction]95 % Dariana Nelson Other [employer] [employer] Other Encounters Encounter DateEncounter TypeCare ProviderFacilityStart: 05-06-2025 End: 83-83-9808uajggxroriJdjw Sanitato Jr MD Work Phone: -[facility] ClydeStart: 05-06-2025 End: 72-92-6708Csyequc encounter procedureAlly Lerma MARRIAGE AND FAMILY SOCIAL WORKER-[facility] Work Phone: Start: 04-28-2025 End: 46-45-7858Qmxzbaxle encounterCarlo Sexton MD Work Phone: noMS Maryan EndocrinologyComment on above:Advice OnlyStart: 04-06-2025 End: 97-31-8318Ptcizuauv encounterCarlo Sexton MD Work Phone: noms [facility] EndocrinologyComment on above:Advice OnlyStart: 03-27-2025 End: 22-58-7654Dzlrav Bryan Sexton MD Work Phone: noms [facility] EndocrinologyComment on above:Secondary male hypogonadism (Primary Dx)Start: 03-24-2025 End: 52-17-1461Zndxjngcb Vincent Sexton MD Work Phone: NOMS [facility] EndocrinologyComment on above:Med Refill Start: 03-22-2025 End: 98-19-4034Tscoxfuzq Vincent Sexton MD Work Phone: [facility]ocrinologyComment on above:Med Refill Start: 03-21-2025 End: 89-94-3378Iucvvd Bryan Sexton MD Work Phone: N[facility] EndocrinologyComment on above:Secondary male hypogonadismStart: 03-20-2025 End: 22-61-8459Xqmvpoxzb Vincent Sexton MD Work Phone: [facility] EndocrinologyComment on above:Med Refill Secondary male hypogonadismStart: 03-17-2025 End: 06-18-8581pfskrwjkxkNvik RameyFacility:[facility] Start: 39-27-1377Gbp-patient / Non-visitFern James MD-[facility] Work Phone: Start: 03-15-2025 End: 82-89-1059Qisptn Bryan Sexton MD Work Phone: N[facility] EndocrinologyComment on above:Secondary male hypogonadism (Primary Dx)Med RefillStart: 02-28-2025 End: 90-59-4178Zwoubq Bryan Sexton MD Work Phone: [facility]ocrinologyComment on above:Secondary male hypogonadism (Primary Dx)Start: 02-27-2025 End: 31-49-7153Oznlyryhx Vincent Sexton MD Work Phone: [facility] EndocrinologyComment on above:Medication ProblemStart: 02-24-2025 End: 12-29-2105Fuqqnc flowsRichie Sexton MD Work Phone: [facility] EndocrinologyStart: 02-24-2025 End: 82-46-4731Cwcoxk flowsheetCarlo Sexton MD Work Phone: noms [facility] EndocrinologyStart: 02-24-2025 End: 72-22-9405Tlipxjjde encounterCarlo Sexton MD Work Phone: noms Maryan EndocrinologyComment on above:Med Refill Start: 02-24-2025 End: 31-24-3251Smadup outpatient new 45 minutesCarlo Sexton MD Work Phone: noms Maryan EndocrinologyComment on above:Secondary male hypogonadism (Primary Dx); Libido, decreasedStart: 02-24-2025 End: 25-14-2627uehekwlmhxZJPUXJesika Parada AvailableStart: 02-20-2025 End: 32-49-4388Jukthgfviwck consultation with Gaston Braxton APRN.CNP Work Phone: [facility] Hospitaltart: 02-20-2025 End: 43-07-9818tlgwuhdlitNrjcqppxRachelle Braxton APRN.CNP Work Phone: [facility] HospitalCComment on above:Low testosterone (Primary Dx); ROSEMARY (obstructive sleep apnea); PolycythemiaStart: 02-07-2025 End: 52-93-8275Tnjenbj encounter Justyna Galindo [facility] Work Phone: Start: 01-30-2025 End: 65-82-0927hynogmdequWMJSSSJAdriana Eubanks [facility] HospitalStart: 01-30-2025 End: 03-57-3331Oozaffoogg hospital visit by Jag Longoria MD Work Phone: [facility] RadiologyComment on above: Esophageal stenosis; Oropharyngeal dysphagiaStart: 01-09-2025 End: 79-88-7642fyxjaznbgjOPQHTLXAdriana Eubanks [facility] HospitalStart: 01-09-2025 End: 62-32-5988Dkvnrefjih hospital visit by Priti Aguilar DO Work Phone: [facility] LABComment on above:Oropharyngeal dysphagia; Esophageal stenosisStart: 06-23-2023 End: 70-34-4010lhxftwhkihEwsizudy McCormack Other [facility] [employer] Other Start: 88-28-2867Uyqjralmm encounterMike Rogers [facility] Referral CoordinatorStart: 06-03-2023 End: 21-57-2639gjtjhgpgeqPGDNOhioHealth Marion General Hospitaltart: 05-23-2023 End: 14-22-0097sdbylcdqxrKvhfs Keller Other [employer] [employer] Other Start: 05-70-2162Wbdedm outpatient visit 25 minutes Maria T De LeónFPElena Urgent Care ClydeStart: 04-08-2023 End: 38-40-4692lfvdabvsovWTMEOhioHealth Marion General Hospitaltart: 03-16-2023 End: 27-22-6951uhnsekszctPmdtwb Dymond Other [facility] [employer] Other Start: 07-87-8570Usvbmy outpatient visit 15 minutes Christi AlonzoFPG Urgent Care ClydeStart: 07-29-2022 End: 69-48-6485geomngjqlfUgrtuacqz Breault Other [facility] [employer] Other Start: 06-14-1090Kfzpyj outpatient visit 15 minutes Dariana NelsonFPG [facility] Care ClydeStart: 06-07-2022 End: 38-90-4941kiieezjiikCD AYE Virgencility:Z3Dbjzi: 06-04-2022 End: 73-39-4907hfokbdnqsnUbonbp Dymond Other [facility] [employer] Other Start: 27-36-0473Nmdzyi outpatient visit 15 minutes Christijose AlonzoFPG Urgent Care ClydeStart: 76-53-7156xtitbelwvkLO ABELARDO JUSTENLOW[facility] GENERAL HOSPITALPedro Facility:S1Vqrnm: 03-13-2022 End: 77-28-2847pjdigqbpotLkusoh Dymond Other [facility] [employer] Other Start: 83-32-2207Cbmtsa outpatient visit 15 minutes Christi DymondFPG Urgent Care ClydeStart: 01-21-2022 End: 81-80-6263rdijpsansmRS AYE HAYFacility:V1Zwbxj: 01-01-2022 End: 93-63-2140aejstexhrzOrmlun Cheri Other [facility] [employer] Other Start: 91-29-9802Xftaqo outpatient visit 15 minutes Christijose AlonzoFPG [facility]gent Care ClydeStart: 11-02-2021 End: 33-97-0732ggppabhralYSHZWO RODRIGUEZFacility:E1Bilmj: 09-02-2021 End: 85-52-3133pcykooxddeCA AYE HAYFacility:O5Jcwns: 07-05-2021 End: 65-05-9677shjibofgccUT GUSTAVO JAIMEECKFacility:R9Qywak: 06-29-2021 End: 38-89-3884rntujyypyqRKNMDX BUCKFacility:L6Vnpmh: 06-27-2021 End: 61-42-6163tevkcrswviRyogwspde Breault Other [place] [employer] Other Start: 78-50-5038Qtkapt outpatient visit 15 minutes Dariana Haq [facility] Procedures DateProcedureProcedure DetailPerforming ClinicianStart: 82-04-5645Jvjqciizfo exam esophagus single contrast studyDuke Longoria MD Work Phone: Start: 03-52-0640Wfywtziusulzg metabolic panelDuke Longoria MD Work Phone: Plan of Treatment DateCare ActivityDetailAuthorStart: 54-71-3666XVdG/Tdap/Td vaccine (2 - Td or Tdap)DTaP/Tdap/Td vaccine (2 - Td or Tdap)[facility] CampusStart: 73-32-0010Clcgm microalbumin profileDTaP,Tdap,Td Vaccine (4 - Td or Tdap) [facility] End: 17-78-8250Gnfrwyh encounter mkorbtckf50/06/2025 9:40 AM EST Office Visit [facility] [address] [place] [address] Carlo Sexton MD [address] [place] [address] [facility] EndocrinologyStart: 03-17-2025 End: 17-68-4005ZffngwmreThe [facility] Hospitaltart: 06-61-4064Yuqgawxjf vaccinationInfluenza Vaccine (#1)[facility] 02-24-2025 End: 09-26-7091Rlmhlgpssc [Mass/volume] in BloodHemoglobin Lab Routine Secondary male hypogonadism Expected: 02/24/2025 (Approximate), Expires: 02/24/2026NOP[facility] HealthcareComment on above:Expected: 02/24/2025 (Approximate), Expires: 02/24/2026Start: 02-24-2025 End: 60-17-6501Bpfsgvqv specific Ag [Mass/volume] in Serum or PlasmaPSA Lab Routine Secondary male hypogonadism Expected: 02/24/2025 (Approximate), Expires: 02/24/2026[facility] Work Phone: Comment on above:Expected: 02/24/2025 (Approximate), Expires: 02/24/2026Start: 02-24-2025 End: 42-97-4243Ilmordttcbzl [Mass/volume] in Serum or PlasmaTestosterone Lab Routine Secondary male hypogonadism Expected: 02/24/2025 (Approximate), Expires: 02/24/2026NOPA HealthcareComment on above:Expected: 02/24/2025 (Approximate), Expires: 02/24/2026Start: 02-24-2025 End: 29-40-6536Sgcsvrs encounter bxkwsmxet77/22/2025 9:30 AM EDT Office Visit [facility] [address] [place] [id number] Carlo Sexton MD [address] [place] [id number] ArrivedNOMS [place] EndocrinologyComment on above:ArrivedStart: 02-20-2025 End: 45-62-2946JUPGKQWPVSPN TESTOSTERONE, ADULT MALEBIOAVAILABLE TESTOSTERONE, ADULT MALE Lab Routine Low testosterone Expected: 02/20/2025, Expires: [facility] Work Phone: Comment on above:Expected: 02/20/2025, Expires: 02/20/2026Start: 02-20-2025 End: 36-83-0337Otpekaaln (E2) [Mass/volume] in Serum or PlasmaESTRADIOL-17B BLD Lab Routine Low testosterone Expected: 02/20/2025, Expires: 02/20/2026leveland ClinicComment on above:Expected: 02/20/2025, Expires: 02/20/2026Start: 02-20-2025 End: 44-76-0731Iianmswdgx [Volume Fraction] of BloodHEMATOCRIT Lab Routine Low testosterone Expected: 02/20/2025, Expires: 5C[facility] ClinicComment on above:Expected: 02/20/2025, Expires: 05/22/2025Start: 02-20-2025 End: 89-71-1168Uecgovck [Units/volume] in Serum or PlasmaLUTEINIZING HORMONE Lab Routine Low testosterone Expected: 02/20/2025, Expires: 02/20/2026leveland ClinicComment on above:Expected: 02/20/2025, Expires: 02/20/2026Start: 02-20-2025 End: 21-59-9621Ipjktjxdr [Mass/volume] in Serum or PlasmaPROLACTIN Lab Routine Low testosterone Expected: 02/20/2025, Expires: 02/20/2026[facility] Comment on above:Expected: 02/20/2025, Expires: 02/20/2026Start: 02-17-2025 Subsequent hospital visit by /15/2025 Hospital Encounter [facility] [address] [place] [address] Duke Longoria MD [address] [place] [address] [facility] ORStart: 54-70-0574Zqdtskhcg vaccinationFlu vaccine (#1)[facility]: 38-95-1928KFAXX-19 Vaccine ( season)COVID-19 Vaccine ( season)[facility]: 53-58-6401Ogbcq panelLipid ScreeningChildren's Hospital for Rehabilitationtart: 10-85-9085FZL Vaccine (1 - 3-dose SCDM series) HPV Vaccine (1 - 3-dose SCDM series)[facility]: 27-48-2035Ajyaanwqt B vaccine (1 of 3 - 19+ 3-dose series)Hepatitis B vaccine (1 of 3 - 19+ 3-dose series)[facility]: 91-20-0473Dzmqolg ScreeningAnxiety ScreeningChildren's Hospital for Rehabilitationtart: 55-39-7188Htkdcebgps ScreeningDepression ScreeningChildren's Hospital for Rehabilitationtart: 25-81-8283Xaohbaogw C screeningBon [facility]: 56-80-4960RNC screeningHIV ScreeningChildren's Hospital for Rehabilitationtart: 95-48-5152QBV screeningHIV screenBon [facility]: 2001 Varicella vaccine (1 of 2 - 13+ 2-dose series)Varicella vaccine (1 of 2 - 13+ 2- dose series)[facility]: 96-14-3281Bgsmdmbero ScreenDepression ScreenBon [facility] Hospitalophagogastroduodenoscopy transoral diagnostic ESOPHAGOGASTRODUODENOSCOPY [facility] HealthPatient EducationEsophageal Dilation Know your [facility] Work Phone: Immunizations Immunization DateImmunizationNotesCare NtsmudtqSedmiqov37-85-4863vqyzvwpdp virus vaccine, unspecified formulationReema Braxton APRN.LIVESTOCK COUNTER Work Phone: [facility] Payers DatePayer CategoryPayerPolicy [id number] BCBS MEDICA[place] OF [place] [id number] Health Insurance [facility] [id number] of Defense ( and others)[id number] [id number] [id number] [id number] 2.16.840.1.687918.3.57[id number] 2.16.840.1.901441.3.57[id number] 2.16.840.1.193478.3.57[id number] 2.16.840.1.959625.3.57[id number] 2.16.840.1.758849.3.57[id number] 2.16.840.1.309024.3.57[id number] 2.16.840.1.606121.3.57[id number] 2.16.840.1.905010.3.57[id number] 2.16.840.1.966982.3.57[id number] 2.16.840.1.326611.3.579.2.264988-78-5408Iqxc-[id number] 2.16[id number] 2.[id number] 2.16840.1.464571.3.579.2.531 Social History DateTypeDetailFacilityStart: 01-09-2025 End: 78-85-0294Sbs Assigned At [facility] [employer] Other Start: 01-09-2025 End: 12-93-8729Uiuqesy smoking status NHISNever smoked tobaccoCentra [facility] Work Phone: Start: 68-66-0096Rwxbeqe use and exposureFormer smokeless tobacco userCarilion New River Valley Medical CenterSouqalmal End: 00-82-9903Dptwljj of tobacco useUser of smokeless tobaccoCarilion New River Valley Medical CenterNATION Technologies [facility] HospitalStart: 77-92-7937Jekfogeon beverage intakeEx-drinker (finding)[facility] [employer] [facility] HospitalStart: 01-09-2025 End: 14-30-5233Htfyasb of Social functionBon [facility] HospitalProximiant [facility] HospitalStart: 98-84-2571Hsh assigned at birthMaleBon Page HospitalNATION Technologies [facility] HospitalStart: 89-07-9577Jgp Male (finding)[facility] CenterNATION Technologies [facility] HospitalTobacco smoking status NHISTobacco smoking consumption unknownUNIVERSITY OF UTAH [facility]OSPITAL HealthcareStart: 03-30-2024 End: 80-21-9117Ijoeuwuz Score (1-100), lower number is lower fmal30Fvlqfscbm[address] [place], [place] [address]tart: 70-99-6946Ihz assigned at birthNot on fileChildren's Hospital for Rehabilitationtart: 58-18-6665Xdgilwq smoking status NHISEx-smokerNOMS HealthcareHistory of tobacco useCurrent smokerNOMS HealthcareHistory of tobacco useCigarette SmokerNOMS HealthcareStart: 10-48-1197Eckwyyl use and exposureSmokeless tobacco non-user [facility]ultonStart: 53-43-2149Qdutqcgvu beverage intakeLifetime non-drinker (finding)[facility] Clinical Notes 06-27-2021 to 04-28-2025 Note Date & TqjfMbdlSwueapgy37-74-3544 Telephone encounter Note* Telephone Encounter - Sander Quesada - 04/28/2025 9:13 AM EDT Pt having a lot of anxiety since starting .5 each week. Would like to lower dosage slightly to try to combat the anxiety. Is this advisable? Thank you! [facility]- FultonXtbebagqtq43-41-6427 Miscellaneous Notes* Telephone Encounter - Sander Quesada - 04/28/2025 9:13 AM EDT Pt having a lot of anxiety since starting .5 each week. Would like to lower dosage slightly to try to combat the anxiety. Is this advisable? Thank you! documented in this [facility]10-02-2025 Telephone encounter Note* Telephone Encounter - Sandre Quesada - 04/06/2025 8:50 AM EDT Pt is having emotional response to injections and is wondering if the waning of the shot is causinghim to feel blah and emotional. He's wondering if there is a way to take shots every week, Please advise. [facility]- FultonYntkjwwcqo48-98-2012 Miscellaneous Notes* Telephone Encounter - Sander Quesada - 04/06/2025 8:50 AM EDT Pt is having emotional response to injections and is wondering if the waning of the shot is causinghim to feel blah and emotional. He's wondering if there is a way to take shots every week, Please advise. documented in this [facility]09-19-2025 Telephone encounter Note* Telephone Encounter - Sander Quesada - 03/24/2025 8:16 AM EDT MD SlideJart supply xyosted, please send testosterone cypionate to [facility] with OVERNIGHT in thecomment box please. Thank you! [facility] FultonDidhzkpgva03-94-1143 Miscellaneous Notes* Telephone Encounter - Sander Quesada - 03/24/2025 8:16 AM EDT Dada Roomt supply xyosted, please send testosterone cypionate to [facility] with OVERNIGHT in thecomment box please. Thank you! documented in this [facility]09-17-2025 Telephone encounter Note* Telephone Encounter - Sander Quesada - 03/22/2025 1:21 PM EDT please fax xyosted to number listed, andrey called [facility] and they gave him this completely different number than yesterday. [facility]! In notes put overnight so they overnight it to him instead of taking weeks. Thank you!! [place] [id number] Miscellaneous Notes* Telephone Encounter - Sander Dipak - 03/22/2025 1:21 PM EDT please fax xyosted to number listed, andrey called [facility] and they gave him this completely different number than yesterday. [facility]! In notes put overnight so they overnight it to him instead of taking weeks. Thank you!! documented in this [facility]09-15-2025 Telephone encounter Note* Telephone Encounter - Sander Dipak - 03/20/2025 11:48 AM EDT Please send xyosted to [facility] does not take his insurance. Thank you! [address] StreetRrjeduaykc05-50-9981 Miscellaneous Notes* Telephone Encounter - Sander Dipak - 03/20/2025 11:48 AM EDT Please send xyosted to [facility] does not take his insurance. Thank you! documented in this [facility]09-10-2025 Telephone encounter Note* Telephone Encounter - Sander Quesada - 03/15/2025 9:59 AM EDT Patient doesn't like testosterone gel, would like to change to xyosted - to jae please and thank you! [facility] FultonKhfhkedwdj43-45-2017 Miscellaneous Notes* Telephone Encounter - Sander Quesada - 03/15/2025 9:59 AM EDT Patient doesn't like testosterone gel, would like to change to xyosted - to jae please and thank you! documented in this encounterFulton Medical Center- FultonRuhqtkrlgk39-72-6422 Telephone encounter Note* Telephone Encounter - Karina Art LPN - 02/28/2025 10:00 AM EDT PHARMACY CALLED WHAT YOU CHOSE IS NOT A COMMON FORMULA AND IS PACKETS NOT PUMP. BUT THERE IS A DIFFERENT FORMULA THAT IS MORE COMMON THAT IS PUMP FORM. THEY NEED CLARIFICATION ON WHICH PRODUCT AND WHICH DIRECTIONS. PLEASE ADVISE THANKS [facility] FultonAfepycrzjk99-98-9498 Miscellaneous Notes* Telephone Encounter - Karina Art LPN - 02/28/2025 10:00 AM EDT PHARMACY CALLED WHAT YOU CHOSE IS NOT A COMMON FORMULA AND IS PACKETS NOT PUMP. BUT THERE IS A DIFFERENT FORMULA THAT IS MORE COMMON THAT IS PUMP FORM. THEY NEED CLARIFICATION ON WHICH PRODUCT AND WHICH DIRECTIONS. PLEASE ADVISE THANKS * Telephone Encounter - Sander Quesada - 02/27/2025 1:53 PM EDT Pt called stating [facility] with the gel rx. Can you call [facility] and see what they need corrected please? Thank you! Andrey called back and said that the Rx is different from the directions on the bottle. documented in this encounterFulton Medical Center- FultonRoxlbtholu31-85-7037 Telephone encounter Note* Telephone Encounter - Sander Quesada - 02/27/2025 1:53 PM EDT Pt called stating [facility] says [facility]'s something wrong with the gel rx. Can you call [facility] and see what they need corrected please? Thank you! Andrey called back and said that the Rx is different from the directions on the bottle. [facility] FultonGzhqpavpfa13-98-7832 Telephone encounter Note* Telephone Encounter - Sander Quesada - 02/24/2025 10:39 AM EDT Test gel not available at drug [facility] please resend to [facility] please and thank you! [place] [id number] Miscellaneous Notes* Telephone Encounter - Sander Quesada - 02/24/2025 10:39 AM EDT Test gel not available at drug [facility] please resend to [facility] please and thank you! documented in this encounterFulton Medical Center- FultonFcqdqnkbum96-72-8514 History of Present illness Narrative* Carlo Sexton MD - 02/24/2025 9:30 AM EDT Arjun Ochoa is a 34 y.o. male Zach Aguilar MD presents with chief complaint of Hypogonadismand Testicular Hypofunction HPI: 02/2025 History of Present Illness The patient is a new patient referred by Zach Aguilar from the MD for low testosterone levels, whichwere 108 in February 2024 and 194 earlier this year. He has never been on testosterone treatment. He has fathered 2 children and reports no fertility issues. There is no history of steroid or opioid use. He is currently on a liquid diet and makes an effort to stay hydrated. He has some dietary concerns. 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 SOCIAL HISTORY He does not smoke. Results Laboratory Studies Testosterone level was 108 in February 2024 and 194 early this year. Hemoglobin is on the high side. SUBJECTIVE: MEDICATIONS: Current Outpatient Medications Medication Instructions escitalopram (Lexapro) 5 MG/5ML solution Take by mouth ALLERGIES: No Known Allergies No past medical history on file. No past surgical history on file. REVIEW OF SYMPTOMS: 14 POINT OF SYSTEM REVIEWED AND NEGATIVE Visit Vitals Pulse 100 Resp 16 Ht 5' 8 Wt 212 lb 9.6 oz SpO2 97% BMI 32.33 kg/m Smoking Status Former BSA 2.15 m Physical Exam Constitutional: Appearance: Normal appearance. He is normal weight. HENT: Head: Normocephalic and atraumatic. Right Ear: External ear normal. Nose: Nose normal. Mouth/Throat: Pharynx: Oropharynx is clear. Eyes: Extraocular Movements: Extraocular movements intact. Pupils: Pupils are equal, round, and reactive to light. Cardiovascular: Rate and Rhythm: Normal rate and regular rhythm. Pulmonary: Effort: Pulmonary effort is normal. Abdominal: General: Abdomen is flat. Palpations: Abdomen is soft. Musculoskeletal: General: Normal range of motion. Skin: General: Skin is warm. Neurological: General: No focal deficit present. Mental Status: He is alert. Psychiatric: Mood and Affect: Mood normal. Behavior: Behavior normal. ASSESSMENT AND PLAN: Assessment/Plan Diagnoses and all orders for this visit: Secondary male hypogonadism - Testosterone 40.5 MG/2.5GM (1.62%) gel; Place 2 Pump on the skin Daily - PSA; Future - Hemoglobin; Future - Testosterone; Future Libido, decreased Assessment & Plan 1. Secondary hypogonadism: - Low testosterone levels noted (108 in 02/2024 and 194 in early 2024). No history of testosterone treatment, fertility issues, steroid, or opioid use. Elevated hemoglobin levels. - Testosterone gel 1.62%, 2 pumps daily. Advised to consider blood donation while on testosterone treatment due to elevated hemoglobin levels. 2. Posttraumatic stress disorder: - Following up with MD for management of PTSD. Follow-up: Laboratory tests to be conducted before the next visit. Follow-up: No follow-ups on file. documented in this encounterFulton Medical Center- FultonLndzngmuon09-41-2047 NoteHNO ID: [id number] Author: REEMA BRAXTON APRN.LIVESTOCK COUNTER Service: ? Author Type: Nurse Practitioner Type: Progress Notes Filed: 02/28/2025 17:46 Note Text: This is a Virtual Visit. It required ghwqofj-gg-ovwemdap interaction with medical decision making as documented below. I have communicated my name and active licensure. The patient's identity and physical location were verified at the time of this visit. Either the patient or their legal sales representative livestock has been informed of the risks and benefits of -- and alternatives to -- treatment through a remote evaluation and consents to proceed with the evaluation remotely. Arjun Ochoa Referred by: SELF 02/20/2025 CC: low testosterone HPI: 34 year old, male presents for evaluation of low testosterone. Never previously seen at [facility] urology. Pt gets his care at the MD and I am unable to view the records. The MD requested pt see endo for low T, but he is unable to get an earlier appt. He reports his labs reflect a T of 108, drawn before 10am. He is on an all liquid diet due to a hx of choking. He reports he consumes chicken shakes for protein and has been able to maintain his weight his way. He has esophageal narrowing as a result. He is scheduled for surgery this week due to the narrowing. He wants to start testosterone prior to his surgery,. Past Medical History: Diagnosis Date Eating disorder Phobia about eating, anxiety GERD (gastroesophageal reflux disease) Migraine ROSEMARY (obstructive sleep apnea) PTSD (post-traumatic stress disorder) Hx of TRT: never been on Symptoms: Libido: low ED: decreased quality of erections. Energy: severe, has sleep apnea. Weight gain: yes, muscle weakness. Muscle cramps. He also has hot flashes and brain fog. Causes: HX of chemo/radiation: no Hx of cryptorchidism: no Opioid use: no Environmental exposures: no Obesity: yes ROSEMARY: yes, no cpap- due to migraines with use of CPAP. Believes his apnea is related to the stricture. Hx of blood disease: no TRT contraindications: Breast Ca: no Hx of prostate Ca: no Elevated Hct: yes, hct 51.0 Recent cardiac event: no Chest pain: no Desire to maintain fertility: has 2 children, not interested in more. No past medical history on file. No past surgical history on file. No current outpatient medications on file. No current facility-administered medications for this visit. Allergies: Patient has no allergy information on record. Family Hx: Denies family history of genitourinary malignancy SOCIAL HISTORY[1] Review of Systems: All other systems reviewed and noncontributory VIDEO EXAM: (if completed, performed via video enabled technology) GENERAL: alert and appropriate, in no distress, well-hydrated, well nourished, and happy, smiling, interactive RESPIRATORY: breathing non-labored ABDOMEN: soft and non-tender NEUROLOGIC: no obvious deficit ASSESSMENT/PLAN: 1. Low testosterone - ICD9: 790.99, ICD10: R79.89 (primary diagnosis) -followed at the MD. Pt reports his labs were completed. -this is likely due to nutritional deficits. - BIOAVAILABLE TESTOSTERONE, ADULT MALE - LUTEINIZING HORMONE - ESTRADIOL-17B BLD - PROLACTIN - HEMATOCRIT -discussed TRT options such as oral, gel, TE, TC and testopel. -he will think over these options. -we discussed he cannot start TRT until his hct and untreated sleep apnea are resolved. 2. ROSEMARY (obstructive sleep apnea) - ICD9: 327.23, ICD10: G47.33 -hx of without current CPAP use -believes it is related to his stricture -if hct does not decrease after surgery, will need ROSEMARY eval and restart CPAP. 3. Polycythemia - ICD9: 238.4, ICD10: D75.1 -elevated hct of 51.0 -discussed causes of elevated hct -will not proceed with TRT until hct is lower. I spent a total of 30 minutes on the date of the service which included preparing to see the patient, ibuc-bb-mxko patient care, completing clinical documentation, obtaining and/or reviewing separately obtained history, counseling and educating the patient/family/caregiver, and ordering medications, tests, or procedures. Reema Braxton APRN.LIVESTOCK COUNTER [1][facility]08-18-2025 History of Present illness Narrative* Nicole ReemaJEANE addison.LIVESTOCK COUNTER - 02/20/2025 12:58 PM EDT This is a Virtual Visit. It required doszmuu-oo-ebmbyuxc interaction with medical decision making as documented below. I have communicated my name and active licensure. The patient's identity and physical location were verified at the time of this visit. Either the patient or their legal sales representative livestock has been informed of the risks and benefits of -- and alternatives to -- treatment through a remote evaluation and consents to proceed with the evaluation remotely. Arjun Ochoa Referred by: SELF 02/20/2025 CC: low testosterone HPI: 34 year old, male presents for evaluation of low testosterone. Never previously seen at [facility] urology. Pt gets his care at the MD and I am unable to view the records. The MD requested pt see endo for low T, but he is unable to get an earlier appt. He reports his labs reflect a T of 108, drawn before 10am. He is on an all liquid diet due to a hx of choking. He reports he consumes chicken shakes for protein. He has esophageal narrowing. He is scheduled for surgery this week due to the narrowing. He wants to start testosterone prior to his surgery,. Past Medical History: Diagnosis Date Eating disorder Phobia about eating, anxiety GERD (gastroesophageal reflux disease) Migraine ROSEMARY (obstructive sleep apnea) PTSD (post-traumatic stress disorder) Hx of TRT: never been on Symptoms: Libido: low ED: decreased quality of erections. Energy: severe, has sleep apnea. Weight gain: yes, muscle weakness. Muscle cramps. He also has hot flashes and brain fog. Causes: HX of chemo/radiation: no Hx of cryptorchidism: no Opioid use: no Environmental exposures: no Obesity: yes ROSEMARY: yes, no cpap- due to migraines with use of CPAP. Believes his apnea is related to the stricture. Hx of blood disease: no TRT contraindications: Breast Ca: no Hx of prostate Ca: no Elevated Hct: yes, hct 51.0 Recent cardiac event: no Chest pain: no Desire to maintain fertility: has 2, not interested in more. No past medical history on file. No past surgical history on file. No current outpatient medications on file. No current facility-administered medications for this visit. Allergies: Patient has no allergy information on record. Family Hx: Denies family history of genitourinary malignancy SOCIAL HISTORY[1] Review of Systems: All other systems reviewed and noncontributory VIDEO EXAM: (if completed, performed via video enabled technology) GENERAL: alert and appropriate, in no distress, well-hydrated, well nourished, and happy, smiling, interactive RESPIRATORY: breathing non-labored ABDOMEN: soft and non-tender NEUROLOGIC: no obvious deficit ASSESSMENT/PLAN: 1. Low testosterone - ICD9: 790.99, ICD10: R79.89 (primary diagnosis) -followed at the MD. Pt reports his labs were completed. - BIOAVAILABLE TESTOSTERONE, ADULT MALE - LUTEINIZING HORMONE - ESTRADIOL-17B BLD - PROLACTIN - HEMATOCRIT -discussed TRT options such as oral. Gel, TE, TC and testopel. -he will think over these options. 2. ROSEMARY (obstructive sleep apnea) - ICD9: 327.23, ICD10: G47.33 -hx of without CPAP use -believes it is related to his stricture -if hct bakari not decrease after surgery, will need ROSEMARY eval and restart CPAP. 3. Polycythemia - ICD9: 238.4, ICD10: D75.1 -elevated hct of 51.0 -discussed causes of elevated hct -will not proceed with TRT until hct is lower. I spent a total of 30 minutes on the date of the service which included preparing to see the patient, tjsk-sv-ovyx patient care, completing clinical documentation, obtaining and/or reviewing separately obtained history, counseling and educating the patient/family/caregiver, and ordering medications, tests, or procedures. Reema Braxton APRN.CNP [1] documented [facility] Evaluation note* Diagnosis Onset Date Resolution Status Admit Date Dysphagia acuteAugust 2024 9:48amGERD (gastroesophageal reflux disease)acuteAugust 2024 9:48amOdynophagiaacuteAugust 2024 9:48am [facility] Work Phone: 1(423) 140-212308-05-2025 Evaluation note* Diagnosis Onset Date Resolution Status Admit Date Dysphagia acuteAugust 2024 9:48amGERD (gastroesophageal reflux disease)acuteAugust 2024 9:48amOdynophagiaacuteAugust 2024 9:48amSore, mouth, cankeracute May 06, 2025 10:54am [facility] Work Phone: 1(112) 419-721611-29-2023 [facility] Chief Complaint: Patient here for follow up stress test and echo. Wasn't able to complete all lab orders. HPI: Arjun Ochoa is a 33 y.o. male No [...] nutritional input with his family physician and/or rn geriatric I will be happy to see him on an as-needed basis. Chel Krishnamurthy MD, MPH, [facility], [facility], [facility] Interventional Cardiology Pager Email: [email or web address] Evaluation note* Encounter Date Diagnosis Assessment Notes Treatment Notes Treatment Clinical Notes May, Contact with and (garcia spected) exposure to other viral communicable diseases (ICD-10 - Z20.828) May,OVID-19 (ICD-10 - U07.1) Rapid COVID test performed [...] treatment plan. Patient left in stable condition [facility]23 [facility] [...] clinic following testing Chel Krishnamurthy MD, MPH, [facility], [facility], [facility] Interventional Cardiology Page (more content not included)...[facility]09-11-2023 Evaluation note* Encounter Date Diagnosis Assessment Notes Treatment Notes Treatment Clinical Notes Mar, Sore throat (ICD-10 - J02.9) Mar,Viral upper respiratory infection (ICD-10 - J06.9)Viral upper respiratory infection: adult home care material was printed Drink plenty fluids, get plenty of rest. Take Tylenol or Motrin for aches pains or fevers. You may continue to take Mucinex for congestion. Consider taking Claritin or Zyrtec daily until your symptoms improve. Follow-up with your family physician if no improvement in 2 to 3 days Mar,llergic rhinitis, unspecified seasonality, unspecified trigger (ICD-10 - J30.9)Allergic rhinitis home care material was printed [facility] Other 01-24-2023 Evaluation note* Encounter Date Diagnosis Assessment Notes Treatment Notes Treatment Clinical Notes Jul, Contact with and (garcia spected) exposure to other viral communicable diseases (ICD-10 - Z20.828) Jul,ronchitis (ICD-10 - J40)Take medications as directed. Rest and increase fluid [...] weeks for the cough to go away Jul,Sore throat (ICD-10 - J02.9) [facility] Other 11-30-2022 Evaluation note* Encounter Date Diagnosis Assessment Notes Treatment Notes Treatment Clinical Notes May, Acute sinusitis, rec urrence not specified, unspecified location (ICD-10 - J01.90) [...] no improvement in 2 to 3 days. [facility] Other 09-08-2022 Evaluation note* Encounter Date Diagnosis Assessment Notes Treatment Notes Treatment Clinical Notes Mar, Gingival abscess (ICD-10 - K05.2 19) Periodontitis material was printed Drink plenty fluids, get plenty of rest. Take the amoxicillin with clavulanate as prescribed until gone. Follow-up with your dentist as soon as possible. Go to the ER for worsening symptoms or concerns. Take Tylenol or Motrin as needed for aches pains or fevers [facility] Other 06-29-2022 Evaluation note* Encounter Date Diagnosis Assessment Notes Treatment Notes Treatment Clinical Notes Dec, Chronic gingivitis, plaque induc ed (ICD-10 - K05.10) Drink plenty fluids, get plenty of rest. Take the clindamycin as prescribed until gone. Dentist soon as possible. Take Tylenol or Motrin as needed for aches pains or fevers. Rinse your mouth frequently with warm salt water. [facility] Other 12-23-2021 Evaluation note* Encounter Date Diagnosis Assessment Notes Treatment Notes Treatment Clinical Notes Jun, Contact with and (garcia spected) exposure to other viral communicable diseases (ICD-10 - Z20.828) Jun,OVID-19 (ICD-10 - U07.1) Today you tested positive for the COVID virus. This mean you need to follow all CDC quarantine guidelines found at coronavirus.[place].gov. It is important to rest, increase fluids, and stay at home. Contact PCP and inform them of results. Medications like Mucinex, Cepacol, Tylenol, saline nasal sprayare over the counter medications that can help [...] UP AND WHEN TO SEEK EMERGENCY TREATMENT Jun,eft acute otitis media (ICD-10 - H66.92) Ear infections are often a secondary infection caused from an URI, the flu or allergies. Take medication as directed. Complete all doses, even if you feel better. Tylenol or ibuprofen can help with pain. Warm pack to area for comfort helps as well. Follow up with primary care provider if no improvement of symptoms. Jun,Other Additional time spent conducting pre-visit phone call, screening for symptoms, instructions on social distancing, application and removal of PPE, and cleaning of examination room, equipment and supplies was preformed. Patient education given for testing methodology and results. Patient care instructions given in writting by [facility] Home document. [facility] Other Evaluation noteNo InformationNowestern [facility] [employer] Other Evaluation note* Diagnosis Oropharyngeal dysphagia Dysphagia, oropharyngeal phase Esophageal stenosis Stricture and stenosis of esophagus documented in this encounter [facility]* Diagnosis Esophageal stenosis Stricture and stenosis of esophagus Oropharyngeal dysphagia Dysphagia, oropharyngeal phase Dysphagia- Primary Dysphagia, unspecified documented in this encounter [facility]* Diagnosis Low testosterone- Primary Other testicular hypofunction ROSEMARY (obstructive sleep apnea) Obstructive sleep apnea (adult) (pediatric) Polycythemia Polycythemia vera [facility] Diagnosis Secondary male hypogonadism- Primary Other testicular hypofunction Libido, decreased Decreased libido documented in this encounter [facility] Healthcare[facility] note* Diagnosis Secondary male hypogonadism Other testicular hypofunction documented in this encounter [facility] Healthcare[facility] note* Diagnosis Secondary male hypogonadism- Primary Other testicular hypofunction documented in this encounter [facility]* Diagnosis Secondary male hypogonadism- Primary Other testicular hypofunction documented in this encounter [facility] Healthcare[facility] note* Diagnosis Secondary male hypogonadism Other testicular hypofunction documented in this encounter [facility] note* Diagnosis Secondary male hypogonadism Other testicular hypofunction documented in this encounter [facility] HealthcareEvaluation note* Diagnosis Secondary male hypogonadism Other testicular hypofunction documented in this encounter [facility] Healthcare[facility] note* Diagnosis Secondary male hypogonadism- Primary Other testicular hypofunction [facility] N[facility]ative - Reported* Type Description Date Medical History back pain Surgical HistoryappendectomySurgical Historytonsillectomy [facility] Other Hisgfpq general Narrative - Reported* Type Description Date Medical History back pain Medical HistoryADHDSurgical HistoryappendectomySurgical Historytonsillectomy [facility] Other Hisbpyl general Narrative - Reported* Type Description Date Medical History back pain Medical HistoryADHDMedical HistoryGERDSurgical HistoryappendectomySurgical Historytonsillectomy [facility] Other Hospital Discharge instructions Additional Instructions DISCHARGE INSTRUCTIONS FOR UPPER ENDOSCOPY WHAT TO EXPECT: - You may feel full, gassy or cramping after your procedure. In some cases, this may be from a few hours to a day. Walking may help relieve the discomfort. - Your throat may feel sore today from the scope that the doctor passed through your throat to visualize your stomach. Take a throat lozenge or suck on ice to ease the discomfort. - You may notice some streaks of blood in your sputum if the doctor has taken a biopsy. - You should begin to recover from anesthesia within 1 hour of the procedure, however may feel groggy for the next 24 hours. DO's AND DON'Ts: - Call your doctor right away if you have a hard abdomen, severe pain, vomiting or if you cough up large amounts of blood. - Call your doctor if you develop any rashes, hives or difficulty breathing. - If you take 81 mg aspirin for your heart it is safe to resume this medication. - If you take other blood thinner medications your doctor will instruct you when these can safely be resumed. - Do NOT drive for 24 hours. - Do NOT operate machinery such as [employer], [employer], snow blowers, sewing machines, etc. for 24 hours. - Avoid alcoholic beverages and drugs for allergies, nerves, or sleep. - Do NOT stay alone. Do NOT leave your child unattended. - Do NOT make important personal or business decisions or sign any legal documents. - Eat solid foods and drink liquids in smaller amounts than usual until normal appetite returns. If you should experience an upset stomach, liquids high in sugar content (soda, Milind-Aid, non-acid juices) are recommended. - Do NOT smoke. - Do take it easy today. You need not stay in bed, but avoid strenuous activities such as jogging or working out. FOLLOW UP & RECOMMENDATIONS: -Notify the doctor if you have any problems. -Follow up in office -Office number [phone]. [facility] Work Phone: reason for referral (narrative)No reason for referral information availableAvita Health System Ctr Work Phone: reason for visit Narrative* Imaging (Routine) - Open SpecialtyDiagnoses / ProceduresReferred By ContactReferred To ContactRadiology Diagnoses Esophageal stenosis Oropharyngeal dysphagia Procedures [place] ESOPHAGRAM Duke Longoria MD [address] [place] [address] Phone: tel: fax: Referral IDStatusReasonStart DateExpiration DateVisits RequestedVisits [id number] [facility] Summary Purpose Family History Relationship Condition Age at Onset Recorded Date/T srikanth father Unknown motherDiabetes mellitusUnknown Advance Directives Advance Directive Response Recorded Date/ Time Advance Directives No November 10, 2024 5:35pm Chief Complaint and Reason for Visit Chief Complaint Admit Date Dysphagia February 07, 2025 9:4 8am dysphagia March 17, 2025 7:04am Reason for Visit Admit Date Dysphagia February 07, 2025 9:4 8am GERD (gastroesophageal reflux disease) A ugust 2024 9:48am Odynophagia February 07, 2025 9:4 8am Chief Complaint Admit Date Dysphagia February 07, 2025 9:4 8am dysphagia March 17, 2025 7:04am Right side mouth pain May 06, 2025 10:54am Reason for Visit Admit Date Dysphagia February 07, 2025 9:4 8am GERD (gastroesophageal reflux disease) A ugust 2024 9:48am Odynophagia February 07, 2025 9:4 8am Sore, mouth, canker May 06, 2025 1 0:54am Additional Source Comments REASON FOR VISIT (unrecogniz ed section and content) ReasonCommentsConsultReasonCommentsHypogonadismTesticular HypofunctionSpecialty Diagnoses / ProceduresReferred By ContactReferred To ContactEndocrinology Diagnoses Testicular hypofunction Procedures [place] OFFICE/OUTPATIENT NEW MODERATE MDM 45 MINUTES Zach Aguilar MD [address] [address], [place] [address] Phone: tel: fax: Carlo Sexton MD [address] [place] [address] Phone: tel: fax: Referral IDStatusReasonStart DateExpiration DateVisits RequestedVisits [id number] [id number] DateCommentsMed Cktygw1902/24/2025ReasonOnset DateCommentsMedication Hhehvpo5702/27/2025ReasonOnset DateCommentsMed Bycgky6103/15/2025ReasonOnset DateCommentsMed Qncady9403/20/2025 ReasonCommentsMed Change RequestReasonOnset DateCommentsMed Gzzmai6203/22/2025 ReasonOnset DateCommentsMed Iomthv2003/24/2025ReasonOnset DateCommentsAdvice Only 04/06/2025ReasonOnset DateCommentsAdvice Only04/28/2025 (unrecognized sect ion and content) No Status Records FoundNo Status Records FoundNo Status Records FoundNo Status Records FoundNo Status Records FoundNo Status Records Found INFORMATION SOURCE (unrecogn ized section and content) DATE CREATED AUTHOR 06/09/2022 [facility] DATE CREATED AUTHOR AUTHOR'S ORGANIZ ATION 06/05/2023 [facility] DATE CREATED AUTHOR AUTHOR'S ORGANIZ ATION 02/02/2025 [facility] DATE CREATED AUTHOR AUTHOR'S ORGANIZ ATION 02/26/2025 [facility] DATE CREATED AUTHOR AUTHOR'S ORGANIZ ATION 03/02/2025 [facility] DATE CREATED AUTHOR AUTHOR'S ORGANIZ ATION 04/19/2025 [facility] Care Teams (unrecognized sec tion and content) Team MemberRelationshipSpecialtyStart DateEnd Date Zach Aguilar DO [address] [place] [address] PCP - General01/09/25Team MemberRelationshipSpecialtyStart DateEnd Date Zach Aguilar DO [address] [place] [address] PCP - General01/09/25Team MemberRelationshipSpecialtyStart DateEnd Date Jesica Atkinson, HR ADVISOR [address] [facility] [address] [place] [address] PCP - [facility]10/05/23Team MemberRelationshipSpecialtyStart DateEnd Date Jesica Atkinson, HR ADVISOR [address] [place] [address] [place] [address] PCP - [facility]10/05/23Team MemberRelationshipSpecialtyStart DateEnd Date Jesica Atkinson, HR ADVISOR [address] [place] [address] [place] [address] PCP - [facility]10/05/23Team MemberRelationshipSpecialtyStart DateEnd Date Jesica Atkinson, HR ADVISOR [address] [place] [address] PCP - [facility]10/05/23Team MemberRelationshipSpecialtyStart DateEnd Date Jesica Atkinson, HR ADVISOR [address] [place] [address] PCP - [facility]10/05/23Team MemberRelationshipSpecialtyStart DateEnd Date Jesica Atkinosn, HR ADVISOR [address] [place] [address] PCP - [facility]10/05/23Team MemberRelationshipSpecialtyStart DateEnd Date Jesica Atkinson, HR ADVISOR [address] [facility] [address] [place] [address] PCP - [facility]10/05/23 Team Status: Active Member Role Status Dates Holden Aguilar DO Primary Care Provider Active Team Status: Inactive Member Role Status Dates Holden Lee Jr, MD Primary Care Provider Active Start: February 07, 2025 End: February 07, 2025Jareth Galindo APRNAtkentrell ProviderActiveStart: February 07, 2025 End: February 07, 2025 Team Status: Active Member Role Status Dates Holden Aguilar DO Primary Care Provider Active Sta rt: March 17, 2025 Fern James MDAttending ProviderActiveStart: March 17, 2025 Fern James MDOther ProviderActiveStart: March 17, 2025 Team MemberRelationshipSpecialtyStart DateEnd Date Jesica Atkinson, HR ADVISOR [address] [place] [address] PCP - [facility]10/05/23Team MemberRelationshipSpecialtyStart DateEnd Date Jesica Atkinson, HR ADVISOR [address] [place] [address] PCP - [facility]10/05/23Team MemberRelationshipSpecialtyStart DateEnd Date Jesica Atkinson NP [address] [facility] [address] [place] [address] PCP - [facility]10/05/23 Team Status: Active Member Role/Relationship Status Dates Holden Aguilar DO Primary Care Provider Active Team Status: Inactive Member Role/Relationship Status Dates Holden Lee Jr, MD Primary Care Provider Active Start: February 07, 2025 End: February 07, 2025Ismael Gunn ProviderActiveStart: February 07, 2025 End: February 07, 2025 Team Status: Active Member Role/Relationship Status Dates Holden Aguilar DO Primary Care Provider Active Sta rt: March 17, 2025 Fern James MDAttending ProviderActiveStart: March 17, 2025 Fern James MDOther ProviderActiveStart: March 17, 2025 Team Status: Inactive Member Role/Relationship Status Dates Holden Aguilar DO Primary Care Provider Active Sta rt: May 06, 2025 End: May 06Ismael Vora ProviderActiveStart: May 06, 2025 End: May 06, 2025 Source Comments (unrecognize d section and content) In the event this informatio n is protected by the Federal Confidentiality of Alcohol and Drug Abuse Patient Records regulations: The Federal rules restrict any use of the information to criminally investigate or prosecute any alcohol or drug abuse patient.[facility] Goals (unrecognized section and content) Goals may be documented in a n alternate section FOR RECORDS PERTAINING TO PATIENTS WHO ARE [...] BE BASED ON THE PRIMARY CLINICAL RECORDS. [employer] provides no warranty or guarantee of the accuracy or completeness of information in this document.
--- NOTE | 2025-05-09 11:25 | FL_ITS ---
[address] [address] Patient Name: MILA PEREZ MRN: [id number] date: 1990 Sex: M Assigned Patient Location: [place] Current Patient Location: [place] Accession/Order Number: [id number] Exam Date: 05/09/2025 11:10 Report Date: 05/09/2025 15:14 At the request of: DWAIN PADILLA CNP Procedure: FL modified barium swallow FL modified barium swallow 05/09/2025 11:22 AM SIGNS AND SYMPTOMS: Painful Swallowing, Gastroesophageal Reflux Disease PROTOCOL: Fluoroscopic images of the soft tissues of the neck were obtained during swallows of various consistencies of barium based contrast material. COMPARISON: None FINDINGS: Swallows of thin and nectar thick barium based contrast material demonstrates a normal swallowing reflex without evidence of stasis, premature vallecular filling, laryngeal penetration, or aspiration. There is a filling defect along the dorsal aspect of the proximal esophagus suggesting a cricopharyngeal hypertrophy. Attempts at swallowing pudding and applesauce consistencies were reported by the patient. FL/FL modified barium swallow IMPRESSION: No evidence of stasis, premature vallecular filling, laryngeal penetration, or aspiration. Attempts at swallowing pudding and applesauce consistencies were reported by the patient. There is a filling defect along the dorsal aspect of the proximal esophagus suggesting a cricopharyngeal hypertrophy. Impression dictated by: Amaury Zavala M.D. 05/09/2025 3:14 PM Dictation Location: [place] [address] Electronically authenticated by: [id number] Y Date: 05/09/2025 15:14
== END 2025-05-09 10:45 | disposition home or self-care (01) ==
LOC: FL 10:44
PROVIDERS: Visit Provider Registered Nurse
DX: R13.10 Dysphagia, unspecified (principal); K21.9 Gastro-esophageal reflux disease without esophagitis
CPT/HCPCS: 74230; 92611

== ENCOUNTER 2025-05-26 11:02 | Outpatient (OUT) | payer OTHER, MEDICAID, SELFPAY ==
--- OUTSIDE RECORDS SUMMARY | 2024-08-17 10:30 | XMS_ITS ---
Author Organization [facility] in [place] Address [address] [place] [address] Care Team Providers Care Termite Control Technician Name Role Phone None, Unknown or Primary Care Provider Unavailab Delio Flores Unavailable [phone] REASON FOR VISIT 3w F/U - SOB Encounters Encounter Location Date Provider Diagnosis [facility] [address] [place] [address] 08/17/2024 Delio Saran Plan Of Treatment No Information Progress Notes * Arjun PEREZ PDOB:[birth year] (35 yo M)Acc No.[id number]:08/17/2024 UNLOCKED PROGRESS NOTE Follow Up Patient: Jose Elias Arjun COY :?Delio Soriano DODOB:1990???Age:34 Y ???Sex:MaleDate:08/17/2024Phone:[phone]:[address] [place], [place]-[id number]:Unknown or None Subjective: * Chief Complaints: * 1 . 3w F/U - SOB. * Medical History: Objective: * Vitals: Assessment: Plan: * Treatment: * * Electronic signature of Delio Soriano DO on 05/26/2025 at 11:04 AM ESTSign off status: PendingVisit Status:?R/S (Rescheduled) * Provider: Gerhard Soriano DO Date: 0 08/17/2024 Generated for Printing/Faxing/eTransmitting on:?05/26/2025 11:04 AM EST
--- OUTSIDE RECORDS SUMMARY | 2024-10-19 10:00 | XMS_ITS ---
Author Organization [facility] in [place] Address [address] [place] [address] Care Team Providers [employer] Name Role Phone None, Unknown or Primary Care Provider Unavailab Delio Flores Unavailable [phone] REASON FOR VISIT 3w F/U - SOB Encounters Encounter Location Date Provider Diagnosis [facility] [address] [place] [address] 10/19/2024 Delio Soriano Plan Of Treatment No Information Progress Notes * Arjun PEREZ PDOB:[birth year] (35 yo M)Acc No.[id number]:10/19/2024 UNLOCKED PROGRESS NOTE Follow Up Patient: Jose Elias Arjun COY :?Delio Soriano DODOB:1990???Age:34 Y ???Sex:MaleDate:10/19/2024Phone:[phone]:[address] [place], [place]-[address]Pcp:Unknown or None Subjective: * Chief Complaints: * 1 . 3w F/U - SOB. * Medical History: Objective: * Vitals: Assessment: Plan: * Treatment: * * Electronic signature of Delio Soriano DO on 05/26/2025 at 11:03 AM ESTSign off status: PendingVisit Status:?CANC (Cancelled) * Provider: Gerhard Soriano DO Date: 0 10/19/2024 Generated for Printing/Faxing/eTransmitting on:?05/26/2025 11:03 AM EST
--- OUTSIDE RECORDS SUMMARY | 2025-05-19 09:55 | XMS_ITS | Continuity of Care Document ---
Author Organization [facility] Address [address] [place] [address] Phone Care Team Providers Care Data Processing Specialist Name Role Phone Holden Aguilar DO Primary Care Provider (H) Fern James MD Attending Provider [phone] Fern James MD Other Provider Ally Schulz APRN Attending Provider [phone] Care Teams Patient Care Team Team Status: Active Member Role/Relationship Status Dates Holden Aguilar DO Primary Care Provider Active Visit Care Team Team Status: Active Member Role/Relationship Status Dates Holden Aguilar DO Primary Care Provider Active Sta rt: March 17, 2025 Fern James MDAttending ProviderActiveStart: March 17, 2025 Fern James MDOther ProviderActiveStart: March 17, 2025 Visit Care Team Team Status: Inactive Member Role/Relationship Status Dates Holden Aguilar DO Primary Care Provider Active Sta rt: May 06, 2025 End: May 06Ismael Vora ProviderActiveStart: May 06, 2025 End: May 06, 2025 Chief Complaint and Reason for Visit Chief Complaint Admit Date dysphagia March 17, 2025 7:04am Right side mouth pain May 06, 2025 10:54am Reason for Visit Admit Date Sore, mouth, canker May 06, 2025 1 0:54am Allergies, Adverse Reactions, Alerts Allergen Type Severity Reaction Last Updated Verified Status amoxicillin Allergy Unknown Anaphylaxis May 06, 2025 9:55a m Yes Active Penicillins Allergy Unknown Anaphylaxis May 06, 2025 9:55a m Yes Active Social History Smoking Status Status Start Date End Date Date of Observa tion Never smoked tobacco (finding) March 01, 2025 1:46pm Observation Status Observation Response Date of Response Legal Sex [facility] ([facility]) [facility] 1989 Family History Relationship Condition Age at Onset Recorded Date/T srikanth father Unknown motherDiabetes mellitusUnknown Problems Active Problems Problem Diagnosis/Recorded Date Onset Date Stat us Folliculitis of right axilla November 10, 2024 5:27pm Unkn own Active Cricopharyngeal bar May 12, 2025 1:47pm Unknown Active Sore, mouth, canker May 06, 2025 10:28am Unknown Active Shingles November 10, 2024 5:27pm Unknown Active Odynophagia February 07, 2025 9:36am Unknown Acti ve Anxiety February 07, 2025 8:52am Unknown Acti ve Back pain November 10, 2024 4:41pm Unknown Active Dysphagia February 07, 2025 9:00am Unknown Acti ve Gastroesophageal reflux dise ase without esophagitis November 10, 2024 4:41pm Unknown Active ADHD November 10, 2024 4:41pm Unknown Active GERD (gastroesophageal reflux disease) February 07 9:36am Unknown Active Allergic rhinitis November 10, 2024 4:41pm Unknown Ac tive Medications Medication Status Dose Units Route Directions Qty Days Refills S tart Date Stop Date End Date Reason(s) Instructions Adherence Escitalopram Oxalate 5 mg/5 mL solution Active 7.5 MG PO Daily February 13, 2025 11:00pmComplies with drug therapyTestosterone (Androgel) 1 % (50 mg/5 gram) gel in nlpfcdDbxrcuvbbeen9PPOMIBPRCSSBDOFDHofqlHebhfw 2024 11:00pmNov2024 10:01amIpratropium [place] (Atrovent Hfa) 17 mcg/actuation HFA aerosol inhalerDiscontinuedINHALATIONMay 2024 11:00pm February 14, 2025 12:52pmOmeprazole 40 mg capsule,delayed release(DR/EC) Fbwwujezekro63ATNLFekdsPxi 7th, 2025 11:00pmAugust 2024 8:52amAcyclovir 200 mg/5 mL vbumonojegKinqokapryvz999DEEVGljf times yoofm01186Xtt2024 11:00pm February 14, 2025 12:52pmLidocaine 5 % orkcrsfaMxqywowbpwpy6WKTTLXBVNVQRZPtguc times daily as needed for klfd21747Sph2024 11:00pmAugus2024 12:52pmMupirocin 2 % auoklehyCxnryempsomc0YEZGYGAPIMSKJHdszt times izbio31220Xwr2024 11:00pmAugust 2024 12:52pmTestosterone Cypionate (Depo- Testosterone) 200 mg/mL qizFmuzri574ROROxpmwe weekOct2024 11:00pm Complies with drug therapyDoxycycline Hyclate 100 mg kvtyyqbJxirxd711XWJLBsvmc fjixb6352Ldlobli2024 11:00pmComplies with drug therapy Vital Signs Vital Reading Result Reference Range Collection Date/Time Height 68 [in_i] March 17, 2025 6:02pcZbjsod45.25 kgSeptember 2024 6:43amHeart Rate90 /szr21-868Nssfggmly 2024 8:32amRespiratory rate16 /zio32-83Yxjfwhgte 2024 8:32amOxygen saturation by Pulse ikeaxgkv87 %95-100Sept2024 8:32amBP Iurgrwat257 mm[Hg]100-140September 2024 8:32amBP Aobqdjmgi16 mm[Hg]60-100September 2024 8:90zfMblrsl75 [in_i]May 06, 2025 9:56am Bnjmpo39.14 kgNov2024 9:56amBody Vieerxztlrb39.8 [degF]97.6-99.0 May 06, 2025 9:56amHeart Ujur942 /uxd04-299Tsgvvgua 1st, 2025 9:56am Respiratory rate18 /pon52-78Jtcimqqt 1st, 2025 9:56amOxygen saturation by Pulse fzudueiq93 %95-100Nov2024 9:56amBP Eixdmoog320 mm[Hg]100-140Nov2024 9:56amBP Ngqqnitfm52 mm[Hg]60-100May 06, 2025 9:56amBMI (Body Mass Index)32.8 kg/r9UiqcohdvMay 06, 2025 9:56am Advance Directives Advance Directive Response Recorded Date/ Time Advance Directives No November 10, 2024 4:35pm Insurance Providers Guarantor Artur Wren Address [address] [address]Fmnjsht Info.Home Phone: Coverage Status Update:2025 Payer Group Member ID Coverage Type Subscriber Relationship to Subscriber Effective Date Expiration Date [facility] Medicaid [id number] Blodgett , P Id: [id number] [address] [address] Home Phone: Email: [email or web address] [id number] Blodgett , P Id: [id number] [address] [address] Home Phone: Email: [email or web address] Encounters Encounter Location(s) Arrival/Admit Date Discharge/Departure Date Discharge/Departure Disposition Provider(s) Non-patient / Non-visit -[facility] 2024 7:04am Fern James , MDDeparted Physician/Provider Office Visit-[facility] [place] May 06, 2025 10:54amNovember 2024 11:28amDischarged to home care or self care (routine discharge)Maria Guadalupe Jacob APRN Recent Diagnosis Onset Date Admit Date Sore, mouth, canker Unknown May 10:54am Assessments Diagnosis Onset Date Resolution Status Admit Date Sore, mouth, canker acuteMay 06, 2025 10:54am Plan of Treatment [facility] 10:50amPatient is a pleasant, cooperative 35-year-old male who presents with the above complaints. He appears alert, nontoxic. He is afebrile here. Mildly tachycardic at 112 otherwise vitals normal. He does have a canker sore to the right inner cheek with significant line of swelling, erythema noted. There is slight concern for possible infection. Patient states he has been using ryke-eyf-saffnqm mouthwashes, topical gels to help with the discomfort however it has not been working. He is requesting an antibiotic. Patient prescribed doxycycline 100 mg by mouth twice a day for the next 5 days. He is to rest, push fluids. Continue with current treatments. Follow-up with PCP or dentist if symptoms persist or worsen. Patient verbalizes understanding and is agreeable to the plan of care at this time Future Tests Future scheduled test information is unavailable Pending Tests Pending diagnostic test information is unavailable Future Visits Future appointment information is unavailable Future Procedures Procedure Name Ordered Date Scheduled Date Discharge Order March 17, 2025 8:01am Sept ember 2024 8:01am Future Medications Future medication information is unavailable Patient Instructions Instruction Admit Date Esophageal Dilation Know your MedsSeptember 2024 7:04am
--- OUTSIDE RECORDS SUMMARY | 2025-05-23 11:20 | XMS_ITS | Encounter Summary ---
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); Libido, decreased Social History Tobacco UseTypesPacks/DayYears UsedDateSmoking Tobacco: FormerCigarettes Smokeless Tobacco: NeverAlcohol UseStandard Drinks/WeekCommentsNever0 (1 standard drink = 0.6 oz pure alcohol)Sex and Gender InformationValueDate RecordedSex Assigned at BirthNot on fileLegal EiqWrrt7003/30/2024 11:42 AM EDT Gender IdentityNot on fileSexual OrientationNot on filedocumented as of this encounter Last Filed Vital Signs Vital SignReadingTime TakenCommentsBlood Mwbhxzhr790/9005/23/2025 11:16 AM EST Ccdvc48471/18/2025 11:16 AM ESTTemperature--Respiratory Ovfb1942 11:16 AM ESTOxygen Vfycgnulsw18%05/23/2025 11:16 AM ESTInhaled Oxygen Concentration-- Qwvzae64.4 kg (217 lb)05/23/2025 11:16 AM PEDQjflhm170.7 cm (5' 8 )05/23/2025 11:16 AM ESTBody Mass Index32.9905/23/2025 11:16 AM ESTdocumented in this encounter Progress Notes * Carlo Sexton MD - 05/23/2025 11:20 AM EST Arjun Ochoa is a 35 y.o. male No ref. provider found presents with chief complaint of Testicular Hypofunction and Follow-up HPI: IM : 05/2025 Follow-up visit 05/23/2025 he is on testosterone 100 mg 0.5 mL every 1 week no new lab. 02/2025 History of Present Illness The patient is a new patient referred by [place] [facility] [place] levels, whichwere 108 in [...] [facility] SOCIAL HISTORY He does not smoke. Results Laboratory Studies Testosterone level was 108 in February 2024 and 194 early this year. Hemoglobin is on the high side. SUBJECTIVE: MEDICATIONS: Current Outpatient Medications Medication Instructions escitalopram (Lexapro) 5 MG/5ML solution Take by mouth Syringe/Needle, Disp, (Luer Lock Safety Syringes) 23G X 1 3 ML misc 1 Syringe, Does not apply, Every 14 days testosterone (ANDROGEL) 50 mg, Transdermal, Daily Testosterone 40.5 MG/2.5GM (1.62%) gel 2 Pump, Transdermal, Daily testosterone cypionate (DEPO-TESTOSTERONE) 150 mg, Intramuscular, Every 14 days Xyosted 75 mg, Subcutaneous, Every 7 days ALLERGIES: No Known Allergies No past medical history on file. No past surgical history on file. REVIEW OF SYMPTOMS: 14 POINT OF SYSTEM REVIEWED AND NEGATIVE 02/24/2025 9:33 AM 05/23/2025 11:16 AM Vitals BMI 32.33 kg/m2 32.99 kg/m2 BSA (m2) 2.15 m2 2.17 m2 Systolic 130 Diastolic 90 Heart Rate 100 110 SpO2 97 % 98 % Resp 16 20 Height (in) 5' 8 5' 8 Weight (lb) 212.6 217 Visit Report Report Report Physical Exam Constitutional: Appearance: Normal appearance. He [...] for this visit: Secondary male hypogonadism - PSA; Future - Hemoglobin; Future - Testosterone; Future Continue his testosterone 100 mg 0.5 mL every 1 week, we will check med level, PSA hemoglobin and adjust the dose accordingly. Libido, decreased Follow up in about 6 months (around 11/20/2025). documented in this encounter Plan of Treatment DateTypeDepartmentCare Team (Latest Contact Info)Pzmxeqypxhv51/19/2026 11:00 AM EDTOffice Visit [facility] [address] [place] [address] Carlo Sexton MD [address] [place] [address] NameTypePriorityAssociated DiagnosesOrder SchedulePSALabRoutine Secondary male hypogonadism Expected: 05/23/2025 (Approximate), Expires: 05/23/2026HemoglobinLabRoutine Secondary male hypogonadism Expected: 05/23/2025 (Approximate), Expires: 05/23/2026TestosteroneLabRoutine Secondary male hypogonadism Expected: 05/23/2025 (Approximate), Expires: 05/23/2026documented as of this encounter Visit Diagnoses Diagnosis Secondary male hypogonadism- Primary Other testicular hypofunction Libido, decreased Decreased libido documented in this encounter Care Teams Team MemberRelationshipSpecialtyStart DateEnd Date Jesica Atkinson, EXPELLER WORKER [address] [id number] PCP - [facility]/07/29documented as of this encounter
--- OUTSIDE RECORDS SUMMARY | 2025-05-26 11:03 | XMS_ITS | Encounter Summary ---
Author Organization [facility] Address [address] [place] [address] Care Team Providers Care Helpdesk Analyst Name Role Phone Jesica Atkinson INSURANCE UNDERWRITER SALES Unavailable [phone] Encounter Details DateTypeDepartmentCare Team (Latest Contact Info)Uethskekfrv14/20/2025Orders Only [facility] [address] [place] [phone] Carlo Sexton MD [address] [place] [address] Secondary male hypogonadism Social History Tobacco UseTypesPacks/DayYears UsedDateSmoking Tobacco: FormerCigarettes Smokeless Tobacco: NeverAlcohol UseStandard Drinks/WeekCommentsNever0 (1 standard drink = 0.6 oz pure alcohol)Sex and Gender InformationValueDate RecordedSex Assigned at BirthNot on fileLegal HmfLwhx5603/30/2024 11:42 AM EDT Gender IdentityNot on fileSexual OrientationNot on filedocumented as of this encounter Plan of Treatment DateTypeDepartmentCare Team (Latest Contact Info)Pjzluxbmmpm27/19/2026 11:00 AM EDTOffice Visit [facility] [address] [place] [phone] Carlo Sexton MD [address] [place] [address] documented as of this encounter Visit Diagnoses Diagnosis Secondary male hypogonadism Other testicular hypofunction documented in this encounter Care Teams Team MemberRelationshipSpecialtyStart DateEnd Date Jesica Atkinson NP [address] [place] [address] PCP - [facility]10/05/23documented as of this encounter
--- OUTSIDE RECORDS SUMMARY | 2025-05-26 11:03 | XMS_ITS | Encounter Summary ---
Author Organization [facility] Address [address] [place] [address] Care Team Providers Care Veterinary Surgery Technician Name Role Phone Jesica Atkinson GRINDER OPERATOR AUTOMATIC Unavailable [phone] Reason for Visit * ReasonOnset DateCommentsMed Nanfsa1805/16/2025 Encounter Details DateTypeDepartmentCare Team (Latest Contact Info)Uavvufxexep12/11/2025Telephone [facility] [address] [place] [address] Carlo Sexton MD [address] [place], [place] [id number] Med Refill Social History Tobacco UseTypesPacks/DayYears UsedDateSmoking Tobacco: FormerCigarettes Smokeless Tobacco: NeverAlcohol UseStandard Drinks/WeekCommentsNever0 (1 standard drink = 0.6 oz pure alcohol)Sex and Gender InformationValueDate RecordedSex Assigned at BirthNot on fileLegal BcmUkob1803/30/2024 11:42 AM EDT Gender IdentityNot on fileSexual OrientationNot on filedocumented as of this encounter Miscellaneous Notes * Telephone Encounter - Sander Quesada - 05/16/2025 8:53 AM EST Please send cypionate 'resusable' vials to [facility]. He states these exist? Thank you! documented in this encounter Plan of Treatment DateTypeDepartmentCare Team (Latest Contact Info)Xgwknwvfidm54/19/2026 11:00 AM EDTOffice Visit [facility] [address] [place] [address] Carlo Sexton MD [address] [place] [address] documented as of this encounter Visit Diagnoses Not on filedocumented in this encounter Care Teams Team MemberRelationshipSpecialtyStart DateEnd Date Jesica Atkinson NP [address] [facility] [address] [place] [address] PCP - [facility]10/05/23documented as of this encounter
--- OUTSIDE RECORDS SUMMARY | 2025-05-26 11:03 | XMS_ITS | Encounter Summary ---
Author Organization [facility] Address [address] [place] [address] Care Team Providers Care Human Resource Adviser Name Role Phone Jesica Atkinson AMBULATORY CARE Unavailable [phone] Reason for Visit * ReasonOnset DateCommentsMed Puhcuf7405/25/2025 Encounter Details DateTypeDepartmentCare Team (Latest Contact Info)Qfmqtuvhcqv75/20/2025Telephone [facility] [address] [place] [address] Carlo Sexton MD [address] [place] [address] Med Refill Social History Tobacco UseTypesPacks/DayYears UsedDateSmoking Tobacco: FormerCigarettes Smokeless Tobacco: NeverAlcohol UseStandard Drinks/WeekCommentsNever0 (1 standard drink = 0.6 oz pure alcohol)Sex and Gender InformationValueDate RecordedSex Assigned at BirthNot on fileLegal YdfKdsd6503/30/2024 11:42 AM EDT Gender IdentityNot on fileSexual OrientationNot on filedocumented as of this encounter Miscellaneous Notes * Telephone Encounter - Sander Quesada - 05/25/2025 9:54 AM EST Pt would like to go back to testosterone gel method. He says his heart rate/panic attacks/eating disorder/antidepressants it's all too much. Please advise! documented in this encounter Plan of Treatment DateTypeDepartmentCare Team (Latest Contact Info)Axoyhpgntdu83/19/2026 11:00 AM EDTOffice Visit [facility] [address] [place] [address] Carlo Sexton MD [address] [place] [address] documented as of this encounter Visit Diagnoses Not on filedocumented in this encounter Care Teams Team MemberRelationshipSpecialtyStart DateEnd Date Jesica Atkinson, AMBULATORY CARE [address] [facility] [address] [place] [address] PCP - [facility]10/05/23documented as of this encounter
--- OUTSIDE RECORDS SUMMARY | 2025-05-26 11:03 | XMS_ITS | Encounter Summary ---
Author Organization [facility] Address [address] [place] [address] Care Team Providers Care Stacker And Sorter Operator Name Role Phone Jesica Atkinson DREDGE MASTER Unavailable [phone] Encounter Details DateTypeDepartmentCare Team (Latest Contact Info)Ntzpjfqpmbi91/18/2025amboo flowsheet [facility] [address] [place] [address] Carlo Sexton MD [address] [place] [address] Social History Tobacco UseTypesPacks/DayYears UsedDateSmoking Tobacco: FormerCigarettes Smokeless Tobacco: NeverAlcohol UseStandard Drinks/WeekCommentsNever0 (1 standard drink = 0.6 oz pure alcohol)Sex and Gender InformationValueDate RecordedSex Assigned at BirthNot on fileLegal MknHczu9303/30/2024 11:42 AM EDT Gender IdentityNot on fileSexual OrientationNot on filedocumented as of this encounter Plan of Treatment DateTypeDepartbaraga county memorial hospitalCare Team (Latest Contact Info)Mnkmtktpfvw69/19/2026 11:00 AM EDTOffice Visit [facility] [address] [place] [address] Carlo Sexton MD [address] [place] [address] documented as of this encounter Visit Diagnoses Not on filedocumented in this encounter Care Teams Team MemberRelationshipSpecialtyStart DateEnd Date Jesica Atkinson NP [address] [address] [place] [address] PCP - [facility]/07/29documented as of this encounter
--- OUTSIDE RECORDS SUMMARY | 2025-05-26 11:03 | XMS_ITS | Encounter Summary ---
Author Organization [facility] Address [address] [place] [address] Care Team Providers Care Top Edge Beveler Name Role Phone Jesica Atkinson BOW MAKER CUSTOM Unavailable [phone] Reason for Referral * Medications - AuthorizedSpecialtyDiagnoses / ProceduresReferred By Contact Referred To Contact Diagnoses Secondary male hypogonadism Carlo Sexton MD [address] [place] [address] Phone: tel: fax: Referral IDStatusReasonStart DateExpiration DateVisits RequestedVisits [id number]/10/202511/ Reason for Visit * ReasonOnset DateCommentsMed Ydinsb9705/12/2025 Encounter Details DateTypeDepartmentCare Team (Latest Contact Info)Zhfbvhfical65/07/2025Telephone [facility] [address] [place] [address] Carlo Sexton MD [address] [place] [address] Med Refill Social History Tobacco UseTypesPacks/DayYears UsedDateSmoking Tobacco: FormerCigarettes Smokeless Tobacco: NeverAlcohol UseStandard Drinks/WeekCommentsNever0 (1 standard drink = 0.6 oz pure alcohol)Sex and Gender InformationValueDate RecordedSex Assigned at BirthNot on fileLegal AxpNsss3903/30/2024 11:42 AM EDT Gender IdentityNot on fileSexual OrientationNot on filedocumented as of this encounter Miscellaneous Notes * Telephone Encounter - Sander Quesada - 05/12/2025 8:58 AM EST Please send new weekly script for testosterone to [facility] please and thank you. Please put Overnight in the comments. Thank you! documented in this encounter Plan of Treatment DateTypeDepartmentCare Team (Latest Contact Info)Nnnbatdbsfm63/19/2026 11:00 AM EDTOffice Visit [facility] [address] [place] [address] Carlo Sexton MD [address] [place] [address] documented as of this encounter Visit Diagnoses Diagnosis Secondary male hypogonadism Other testicular hypofunction documented in this encounter Care Teams Team MemberRelationshipSpecialtyStart DateEnd Date Jesica Atkinson, BOW MAKER CUSTOM [address] [facility] [address] [place] [address] PCP - [facility]10/05/23documented as of this encounter
--- OUTSIDE RECORDS SUMMARY | 2025-05-26 11:03 | XMS_ITS | Clinical Summary ---
Author Organization [facility] Address [address] [place] [address] Care Team Providers Care Carbon Rod Inserter Name Role Phone Unavailable Primary Care Provider Unavailabl e Allergies No known active allergies Medications MedicationSigDispense QuantityRefillsLast FilledStart DateEnd DateStatus omeprazole (PriLOSEC) [address] capsule Take 20 mg by mouth before breakfast. Do not crush or chew.Active Active Problems ProblemNoted DateDiagnosed DateGastroesophageal reflux disease without mdfdwbwesax49bnormal nbvboeyuxlpbbgooy44 Iwhupuxct95stigmatism1lister04/08/2023 04/08/2023 Overview (04/08/2023): MOLE SKIN, Keflex, RTD Stjmswetanhvqjj85voidant/restrictive food intake disorder Other specified eating uzqdqdhx92Furuncle of abdominal wallNicotine texmjtgqgy68 Qfxdqbliwi67Other mycobacterial ywbybkrszb10 Other specified problems related to psychosocial ttowqeobdorim49/04/2023 04/08/2023ain of footalpitations13 Yhruajgurh06Requires hepatitis B ogvjimidrfd15/04/2023 04/08/2023Unspecified blepharitis right upper cluwea44History of attention deficit hyperactivity naedfuwd62Hypertensive sadssyev57yst of kidney, hgooavdz32Other spondylosis, lumbosacral eqhsnk60nxiety disorder, unspecified hronic demfkmyytmk12Localized swelling, mass and lump, headLow back painSpecific bsxskx60Recurrent erosion of cornea, left eye10/12/2017 04/08/2023Unspecified blepharitis unspecified eye, unspecified hfwzki0510/12/2017 04/08/2023 Social History Tobacco UseTypesPacks/DayYears UsedDateSmoking Tobacco: Never AssessedUT Safety & EnvironmentAnswerDate RecordedFear of Current or Ex-PartnerNot on file 08/27/2023Emotionally AbusedNot on file08/27/2023hysically AbusedNot on file 08/27/2023Sexually AbusedNot on file08/27/2023hysically or Sexually AbusedNot on file08/27/2023Sex and Gender InformationValueDate RecordedSex Assigned at BirthNot on fileLegal WscEjyy6101/22/2022 9:19 AM EDTGender IdentityNot on file Sexual OrientationNot on file Last Filed Vital Signs Vital SignReadingTime TakenCommentsBlood Eyrlbvar932/9006/03/2023 2:33 PM EST Qwulp00682/29/2023 2:33 PM ESTTemperature--Respiratory Rate--Oxygen Saturation 96%06/03/2023 2:33 PM ESTInhaled Oxygen Concentration--Gyvxzn81.4 kg (206 lb) 06/03/2023 2:33 PM HMAAnhpgh406.7 cm (5' 8 )06/03/2023 2:33 PM ESTBody Mass Index31.32108/03/2022 2:33 PM EST Plan of Treatment Health MaintenanceDue DateLast DoneCommentsDepression Fksxzvysv46/11/2000 Varicella Vaccines (1 of 2 - 13+ 2-dose series)2001IPV Vaccines (2 of 3 - Adult catch-up series)HPV Vaccines (1 - 3-dose SCDM series) 2015COVID-19 Vaccine (3 - season)502/01/2022, 07/22/2021 Influenza Vaccine (#1)/, 07/17/2022, 07/15/2021, Additional history existsAdult Mkrixok72/15/806354/, 07/09/2017, 12/30/2007Zoster Vaccines (1 of 2)2038Meningococcal VaccineAged Out12/30/2007No longer eligible based on patient's age to complete this topicHepatitis B Vaccines Sppkypyyz43/05/2009, 03/03/2008, 01/03/2008HIB VaccinesAged OutNo longer eligible based [...]
--- OUTSIDE RECORDS SUMMARY | 2025-05-26 11:03 | XMS_ITS | Clinical Summary ---
Author Organization [facility] Address [address] [place] [address] Care Team Providers Care Livestock Breeder Name Role Phone Jesica Atkinson EVENTS TRAFFIC CONTROLLER Unavailable [phone] Allergies No known active allergies Medications MedicationSigDispense QuantityRefillsLast FilledStart DateEnd DateStatus escitalopram (Lexapro) 5 MG/5ML solution Take by mouth5Active Testosterone 40.5 MG/2.5GM (1.62%) gel Indications:Secondary male hypogonadismPlace 2 Pump on the skin Daily 75 g 5Active Additional Information Patient taking differently:2 Pump Transdermal Daily,Morning, Reported on 05/23/2025 testosterone enanthate (Xyosted) 75 MG/0.5ML solution auto-injector Indications:Secondary male hypogonadismInject 1 Syringe (75 mg) under the skin every 7 (seven) days 12 each /5Active Syringe/Needle, Disp, (Luer Lock Safety Syringes) 23G X 1 3 ML misc Indications:Secondary male hypogonadism1 Syringe every 14 (fourteen) days 6 each 5Active testosterone cypionate (Depo-Testosterone) 200 MG/ML injection Indications:Secondary male hypogonadismInject 0.75 mL (150 mg) into the shoulder, thigh, or buttocks every 14 (fourteen) days 4.5 mL /6Active testosterone (Androgel) 50 MG/5GM (1%) gel Indications:Secondary male hypogonadismPlace 1 packet (50 mg) on the skin Daily 90 packet /6Active testosterone (Androgel) 50 MG/5GM (1%) gel Indications:Secondary male hypogonadismPlace 1 packet (50 mg) on the skin Daily 90 packet 108Discontinued(Reorder) testosterone cypionate (Depo-Testosterone) 200 MG/ML injection Indications:Secondary male hypogonadismInject 0.75 mL (150 mg) into the shoulder, thigh, or buttocks every 14 (fourteen) days 4.5 mL Discontinued(Reorder) Encounters DateTypeDepartmentCare TbgeUqjkxbqtikg50/20/2025Orders Only [facility] [address] [place] [address] Carlo Sexton MD Secondary male kvpcxutpgdjd31/20/2025Telephone [facility] [address] [place] [address] Carlo Sexton MD Med Zuskqw1505/23/2025 11:20 AM ESTOffice Visit [facility] [address] [place] [address] Carlo Sexton MD Secondary male hypogonadism (Primary Dx); Libido, tmsfveuuf28/18/2025amboo flowsheet [facility] [address] [place] [address] Carlo Sexton MD 05/16/2025Telephone [facility] [address] [place] [address] Carlo Sexton MD Med Lgakxh8405/12/2025Telephone [facility] [address] [place] [address] Carlo Sexton MD Med Eudqgp6104/28/2025Orders Only [facility] [address] [place] [address] Carlo Sexton MD 04/28/2025Telephone [facility] [address] [place] [address] Carlo Sexton MD Advice Only04/06/2025Telephone [facility] [address] [place] [address] Carlo Sexton MD Advice Only03/27/2025Refill [facility] [address] [place] [address] Karina Art LPN Secondary male bqrudzisujyz68/22/2025Orders Only [facility] [address] [place] [address] Carlo Sexton MD Secondary male hypogonadism (Primary Dx)03/24/2025Telephone [facility] [address] [place] [address] Carlo Sexton MD Med Cvmvfx8203/22/2025Telephone [facility] [address] [place] [address] Carlo Sexton MD Med Rpqljp0403/21/2025Orders Only [facility] [address] [place] [address] Carlo Sexton MD Secondary male fhjqhraztfqi87/16/2025Telephone [facility] [address] [place] [address] Karina Art LPN Med Lqmgpn0803/20/2025Telephone [facility] [address] [place] [address] Carlo Sexton MD Medication Xjarrkn1303/20/2025Refill [facility] [address] [place] [address] Carlo Sexton MD Secondary male shjubjfzyvsw49/15/2025Telephone [facility] [address] [place] [address] Carlo Sexton MD Med Qhynva1303/15/2025Orders Only [facility] [address] [place] [address] Carlo Sexton MD Secondary male hypogonadism (Primary Dx)03/15/2025Telephone [facility] [address] [place] [address] Carlo Sexton MD Med Epgedz5502/28/2025Orders Only [facility] [address] [place] [address] Carlo Sexton MD Secondary male hypogonadism (Primary Dx)02/27/2025Telephone [facility] [address] [place] [address] Carlo Sexton MD Medication Rtmjspb9702/24/2025 9:30 AM EDTOffice Visit [facility] [address] [place] [address] Carlo Sexton MD Secondary male hypogonadism (Primary Dx); Libido, juxmjmxpi43/22/2025Telephone [facility] [address] [place] [address] Carlo Sexton MD Med Byobpl5502/24/2025amboo flowsheet [facility] [address] [place] [address] Carlo Sexton MD from Last 3 Months Social History Tobacco UseTypesPacks/DayYears UsedDateSmoking Tobacco: FormerCigarettes Smokeless Tobacco: Never Tobacco Cessation:Counseling Given: Not Answered Alcohol UseStandard Drinks/WeekCommentsNever0 (1 standard drink = 0.6 oz pure alcohol)Sex and Gender InformationValueDate RecordedSex Assigned at BirthNot on fileLegal ZmoMrsc7003/30/2024 11:42 AM EDTGender IdentityNot on fileSexual OrientationNot on file Last Filed Vital Signs Vital SignReadingTime TakenCommentsBlood Dlmvulqv780/9005/23/2025 11:16 AM EST Czbas02662/18/2025 11:16 AM ESTTemperature--Respiratory Fcrh0426 11:16 AM ESTOxygen Wgrgyvlvls34%05/23/2025 11:16 AM ESTInhaled Oxygen Concentration-- Ergtzw50.4 kg (217 lb)05/23/2025 11:16 AM IGSNcqlki802.7 cm (5' 8 )05/23/2025 11:16 AM ESTBody Mass Index32.9905/23/2025 11:16 AM EST Plan of Treatment DateTypeDepartmentCare Team (Latest Contact Info)Gezldabtafl00/19/2026 11:00 AM EDTOffice Visit [facility] [address] [place] [address] Cralo Sexton MD [address] [place] [address] Health MaintenanceDue DateLast DoneCommentsCOVID-19 Vaccine ( season) 502/01/2022, 07/22/2021Influenza Vaccine (#1)509/, 07/17/2022, 07/15/2021, Additional history existsPneumococcal Vaccine: Pediatrics (0 to 5 Years) and At-Risk Patients (6 to 64 Years)Aged OutNo longer eligible based on patient's age to complete this topic Insurance Care Teams Team MemberRelationshipSpecialtyStart DateEnd Date Jesica Atkinson, EVENTS TRAFFIC CONTROLLER [address] [facility] [address] [place] [address] PCP - [facility]10/05/23
--- OUTSIDE RECORDS SUMMARY | 2025-05-26 11:03 | XMS_ITS | Clinical Summary ---
Author Organization [employer] [facility] tem Address [id number] [address] [place] [address] Care Team Providers Care Skiing Instructor Name Role Phone No Pcp, No Pcp [...] capsule 3Active Active Problems ProblemNoted DateDiagnosed DateSpecific nqbqvw6504/21/2022Fear of choking 04/21/2022History of attention deficit hyperactivity jmllciwe59/17/2022 Social History Tobacco UseTypesPacks/DayYears UsedDateSmoking Tobacco: NeverChildcareAnswerDate YrkthcozYgznapojzOnajolk96/12/2019EmploymentAnswerDate RecordedEmploymentUnknown 12/15/2018Purpose - LifeAnswerDate RecordedPurpose and direction in lifeUnknown 08/16/2020ex and Gender InformationValueDate RecordedSex Assigned at BirthNot on fileLegal KfwVrdz1202/08/2015 11:58 AM EDTGender IdentityNot on fileSexual OrientationNot on file Last Filed Vital Signs Vital SignReadingTime TakenCommentsBlood Rdzbtxlu326/9610 11:20 AM EDT Rpgeb8377 11:20 AM DFDHbqgbffehmp81.4 ??C (97.5 ??F)02/15/2017 11:12 AM EDTRespiratory Lhun858302/15/2017 11:12 AM EDTOxygen Fvlhrjufdc04%02/15/2017 11:12 AM EDTInhaled Oxygen Concentration--Emrdtt59 kg (205 lb)04/21/2022 11:20 AM EDT Cwmsew519.7 cm (5' 8 )02/15/2017 11:12 AM EDTBody Mass Index31.17002/15/2017 11:12 AM EDT Plan of Treatment Health MaintenanceDue DateLast DoneCommentsDepression Enaxqdkbl75/11/2000Tobacco Vuyrexgoe76/11/2000Adult BMI Roophydhb25/11/2006DTaP,Tdap and Td Vaccines (1 - Tdap)2007COVID-19 Vaccine (3 - 2024- season)502/01/2022, 07/22/2021Influenza Hbscbty8703/06/2025 Medical Devices Not on file Insurance Care Teams Team MemberRelationshipSpecialtyStart DateEnd Date No [place], [place] [id number] [facility]
--- OUTSIDE RECORDS SUMMARY | 2025-05-26 11:04 | XMS_ITS | Patient Health Record ---
Author Organization [facility] [place] Address [address] [place] [address] Care Team Providers Care Microsoft Dynamics Manager Architect Name Role Phone None, Unknown or Primary Care Provider Unavailab maame Delio Soriano Unavailable [phone] Allergies No Known Allergies Reason For Referral No Information Medications Medication SIG (Take, Route, Frequency, Duration) Notes Start Date End Date Status Atrovent HFA 17 MCG/ACT 2 puffs as neede d for SOB Inhalation Q4H; Duration: 30 days 5Active Immunizations Vaccine Route Administration Date Status Comme nts Flu, Fluarix (70224) 6 mos a nd older, single-dose (8521-5858) Unknown 04/01/2023 Administered SARS-COV-2 (COVID 19 Pfizer 30mcg/0.3mL), fredrick hmooeypDewqxon05/07/2022 ZcnvigljuantMpujJpbumuc86/15/2023Administered Social History Tobacco Use: Social History Observation Description Date Details (start date - stop date) Former Smoker NA - NA Tobacco use other than smoking: Question Answer Notes Are you an other tobacco user? No F ormer- Chew Tobacco Tobacco Control (Standard) Question Answer Notes Tobacco use: Former smoker How long has it been since you last smoked?Greater than 10 yearsAdditional Findings: Tobacco hpv-ozazNt-bvbsk cigarette smoker (1-9/day),Ex-user of moist powdered tobacco Problems Problem Type SNOMED Code ICD Code Onset Dates Problem Status W/U Status Risk Notes Problem Obstructive sleep ap mario syndrome (92495661) ROSEMARY (obstructive sleep apnea) (G47.33) ActiveconfirmedProblemSinus tachycardia (92254152)Sinus tachycardia (R00.0) ActiveconfirmedProblemEx-tobacco user (finding) (858275037)History of tobacco abuse (Z87.891)ActiveconfirmedProblemCricopharyngeal dysphagia (22621196) Cricopharyngeal dysphagia (R13.13)ActiveconfirmedProblemAversion to particular food (finding) (488201209)Aversion to food (R63.39)Activeconfirmed Vital Signs Heart Rate 118 /min 07/27/2024 Nciurbphvql88.0 degrees Njstazvspo78/22/2025Respiratory Rate18 /min07/27/2024 Blood pressure mm Hg07/27/20241672Ckpgikgy03 %07/27/20245108Nezvtu24 in 07/27/2024lood pressure wbmbpean080 mm Hg07/27/20247162Aqlhzi530.6 lbs07/27/2024MI 34.6 kg/m207/27/2024 Encounters Encounter Location Date Provider Diagnosis Pulmonary Medicine [place] [address] [place] [address] 07/26/2024 [facility] Pulmonary Medicine [address] [place] [address]/04/2025 [facility] [place] [address] 10/18/2024[facility] [address] [place] [address]/22/2025[facility] of [facility] ; Aversion to food R63.39 ; Cricopharyngeal dysphagia R13.13 ; Sinus tachycardia R00.0 ; ROSEMARY (obstructive sleep apnea) G47.33 and History of tobacco abuse Z87.891 Assessments Encounter Date Diagnosis (ICD Code) Assessment Notes Treatment Notes Treatment Clinical Notes Section Notes 07/27/2024 Shortness of breath (ICD-10 - R0 6.02) Dyspnea for 5 years, began after an apparently traumatic choking episode. Patient is associating this with chicken shakes but his history is inconsistent with a solid cause & effect. There are multiple possible reasons he may have shortness of breath which were discussed with him: -Asthma -Variable extrathoracic obstruction associated with cricopharyngeal bar -Over distention of the stomach decreasing vital capacity/diaphragmatic stretch inducing dyspnea -Anxiety/panic attack from the fear of eating causing shortness of breath, or simply the fear of eating -Neuromuscular weakness associated with malnutrition secondary to the eating disorder -Neuromuscular weakness associated with other neurological condition (e.g. myasthenia gravis) -Deconditioning/out of shape -Associated with tachycardia -Occupational/environmental lung disease associated with diesel fumes and plastics -Other At this time, I recommended a PFT to evaluate for any obstructive or restrictive lung disease. Given his psychiatric history, I showed him the PFT suite including the plethysmography body box. I asked him if he felt he would be able to complete that. He stated yes. I sat him in the body box andclosed the clear door. He stated he did not have any claustrophobia or anxiety with that. Will order PFT and use ipratropium as the bronchodilator given his underlying tachycardia and worsening symptoms with albuterol. Given the concerns of neuromuscular weakness, adding on MIP (maximal inspiratorypressure) and MEP (maximum expiratory pressure). Additionally, will prescribe Atrovent (ipratropium) to use as a rescue inhaler as needed for shortness of breath. Explained to him that he will not have adrenergic side effects with Atrovent as he would with albuterol. He voiced agreement to this plan of care. Follow-up 3 weeks to review testing and response to Atrovent. Further plan of care dependent on those findings. 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 This is causing him to have some malnutrition. It is also drastically adjusted his diet to essentially semisolid/liquid. [facility] further management [facility] machine [facility] 07/27/2024ricopharyngeal dysphagia (ICD-10 - R13.13) Noted on modified barium swallow 04/2024. If there is narrowing of the upper esophagus, potential that it could extend from the anterior wall which is shared with the posterior tracheal wall. This could cause a variable extrathoracic (upper airway) obstruction which could contribute to his dyspnea. The inspiratory limb of the flow-volume loop can help detect an extrathoracic obstruction. 07/27/2024Sinus tachycardia (ICD-10 - R00.0) Chronic. Work[facility] up [facility] Cardiology. Question if it is exacerbated by his underlying anxiety. Avoiding albuterol as it makes it worse. 07/27/2024OSA (obstructive sleep apnea) (ICD-10 - G47.33) Apparently patient cannot tolerate. [place]. Will defer to them for any further management. 07/27/2024History of tobacco abuse (ICD-10 - Z87.891) 1 pack/day x 2 years, quit several years ago. He would not meet current LDCT screening criteria. Plan Of Treatment No Information Insurance Providers Payer Name Payer Address Payer Phone Subscriber Number Group Number Insured Name Patient Relationship to Insured Coverage Start Date Coverage End Date [employer] [place] [employer] [address] [address] [place] [address] [id number] Vaughn Ochoa - patient is the insured Medical (General) History Medical History History ICD Code Aversion to food R63.39 Cricopharyngeal dysphagia R13.13 Sinus tachycardia R00.0 HTN (hypertension) I10 ROSEMARY (obstructive sleep apnea) G47.33 History of tobacco abuse Z87.891 Surgical History Surgery Date(Month/Year) tonsillectomy appendectomy
--- OUTSIDE RECORDS SUMMARY | 2025-05-26 11:04 | XMS_ITS | Clinical Summary ---
Author Organization [facility] Address [address] [place] [address] Care Team Providers Care Sandwich Artist Name Role Phone Unavailable Primary Care Provider Unavailabl e Social History Tobacco UseTypesPacks/DayYears UsedDateSmoking Tobacco: Never AssessedArea Deprivation IndexAnswerDate RecordedNational Score (1-100), lower number is lower lcsa048302/20/2025State Score (1-10), lower number is lower dhji79602/20/2025 Data from: https://www.neighborhoodatlas.medicine.[facility]/. Last address used for [address] [facility]02/20/2025Sex and Gender InformationValueDate RecordedSex Assigned at BirthNot on fileLegal BifDnma5102/10/2025 8:44 AM EDT Gender IdentityNot on fileSexual OrientationNot on file Plan of Treatment Health MaintenanceDue DateLast DoneCommentsAnxiety Svnhugvfn34/11/2006Depression Glrkfthgl35/11/2006HIV Msxiizjqw37/11/2006Hepatitis C Nrriqsxog93/11/2006HPV Vaccine (1 - 3-dose SCDM series)2015Lipid Zbxpbofot63/11/2023Covid-19 Vaccine ( - season)502/01/2022, 07/22/2021Influenza Vaccine (#1)509/, 07/17/2022, 07/15/2021, Additional history exists DTaP,Tdap,Td Vaccine (4 - Td or Tdap)311/, 07/09/2017, 12/30/2007Hepatitis B TwwxhbeMmgjgbwtg97/05/2009, 03/03/2008, 01/03/2008 Insurance
--- OUTSIDE RECORDS SUMMARY | 2025-05-26 11:04 | XMS_ITS | Clinical Summary ---
Author Organization [facility] Address [address], [address] [place] [address] Care Team Providers Care Conference Service Coordinator Name Role Phone Yara Aguilar Primo BURGOS Primary Care Provider [phone] Allergies No known active allergies Medications MedicationSigDispense QuantityRefillsLast FilledStart DateEnd DateStatus lidocaine (XYLOCAINE) 5 % ointment apply THREE TIMES DAILY NEEDED for FOR PAIN5Active mupirocin (BACTROBAN) 2 % ointment APPLY TO THE AFFECTED AREA THREE TIMES DAILY FOR 10 DAYS5Active omeprazole (PRILOSEC) 40 MG delayed release capsule Take 1 capsule by mouth dailyActive sulfacetamide (BLEPH-10) 10 % ophthalmic solution 5Active meloxicam (MOBIC) 15 MG tablet Take 1 tablet by mouth dailyActive Nutritional Supplements (ENSURE PLUS HIGH PROTEIN) LIQD Take 1 Can by mouth daily Take 1 can PO daily for Nutrition SupplimentActive hydrOXYzine HCl (ATARAX) 10 MG tablet Take 0.5 tablets by mouth 3 times daily as needed for AnxietyActive Active Problems ProblemNoted DateDiagnosed LrnzApfvdcint86/30/2025Gastroesophageal reflux disease without ipwrtzgavhi64/29/2023bnormal wmunikkvrxkvnqbuh20/04/2023 Ccdhapynr20/04/0693Dhwwgusatbj34/04/2023Avoidant/restrictive food intake bqqbuxvs39/04/2023Other specified eating azxpgnwa80/04/5076Vnrpirf01/04/2023 Overview (01/09/2025): MOLE SKIN, Keflex, RTD Rbokmvfittblcnv50/04/2023Furuncle of abdominal wall04/08/2023Nosophobia 04/08/2023Nicotine hzutpmuawt15/04/2023Other mycobacterial licpoodukw68/04/2023 Other specified problems related to psychosocial ozlfugsodtxxy39/04/2023ain of foot04/08/20231107Uztzpcbrbgot94/04/0691Dnbyguehfr32/04/2023Unspecified blepharitis right upper gssejk8604/08/2023Fear of umcyglw4204/21/2022History of attention deficit hyperactivity rabpjlsy54/17/2022Hypertensive wbumevul50/29/2022yst of kidney, jgixarmj20/14/2019Other spondylosis, lumbosacral biminj7408/11/2018Anxiety disorder, woumtpgvzgt34/26/2018Chronic pabhwzblodd91/14/2018Localized swelling, mass and lump, head04/21/2018Low back pain04/21/2018Specific kyootg5402/09/2018 Recurrent erosion of cornea, left eye10/12/2017Unspecified blepharitis unspecified eye, unspecified yiuows0710/12/2017 Social History Tobacco UseTypesPacks/DayYears UsedDateSmoking Tobacco: NeverSmokeless Tobacco: FormerQuit: 2019Alcohol UseStandard Drinks/WeekCommentsNot Currently0 (1 standard drink = 0.6 oz pure alcohol)Sex and Gender InformationValueDate RecordedSex Assigned at FuwzqCdmc22/06/2025 11:19 AM EDTLegal GuvFizp4108/15/2012 8:44 PM ESTGender IdentityNot on fileSexual OrientationNot on file Last Filed Vital Signs Vital SignReadingTime TakenCommentsBlood Aazgihmj000/8607 10:40 AM EDT Tiznq222501/09/2025 10:40 AM EDTTemperature--Respiratory Njud4709 10:40 AM EDTOxygen Pivohzwyoq46%01/09/2025 10:40 AM EDTInhaled Oxygen Concentration-- Vhmhtu49.2 kg (216 lb 9.6 oz)01/09/2025 10:40 AM EDTHeight--Body Mass Index-- Plan of Treatment Health MaintenanceDue DateLast DoneCommentsDepression Wshxrk6604/15/2000Varicella vaccine (1 of 2 - 13+ 2-dose series)2001HIV wsmajc4704/15/2003Hepatitis C hnktyz2504/15/2006Hepatitis B vaccine (1 of 3 - 19+ 3-dose series)2007Flu vaccine (#1)503COVID-19 Vaccine (3 - 2024- season)2025 08/12/2021, 2DTaP/Tdap/Td vaccine (2 - Td or Tdap) HPV vaccine (No Doses Required)CompletedHepatitis A vaccineAged OutNo longer eligible based on patient's age to complete this topicHib vaccineAged OutNo longer eligible based on patient's age to complete this topicMeningococcal (ACWY) vaccineAged OutNo longer eligible based on patient's age to complete this topicMeningococcal B vaccineAged OutNo longer eligible based on patient's age to complete this topicPneumococcal 0-49 years VaccineAged OutNo longer eligible based on patient's age to complete this topicPolio vaccineAged OutNo longer eligible based on patient's age to complete this topic Insurance Care Teams Team MemberRelationshipSpecialtyStart DateEnd Date Yara Aguilar DO [address] [place] [address] PCP - [facility]01/09/25
--- OUTSIDE RECORDS SUMMARY | 2025-05-26 11:09 | XMS_ITS | CCD ---
Author Organization [facility] CliniSynj Care Team Providers Care Senior Quality Methods Specialist Name Role Phone Dariana Nelson Unavailable Christi [...] JANE Attending Unavailable FARIDA TREVIÑO Consulting Unavailable HAY, DR GRIFFITHS Admitting Unavailable [...] Unavailable Zach Aguilar DO Primary Care Provider DUKE LONGORIA Referring Unavailable ZACH AGUILAR Primary Care Unavailable DUKE LONGORIA Attending Unavailable DUKE LONGORIA Referring Unavailable ZACH AGUILAR Primary Care Unavailable Unavailable Primary Care Provider Unavaildesire Atkinson HOT BLAST WORKER, Jesica Lerma Unavailable [phone] CARLO SEXTON Attending Unavailable ZACH AGUILAR Referring Unavailable REEMA BRAXTON Attending Unavailable SELF Referring Unavailable Jesus Greene MD, Holden Primary Care Provider Jareth Galindo APRN Attending Provider Holden Aguilar DO Primary Care Provider Unavaildesire e Fern James MD Attending Provider [phone] Fern James MD Other Provider Holden Aguilar Primary Care Unavailable Asaben, Imben Attending Unavailable Erika, Imad Admitting Unavailable Ally Schulz APRN Attending Provider Allergies Allergy ClassificationReported Allergen(s)Allergy TypeDate of OnsetReaction(s) Facility (3 sources)Amoxicillin; Translations: [amoxicillin]Drug Uhkwubb98-43-7525 [facility] (3 sources)Penicillins; Translations: [Penicillins]Allergy to substance 41-65-1703UvinwgkamceQdmddwyudTrinity Health System [facility] Medications Current Medications MedicationDrug Class(es)DatesSig (Normalized)Sig (Original)amoxicillin 875 mg oral tablet (1 source)Penicillin-class AntibacterialStart: 19-99-1674jtcp 1 tablet by mouth every twelve hoursAmoxicillin 875 MG 1 tablet Orally every 12 hrs for 7 days Jun, Activeamoxicillin 50 mg/ml / clavulanate 12.5 mg/ml oral suspension (2 sources)Penicillin-class AntibacterialStart: 83-51-9635rwdh 10 mL by mouth every eight hoursAmoxicillin-Pot Clavulanate 250-62.5 MG/5ML 10 mL Orally every 8 hours for 10 day(s) May, ActiveStart: 17-27-5500tdui 10 mL by mouth every eight hoursAmoxicillin-Pot Clavulanate 250-62.5 MG/5ML 10 mL Orally every 8 hrs for 10 day(s) Mar, Activeclindamycin 300 mg oral capsule (1 source)Lincosamide AntibacterialStart: 04-41-7718mcpr 1 capsule by mouth every eight hoursClindamycin HCl 300 MG 1 cap(s) Orally three times a day for 10 day(s) Dec, Activedoxycycline hyclate 100 mg oral capsule (1 source)Tetracycline-class DrugStart: 01-25-4946hisw 1 capsule by mouth twice dailyDoxycycline Hyclate 100 mg capsule Active 100 MG PO Twice daily 10 5 0 May 06, 2025 12:00am Complies with drug therapyescitalopram 1 mg/ml oral solution (19 sources)Serotonin Reuptake InhibitorStart: 47-22-1087mihrjuutextt (Lexapro) 5 MG/5ML solution Take by mouth 01/12/2025 Activefluticasone propionate 0.05 mg/actuat metered dose nasal spray (1 source)CorticosteroidStart: 34-42-2920mpkm 2 spray(s) nasal route once daily Fluticasone [...] topical ointment (4 sources)Antiarrhythmic, Amide Local AnestheticStart: 82-11-8686nvhksmiqe (XYLOCAINE) 5 % ointment apply THREE TIMES DAILY NEEDED for FOR PAIN 11/10/2024 ActiveStart: 11-10-2024 End: 10-20-1669Hfqxcqrlj 5 % ointment Discontinued 1 APPLIC TOPICAL Three times daily as needed for pain 30 10 0 November 10, 2024 12:00am February 14, 2025 1:52pm meloxicam 15 mg oral tablet (2 sources)Nonsteroidal Anti-inflammatory Drugtake 1 tablet by mouth once daily meloxicam (MOBIC) 15 MG tablet Take 1 tablet by mouth daily Activemupirocin 0.02 mg/mg topical ointment (4 sources)RNA Synthetase Inhibitor AntibacterialStart: 12-76-7034mmbifnsby (BACTROBAN) 2 % ointment APPLY TO THE AFFECTED AREA THREE TIMES DAILY FOR 10 DAYS 11/10/2024 ActiveStart: 11-10-2024 End: 01-97-3908Yhliqprlz 2 % ointment Discontinued 1 APPLIC TOPICAL Three times daily 22 10 0 November 10, 2024 12:00am February 14, 2025 1:52pmNutritional Supplements (ENSURE PLUS HIGH PROTEIN) LIQD (2 sources)Nutritional Supplements (ENSURE PLUS HIGH PROTEIN) LIQD Take 1 Can by mouth daily Take 1 can PO daily for Nutrition Suppliment ActiveQelbree (1 source)Qelbree Activesulfacetamide sodium 100 mg/ml ophthalmic solution (2 sources)Sulfonamide AntibacterialStart: 61-77-2881olgtbvpuppszp (BLEPH-10) 10 % ophthalmic solution 01/06/2025 ActiveSyringe/Needle, Disp, (Luer Lock Safety Syringes) 23G X 1 3 ML misc (4 sources)Start: 25-95-7838Gkqovuq/Needle, Disp, (Luer Lock Safety Syringes) 23G X 1 3 ML misc 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 1 Syringe every 14 (fourteen) days 6 each 3 03/27/2025 Active1 ml testosterone cypionate 200 mg/ml injection (20 sources)AndrogenStart: 12-13-3303oinxfh 100 mg by intramuscular injection every weekTestosterone Cypionate (Depo-Testosterone) 200 mg/mL oil Active 100 MG IM every week May 06, 2025 12:00am Complies with drug therapyStart: 03-27-2025 End: 95-38-0411mlywegtdgrpe cypionate (Depo-Testosterone) 200 MG/ML injection 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 Inject 0.75 mL (150 mg) into the shoulder, thigh, or buttocks every 14 (fourteen) days 4.5 mL 10/27/2025 ActiveStart: 03-15-2025 End: 43-39-1603mnteilrgramk enanthate (Xyosted) 75 MG/0.5ML solution auto- injector 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 Inject 1 Syringe (75 mg) under the skin every 7 (seven) days 12 each 3 03/21/2025 06/19/2025 ActiveStart: 02-28-2025 End: 63-27-0868edemdempzqhf (Androgel) 50 MG/5GM (1%) gel 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 Place 1 packet (50 mg) on the skin Daily 90 packet 1 02/28/2025 08/27/2025 ActiveStart: 02-24-2025 End: 34-48-8225Wssoektmlrqb 40.5 MG/2.5GM (1.62%) gel 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 Place 2 Pump on theskin Daily 75 g 1 02/24/2025 05/25/2025 Active Completed/Discontinued Medications MedicationDrug Class(es)DatesSig (Normalized)Sig (Original)acyclovir 40 mg/ml oral suspension (2 sources)Herpesvirus Nucleoside Analog DNA Polymerase Inhibitor, Herpes Simplex Virus Nucleoside Analog DNA Polymerase Inhibitor, Herpes Zoster Virus Nucleoside Analog DNA Polymerase InhibitorStart: 11-10-2024 End: 94-99-9350sdey 800 mg by mouth five times dailyAcyclovir 200 mg/5 mL suspension Discontinued 800 MG PO Five times daily 700 7 0 November 10, 2024 12:00am February 14, 2025 1:63usnwp788256 200 actuat albuterol 0.09 mg/actuat metered dose inhaler (2 sources)beta2-Adrenergic AgonistStart: 97-94-7968mjje 2 puff(s) by inhalation every four hours as neededAlbuterol Sulfate HFA 108 (90 Base) MCG/ACT 2 puffs as needed Inhalation every 4 hrs Jul, Not-Takingazithromycin 40 mg/ml oral suspension (2 sources)Macrolide AntimicrobialStart: 98-65-5249Eqhhxcjlbeib 200 MG/5ML 12.5 ml day 1 then 7.5 ml days 2-5 Orally Once a day for 5 day(s) Jul, Not-Ndyrbx410 actuat ipratropium bromide 0.017 mg/actuat metered dose inhaler (2 sources)AnticholinergicStart: 11-10-2024 End: 85-00-1165Hsxhxdilubl [place] (Atrovent Hfa) 17 mcg/actuation HFA aerosol inhaler Discontinued INHALATION 2024 12:00am February 14, 2025 1:52pm omeprazole 40 mg delayed release oral capsule (6 sources)Proton Pump InhibitorStart: 11-10-2024 End: 00-04-0026uost 1 capsule by mouth once dailyOmeprazole 40 mg capsule,delayed release(DR/EC) Discontinued 40 MG PO Daily November 10, 2024 12:00am February 07, 2025 9:52amtake 1 capsule by mouth once dailyOmeprazole 20 MG 1 capsule 30 minutes before morning meal Orally Once a day ActiveprednisoLONE 3 mg/ml oral solution (3 sources)CorticosteroidStart: 57-22-2266deay 7.5 mL by mouth twice daily at mealtimeprednisoLONE 15 MG/5ML 7.5 ml Orally twice a day with food for 5 days Jul, Not-TakingStart: 28-78-2564jelv 13 mL by mouth once dailyprednisoLONE 15 MG/5ML 13 ml Orally qd for 5 day(s) May, Active Problems Active Problems Problem ClassificationProblemDateDocumented DateEpisodic/ChronicAbdominal hernia (1 source)Umbilical hernia without obstruction or gangrene; Translations: [UMBILICAL HERNIA W/O OBST/GANGRENE]Onset: 44-05-0079JnqzmclhIlrcdunqp pain (4 sources)Unspecified abdominal pain; Translations: [UNSPECIFIED ABDOMINAL PAIN]Onset: 04-31-8227TqztucnsRdhjrjo disorders (12 sources)Anxiety disorder, unspecified; Translations: [Post-traumatic stress disorder, unspecified]Onset: 715638-50-7419FnujiceDgerywhbu-qtemhut, conduct, and disruptive behavior disorders (2 sources)Attention deficit hyperactivity disorder; Translations: [Attention- deficit hyperactivity disorder, unspecified type]52-69-1157KlrdcicFrweind obstructive pulmonary disease and bronchiectasis (1 source)Bronchitis, not specified as acute or chronicEpisodicDiseases of mouth; excluding dental (6 sources)Other lesions of oral mucosa; Translations: [Other forms of stomatitis]Onset: 83-13-3337PakjriehEozmjwfbf of teeth and jaw (1 source)Chronic gingivitis, plaque inducedOnset: 01-01-2022 Resolved: 58-23-2243QhcykyrLpnckvwteg disorders (12 sources)Gastroesophageal reflux disease without esophagitis; Translations: [Gastro-esophageal reflux disease without esophagitis]Onset: 06-03-2023 81-55-2894IclntfrGirinhdgrz disorders (1 source)Lesion of dgqewqgdq53-56-6987DvtamkvrXiefaufmm hypertension (3 sources)Essential (primary) hypertension; Translations: [Hypertensive disorder]Onset: 413439-90-3538VsclhuwDgtwteifujpsj and screening for infectious disease (3 sources)Contact with and (suspected) exposure to other viral communicable diseasesOnset: 06-27-2021 Resolved: 78-64-8709YfgranohPntqdicnbbzso mental health disorders (4 sources)Avoidant restrictive food intake disorder; Translations: [Avoidant/restrictive food intake disorder]Onset: hronic Other endocrine disorders (18 sources)Male hypogonadism; Translations: [Testicular hypofunction]02-24-2025 ChronicOther gastrointestinal disorders (3 sources)Oropharyngeal dysphagia; Translations: [Dysphagia, oropharyngeal phase]30-09-4100RcypgwgwCyaaw gastrointestinal disorders (5 sources)Dysphagia; Translations: [Dysphagia, unspecified]Onset: 02-01-2025 78-10-4419IdwscantMxffa gastrointestinal disorders (1 source)Dysphagia, oropharyngeal phase; Translations: [Dysphagia, oropharyngeal phase]Onset: 72-58-7048BaylblepIjwix gastrointestinal disorders (4 sources)Swallowing painful; Translations: [Dysphagia, unspecified]02-07-2025 EpisodicOther gastrointestinal disorders (1 source)Dysphagia, unspecified; Translations: [Dysphagia, unspecified]Onset: 58-47-4498IknnmfanSfxpv hematologic conditions (1 source)Erythrocytosis; Translations: [Secondary polycythemia]02-20-2025 EpisodicOther hematologic conditions (1 source)Secondary polycythemia; Translations: [Polycythemia]Onset: 02-20-2025 EpisodicOther lower respiratory disease (2 sources)Other forms of dyspnea; Translations: [Other forms of dyspnea]Onset: 78-72-1537FxixkvohNttzc screening for suspected conditions (not mental disorders or infectious disease) (4 sources)Electrocardiogram abnormal; Translations: [Abnormal electrocardiogram [ECG] [EKG]]Onset: 785069-35-5002JjafiojaVrcdq skin disorders (2 sources)Folliculitis; Translations: [Follicular disorder, unspecified] 20-10-4285YsitwbcwQevec upper respiratory disease (5 sources)Allergic rhinitis; Translations: [Allergic rhinitis, unspecified] 38-02-8251QeucrniMsmtk upper respiratory disease (1 source)Allergic rhinitis, unspecifiedChronicOther upper respiratory disease (2 sources)Chronic pharyngitis; Translations: [Chronic pharyngitis]Onset: 842553-67-2264WqexcbgHzgte upper respiratory infections (1 source)Chronic sinusitis, unspecified; Translations: [CHRONIC SINUSITIS UNSPECIFIED]Onset: 28-43-1417BrxloqiBkytk upper respiratory infections (8 sources)Acute sinusitis, unspecified; Translations: [Acute pharyngitis, unspecified]Onset: 01-69-5644AgtvxilkYqfdrzcy codes; unclassified (1 source)Obstructive sleep apnea syndrome; Translations: [Obstructive sleep apnea (adult) (pediatric)]02-38-6301CwweraqYjqskfdq codes; unclassified (1 source)Obstructive sleep apnea (adult) (pediatric); Translations: [ROSEMARY (obstructive sleep apnea)]Onset: 59-86-0391NxoyxedUoxnfgyq codes; unclassified (2 sources)Reduced libido; Translations: [Decreased libido]63-77-9273Pjhgbyav Spondylosis; intervertebral disc disorders; other back problems (2 sources)Lumbosacral spondylosis; Translations: [Other spondylosis, lumbosacral region]Onset: 416249-68-8910HabckfdWtfbcwlohnf; intervertebral disc disorders; other back problems (4 sources)Low back pain; Translations: [Low back pain]Onset: 04-21-2018 06-38-8966ZouphmuuLmwrtiyqp-related disorders (2 sources)Nicotine dependence; Translations: [Nicotine dependence, unspecified, uncomplicated]Onset: 491242-58-6550MosrtgiTyooi infection (3 sources)Unspecified viral infection characterized by skin and mucous membrane lesions; Translations: [Herpes zoster]Onset: 417730-18-2905Eqlxggcg Past or Other Problems Problem ClassificationProblemDateDocumented DateEpisodic/Chronic Administrative/social admission (2 sources)Social and personal history finding; Translations: [Other specified problems related to psychosocial circumstances]Onset: EpisodicAllergic reactions (2 sources)Allergic condition; Translations: [Allergy, unspecified, initial encounter]Onset: 525774-51-1428GszzhrubTgykckuej infection; unspecified site (2 sources)Mycobacteriosis; Translations: [Other mycobacterial infections]Onset: 678484-40-2763MoephwshJtdopkxin and vision defects (2 sources)Astigmatism; Translations: [Unspecified astigmatism, unspecified eye] Onset: 440534-26-0202DhsxgyiaVlsuftj dysrhythmias (6 sources)Palpitations; Translations: [Palpitations]Onset: 09-91-3168Gpkywaak Conditions associated with dizziness or vertigo (4 sources)Dizziness and giddiness; Translations: [DIZZINESS AND GIDDINESS] Onset: 00-30-0168GgrxpedgUkbebtzge of teeth and jaw (2 sources)Aggressive periodontitis, localized, unspecified severity; Translations: [Periapical abscess without sinus]Onset: 11-06-2021 Resolved: 42-77-4277YwiriqhzUfutgdarieww; infection of eye (except that caused by tuberculosis or sexually transmitteddisease) (4 sources)Blepharitis of right upper eyelid; Translations: [Unspecified blepharitis right upper eyelid]Onset: 744942-80-7639NpccmmlkSkjtu bone disease and musculoskeletal deformities (2 sources)Costal chondritis; Translations: [Chondrocostal junction syndrome [Tietze]]Onset: 881634-67-4510KfrmnqmoWrcfa connective tissue disease (2 sources)Foot pain; Translations: [Pain in unspecified foot]Onset: 04-08-2023 00-91-3071RimlhfosUhhwt connective tissue disease (2 sources)Tendinitis; Translations: [Enthesopathy, unspecified]Onset: 883395-31-5546PukbigobPpldr diseases of kidney and ureters (2 sources)Acquired renal cystic disease; Translations: [Cyst of kidney, acquired]Onset: 906413-14-2740PqgpipeaAgcko eye disorders (2 sources)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; Translations: [Recurrent erosion of cornea, left eye]Onset: 142720-77-1322VpcjfuzrSrbno injuries and conditions due to external causes (2 sources)Blister; Translations: [Other injury of unspecified body region, initial encounter]Onset: 180376-49-3504OuggyrfbKxzzy lower respiratory disease (1 source)Hemoptysis; Translations: [HEMOPTYSIS]Onset: 86-07-9961JovromczVkfqo skin disorders (2 sources)Finding of head region; Translations: [Localized swelling, mass and lump, head]Onset: 211822-99-4040BdtsjrfsQiigk upper respiratory disease (3 sources)Nasal congestion; Translations: [NASAL CONGESTION]Onset: 11-02-2021 EpisodicOtitis media and related conditions (1 source)Otitis media, unspecified, left earOnset: 06-27-2021 Resolved: 10-48-4566WsgcmqmiQncxflgog and history of mental health and substance abuse codes (3 sources)Personal history of nicotine dependence; Translations: [Personal history of other mental and behavioral disorders]Onset: EpisodicSkin and subcutaneous tissue infections (2 sources)Furuncle of abdominal wall; Translations: [Furuncle of abdominal wall]Onset: 895142-64-7246BmorgdeoCrcax infection (3 sources)COVID-19; Translations: [COVID-19]Onset: 06-27-2021 Resolved: 06-27-2021 Results Test NameValueInterpretationReference RangeFacilityPathology Request for Lab Corpon [id number] Request for Lab CorpNormalThBingham Memorial Hospital Physician GroupComment on above:Order Comment: GI SPECIMENResult Comment: See report. Scanned copy available in EMR. PERFORMED BY: [place] [address] PATHOLOGIST FLORAL CLERK JASPREET RUEDA M.D.Performed By: #### [facility] #### [place] [address] [employer] ESOPHAGRAMon [id number] ESOPHAGRAMEXAMINATION: DOUBLE CONTRAST ESOPHAGRAM 01/30/2025 10:27 am [...] Signed by: Ryan Gordillo DO 01/30/25 Final resultNormalMerThe Hospital of [facility] Esophagus Views W contrast Kvng 36-77-2296Gehpenxchn relaxation cricopharyngeus with otherwise unremarkable esophagram [facility] CONSOLIDATEDEXAMINATION: DOUBLE CONTRAST ESOPHAGRAM 01/30/2025 10:27 am [...] There is no evidence for reflux seen. [facility] CONSOLIDATEDRobertsRyan, - 01/30/2025 EXAMINATION: DOUBLE CONTRAST ESOPHAGRAM 01/30/2025 [...] Incomplete relaxation cricopharyngeus with otherwise unremarkable esophagram [facility] CenterRadiology Study observation (narrative)[facility] Esophagus Views W contrast POOrdered By: Ryan Gordillo on 01-30-2025 [facility] Work Phone: cbc with Auto Differentialon 22-06-2558Cpwzeaqls (Bld) [#/Vol][facility] CenterHematocrit (Bld) [Volume fraction]51 %High40.7 - 50.3 %[facility] CenterHemoglobin (Bld) [Mass/Vol]17 g/dL13.0 - 17.0 g/dL Bon OhiohealthImmature granulocytes (Bld) [#/Vol]Bon OhiohealthInterpretation and review of laboratory resultsAbnormalBon OhiohealthLymphocytes/100 WBC (Bld)1.08 %LowBon OhiohealthMonocytes/100 WBC (Bld)0.75 %Bon OhiohealthNeutrophils/100 WBC (Bld)82 %High36 - 65 %[facility] CenterNucleated RBC/100 WBC (Bld) [Ratio]0 %0.0 per 100 WBC [facility] CenterPlatelet mean volume (Bld) [Entitic vol]9 fL8.1 - 13.5 fLBon OhiohealthSegmented neutrophils/100 WBC (Bld)8.35 %HighBon OhiohealthWBC other (Bld) [#/Vol]10.3[facility] HospitalCBC with Diffon 69-25-4512Zaffudvoh/100 WBC (Bld)0 %Normal 0-2Bon OhiohealthComment on above:Performed By: #### PALB #### [address] [address] Sed Special Education Teacher: Almas Stearns MD #### MARBELLA, CDP #### [address] [place] [address] Sed Special Education Teacher: Farida Jones MDEosinophils (Bld) [#/Vol]0.03 10*3/uLNormal 0.00-0.44Bon OhiohealthComment on above:Performed By: #### PALB #### [address] [address] Sed Special Education Teacher: Almas Stearns MD #### CP, CDP #### [address] [place] [address] Sed Special Education Teacher: Farida Jones MDEosinophils/100 WBC (Bld)0 %Low1-4Bon [facility] on above:Performed By: #### PALB #### [address] [address] Sed Special Education Teacher: Almas Stearns MD #### CP, CDP #### [address] [place], [place] [id number] Sed Special Education Teacher: Farida Jones MDErythrocyte distribution width (RBC) [Ratio]12.4 % Nxcmtm99.8-14.4Bon [facility] on above:Performed By: #### PALB #### [address] [address] Sed Special Education Teacher: Almas Stearns MD #### CP, CDP #### [address] [place] [id number] Sed Special Education Teacher: Farida Jones MDImmature granulocytes/100 WBC (Bld)0 %Acaqzn2Udp [facility] on above:Performed By: #### PALB #### [address] [address] Sed Special Education Teacher: Almas Stearns MD #### CP, CDP #### [address] [place] [id number] Sed Special Education Teacher: aFrida Jones MDLymphocytes/100 WBC (Bld)11 %Zvq87-71Rjr [facility] on above:Performed By: #### PALB #### [address] [address] Sed Special Education Teacher: Almas Stearns MD #### CP, CDP #### [address] [place], [place] [id number] Sed Special Education Teacher: Farida Sturtz, MDMCH (RBC) [Entitic mass]27.5 iiByrthq94.2-33.5Bon [facility] on above:Performed By: #### PALB #### [address] [address] Sed Special Education Teacher: Almas Stearns MD #### CP, CDP #### [address] [place] [id number] Sed Special Education Teacher: FERDINAND GagnonCHC (RBC) [Mass/Vol]33.3 g/yJNfkxma82.4-34.8Bon [facility] on above:Performed By: #### PALB #### [address] [address] Sed Special Education Teacher: Almas Stearns MD #### CP, CDP #### [address] [place] [address] Sed Special Education Teacher: FERDINAND GagnonCV (RBC) [Entitic vol]82.4 fLLow82.6-102.9Bon [facility] on above:Performed By: #### PALB #### [address] [address] Sed Special Education Teacher: Almas Stearns MD #### CP, CDP #### [address] [place] [id number] Sed Special Education Teacher: FERDINAND Gagnononocytes/100 WBC (Bld)7 %Normal3-12Bon [facility] on above:Performed By: #### PALB #### [place] [address] Sed Special Education Teacher: Almas Stearns MD #### CP, CDP #### [address] [place] [id number] Sed Special Education Teacher: JENNY Gagnonlatelets (Bld) [#/Vol]216 10*3/qVQedkzt767-981Jdq [facility] on above:Performed By: #### PALB #### [address] [address] Sed Special Education Teacher: Almas Stearns MD #### CP, CDP #### [address] [place] [address] Sed Special Education Teacher: BRANDAN GagnonBC (Bld) [#/Vol]6.19 10*6/uLHigh4.21-5.77Bon [facility] on above:Performed By: #### PALB #### [address] [address] Sed Special Education Teacher: Almas Stearns MD #### CP, CDP #### [address] [place] [address] Sed Special Education Teacher: Harish Gagnon. Basophil<0.64Gdxyul1.00-0.20[facility] on above:Performed By: #### PALB #### [address] [address] Sed Special Education Teacher: Almas Stearns MD #### CP, CDP #### [address] [place] [address] Sed Special Education Teacher: MDAbs. ChelsiImm.Granulocyte<0.50Vedwyl8.00-0.30[facility] on above:Performed By: #### PALB #### [address] [address] Sed Special Education Teacher: Almas Stearns MD #### CP, CDP #### [address] [place] [address] Sed Special Education Teacher: MDAbs. ChelsiNeutrophil (Seg)8.35 k/uLHigh1.50-8.10[facility] HospitalComment on above:Performed By: #### PALB #### [id number] [place] [address] Sed Special Education Teacher: Almas Stearns MD #### CP, CDP #### [address] [place], [place] [id number] Sed Special Education Teacher: Farida Jones MDHematocrit (Bld) [Volume fraction]51.0 %High 40.7-50.3Mkettering health – soin medical centery Water[facility] HospitalComment on above:Performed By: #### PALB #### [address] [address] Sed Special Education Teacher: Almas Stearns MD #### CP, CDP #### [address] [place] [id number] Sed Special Education Teacher: Farida Jones MDHemoglobin (Bld) [Mass/Vol]17.0 g/dLNormal 13.0-17.0[facility] HospitalComment on above:Performed By: #### PALB #### [address] [address] Sed Special Education Teacher: Almas Stearns MD #### CP, CDP #### [address] [place], [place] [id number] Sed Special Education Teacher: Farida Jones MDLymphocytes (Bld) [#/Vol]1.08 10*3/uLLow1.10-3.70 [facility] HospitalComment on above:Performed By: #### PALB #### [address] [address] Sed Special Education Teacher: Almas Stearns MD #### CP, CDP #### [address] [place], [place] [id number] Sed Special Education Teacher: FERDINAND Gagnononocytes (Bld) [#/Vol]0.75 10*3/uLNormal0.10-1.20 [facility] HospitalComment on above:Performed By: #### PALB #### [facility] [address] [place] [address] Sed Special Education Teacher: Almas Stearns MD #### CP, CDP #### [facility] [address] [place] [address] Dr[address] [place], [place] [id number] Sed Special Education Teacher: Michael Gagnon (Seg)82 %Hgtd05-90OyowrAkron Children'S Hospital Comment on above:Performed By: #### PALB #### [id number] [place] [address] Sed Special Education Teacher: Almas Stearns MD #### CP, CDP #### [facility] [address] [place] [address] Dr. [address] [place] [id number] Sed Special Education Teacher: Farida Jones MDNRBC Automated0.0 per 100 WBCNormal0.0Akron Children'S HospitalComment on above:Performed By: #### PALB #### [id number] [place] [address] Sed Special Education Teacher: Almas Stearns MD #### CP, CDP #### [facility] [address] [place] [address] [place] [address] Sed Special Education Teacher: Giovani Gagnonlet mean volume (Bld) [Entitic vol]9.0 fL Normal8.1-13.5Ak[facility] Children'S HospitalComment on above:Performed By: #### PALB #### [address] [address] Sed Special Education Teacher: Almas Stearns MD #### CP, CDP #### [address] [place] [address] Sed Special Education Teacher: Farida Jones MDWBC (Bld) [#/Vol]10.3 10*3/uLNormal3.5-11.3MMercy Health Defiance HospitalComment on above:Performed By: #### PALB #### [id number] [place] [address] Sed Special Education Teacher: Almas Stearns MD #### CP, CDP #### [address] [place] [address] Sed Special Education Teacher: LUMA Gagnonkane county human resource ssd Metabolic Profon [id number] [Mass/Vol] 4.5 g/dLNormal3.5-5.2Mer[facility]oyalhanna HospitalComment on above:Performed By: #### PALB #### [address] [address] Sed Special Education Teacher: Almas Stearns MD #### CP, CDP #### [address] [place], [place] [address]83 Sed Special Education Teacher: Farida Jones MDAlbumin/Glob Ratio1.3Qxfrkv2.0-2.5[facility] Children'S HospitalComment on above:Performed By: #### PALB #### [address] [address] Sed Special Education Teacher: Almas Stearns MD #### CP, CDP #### [address] [place], [place] [id number] Sed Special Education Teacher: Marleen Gagnon Phos86 U/QMjymhl02-108ViyyoAkron Children'S HospitalComment on above:Performed By: #### PALB #### [address] [address] Sed Special Education Teacher: Almas Stearns MD #### CP, CDP #### [address] [place] [address] Sed Special Education Teacher: Farida Jones MDALT [Catalytic activity/Vol]27 U/ZTykibf58-78Aimlk Tiffin HospitalComment on above:Performed By: #### PALB #### [address] [address] Sed Special Education Teacher: Almas Stearns MD #### CP, CDP #### [address] [place], [place] 1009083 Sed Special Education Teacher: Farida Jones MDAnion gap [Moles/Vol]12 mmol/LNormal9-16[facility] Children'S HospitalComment on above:Performed By: #### PALB #### [address] [address] Sed Special Education Teacher: Almas Stearns MD #### CP, CDP #### [address] [place], [place] [id number] Sed Special Education Teacher: Farida Jones MDAST [Catalytic activity/Vol]27 U/IFpbayv75-34HiyhjAkron Children'S HospitalComment on above:Performed By: #### PALB #### [address] [address] Sed Special Education Teacher: Almas Stearns MD #### CP, CDP #### [address] [place], [place] [id number] Sed Special Education Teacher: Farida Jones MDBilirubin [Mass/Vol]0.4 mg/dLNormal0.00-1.20[facility] Children'S HospitalComment on above:Performed By: #### PALB #### [address] [address] Sed Special Education Teacher: Almas Stearns MD #### CP, CDP #### [address] [place], [place] [id number] Sed Special Education Teacher: Farida Jones MDBUN/CRE Yoapt75Cxux5-77HycrhAkron Children'S Hospital Comment on above:Performed By: #### PALB #### [address] [address] Sed Special Education Teacher: Almas Stearns MD #### CP, CDP #### [address] [place] [address] Sed Special Education Teacher: LUMA Gagnonalcium [Mass/Vol]9.4 mg/dLNormal8.6-10.4[facility] HospitalComment on above:Performed By: #### PALB #### [address] [address] Sed Special Education Teacher: Almas Stearns MD #### CP, CDP #### [address] [place], [place] [id number] Sed Special Education Teacher: LUMA Gagnonhloride [Moles/Vol]102 mmol/FNnzimt98-210Tbwdu Tiffin HospitalComment on above:Performed By: #### PALB #### [address] [address] Sed Special Education Teacher: Almas Stearns MD #### CP, CDP #### [address] [place], [place] [id number] Sed Special Education Teacher: LUMA GagnonO2 [Moles/Vol]25 mmol/VHbycts28-89Hzsuu Tiffin HospitalComment on above:Performed By: #### PALB #### [address] [address] Sed Special Education Teacher: Almas Stearns MD #### CP, CDP #### [address] [place], [place] [phone] Sed Special Education Teacher: LUMA Gagnonreatinine [Mass/Vol]0.9 mg/dLNormal0.70-1.20[facility] HospitalComment on above:Performed By: #### PALB #### [address] [address] Sed Special Education Teacher: Almas Stearns MD #### CP, CDP #### [address] [place], [place] [phone] Sed Special Education Teacher: Farida Jones MDGFR/1.73 sq M.predicted among non-blacks MDRD (S/P/Bld) [Vol rate/Area]mL/min/{1.73_m2}Normal>60MerBackus HospitalComment on above:Result Comment: These results are [...] renal tubular secretion.Performed By: #### PALB #### [address] [id number] Sed Special Education Teacher: Almas Stearns MD #### CP, CDP #### [address] [place] [id number] Sed Special Education Teacher: Farida Jones MDGlucose [Mass/Vol]100 mg/sXNeui66-10XbvzfMercy Health Defiance HospitalComment on above:Performed By: #### PALB #### [address] [address] Sed Special Education Teacher: Almas Stearns MD #### CP, CDP #### [address] [place], [place] [phone] Sed Special Education Teacher: JENNY Gagnonotassium [Moles/Vol]4.4 mmol/LNormal3.7-5.3MMercy Health Defiance HospitalComment on above:Performed By: #### PALB #### [address] [address] Sed Special Education Teacher: Almas Stearns MD #### CP, CDP #### [address] [place], [place] 1147183 Sed Special Education Teacher: JENNY Gagnonrotein [Mass/Vol]7.5 g/dLNormal6.6-8.7[facility] Children'S HospitalComment on above:Performed By: #### PALB #### [facility] [address] [place] [address] Sed Special Education Teacher: Almas Stearns MD #### CP, CDP #### [address] [place]letaryCATHERINE [place] [id number] Sed Special Education Teacher: NIKI Gagnonodium [Moles/Vol]139 mmol/PJqlcct062-299ArsaxAkron Children'S HospitalComment on above:Performed By: #### PALB #### [facility] [place] [address] Sed Special Education Teacher: Almas Stearns MD #### CP, CDP #### [address] [place]ary[place]ATHERINE [place] [phone] Sed Special Education Teacher: Farida Jones MDUrea nitrogen [Mass/Vol]25 mg/dLHigh6-20[facility]S HospitalComment on above:Performed By: #### PALB #### [address] [place] [address] Sed Special Education Teacher: Almas Stearns MD #### CP, CDP #### [address] [place] [address] Sed Special Education Teacher: LUMA Gagnonomprehensive Metabolic Panelon [id number] [Mass/Vol]4.5 g/dL3.5 - 5.2 g/dLBon OhiohealthAlbumin/Globulin [Mass ratio]1.5 {ratio}1.0 - 2.5Bon [facility] HealthALP [Catalytic activity/Vol]86 U/L40 - 129 U/LBon [facility] HealthALT [Catalytic activity/Vol]27 U/L10 - 50 U/LBon OhiohealthAnion gap [Moles/Vol]12 mmol/L9 - 16 mmol/LBon [facility] Mer[facility] HealthAST [Catalytic activity/Vol]27 U/L10 - 50 U/LBon OhiohealthBilirubin [Mass/Vol]0.4 mg/dL0.00 - 1.20 mg/dLBon OhiohealthCalcium [Mass/Vol]9.4 mg/dL8.6 - 10.4 mg/dLBon [facility] Chloride [Moles/Vol]102 mmol/L98 - 107 mmol/LBon [facility]healthCO2 [Moles/Vol]25 mmol/L20 - 31 mmol/LBon OhiohealthCreatinine [Mass/Vol] 0.9 mg/dL0.70 - 1.20 mg/dLBon OhiohealthEst, Glom Filt Rate- PINFBon OhiohealthComment on above: These results are not intended [...] that affects renal tubular secretion. Glucose [Mass/Vol]100 mg/vHBmbd74 - 99 mg/dLBon [facility] Interpretation and review of laboratory resultsAbnormalSouthern [facility] Regional Medical Center Potassium [Moles/Vol]4.4 mmol/L3.7 - 5.3 mmol/LBon [facility]healthProtein [Mass/Vol]7.5 g/dL6.6 - 8.7 g/dLBon [facility]healthSodium [Moles/Vol]139 mmol/L136 - 145 mmol/LBon OhiohealthUrea nitrogen [Mass/Vol]25 mg/dL High6 - 20 mg/dLBon OhiohealthUrea nitrogen/Creatinine [Mass ratio]28 mg/mgHigh9 - 20Bon [facility] and SchoolPrealbuminon [id number] [Mass/Vol]18.4 mg/dLLow20.0-40.0[facility] Comment on above:Performed By: #### PALB #### [facility] [place] [address] Sed Special Education Teacher: Almas Stearns MD #### CP, CDP #### [facility] [address] [place] [address] Sed Special Education Teacher: Farida Jones MDInterpretation and review of laboratory results [facility] CenterBon SecDayton VA Medical CenterBon SecDayton VA Medical CenterOffice Visiton [id number]-up [id number] Arjun Ochoa P 1990 [facility] Provider Department Center 06/03/[address] [place] [address] No family history on file Level of Service:12074 [place] OFFICE/OUTPATIENT ESTABLISHED LOW MDM 20-29 [facility]U Quick Testingon 05-23-2023 SARS-CoV-2 (COVID-19) RNA RASHAAD+probe Ql (Unsp spec)PositiveEvansport Triplify Other COVID + FLU Quick TestingNegativeAurora Pharmaceutical Triplify Other Office Visiton [id number]-up [id number] Arjun Ochoa P 1990 [facility] Provider Department Center 04/08/[address] [place] [address] No family history on file Level of Service:18671 [place] OFFICE/OUTPATIENT ESTABLISHED MOD MDM 30-39 [facility] HospitalQuick Strepon 03-16-2023S. pyogenes Org specific cx Ql (Throat)NegativeEvansport Triplify Other Quick [place] [employer] Other COVID + FLU Quick Testingon [id number]-CoV-2 (COVID-19) RNA RASHAAD+probe Ql (Unsp spec)[place] [facility] Other COVID + FLU Quick TestingNegativeAurora Pharmaceutical Triplify Other Quick Strepon 07-29-2022S. pyogenes Org specific cx Ql (Throat)NegativeNoShanghai Shipping Freight Exchange Other Quick StrepdoubleTwist Other AMYLASEon [id number] [Catalytic activity/Vol]60 U/MPjihcy91-228Sde [place] [facility] CenterComment on above:Performed By: #### BMP, CMADM #### [facility] [address] [place] [address] Dr. Bert Mendoza AUTO DIFFon [id number] #0.0 103/ulNormal0.0-0.1The [place] [facility] Medical CenterComment on above:Performed By: #### CBC #### [facility] [address] [place] [address] Dr. Bert Mitchellsophils/100 WBC (Bld)0.3 %Normal0.2-2.0[facility] Comment on above:Performed By: #### CBC #### [facility] [address] [place] [address] Dr. Bert Mann #0.1 103/ulNormal0.0-0.7The [place] [facility] Medical CenterComment on above: Performed By: #### CBC #### [facility] [address] [place] [address] Dr. Bert Garnicaosinophils/100 WBC (Bld)0.4 %Critically low0.9-7.0[facility]stownComment on above:Performed By: #### CBC #### [facility] [address] [place] [address] Dr. Bert Garnicarythrocyte distribution width (RBC) [Ratio]12.0 %Mfvmds92.0-15.0 [facility]stownComment on above:Performed By: #### CBC #### [facility] [address] [place] [address] Dr. Bert FerraraHematocrit (Bld) [Volume fraction]48.5 %Xbbfgb66.0-54.0[facility]stownComment on above:Performed By: #### CBC #### [facility] [address] [place], [place] [address] Dr. Bert eFrraraHemoglobin (Bld) [Mass/Vol]16.9 g/sKZnghhx41.0-18.0The [place] [facility] CenterComment on above:Performed By: #### CBC #### [facility] [address] [place] [address] Dr. Bert Castillo #0.05 10e3/ulCritically high0.00-0.03The [place] [facility] Comment on above:Performed By: #### CBC #### [facility] [address] [place] [address] Dr. Bert Castillo %0.3 %Normal0.0-0.5The [place] [facility] Medical CenterComment on above: Performed By: #### CBC #### [facility] [address] [place] [address] Dr. Bert Ann #3.0 103/ulNormal1.2-3.8The [place] [facility] CenterComment on above:Performed By: #### CBC #### [place] [facility] [address] [place] [address] Dr. Bert Annhocytes/100 WBC (Bld)20.9 %Qfdnuv12.5-60.0The [place] [facility] CenterComment on above:Performed By: #### CBC #### [facility] [address] [place] [address] Dr. Bert LouiseUAL DIFF REQNONormalThe [place] [facility] Medical CenterComment on above: Performed By: #### CBC #### [facility] [address] [place] [address] Dr. Bert Humphries (RBC) [Entitic mass]28.5 juVajdkk02.9-34.0The [place] [facility] CenterComment on above:Performed By: #### CBC #### [facility] [address] [place] [address] Dr. Bert Humphries (RBC) [Mass/Vol]34.8 g/vHLeozfr50.9-35.2The [place] [facility] CenterComment on above:Performed By: #### CBC #### [place] [facility] [address] [address] [address] Bert HumphriesV (RBC) [Entitic vol]81.9 yBAuqlhz80.0-94.0The [place] [facility] CenterComment on above:Performed By: #### CBC #### [facility] [address] [address] [address] Bert Hess #1.3 103/ulCritically high0.3-0.8The [place] [facility] Comment on above:Performed By: #### CBC #### [place] [facility] [address] [place] [address] Dr. Bert Trinidadocytes/100 WBC (Bld)9.0 %Normal1.7-12.0[facility] Comment on above:Performed By: #### CBC #### [facility] [address] [place] [address] Dr. Bert Mason #10.1 103/ulCritically high1.4-6.5ThMcKitrick Hospital Comment on above:Performed By: #### CBC #### [place] [facility] [address] [place] [address] Dr. Bert Silvautrophils/100 WBC (Bld)69.1 %Wblqqf90.0-75.0The [place] [facility] CenterComment on above:Performed By: #### CBC #### [facility] [address] [place] [address] Dr. Bert Jeonglet mean volume (Bld) [Entitic vol]8.4 fLCritically low 9.5-13.5The [place] [facility] CenterComment on above:Performed By: #### CBC #### [facility] [address] [place] [address] Dr. Bert FerraraPLT249 103/poYkckta142-039Nfy [place] [facility] CenterComment on above: Performed By: #### CBC #### [place] [facility] [address] [place] [address] Dr. Bert FerraraRBC5.92 106/ulNormal4.70-6.10The [place] [facility] CenterComment on above:Performed By: #### CBC #### [place] [facility] [address] [address] [address] Bert FerraraWBC14.6 103/ulCritically high4.0-11.0The [place] [facility] CenterComment on above:Performed By: #### CBC #### [facility] [address] [place] [address] Dr. Bert FerraraCT ABD/PELVIS WO CONon 23-07-2745SB ABD/PELVIS WO CONEXAMINATION: CT ABD/PELVIS WO CON, [...] Electronically authenticated by: FARIDA SPEARS Date: 2022-06-07 18:07NormRegency Hospital Cleveland Weste [place] [facility] Medical CenterLIPASEon [id number] [Catalytic activity/Vol]97.0 U/L Hrylyx12.0-393.0The [place] [facility] CenterComment on above:Performed By: #### BMP, CMADM #### [facility] [address] [place] [address] Dr. Bert FerraraPROF 14(COMP METB)on 50-51-1383Xanvplc [Mass/Vol]3.8 g/dLNormal 3.4-5.0The [place] [facility] CenterComment on above:Performed By: #### KOBI, CMADM #### [facility] [address] [address] [address] Bert FerraraAlbumin/Globulin [Mass ratio]1.1 {ratio}NormalThe [place] [facility] Medical CenterComment on above:Performed By: #### BMP, CMADM #### [facility] [address] [address] [address] Bert Araya [Catalytic activity/Vol]96 U/AMhggga95-582Yvu [place] [facility] CenterComment on above:Performed By: #### KOBI, CMADM #### [facility] [address] [place] [address] Dr. Bert Head [Catalytic activity/Vol]29 U/DDeabez66-11Fmb [place] [facility] CenterComment on above:Performed By: #### KOBI, CMADM #### [place] [facility] [address] [address] [address] Bert Jha gap [Moles/Vol]5.6 mmol/LNormalThe [place] [facility] Medical CenterComment on above:Performed By: #### KOBI, CMADM #### [place] [facility] [address] [place] [address] Dr. Bert Colon [Catalytic activity/Vol]14 U/LCritically mhx10-37Ldv [place] [facility] CenterComment on above:Performed By: #### KOBI, CMADM #### [facility] [address] [address] [address] Bert FerraraBilirubin [Mass/Vol]0.2 mg/dLNormal0.2-1.0The [place] [facility] Comment on above:Performed By: #### KOBI, CMADM #### [facility] [address] [place] [address] Dr. Bert FerraraCalcium [Mass/Vol]8.8 mg/dLNormal8.5-10.1The [place] [facility] Comment on above:Performed By: #### KOBI, CMADM #### [facility] [address] [place] [address] Dr. Bert FerraraChloride [Moles/Vol]101 mmol/RZhwwlm66-601Osj [place] [facility] Comment on above:Performed By: #### BMP, CMADM #### [place] [facility] [address] [address] [address] Bert FerraraCO2 [Moles/Vol]32.1 mmol/LCritically high21.0-32.0The [place] [facility] CenterComment on above:Performed By: #### BMP, CMADM #### [place] [facility] [address] [address] [address] Bert FerraraCreatinine [Mass/Vol]0.90 mg/dLNormal0.70-1.30The [place] [facility] CenterComment on above:Performed By: #### KOBI, CMADM #### [place] [facility] [address] [address] [address] Noel ChangEGFR-AF SINGAPOREAN>60Normal>=60The [place] [facility] Medical CenterComment on above:Performed By: #### BMP, CMADM #### [facility] [address] [place] [address] Dr. Bert GarnicaGFR-NON AF SINGAPOREAN>60Normal>=60The [place] [facility] CenterComment on above:Performed By: #### BMP, CMADM #### [place] [facility] [address] [address] [address] Bert FerraraGlobulin (S) [Mass/Vol]3.5 g/dLNormalThe [place] [facility] CenterComment on above:Performed By: #### BMP, CMADM #### [facility] [address] [address] [address] Bert FerraraGlucose [Mass/Vol]93 mg/yTDhabdw44-524Rqa [place] [facility] Comment on above:Performed By: #### BMP, CMADM #### [facility] [address] [address] [address] Bert FerraraPotassium [Moles/Vol]3.7 mmol/LNormal3.5-5.1The [place] [facility] Comment on above:Performed By: #### BMP, CMADM #### [facility] [address] [place] [address] Dr. Bert FerraraProtein [Mass/Vol]7.3 g/dLNormal6.4-8.2The [place] [facility] Comment on above:Performed By: #### BMP, CMADM #### [facility] [address] [place] [address] Dr. Bert FerraraSodium [Moles/Vol]135 mmol/LCritically csb097-037Apg [place] [facility] CenterComment on above:Performed By: #### BMP, CMADM #### [facility] [address] [place] [address] Dr. Bert Phillips nitrogen [Mass/Vol]21.0 mg/dLCritically high7.0-18.0The [place] [facility] CenterComment on above:Performed By: #### BMP, CMADM #### [facility] [address] [place] [address] Dr. Bert Phillips nitrogen/Creatinine [Mass ratio]23.3 mg/mgNormalThe [place] [facility] CenterComment on above:Performed By: #### BMP, CMADM #### [facility] [address] [place] [address] Dr. Bert Motley LUC 3-6on [id number] [Catalytic activity/Vol]169 U/L Rcgspt79-268Gzq [place] [facility] CenterComment on above:Performed By: #### CMREP #### [facility] [address] [place] [address] Dr. Bert Duran.MB [Mass/Vol]2.28 ng/mLNormal<=3.60The [place] [facility] Comment on above:Performed By: #### CMREP #### [facility] [address] [place] [address] Dr. Bert FerraraHSTROP4.8 pg/mLNormal4.0-76.1The [place] [facility] CenterComformerly [facility] on above:Result Comment: CUT-OFF POINTS HAVE BEEN ESTABLISHED BASED ON THE FOURTH UNIVERSAL DEFINITIONS OF MYOCARDIAL INFARCTION. THE UPPER REFERENCE LIMIT (URL) OF TROPONIN, DEFINED THE 99TH PERCENTILE OF cTnI DISTRIBUTION IN A REFERENCE POPULATION, HAS BEEN CONFIRMED THE DECISION THRESHOLD FOR MD DIAGNOSIS.Performed By: #### CMREP #### [facility] [address] [address] [address] Bert Motley LUC ADMITon [id number] [Catalytic activity/Vol]181 U/L Blfbwv66-633Lls [facility] Hospitalment on above:Performed By: #### BMP, CMADM #### [facility] [address] [place] [address] Dr. Bert Duran.MB [Mass/Vol]2.61 ng/mLNormal<=3.60[facility] Comment on above:Performed By: #### BMP, CMADM #### [facility] [address] [place] [address] Dr. Bert MaierTROP4.6 pg/mLNormal4.0-76.1[facility]stownComment on above:Result Comment: CUT-OFF POINTS HAVE BEEN ESTABLISHED BASED ON THE FOURTH UNIVERSAL DEFINITIONS OF MYOCARDIAL INFARCTION. THE UPPER REFERENCE LIMIT (URL) OF TROPONIN, DEFINED THE 99TH PERCENTILE OF cTnI DISTRIBUTION IN A REFERENCE POPULATION, HAS BEEN CONFIRMED THE DECISION THRESHOLD FOR MD DIAGNOSIS.Performed By: #### BMP, CMADM #### [facility] [address] [place] [address] Dr. Bert ArciniegaO37 ng/fEZldjvo33-43Mkn [place] [facility] CenterComment on above: Performed By: #### BMP, CMADM #### [facility] [address] [place] [address] Dr. Bert Mendoza AUTO DIFFon [id number] #0.0 103/ulNormal0.0-0.1The [place] [facility] CenterComment on above:Performed By: #### CBC #### [facility] [address] [place] [address] Dr. Bert Hopephils/100 WBC (Bld)0.4 %Normal0.2-2.0[facility] Comment on above:Performed By: #### CBC #### [facility] [address] [place] [address] Dr. Bert Mann #0.2 103/ulNormal0.0-0.7The [place] [facility] CenterComment on above: Performed By: #### CBC #### [place] [facility] [address] [place] [address] Dr. Bert Garnicaosinophils/100 WBC (Bld)1.9 %Normal0.9-7.0The [place] [facility] Comment on above:Performed By: #### CBC #### [facility] [address] [place] [address] Dr. Bert Garnicarythrocyte distribution width (RBC) [Ratio]11.9 %Wwwlll42.0-15.0 The [place] [facility] Medical CenterComment on above:Performed By: #### CBC #### [facility] [address] [place] [address] Dr. Bret FerraraHematocrit (Bld) [Volume fraction]50.5 %Jmxwus70.0-54.0The [place] [facility] CenterComment on above:Performed By: #### CBC #### [facility] [address] [place] [address] Dr. Bert FerraraHemoglobin (Bld) [Mass/Vol]17.0 g/rEQgublo96.0-18.0The [place] [facility] CenterComment on above:Performed By: #### CBC #### [facility] [address] [place] [address] Dr. Bert Castillo #0.02 10e3/ulNormal0.00-0.03The [place] [facility] CenterComment on above:Performed By: #### CBC #### [place] [facility] [address] [place] [address] Dr. Bert Castillo %0.2 %Normal0.0-0.5The [facility] HospitalComment on above: Performed By: #### CBC #### [place] [facility] [address] [place] [address] Dr. Bert Rowan #2.8 103/ulNormal1.2-3.8The [place] [facility] CenterComment on above:Performed By: #### CBC #### [place] [facility] [address] [place] [address] Dr. Yilan ChangLymphocytes/100 WBC (Bld)35.0 %Kymwkf57.5-60.0The [place] Va [facility] CenterComment on above:Performed By: #### CBC #### [facility] [address] [place] [address] Dr. Bert Ogden DIFF REQNONormalThe [place] Va Medical CenterComment on above: Performed By: #### CBC #### [place] [facility] [address] [place] [address] Dr. Bert Humphries (RBC) [Entitic mass]28.4 hdNultck68.9-34.0The [place] [facility] CenterComment on above:Performed By: #### CBC #### [facility] [address] [place] [address] Dr. Bert Humphries (RBC) [Mass/Vol]33.7 g/vUScmpge12.9-35.2The [place] [facility] CenterComment on above:Performed By: #### CBC #### [facility] [address] [place] [address] Dr. Bert Humphries (RBC) [Entitic vol]84.3 mVDmiwde09.0-94.0The [place] [facility] CenterComment on above:Performed By: #### CBC #### [facility] [address] [place] [address] Dr. Bert Hess #0.9 103/ulCritically high0.3-0.8ThMcKitrick Hospital Comment on above:Performed By: #### CBC #### [place] [facility] [address] [place] [address] Dr. Bert Trinidadocytes/100 WBC (Bld)11.3 %Normal1.7-12.0[facility] Comment on above:Performed By: #### CBC #### [place] [facility] [address] [place] [address] Dr. Bert Mason #4.1 103/ulNormal1.4-6.5The [place] [facility] CenterComment on above:Performed By: #### CBC #### [place] [facility] [address] [place] [address] Dr. Yilan ChangNeutrophils/100 WBC (Bld)51.2 %Ihammu19.0-75.0The [place] [facility] CenterComment on above:Performed By: #### CBC #### [place] [facility] [address] [address] [address] Bret Jeonglet mean volume (Bld) [Entitic vol]9.3 fLCritically low 9.5-13.5The [place] [facility] CenterComment on above:Performed By: #### CBC #### [place] [facility] [address] [place] [address] Dr. Bert FerraraPLT212 103/nlOqwpoy335-274Syd [place] [facility] Medical CenterComment on above: Performed By: #### CBC #### [place] [facility] [address] [place] [address] Dr. Bert FerraraRBC5.99 106/ulNormal4.70-6.10The [place] [facility] CenterComment on above:Performed By: #### CBC #### [place] [facility] [address] [place] [address] Dr. Bert FerraraWBC8.0 103/ulNormal4.0-11.0The [place] [facility] CenterComment on above: Performed By: #### CBC #### [place] [facility] [address] [place] [address] Dr. Bert Douglas CHEM 8 (BAS METB)on 27-82-2596Pwwom gap [Moles/Vol]11.7 mmol/LNormalThe [place] [facility] Medical CenterComment on above:Performed By: #### BMP, CMADM #### [place] [facility] [address] [place] [address] Dr. Bert FerraraCalcium [Mass/Vol]9.1 mg/dLNormal8.5-10.1[facility] [place] [facility] Comment on above:Performed By: #### KOBI, CMADM #### [place] [facility] [address] [place] [address] Dr. Bert FerraraChloride [Moles/Vol]101 mmol/MQhboxo40-272Gih [place] [facility] Comment on above:Performed By: #### KOBI, CMADM #### [place] [facility] [address] [address] [address] Bert FerraraCO2 [Moles/Vol]28.9 mmol/UUrdeah64.0-32.0[facility] [place] [facility] Comment on above:Performed By: #### BMP, CMADM #### [place] [facility] [address] [address] [address] Bert FerraraCreatinine [Mass/Vol]1.06 mg/dLNormal0.70-1.30The [place] [facility] CenterComment on above:Performed By: #### BMP, CMADM #### [place] [facility] [address] [address] [address] Noel ChangEGFR-AF SINGAPOREAN>60Normal>=60The [place] [facility] Medical CenterComment on above:Performed By: #### BMP, CMADM #### [place] [facility] [address] [address] [address] Bert GarnicaGFR-NON AF SINGAPOREAN>60Normal>=60The [place] [facility] Medical CenterComment on above:Performed By: #### BMP, CMADM #### [place] [facility] [address] [address] [address] Bert FerraraGlucose [Mass/Vol]102 mg/xKArftbv54-199YpySelect Medical Specialty [facility] Comment on above:Performed By: #### BMP, CMADM #### [place] [facility] [address] [address] [address] Bert FerraraPotassium [Moles/Vol]3.6 mmol/LNormal3.5-5.1The [place] [facility] Comment on above:Performed By: #### BMP, CMADM #### [place] [facility] [address] [address] [address] Bert FerraraSodium [Moles/Vol]138 mmol/HIxnlfp178-900Pcz [facility] Comment on above:Performed By: #### BMP, CMADM #### [place] [facility] [address] [address] [address] Bert FerraraUrea nitrogen [Mass/Vol]28.0 mg/dLCritically high7.0-18.0The [place] [facility] Medical CenterComment on above:Performed By: #### BMP, CMADM #### [place] [facility] [address] [address] [address] Bert FerraraUrea nitrogen/Creatinine [Mass ratio]26.4 mg/mgNoUC West Chester HospitalComment on above:Performed By: #### KOBI, CMADM #### [place] [facility] [address] [address] [address] Bert FerraraXR CHEST 2 Von 00-69-9424EG CHEST 2 VEXAM: XR CHEST 2 V HISTORY: Palpitations COMPARISON: Chest x-ray 11/02/2021 TECHNIQUE: 2 view chest x-ray frontal and lateral FINDINGS: No lobar consolidation, large pleural effusions, pneumothorax, or acute bony abnormality. Cardiac size unremarkable. IMPRESSION: No radiographic evidence for acute chest abnormality. Electronically authenticated by: ANÍBAL CHAVEZ Date: 2022-01-21 05:48NoUC West Chester HospitalXR CHEST 2 Von 40-13-9907BM CHEST 2 VXR CHEST 2 V CLINICAL: Hemoptysis COMPARISON: No prior studies are available. TECHNIQUE: PA and lateral chest radiographs were obtained. FINDINGS: Heart size and pulmonary vasculature are within normal limits. No airspace infiltrate, consolidation, effusion or pneumothorax. Osseous structures appear intact. IMPRESSION: No acute cardiac or pulmonary findings. Electronically authenticated by: FARIDA TREVIÑO Date: 2021-11-02 10:13NoUC West Chester HospitalCULTURE THROATon [id number] THROATCulture Observations: NORMAL RESPIRATORY JASMYNE.NormalThe [place] Va Medical CenterComment on above:Performed By: #### THRTCGretta SSCRN #### [facility] [address] [address] [address] Bert FerraraSTREPT SCREENon 64-53-1460HTSUP SCREEN ANegativeNormalNEGATIVEThe [place] [facility] Medical CenterComment on above:Performed By: #### THRGURPREET SSCRN #### [place] [facility] [address] [address] [address] Bert Arreola Quick Testingon 38-53-0013SexktoNwkyumcdEowcd [employer] Other Quick Fluon 88-08-2817RRSBY Ab CF (S) [Titer]Negative [facility] [employer] Other FLUBV Ab CF (S) [Titer]NegativeNoEncompass Health Rehabilitation Hospital of [facility]ics[facility] [employer] Other Vital Signs Date TimeVital SignValuePerforming MxfjmkvyfDncrbnhs22-24-3492 10:56-0400Body tyyxpl346.72 cmHolden Lee Jr, MD Work Phone: 1()[address]11-01-2025 10:56-0400 Body mass index (BMI) [Ratio]32.8 kg/m2Holden Lee Jr, MD Work Phone: 1()[address] [place], [place] 4885611-01-2025 10:56-0400 Body cdrhqmpeotd79.8 [degF]Holden Lee Jr, MD Work Phone: 1()[address] [place], [place] 4885611-01-2025 10:56-0400 Body kyklqt88.14 kgHolden Lee Jr, MD Work Phone: 1()[address] [place], [place] 4885611-01-2025 10:56-0400 Diastolic blood ujxdmrax88 mm[Hg]Holden Lee Jr, MD Work Phone: 1()[address] [place], [place] 4885611-01-2025 10:56-0400 Heart hvca249 /Jett Lee Jr, MD Work Phone: 1()[address] [place], [place] 4885611-01-2025 10:56-0400 Respiratory rate18 /Jett Lee Jr, MD Work Phone: 1()[address] [place], [place] 4885611-01-2025 10:56-0400 SaO2% (BldA) [Mass fraction]98 %Holden Lee Jr, MD Work Phone: 1()[address] [place], [place] 4885611-01-2025 10:56-0400 Systolic blood maghcoyp650 mm[Hg]Holden Lee Jr, MD Work Phone: 1(216)[address] [place], [place] 4885609-12-2025 09:32-0400 Diastolic blood okzqxegl51 mm[Hg]Holden Lee Jr, MD Work Phone: 1(216)[address] [place], [place] 4885609-12-2025 09:32-0400 Heart rate90 /minHolden Lee Jr, MD Work Phone: 1216)[address] [place], [place] 4885609-12-2025 09:32-0400 Respiratory rate16 /minHolden Lee Jr, MD Work Phone: 1(216)[address] [place], [place] 4885609-12-2025 09:32-0400 SaO2% (BldA) [Mass fraction]98 %Holden Lee Jr, MD Work Phone: 1(216)[address] [place], [place] 4885609-12-2025 09:32-0400 Systolic blood mm[Hg]Holden Lee Jr, MD Work Phone: 1(216)[address] [place], [place] 4885609-12-2025 07:43-0400 Body xreckm912.72 cmHolden Lee Jr, MD Work Phone: 1(216)[address] [place], [place] 4885609-12-2025 07:43-0400 Body awvdpo97.25 kgHolden Lee Jr, MD Work Phone: 1(216)[address]08-22-2025 09:33-0400 Body lomwck428.7 Janae Sexton MD Work Phone: [facility] HospitalXhbmvjnwej91-21-2081 09:33-0400Body mass index (BMI) [Ratio]32.33 kg/b4WtxmuCarlo Sexton MD Work Phone: 1(039)35989[facility] HospitalXigahznbtc53-79-8709 09:33-0400Body tuzjhf22.44 kgCarlo Sexton MD Work Phone: [address] [place], [place] [address]Nstkhaydvi36-73-4092 09:33-0400Heart ctqf053 /min Carlo Sexton MD Work Phone: [facility] HospitalCqdnsitobu74-13-1514 09:33-0400Respiratory rate16 /minCarlo Sexton MD Work Phone: [facility] HospitalVetwdwmibc98-63-2821 09:33-1419XsT9% (BldA) [Mass fraction]97 %Carlo Sexton MD Work Phone: [facility] HospitalTrgbxfrffz96-79-4572 09:50-0400Body zxueho748.72 cmHolden Lee Jr, MD Work Phone: [facility]08-05-2025 09:50-0400 Body mass index (BMI) [Ratio]31.9 kg/m2Holden Lee Jr, MD Work Phone: 1(386)213-[address] [place], [place] 5856408-05-2025 09:50-0400 Body pxsdgy93.25 kgJoashly Lee Jr, MD Work Phone: 1(167)114-[address] [place], [place] 5856411-18-2023 11:55-0500 Body .72 Sina De León Other [facility] [employer] Other 11-18-2023 11:55-0500Body mass index (BMI) [Ratio] 31.74 kg/c2FyeueMaria T De León Other [employer] Other 11-18-2023 11:55-0500Body qwvfdsnozsn86.7 [degF]Maria T De León Other [employer] Other 11-18-2023 11:55-0500Body ckuerr19.71 kgMaria T De León Other [employer] Other 11-18-2023 11:55-0500Respiratory rate18 /minMaria T De León Other [employer] Other 11-18-2023 11:55-8438XdP9% (BldA) [Mass fraction]99 % Maria T De León Other [employer] Other 09-11-2023 17:10-0400Body pubvzp566.72 Tomas Alonzo Other [facility] [employer] Other 09-11-2023 17:10-0400Body mass index (BMI) [Ratio] 31.17 kg/u7DjkujuChristi Alonzo Other [employer] Other 09-11-2023 17:10-0400Body flzawldlmec51.9 [degF]Christi Alonzo Other [employer] Other 09-11-2023 17:10-0400Body hmyhdg95.99 kgChristi Alonzo Other [employer] Other 09-11-2023 17:10-0400Diastolic blood rtlpazca95 mm[Hg] Christi Alonzo Other [employer] Other 09-11-2023 17:10-0400Respiratory rate18 /minChristi Alonzo Other [employer] Other 09-11-2023 17:10-4168BgG9% (BldA) [Mass fraction]97 % Christi Alonzo Other [employer] Other 09-11-2023 17:10-0400Systolic blood kmwlrham903 mm[Hg] Christi Blackmond Other [employer] Other 01-24-2023 11:15-0500Body kekeqi731.72 cmStepgustavo Nelson Other [employer] Other 01-24-2023 11:15-0500Body mass index (BMI) [Ratio] 30.71 kg/r7AsuuvlijgDariana Nelson Other [employer] Other 01-24-2023 11:15-0500Body tzomysrdbxw11.6 [degF] Dariana Nelson Other [employer] Other 01-24-2023 11:15-0500Body onjtmw07.63 kgStepgustavo Nelson Other [employer] Other 01-24-2023 11:15-0500Respiratory rate18 /minStepgustavo Donnellyault Other [employer] Other 01-24-2023 11:15-0201FgX1% (BldA) [Mass fraction]98 % Dariana Nelson Other [employer] Other 11-30-2022 16:25-0500Body .72 cmPamela Cheri Other [employer] Other 11-30-2022 16:25-0500Body mass index (BMI) [Ratio] 30.86 kg/o1Zrrpzd Dymond Other [employer] Other 11-30-2022 16:25-0500Body bldsbfdiysm02.1 [degF]Christi Cheri Other [employer] Other 11-30-2022 16:25-0500Body lnexja66.08 kgPamelirene Alonzo Other [employer] Other 11-30-2022 16:25-0500Respiratory rate16 /minPaerina Cheri Other [employer] Other 11-30-2022 16:25-9519XpR5% (BldA) [Mass fraction]97 % Christi Blackmond Other [employer] Other 09-08-2022 16:45-0400Body byfwhh656.72 Tmoas Alonzo Other [employer] Other 09-08-2022 16:45-0400Body mass index (BMI) [Ratio] 30.41 kg/p8Kakeimryan Alonzo Other [employer] Other 09-08-2022 16:45-0400Body hrnwniwguao92.1 [degF]Christi Cheri Other [employer] Other 09-08-2022 16:45-0400Body .72 kgChristi Alonzo Other [employer] Other 09-08-2022 16:45-0400Diastolic blood pzrcwfue28 mm[Hg] Christi Cheri Other [employer] Other 09-08-2022 16:45-0400Respiratory rate16 /minChristi Alonzo Other [employer] Other 09-08-2022 16:45-8989TeV4% (BldA) [Mass fraction]98 % Christi Blackmond Other [employer] Other 09-08-2022 16:45-0400Systolic blood roznbchz258 mm[Hg] Christi Cheri Other [employer] Other 06-29-2022 16:30-0400Body uaqbsz484.72 Tomas Alonzo Other [employer] Other 06-29-2022 16:30-0400Body mass index (BMI) [Ratio] 28.89 kg/r0ZjoepqChristi Alonzo Other [employer] Other 06-29-2022 16:30-0400Body yfxmsaxivgg22 [degF]Christi Blackmond Other [employer] Other 06-29-2022 16:30-0400Body .18 kgParyan Alonzo Other [employer] Other 06-29-2022 16:30-0400Diastolic blood mm[Hg] Christi Blackmond Other [employer] Other 06-29-2022 16:30-0400Respiratory rate16 /minChristi Alonzo Other [employer] Other 06-29-2022 16:30-4417JzU9% (BldA) [Mass fraction]98 % Christi Blackmond Other [employer] Other 06-29-2022 16:30-0400Systolic blood pfokgvsj568 mm[Hg] Christi Blackmond Other [employer] Other 12-23-2021 16:00-0500Body dgxtiv335.72 cmStepgustavo Nelson Other [employer] Other 12-23-2021 16:00-0500Body mass index (BMI) [Ratio] 28.89 kg/v9IdbmspxxnDariana Nelson Other [employer] Other 12-23-2021 16:00-0500Body raxqqsfiiqm14.7 [degF] Dariana Nelson Other [facility] [employer] Other 12-23-2021 16:00-0500Body .18 kgStmiguel angel Nelson Other [facility] [employer] Other 12-23-2021 16:00-0500Respiratory rate18 /minSama Nelson Other [facility] [employer] Other 12-23-2021 16:00-9068PaK1% (BldA) [Mass fraction]95 % Dariana Nelson Other [employer] Other Encounters Encounter DateEncounter TypeCare ProviderFacilityStart: 05-16-2025 End: 41-58-4190Druhewprj encounterCarlo Sexton MD Work Phone: [facility] [place] EndocrinologyComment on above:Med Refill Start: 05-12-2025 End: 11-59-6894Xtuuhlvrr encounterCarlo Sexton MD Work Phone: n[facility] [place] EndocrinologyComment on above:Med Refill Start: 05-06-2025 End: 36-58-5401qaazmfbnlvEgqm Sanitato Jr MD Work Phone: -[facility] ClydeStart: 05-06-2025 End: 62-48-3994Pitxibh encounter procedureAlly Lerma CERTIFIED ORTHOTIC FITTER-[facility] Work Phone: Start: 04-28-2025 End: 55-96-5215Qmqochqyw encounterCarlo Sexton MD Work Phone: [facility] [place] EndocrinologyComment on above:Advice OnlyStart: 04-06-2025 End: 71-44-3475Beskjacdi encounterCarlo Sexton MD Work Phone: [facility]OM[facility] [place] EndocrinologyComment on above:Advice OnlyStart: 03-27-2025 End: 80-20-1765Sfysfd Bryan Sexton MD Work Phone: NOBU [place] EndocrinologyComment on above:Secondary male hypogonadism (Primary Dx)Start: 03-24-2025 End: 50-32-0718Ladgodkrf encounterCarlo Sexton MD Work Phone: [facility] [place] EndocrinologyComment on above:Med Refill Start: 03-22-2025 End: 69-24-0304Zchflfeko encounterCarlo Sexton MD Work Phone: [facility] [place] EndocrinologyComment on above:Med Refill Start: 03-21-2025 End: 20-69-4590Virkte Bryan Sexton MD Work Phone: [facility] [place] EndocrinologyComment on above:Secondary male hypogonadismStart: 03-20-2025 End: 47-55-2101Nncvhguri encounterCarlo Sexton MD Work Phone: [facility] [place] EndocrinologyComment on above:Med Refill Secondary male hypogonadismStart: 03-17-2025 End: 76-59-8602yzzwvycgxfNtzn RameyFacility:[facility] Start: 16-76-1521Xiy-patient / Non-visitFern James MD-[facility] Work Phone: Start: 03-15-2025 End: 93-21-6528Ptjxst Bryan Sexton MD Work Phone: [facility] [place] EndocrinologyComment on above:Secondary male hypogonadism (Primary Dx)Med RefillStart: 02-28-2025 End: 44-55-0530Qgffjt Bryan Sexton MD Work Phone: [facility] [place] EndocrinologyComment on above:Secondary male hypogonadism (Primary Dx)Start: 02-27-2025 End: 88-48-6295Vuoquwmyp encounterCarlo Sexton MD Work Phone: [facility] EndocrinologyComment on above:Medication ProblemStart: 02-24-2025 End: 57-50-4004Aykwym Dc Sexton MD Work Phone: [facility] EndocrinologyStart: 02-24-2025 End: 22-50-0178Ylyiap Dc Sexton MD Work Phone: [facility] EndocrinologyStart: 02-24-2025 End: 81-16-0430Yivvkikqv encounterCarlo Sexton MD Work Phone: n[facility] EndocrinologyComment on above:Med Refill Start: 02-24-2025 End: 58-14-9075Stnxnj outpatient new 45 minutesCarlo Sexton MD Work Phone: n[facility] [place] EndocrinologyComment on above:Secondary male hypogonadism (Primary Dx); Libido, decreasedStart: 02-24-2025 End: 97-78-8452euqvspkmllMRUGY F SABBAGHNot AvailableStart: 02-20-2025 End: 89-83-2831Uspkajklgfpi consultation with Gaston Bratxon APRN.CNP Work Phone: [facility]burneCStart: 02-20-2025 End: 09-78-3602fbzayrqgkeShyljetxKonstantin Braxton APRN.CNP Work Phone: [facility] FHCComment on above:Low testosterone (Primary Dx); ROSEMARY (obstructive sleep apnea); PolycythemiaStart: 02-07-2025 End: 15-34-2383Nrvyxbj encounter Justyna Galindo APRNShriners Hospitals For Children Work Phone: Start: 01-30-2025 End: 50-88-0550upkxvdzrzgGUOESUSAdriana Eubanks [facility] Hospitaltart: 01-30-2025 End: 40-99-2510Wkpbpoyvvi hospital visit by Jag Longoria MD Work Phone: [facility] HospitalEQUISOfin RadiologyComment on above: Esophageal stenosis; Oropharyngeal dysphagiaStart: 01-09-2025 End: 23-17-0124ozbqwwczxiQNDLGTVAdriana Singletary HospitalStart: 01-09-2025 End: 61-10-4018Gboumcmksd hospital visit by Priti Aguilar DO Work Phone: [facility] [employer] [place] LABComment on above:Oropharyngeal dysphagia; Esophageal stenosisStart: 06-23-2023 End: 32-47-2619avmkpnlcevGvicotvz McCormack Other [employer] Other Start: 03-85-7496Phfyytgls encounterMike Rogers [facility] Referral CoordinatorStart: 06-03-2023 End: 77-35-6622yaxppwdgicGKFQFirelands Regional Medical Centertart: 05-23-2023 End: 77-44-3071wplhmxaynvHasxj Keller Other [employer] Other Start: 90-12-2664Yrhhpq outpatient visit 25 minutes Maria T De LeónFPElena Urgent Care ClydeStart: 04-08-2023 End: 30-29-3403ekrltvwpltITRUFirelands Regional Medical Centertart: 03-16-2023 End: 78-33-6505uieoevbbzbEzdblp Dymond Other [employer] Other Start: 39-56-8502Tystrr outpatient visit 15 minutes Christi AlonzoFPG Urgent Care ClydeStart: 07-29-2022 End: 73-91-0956ejatrtkcfiMomiuarnb Breault Other [employer] Other Start: 50-60-8491Gvbsgl outpatient visit 15 minutes Dariana NelsonFPG Urgent Care ClydeStart: 06-07-2022 End: 00-64-3954nxkufnmdawUZ AYE HAYFacility:V1Jtkcq: 06-04-2022 End: 82-69-3052olipcngemjXwexlt Cheri Other [employer] Other Start: 28-67-2262Atajna outpatient visit 15 minutes Christi DymondFPG Urgent Care ClydeStart: 69-91-0529nyymgumnypSZ [facility] Facility:B9Wvyqw: 03-13-2022 End: 69-22-6308dsbvmvlowwWxetkx Cheri Other [employer] Other Start: 36-12-4454Hnwwhs outpatient visit 15 minutes Christi DymondFPG Urgent Care ClydeStart: 01-21-2022 End: 46-35-6327rlgnkneizjTP AYE HAYFacility:V4Voftp: 01-01-2022 End: 46-16-0074bqprlvsdltKtqawl Cheri Other [employer] Other Start: 51-56-9938Wznpdw outpatient visit 15 minutes Christijose AlonzoFPG Urgent Care ClydeStart: 11-02-2021 End: 19-82-8590ybrwazjaecGKVDST RODRIGUEZFacility:I7Johlx: 09-02-2021 End: 19-55-3771kehmjrgsjjGQ AYE HAYFacility:S6Nwjdo: 07-05-2021 End: 67-19-9182dngyvikodtVW GUSTAVO JAIMEECKFacility:I9Vcwwa: 06-29-2021 End: 92-62-7637kekpwxjwxrPRZINR BUCKFacility:O7Fvtpe: 06-27-2021 End: 55-11-3589yjizjuehfcGdsgxuzox Omar Other [employer] Other Start: 32-12-5733Dxglsi outpatient visit 15 minutes Darianagustavo NelsonFPG [facility] Enmanuel Procedures DateProcedureProcedure DetailPerforming ClinicianStart: 47-30-1462Sfhtkapllp exam esophagus single contrast studyDuke Longoria MD Work Phone: Start: 62-89-1356Lkgpywwyijvvi metabolic panelDuke Longoria MD Work Phone: Plan of Treatment DateCare ActivityDetailAuthorStart: 27-08-8971WGnU/Tdap/Td vaccine (2 - Td or Tdap)DTaP/Tdap/Td vaccine (2 - Td or Tdap)[facility] CenterStart: 47-16-4364Ojfej microalbumin profileDTaP,Tdap,Td Vaccine (4 - Td or Tdap) [facility]ertart: 05-23-2025 End: 71-55-4262Jwnawaz encounter hmyxdiyvx44/18/2025 11:20 AM EST Office [facility] [address] [place] [id number] Carlo Sexton MD [address] [place] [address] [facility] HOSPITALInge Christie EndocrinologyStart: 05-11-2025 End: 87-52-9628Jlyupvp encounter pukmooyfp64/06/2025 9:40 AM EST Office Visit [facility] [address] [place] [phone] Carlo Sexton MD [address] [place] [address] [facility]ocrinologyStart: 03-17-2025 End: 04-05-1217RklsknmazLake County Memorial Hospital - Westtart: 02-17-2841CLCSA-19 Vaccine ( season)COVID-19 Vaccine ( season)[facility] Start: 96-91-4036Rlnnigjnf vaccinationInfluenza Vaccine (#1)[facility] Start: 02-24-2025 End: 40-80-2377Eaanmejnyk [Mass/volume] in BloodHemoglobin Lab Routine Secondary male hypogonadism Expected: 02/24/2025 (Approximate), Expires: 02/24/2026NONV HealthcareComment on above:Expected: 02/24/2025 (Approximate), Expires: 02/24/2026Start: 02-24-2025 End: 85-71-3287Dhcvxayt specific Ag [Mass/volume] in Serum or PlasmaPSA Lab Routine Secondary male hypogonadism Expected: 02/24/2025 (Approximate), Expires: 02/24/2026[facility] Work Phone: Comment on above:Expected: 02/24/2025 (Approximate), Expires: 02/24/2026Start: 02-24-2025 End: 29-65-9762Qxmximcuuvdx [Mass/volume] in Serum or PlasmaTestosterone Lab Routine Secondary male hypogonadism Expected: 02/24/2025 (Approximate), Expires: 02/24/2026NONV HealthcareComment on above:Expected: 02/24/2025 (Approximate), Expires: 02/24/2026Start: 02-24-2025 End: 34-36-0614Rookicv encounter nmdybdzqu01/22/2025 9:30 AM EDT Office Visit [facility] [address] [place] [phone] Carlo Sexton MD [address] [place] [address] ArrivedKATRIN Christie EndocrinologyComment on above:ArrivedStart: 02-20-2025 End: 08-78-9774FJYUKRYWXIVG TESTOSTERONE, ADULT MALEBIOAVAILABLE TESTOSTERONE, ADULT MALE Lab Routine Low testosterone Expected: 02/20/2025, Expires: [facility] Work Phone: Comment on above:Expected: 02/20/2025, Expires: 02/20/2026Start: 02-20-2025 End: 41-84-8808Qygggmnst (E2) [Mass/volume] in Serum or PlasmaESTRADIOL-17B BLD Lab Routine Low testosterone Expected: 02/20/2025, Expires: 02/20/2026leveland ClinicComment on above:Expected: 02/20/2025, Expires: 02/20/2026Start: 02-20-2025 End: 25-12-2846Ifpijzbpjv [Volume Fraction] of BloodHEMATOCRIT Lab Routine Low testosterone Expected: 02/20/2025, Expires: 05/22/2025leveland ClinicComment on above:Expected: 02/20/2025, Expires: 05/22/2025Start: 02-20-2025 End: 98-09-3642Mkhwtscj [Units/volume] in Serum or PlasmaLUTEINIZING HORMONE Lab Routine Low testosterone Expected: 02/20/2025, Expires: 02/20/2026leveland ClinicComment on above:Expected: 02/20/2025, Expires: 02/20/2026Start: 02-20-2025 End: 39-39-7071Crxfdzwpg [Mass/volume] in Serum or PlasmaPROLACTIN Lab Routine Low testosterone Expected: 02/20/2025, Expires: 02/20/2026[facility] Comment on above:Expected: 02/20/2025, Expires: 02/20/2026Start: 02-17-2025 Subsequent hospital visit by wajbvvsey58/15/2025 Hospital Encounter [facility] [address] [place] [address] Duke Longoria MD [address] [place] [address] [facility] ORStart: 94-83-4355Uqwepewox vaccinationFlu vaccine (#1)Bon [facility]healthStart: 43-14-2171TCKQB-19 Vaccine ( season)COVID-19 Vaccine ( season)Bon [facility] Companyart: 29-31-9408Mefah panelLipid ScreeningHouston ClinicStart: 10-36-0502QHK Vaccine (1 - 3-dose SCDM series) HPV Vaccine (1 - 3-dose SCDM series)[facility]: 69-16-4080Ixepxktqm B vaccine (1 of 3 - 19+ 3-dose series)Hepatitis B vaccine (1 of 3 - 19+ 3-dose series)[facility]: 40-32-3126Verzhgt ScreeningAnxiety ScreeningCincinnati VA Medical Centertart: 19-20-5587Bwnjoxlufv ScreeningDepression ScreeningCincinnati VA Medical Centertart: 85-79-1279Ewqdaelgh C screeningBon [facility]: 07-75-0086OKP screeningHIV ScreeningCincinnati VA Medical Centertart: 29-58-7610CBU screeningHIV screenBon [facility]: 2001 Varicella vaccine (1 of 2 - 13+ 2-dose series)Varicella vaccine (1 of 2 - 13+ 2- dose series)[facility]: 42-88-8255Xspyinktkh ScreenDepression ScreenBon [facility] Clinicophagogastroduodenoscopy transoral diagnostic ESOPHAGOGASTRODUODENOSCOPY [facility] SystemPatient EducationEsophageal Dilation Know your [facility] Work Phone: Immunizations Immunization DateImmunizationNotesCare UmidsvtrDdrkocuf39-31-2119bkakawlop virus vaccine, unspecified formulationReema Braxton APRN.CNP Work Phone: [facility] Payers DatePayer CategoryPayerPolicy ID2025MedicaidANTHEM BCBS MEDICAID OF [place] [id number] Health Insurance [facility] [id number] of Defense ( and others)[id number] [id number] [id number] [id number] 2.840.1.603229.3.57[id number] 2.840.1.760303.3.57[id number] 2.840.1.851339.3.57[id number] 2.16840.1.567311.3.57[id number] 2.840.1.167855.3.57[id number] 2.16840.1.581877.3.57[id number] 2.840.1.514128.3.57[id number] 2.16840.1.828454.3.57[id number] 2.0.1.822394.3.57[id number] 2.16.840.1.231941.3.579.2.012337-51-2551Pnfc-[id number] 2.[id number] [id number] 2.160.1.307733.3.579.2.531 Social History DateTypeDetailFacilityStart: 01-09-2025 End: 36-30-2977Wcp Assigned At [facility] Other Start: 01-09-2025 End: 53-42-0409Mcngegi smoking status NHISNever smoked tobaccoPhoenix Indian Medical Center [facility] Work Phone: Start: 60-34-1177Wdlgkwe use and exposureFormer smokeless tobacco userPhoenix Indian Medical Center [facility]ost End: 25-11-8154Niaubyi of tobacco useUser of smokeless tobaccoPhoenix Indian Medical Center [facility] HealthStart: 11-24-6330Cyawdmrca beverage intakeEx-drinker (finding)[facility] HealthStart: 01-09-2025 End: 86-40-6104Vlppgly of Social functionBon [facility] Medical CenterGnodal HealthStart: 86-80-8831Abg assigned at birthMaleB [facility] HealthStart: 99-44-7454Gkx Male (finding)Bon JoostTobacco smoking status NHISTobacco smoking consumption unknownNOMS HealthcareStart: 03-30-2024 End: 39-48-9069Tiyfyezx Score (1-100), lower number is lower cjaj55Aeykfegcq ClinicStart: 73-69-3663Cdg assigned at birthNot on fileHouston ClinicStart: 79-34-2830Vgowjbp smoking status NHISEx-smokerNOMS HealthcareHistory of tobacco useCurrent smokerNONV HealthcareHistory of tobacco useCigarette SmokerST. MARK'S HOSPITAL HealthcareStart: 29-74-6602Eypkdyo use and exposureSmokeless tobacco non-user [facility] HealthcareStart: 85-62-3646Vyzgzcmwu beverage intakeLifetime non-drinker (finding)[facility] Clinical Notes 06-27-2021 to 05-16-2025 Note Date & DobpJvxqSwaaitci62-53-3356 Telephone encounter Note* Telephone Encounter - Sander Dipak - 05/16/2025 8:53 AM EST Please send cypionate 'resusable' vials to [facility]. He states these exist? Thank you! [facility] HospitalTmzappszph45-07-7021 Miscellaneous Notes* Telephone Encounter - Sander Quesada - 05/16/2025 8:53 AM EST Please send cypionate 'resusable' vials to [facility]. He states these exist? Thank you! documented in this encounterBarnes-Jewish Saint Peters HospitalZmqvrtrpcv90-99-0148 Telephone encounter Note* Telephone Encounter - Sander Quesada - 05/12/2025 8:58 AM EST Please send new weekly script for testosterone to [facility] please and thank you. Please put Overnight in the comments. Thank you! [facility] HospitalDgebkmrhlg39-07-7855 Miscellaneous Notes* Telephone Encounter - Sander Quesada - 05/12/2025 8:58 AM EST Please send new weekly script for testosterone to [facility] please and thank you. Please put Overnight in the comments. Thank you! documented in this encounterBarnes-Jewish Saint Peters HospitalUgvedwtbcq70-72-5288 Telephone encounter Note* Telephone Encounter - Sander Quesada - 04/28/2025 9:13 AM EDT Pt having a lot of anxiety since starting .5 each week. Would like to lower dosage slightly to try to combat the anxiety. Is this advisable? Thank you! [facility] HospitalKcxhowjtgi44-04-3410 Miscellaneous Notes* Telephone Encounter - Sander Quesada - 04/28/2025 9:13 AM EDT Pt having a lot of anxiety since starting .5 each week. Would like to lower dosage slightly to try to combat the anxiety. Is this advisable? Thank you! documented in this encounterBarnes-Jewish Saint Peters HospitalVgobjvuqmy65-70-5167 Telephone encounter Note* Telephone Encounter - Sander Quesada - 04/06/2025 8:50 AM EDT Pt is having emotional response to injections and is wondering if the waning of the shot is causinghim to feel blah and emotional. He's wondering if there is a way to take shots every week, Please advise. [place] [address]Dwsybgxmfy81-46-7849 Miscellaneous Notes* Telephone Encounter - Sander Quesada - 04/06/2025 8:50 AM EDT Pt is having emotional response to injections and is wondering if the waning of the shot is causinghim to feel blah and emotional. He's wondering if there is a way to take shots every week, Please advise. documented in this encounterBarnes-Jewish Saint Peters HospitalIczhntucru85-93-9952 Telephone encounter Note* Telephone Encounter - Sander Quesada - 03/24/2025 8:16 AM EDT [facility] xyosted, please send testosterone cypionate to [facility] with OVERNIGHT in thecomment box please. Thank you! [facility] HospitalLskzgricxf44-03-2667 Miscellaneous Notes* Telephone Encounter - Sander Casharthy - 03/24/2025 8:16 AM EDT [facility]ost[facility], please send testosterone cypionate to [facility] with OVERNIGHT in thecomment box please. Thank you! documented in this encounterBarnes-Jewish Saint Peters HospitalOgmpgzgnpg89-66-3156 Telephone encounter Note* Telephone Encounter - Sander Dipak - 03/22/2025 1:21 PM EDT please fax xyosted to number listed, andrey called [facility] and they gave him this completely different number than yesterday. [facility] Thank [facility]! In notes put overnight so they overnight it to him instead of taking weeks. Thank you!! [facility] HospitalOonqqncyrf68-69-3704 Miscellaneous Notes* Telephone Encounter - Sander Dipak - 03/22/2025 1:21 PM EDT please fax xyosted to number listed, andrey called [facility] and they gave him this completely different number than yesterday. [facility] Thank [facility]! In notes put overnight so they overnight it to him instead of taking weeks. Thank you!! documented in this [facility]09-15-2025 Telephone encounter Note* Telephone Encounter - Sanderirene Quesada - 03/20/2025 11:48 AM EDT Please send xyosted to [facility] does not take his insurance. Thank you! [facility] HospitalZicbkuiizt50-53-3556 Miscellaneous Notes* Telephone Encounter - Sander Quesada - 03/20/2025 11:48 AM EDT Please send xyosted to [facility], [facility]ae does not take his insurance. Thank you! documented in this [facility]09-10-2025 Telephone encounter Note* Telephone Encounter - Sander Dipak - 03/15/2025 9:59 AM EDT Patient doesn't like testosterone gel, would like to change to xyosted - to jae please and thank you! [address]Xnyleozivk14-85-3194 Miscellaneous Notes* Telephone Encounter - Sander Quesada - 03/15/2025 9:59 AM EDT Patient doesn't like testosterone gel, would like to change to xyosted - to jae please and thank you! documented in this [facility]08-26-2025 Telephone encounter Note* Telephone Encounter - Karina Art LPN - 02/28/2025 10:00 AM EDT PHARMACY CALLED WHAT YOU CHOSE IS NOT A COMMON FORMULA AND IS PACKETS NOT PUMP. BUT THERE IS A DIFFERENT FORMULA THAT IS MORE COMMON THAT IS PUMP FORM. THEY NEED CLARIFICATION ON WHICH PRODUCT AND WHICH DIRECTIONS. PLEASE ADVISE THANKS [facility] HospitalKlqdrujcyc30-00-8730 Miscellaneous Notes* Telephone Encounter - Karina Art [...] directions on the bottle. documented in this encounterBarnes-Jewish Saint Peters HospitalKrcpyvyhkw58-37-1793 Telephone encounter Note* Telephone Encounter - Sander Quesada - 02/27/2025 1:53 PM EDT [facility] called [facility] gel [facility]. Can you call [facility] and see what they need corrected please? Thank you! Andrey called back and said that the Rx is different from the directions on the bottle. [facility] HospitalOmiacgcbjq05-15-0866 Telephone encounter Note* Telephone Encounter - Sander uQesada - 02/24/2025 10:39 AM EDT [facility] please and thank you! [place] [address]Ydhrvtjylb46-17-4885 Miscellaneous Notes* Telephone Encounter - Sander Quesada - 02/24/2025 10:39 AM EDT [facility] please and thank you! documented in this encounterBarnes-Jewish Saint Peters HospitalEawzifdcex27-79-5208 History of Present illness Narrative* Carlo Sexton MD - 02/24/2025 9:30 AM EDT Arjun Ochoa is a 34 y.o. 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 SOCIAL HISTORY He does not smoke. Results [...] Posttraumatic stress disorder: - Following up with [facility] for management of PTSD. Follow-up: Laboratory tests to be conducted before the next visit. Follow-up: No follow-ups on file. documented in this encounterBarnes-Jewish Saint Peters HospitalBsaabptswq84-74-4997 NoteHNO ID: [id number] Author: REEMA BRAXTON APRN.CALIBRATION TESTER Service: ? Author Type: Nurse Practitioner Type: Progress Notes Filed: 02/28/2025 17:46 Note Text: This is a Virtual Visit. It required ykjaobp-wu-wofjhvfh interaction with medical decision making as documented below. I have communicated my name and active licensure. The patient's identity and physical location were verified at the time of this visit. Either the patient or their legal sales representative facility services has been informed of the risks and benefits of -- and alternatives to -- treatment through a remote evaluation and consents to proceed with the evaluation remotely. Arjun Ochoa Referred by: SELF 02/20/2025 CC: low testosterone HPI: 34 year old, male presents for evaluation of low testosterone. Never previously seen at [facility] urology. Pt gets [facility] at [facility] and I am unable to [facility] the records. [facility] T, [...] ICD10: R79.89 (primary diagnosis) -followed at the [facility]. Pt reports his labs were completed. -this [...] which included preparing to see the patient, scpg-ts-nzfz patient care, completing clinical documentation, obtaining and/or reviewing separately obtained history, counseling and educating the patient/family/caregiver, and ordering medications, tests, or procedures. Reema Braxton APRN.CALIBRATION TESTER [1][facility]08-18-2025 History of Present illness Narrative* Reema Braxton APRN.LYDIA - 02/20/2025 12:58 PM EDT This is a Virtual Visit. It required eplkgpg-nh-gmlvzcuy interaction with medical decision making as documented below. I have communicated my name and active licensure. The patient's identity and physical location were verified at the time of this visit. Either the patient or their legal sales representative facility services has been informed of the risks and benefits of -- and alternatives to -- treatment through a remote evaluation and consents to proceed with the evaluation remotely. Arjun Ochoa Referred by: SELF 02/20/2025 CC: low testosterone HPI: 34 year old, male presents for evaluation of low testosterone. Never previously seen at [facility] urology. Pt gets [facility] care at [facility] and I am unable to view the records. [facility] low T, [...] ICD10: R79.89 (primary diagnosis) -followed at the [facility]. Pt reports his labs were completed. - [...] which included preparing to see the patient, wogg-rw-gpft patient care, completing clinical documentation, obtaining and/or reviewing separately obtained history, counseling and educating the patient/family/caregiver, and ordering medications, tests, or procedures. Reema Braxton APRN.CALIBRATION TESTER [1] documented in this encounterUniversity Hospitals Parma [facility]08-05-2025 Evaluation note* Diagnosis Onset Date Resolution Status Admit Date Dysphagia acuteAugust 2024 9:48amGERD (gastroesophageal reflux disease)acuteAugust 2024 9:48amOdynophagiaacuteAugust 2024 9:48am [facility] Work Phone: [phone]) 353-388808-05-2025 Evaluation note* Diagnosis Onset Date Resolution Status Admit Date Dysphagia acuteAugust 2024 9:48amGERD (gastroesophageal reflux disease)acuteAugust 2024 9:48amOdynophagiaacuteAugust 2024 9:48amSore, mouth, cankeracute May 06, 2025 10:54am [facility] Work Phone: 1(326) 863-928911-29-2023 [facility] Cardiology Clinic Note Chief Complaint: Patient here [...] nutritional input with his family physician and/or 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 Chel Krishnamurthy MD, MPH, [facility], [facility], [facility] Interventional Cardiology Pager Email: [email or web address]11-18-2023 Evaluation note* Encounter Date Diagnosis Assessment Notes [...] treatment plan. Patient left in stable condition [facility] Other 10-04-2023 [facility] [...] following testing Chel Krishnamurthy MD, MPH, FACC, [facility], [facility] Interventional Cardiology Page (more content not included)...[facility]09-11-2023 Evaluation note* Encounter Date Diagnosis Assessment [...] J30.9)Allergic rhinitis home care material was printed [facility] Other 01-24-2023 Evaluation note* Encounter Date Diagnosis [...] go away Jul,Sore throat (ICD-10 - J02.9) [facility] Other 11-30-2022 Evaluation note* Encounter Date Diagnosis [...] no improvement in 2 to 3 days. 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 Take the clindamycin as prescribed until gone. Dentist soon as possible. Take Tylenol or Motrin as needed for aches pains or fevers. Rinse your mouth frequently with warm salt water. [facility] Other 12-23-2021 Evaluation note* Encounter Date Diagnosis [...] Patient care instructions given in writting by [facility] Care At Home document. [facility] Other Evaluation noteNo InformationNort [facility] Other Evaluation note* Diagnosis Oropharyngeal dysphagia Dysphagia, oropharyngeal phase Esophageal stenosis Stricture and stenosis of esophagus documented [facility] this encounter [facility] Diagnosis Esophageal stenosis Stricture and stenosis of esophagus Oropharyngeal dysphagia Dysphagia, oropharyngeal phase Dysphagia- Primary Dysphagia, unspecified documented in this encounter [facility]* Diagnosis Low testosterone- Primary Other testicular hypofunction ROSEMARY (obstructive sleep apnea) Obstructive sleep apnea (adult) (pediatric) Polycythemia Polycythemia vera documented in this encounter [facility]* Diagnosis 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 HealthcareHistory general Narrative - Reported* Type Description Date Medical History back pain Surgical HistoryappendectomySurgical HistorytonsillecFDTEKmy [facility] Other Hiswkgl general Narrative - Reported* Type Description Date Medical History back pain Medical HistoryADHDSurgical HistoryappendectomySurgical Historytonsillectomy [facility]ist Other Hisbavw general Narrative - Reported* Type Description Date Medical History back pain Medical HistoryADHDMedical HistoryGERDSurgical HistoryappendectomySurgical Historytonsillectomy [facility]ist Other Hospital Discharge instructions Additional Instructions DISCHARGE [...] - Do NOT operate machinery such as power tools, lawn mowers, snow blowers, sewing machines, etc. for 24 [...] problems. -Follow up in office -Office number [phone]. [facility] Work Phone: reason for referral (narrative)No reason for referral information availableGood Samaritan Hospital Work Phone: reason for visit Narrative* Imaging (Routine) - Open SpecialtyDiagnoses / ProceduresReferred By ContactReferred To ContactRadiology Diagnoses Esophageal stenosis Oropharyngeal dysphagia Procedures [place] ESOPHAGRAM Duke Longoria MD [address] [place] [address] [address] [place] [address] Phone: tel: fax: Referral IDStatusReasonStart DateExpiration DateVisits RequestedVisits [id number]/17/ [facility] Summary Purpose Family History Relationship Condition Age [...] ContactReferred To ContactEndocrinology Diagnoses Testicular hypofunction Procedures [place] OFFICE/OUTPATIENT NEW MODERATE MDM 45 MINUTES Zach Aguilar MD [address] [address] [address] Phone: tel: fax: Carlo Sexton MD [address] [place] [address] Phone: tel: fax: Referral IDStatusReasonStart DateExpiration DateVisits RequestedVisits [id number] Review/[id number] DateCommentsMed Bzzqaw5602/24/2025ReasonOnset DateCommentsMedication Zfrfsup3202/27/2025ReasonOnset DateCommentsMed Mgtszt84/10/2025ReasonOnset DateCommentsMed Rvoaty7903/20/2025 ReasonCommentsMed Change RequestReasonOnset DateCommentsMed Ikykyg7403/22/2025 ReasonOnset DateCommentsMed Xyqxui2403/24/2025ReasonOnset DateCommentsAdvice Only 04/06/2025ReasonOnset DateCommentsAdvice Only04/28/2025ReasonOnset DateComments Med Yaeupt6805/12/2025ReasonOnset DateCommentsMed Fzuwtn6005/16/2025 (unrecognized sect ion and content) No Status Records FoundNo Status Records FoundNo Status Records FoundNo Status Records FoundNo Status Records FoundNo Status Records Found INFORMATION SOURCE (unrecogn ized section and content) DATE CREATED AUTHOR 06/09/2022 [facility] DATE CREATED AUTHOR AUTHOR'S ORGANIZ ATION 06/05/2023 [facility] DATE CREATED AUTHOR AUTHOR'S ORGANIZ ATION 02/02/2025 [facility] DATE CREATED AUTHOR AUTHOR'S ORGANIZ ATION 02/26/2025 [facility] DATE CREATED AUTHOR AUTHOR'S ORGANIZ ATION 03/02/2025 [facility] DATE CREATED AUTHOR AUTHOR'S ORGANIZ ATION 04/19/2025 [facility] Care Teams (unrecognized sec tion and content) Team MemberRelationshipSpecialtyStart DateEnd Date Zach Aguilar DO [address] [place] [address] PCP - General01/09/25Team MemberRelationshipSpecialtyStart DateEnd Date Zach Aguilar DO [address] [place] [address] PCP - General01/09/25Team MemberRelationshipSpecialtyStart DateEnd Date Jesica Atkinson NP [address] [address] PCP - NOMInge Hobbs [facility]10/05/23Team MemberRelationshipSpecialtyStart DateEnd Date Jesica Atkinson, HOT BLAST WORKER [address] [place] [address] PCP - NOMS Faby [facility]10/05/23Team MemberRelationshipSpecialtyStart DateEnd Date Jesica Atkinson, HOT BLAST WORKER [address] [place] [address] PCP - [facility] Faby [facility]10/05/23Team MemberRelationshipSpecialtyStart DateEnd Date Jesica Atkinson, HOT BLAST WORKER [address] [place] [address] PCP - [facility]OMS Faby [facility]10/05/23Team MemberRelationshipSpecialtyStart DateEnd Date Jesica Atkinson, HOT BLAST WORKER [address] [place] [address] PCP - NOMS Faby [facility]10/05/23Team MemberRelationshipSpecialtyStart DateEnd Date Jesica Atkinson, HOT BLAST WORKER [address] [place] [address] PCP - NOMS Faby [facility]10/05/23Team MemberRelationshipSpecialtyStart DateEnd Date Jesica Atkinson, HOT BLAST WORKER [address] [place] [address] PCP - [facility]OMS Faby [facility]10/05/23 Team Status: Active Member Role Status [...] Provider Active Sta rt: March 17, 2025 David Kothariending ProviderActiveStart: March 17, 2025 Jeniffer Kothari ProviderActiveStart: March 17, 2025 Team MemberRelationshipSpecialtyStart DateEnd Date Jesica Atkinson, HOT BLAST WORKER [address] [place] [address] PCP - [facility] [place] [facility]10/05/23Team MemberRelationshipSpecialtyStart DateEnd Date Jesica Atkinson, HOT BLAST WORKER [address] [place] [address] PCP - [facility] [place] [facility]10/05/23Team MemberRelationshipSpecialtyStart DateEnd Date Jesica Atkinson, HOT BLAST WORKER [address] [place] [address] PCP - [facility] [place] [facility]10/05/23 Team Status: Active Member Role/Relationship Status [...] Provider Active Sta rt: March 17, 2025 David Kothariending ProviderActiveStart: March 17, 2025 Fern James MDOther ProviderActiveStart: March 17, 2025 Team Status: Inactive Member Role/Relationship Status Dates Holden Aguilar DO Primary Care Provider Active Sta rt: May 06, 2025 End: May 06shekhar Schulz APRNAtkentrell ProviderActiveStart: May 06, 2025 End: May 06, 2025Team MemberRelationshipSpecialtyStart DateEnd Date Jesica Atkinson, HOT BLAST WORKER [address] [facility] [address] [place] [address] [facility] - [facility]10/05/23Team MemberRelationshipSpecialtyStart DateEnd Date [place] Jesica Lerma NP [address] [facility] [address] [place] [address] PCP - [facility]10/05/23 Source Comments (unrecognize d section and content) In the event this informatio n is protected by the Federal Confidentiality of Alcohol and Drug Abuse Patient Records regulations: The Federal rules restrict any use of the information to criminally investigate or prosecute any alcohol or drug abuse patient.[facility] Goals (unrecognized section and content) Goals may [...] BE BASED ON THE PRIMARY CLINICAL RECORDS. [facility]. provides no warranty or guarantee of the accuracy or completeness of information in this document.
[2025-05-26 12:32] LABS: Prostate Specific Antigen Dx 0.62 ng/mL (<=4.00)
[2025-05-26 13:03] LABS: Hematocrit 46.7 % (42.0-54.0); Hemoglobin 14.5 g/dL (14.0-18.0)
== END 2025-05-26 11:03 | disposition home or self-care (01) ==
LOC: LAB 11:02
PROVIDERS: Visit Provider Internal Medicine
DX: R79.89 Other specified abnormal findings of blood chemistry (principal); E29.1 Testicular hypofunction
CPT/HCPCS: 36415; 84153; 84403; 85014; 85018